=== PATIENT | female | born 1940 | race Caucasian/White ===

== ENCOUNTER → 2017-05-18 09:46 | Outpatient (CLI) | payer MEDICARE, OTHER, SELFPAY ==
[2016-11-25 09:39] VITALS: BMI 35.8
--- NOTE | 2017-05-18 09:55 | CDU_ITS ---
Reason For Study: carotid bruit Rt. Velocities/BP Lt. Velocities/BP Prox CCA 97.3/9.38 cm/sec. Prox CCA 176.0/20.6 cm/sec. Mid CCA 110.0/9.97 cm/sec. Mid CCA 105.0/9.38 cm/sec. Dist CCA 114.0/12.6 cm/sec. Dist CCA 155.0/14.9 cm/sec. Prox ICA 93.8/12.3 cm/sec. Prox ICA 108.0/17.3 cm/sec. Mid ICA 169.0/16.7 cm/sec. Mid ICA 101.0/14.9 cm/sec. Dist ICA 116.0/14.1 cm/sec. Dist ICA 95.9/16.5 cm/sec. Rt. ICA/CCA = 169.0/110.0=1.5. Lt. ICA/CCA = 108/105=1.0. Prox ECA 200.0/0.0 cm/sec. Prox ECA 244.0/11.8 cm/sec. Rt. Vert. 47.5/5.89 cm/sec. Lt. Vert. 75.0/12.3 cm/sec. Right Extracranial There is intimal thickening but no significant atherosclerotic plaque noted in the right common carotid artery. There is heterogeneous, smooth atherosclerotic plaque noted in the right internal carotid artery. There is heterogeneous, smooth atherosclerotic plaque noted in the right external carotid artery. Antegrade flow is noted in the right vertebral artery. Left Extracranial There is homogeneous, smooth atherosclerotic plaque noted in the left common carotid artery. There is no significant atherosclerotic plaque noted in the left internal carotid artery. There is homogeneous, smooth atherosclerotic plaque noted in the left external carotid artery. Antegrade flow is noted in the left vertebral artery. Procedure Carotid Duplex 01995. The exam was diagnostic. Exam performed in department. Interpretation Summary Moderate (50-69%) stenosis right extracranial internal carotid. Mild (<50%) stenosis left extracranial internal carotid. Flow within the vertebral arteries is antegrade bilaterally. Ordering Physician: Jason Begum Referring Physician: Harman Huston Performed By: Rdaha Monterroso, SUNIL, RVT
== END ==
PROVIDERS: Family Provider Family Medicine; PCP Family Medicine; Visit Provider Surgery Vascular Surgery
DX: I70.213 Atherosclerosis of native arteries of extremities with intermittent claudication, bilateral legs (principal); I10 Essential (primary) hypertension; E11.69 Type 2 diabetes mellitus with other specified complication; E78.70 Disorder of bile acid and cholesterol metabolism, unspecified; E07.9 Disorder of thyroid, unspecified; R09.89 Other specified symptoms and signs involving the circulatory and respiratory systems; Z87.19 Personal history of other diseases of the digestive system; Z85.828 Personal history of other malignant neoplasm of skin
CPT/HCPCS: 93880

== ENCOUNTER → 2017-07-07 13:09 | Outpatient (CLI) | payer MEDICARE, OTHER, SELFPAY ==
[2016-11-25 09:39] VITALS: BMI 35.8
--- NOTE | 2017-07-07 14:17 | PFTCOMP ---
COMPLETE PULMONARY FUNCTION TEST INTERPRETATION Brief HPI: Patient is a 76 year old female, currently under the care of myself, who presents to [facility] for complete pulmonary function tests secondary to diagnosis of pulmonary hypertension. Respiratory therapist reports good effort and reproducible results. Interpretation: Forced expiration spirometry shows no large airways obstructive ventilatory defect with an FEV1 of 91% predicted. There is no significant bronchodilator response by ATS criteria. Spirograms are of good quality and plateau slowly, indicating slowly emptying areas of the lungs. The respiratory flow volume loop shows a normal pattern. Lung volumes by body plethysmography show a normal total lung capacity at 5.13 L, 99% predicted. All other lung volumes are within normal limits. Diffusion capacity by carbon monoxide is decreased at 47% predicted. The airway resistance is normal. Compared to previous pulmonary function tests from 06/28/2016, there has been no significant change. Impression: Isolated defect in diffusion capacity consistent with patient's diagnosis of pulmonary hypertension. There is been no significant change compared to previous testing 1 year ago.
--- NOTE | 2017-07-07 14:22 | PFTCOMP_ITS ---
COMPLETE PULMONARY FUNCTION TEST INTERPRETATION Brief HPI: Patient is a 76 year old female, currently under the care of myself, who presents to [facility] for complete pulmonary function tests secondary to diagnosis of pulmonary hypertension. Respiratory therapist reports good effort and reproducible results. Interpretation: Forced expiration spirometry shows no large airways obstructive ventilatory defect with an FEV1 of 91% predicted. There is no significant bronchodilator response by ATS criteria. Spirograms are of good quality and plateau slowly, indicating slowly emptying areas of the lungs. The respiratory flow volume loop shows a normal pattern. Lung volumes by body plethysmography show a normal total lung capacity at 5.13 L , 99% predicted. All other lung volumes are within normal limits. Diffusion capacity by carbon monoxide is decreased at 47% predicted. The airway resistance is normal. Compared to previous pulmonary function tests from 06/28/2016, there has been no significant change. Impression: Isolated defect in diffusion capacity consistent with patient's diagnosis of pulmonary hypertension. There is been no significant change compared to previous testing 1 year ago.
== END ==
PROVIDERS: Family Provider Family Medicine; PCP Family Medicine; Visit Provider Nurse Practitioner Acute Care
DX: J44.9 Chronic obstructive pulmonary disease, unspecified (principal); G47.33 Obstructive sleep apnea (adult) (pediatric); I27.20 Pulmonary hypertension, unspecified
CPT/HCPCS: 94060; 94726; 94729

== ENCOUNTER → 2017-07-26 11:05 | Outpatient (CLI) | payer MEDICARE, OTHER, SELFPAY ==
[2016-11-25 09:39] VITALS: BMI 35.8
[2017-07-26 11:43] VITALS: PULSE 76; PULSE 80; PULSE 84; PULSE 92; PULSE 94; PULSE 95; O2SAT 90; O2SAT 91; O2SAT 92; O2SAT 93; O2SAT 94
--- NOTE | 2017-07-28 08:19 | PCM.PSN.6M ---
PSN 6 Minute Walk Test - 6 Minute Walk Test 6 Minute Walk Test: 6 Minute Walk Test PSN:6-Minute Walk Test Start: 07/26/17 11:43 Freq: Status: Active Protocol: [id number].6MINW Document 07/26/17 11:43 [facility] (Rec: 07/26/17 11:46 [facility] [id number]) 6 Minute Walk Test Date Performed 07/26/17 Time Performed 11:30 Height 5 ft 6 in Weight: 204 lb Weight in Pounds 204.[address]: Jesusita Nino Assistive device used: Walker Pre-test Oxygen Delivery Method Room Air Pulse Ox (%) 93 Pulse Rate (60-100 beats/min) 76 Dyspnea Hermilo Scale (0-10) 0 1st minute Oxygen Delivery Method Room Air Pulse Ox (%) 94 Pulse Rate (60-100 beats/min) 84 Dyspnea Hermilo Scale (0-10) 0 2nd minute Oxygen Delivery Method Room Air Pulse Ox (%) 92 Pulse Rate (60-100 beats/min) 92 Dyspnea Hermilo Scale (0-10) 1 3rd minute Oxygen Delivery Method Room Air Pulse Ox (%) 93 Pulse Rate (60-100 beats/min) 95 Dyspnea Hermilo Scale (0-10) 1 4th minute Oxygen Delivery Method Room Air Pulse Ox (%) 90 Pulse Rate (60-100 beats/min) 94 Dyspnea Hermilo Scale (0-10) 1 5th minute Oxygen Delivery Method Room Air Pulse Ox (%) 91 Pulse Rate (60-100 beats/min) 94 Dyspnea Hermilo Scale (0-10) 1 6th minute Oxygen Delivery Method Room Air Pulse Ox (%) 92 Pulse Rate (60-100 beats/min) 94 Dyspnea Hermilo Scale (0-10) 1 Post-test Oxygen Delivery Method Room Air Pulse Ox (%) 94 Pulse Rate (60-100 beats/min) 80 Dyspnea Hermilo Scale (0-10) 0 Full Laps Walked 12 Partial Lap, Number of Tiles Walked 24 Total Distance Walked (ft) 732 - Interpretation Interpretation: The patient ambulated 732 feet over the course of 6 minutes beginning on room air with use of a walker. Pretesting oxygen saturation on room air was noted to be 93%. With ambulation, the kerry oxygen saturation was 90%. Although there was evidence of impaired walk distance, there was no significant exertional oxygen desaturation. - Recommendations Recommendations: There is no indication for the use of supplemental oxygen at this time.
== END ==
PROVIDERS: Family Provider Family Medicine; PCP Family Medicine; Visit Provider Nurse Practitioner Acute Care
DX: J44.9 Chronic obstructive pulmonary disease, unspecified (principal); G47.33 Obstructive sleep apnea (adult) (pediatric); I27.20 Pulmonary hypertension, unspecified
CPT/HCPCS: 94618

== ENCOUNTER → 2017-08-12 10:57 | Outpatient (CLI) | payer MEDICARE, OTHER, SELFPAY ==
[2016-11-25 09:39] VITALS: BMI 35.8
--- NOTE | 2017-08-12 11:00 | AAVD_ITS ---
Reason For Study: Aortic atherosclerosis Aorta Measurements Aorta Doppler Measurements Proximal aorta measures.9 x 1.0cm. in cross- Peak systolic flow velocities within the proximal sectional axis. aorta measure 147.0 cm/sec. Proximal aorta measures1.1cm. in longitudinal Peak systolic flow velocities within the mid axis. aorta measure 220.0 cm/sec. Mid aorta measures1.4 x 1.3cm. in cross-sectionalPeak systolic flow velocities within the distal axis. aorta measure 114.0 cm/sec. Mid aorta measures1.2cm. in longitudinal axis. Distal aorta measures1.2 x 1.2cm. in cross- sectional axis. Distal aorta measures1.1cm. in longitudinal axis. Left Iliac Artery Left iliac artery measures .71 cm. in the longitudinal axis. Left iliac artery measures .70 x .72 cm. in the cross-sectional axis. Peak systolic velocity in the left iliac artery measures 332.0 cm/sec. Right Iliac Artery Right iliac artery measures .94 cm. in the longitudinal axis. Right iliac artery measures .96 x .88 cm. in the cross-sectional axis. Peak systolic velocity in the right iliac artery measures 241.0 cm/sec. Procedure Aorta IVC Iliac vasculature or bypass grafts 60433. Technically difficult due to body habitus and bowel gas. Exam performed in department. Interpretation Summary 1. No aortoiliac aneurysm 2. over 50 % stenosis bialteral DARREN arteries. Ordering Physician: Jason Begum Referring Physician: Harman Huston Performed By: Paulina Hyatt RVT
--- NOTE | 2017-08-17 11:24 | LEAS ---
Arterial Study - Arterial Study Arterial Study: Date of scan 08/12/[address] Begum History: Patient with unknown claudication Interpretation: Right lower extremity with duplex showing biphasic flow noted at the ankle both vessels with an LING 0.6 through the posterior tibial 0.6 for the dorsalis pedis. Digital brachial index 0.48 Left lower extremity again showing duplex with biphasic flow both vessels at the ankle with an LING 0.69 of both the posterior tibial and dorsalis pedis with the digit brachial index 0.51 Impression: 1. Right lower extremity moderate arterial occlusive disease with an LING 0.64. 2. Left lower extremity with moderate arterial occlusive disease with an LING 0.69. 3. bilateral evidence of mild small vessel disease with the digit brachial index 0.480.51
== END ==
PROVIDERS: Family Provider Family Medicine; PCP Family Medicine; Visit Provider Surgery Vascular Surgery
DX: I70.0 Atherosclerosis of aorta (principal); I77.1 Stricture of artery; I70.213 Atherosclerosis of native arteries of extremities with intermittent claudication, bilateral legs
CPT/HCPCS: 93922; 93978

== ENCOUNTER → 2017-09-08 12:02 | Outpatient (CLI) | payer MEDICARE, OTHER, SELFPAY ==
[2016-11-25 09:39] VITALS: BMI 35.8
[2017-09-08 16:31] LABS: Free T3 3.1 pg/mL (2.18-3.98); Thyroid Stim Hormone (TSH) 0.09 uIU/mL (0.358-3.74)
[2017-09-09 10:02] LABS: T3 Total - Triiodothyronine 1.09 ng/mL (0.6-1.81)
== END ==
PROVIDERS: Family Provider Family Medicine; PCP Family Medicine; Visit Provider Family Medicine
DX: E03.9 Hypothyroidism, unspecified (principal)
CPT/HCPCS: 36415; 84439; 84443; 84480; 84481

== ENCOUNTER → 2017-10-05 17:43 | Outpatient (CLI) | payer MEDICARE, OTHER, SELFPAY ==
[2016-11-25 09:39] VITALS: BMI 35.8
--- NOTE | 2017-10-05 17:48 | MRI_ITS ---
STUDY: MRI BRAIN WITH AND WITHOUT CONTRAST REASON FOR EXAM: Female, 76 years old. Left eye pain, ptosis and diplopia. TECHNIQUE: Standardized multiplanar fat and water weighted pulse sequences were obtained. 10 ml of Gadavist contrast material was administered intravenously for the contrast portion of the examination. COMPARISON: None. FINDINGS: There is mild cerebral atrophy with widening of the extra-axial spaces and ventricular dilatation. There are a limited number of small white matter hyperintensities, distributed throughout the deep white matter tracts of the cerebral hemispheres, consistent with mild chronic white matter ischemic changes. There is no evidence for recent intracranial ischemia or other cause of cytotoxic edema on diffusion weighted imaging (DWI). Normal bilateral basal ganglia. Normal thalami. There is no extra-axial fluid accumulation. Normal flow voids within the major intracranial circulation suggesting patency by spin echo criteria. Normal venous enhancement. There is no enhancing intra-axial or extra-axial abnormality. Normal sella turcica, pituitary gland, infundibular stalk, optic chiasm and hypothalamus. Normal tectal plate and pineal gland. Normal midbrain, humza and medulla. Normal cerebellum. Normal basal cisterns. Normal bilateral temporal bones. Normal bilateral internal auditory canals. No demonstrated orbital abnormality, within the constraints of a routine brain study. Right maxillary sinus mucosal thickening is present. Normal calvarium and skull base. Normal visualized soft tissue structures. Normal visualized upper cervical spine. MRI/Brain W/WO Contrast IMPRESSION: 1. No evidence of acute intracranial bleed, mass or ischemia. 2. No evidence of left intraconal mass or abnormal enhancement. 3. Right maxillary sinus mucosal thickening and mild paranasal sinus disease. Electronically Signed: Lalo Taylor DO at 23:32 EDT , Service support ,
[2017-10-05 18:56] LABS: CREATININE FINGERSTICK 0.8 mg/dL (0.55-1.02); EGFR FINGERSTICK > 60.0000 mL/min (>60)
== END ==
PROVIDERS: Family Provider Family Medicine; PCP Family Medicine; Visit Provider Ophthalmology
DX: H57.12 Ocular pain, left eye (principal); H53.2 Diplopia
CPT/HCPCS: 70553; A9585

== ENCOUNTER → 2017-10-19 08:30 | Day surgery (SDC) | payer MEDICARE, OTHER, SELFPAY ==
[2016-11-25 09:39] VITALS: BMI 35.8
[2017-10-18 09:22] VITALS: BMI 32.9
[2017-10-19 08:57] LABS: Hematocrit 36.1 % (37-47); Hemoglobin 11.8 g/dl (12.0-15.0); Mean Corp Hgb Conc 32.7 g/gl (32-36); Mean Corpuscular Hgb 32.1 pg (27.0-32.0); Mean Corpuscular Volume 98.1 fL (81-99); Mean Platelet Vol. 9.2 fl (6.2-12.0); Platelet Count 278 K/mm3 (150-450); RBC Distribution Width CV 13.9 % (11.6-14.6); RBC Distribution Width SD 49.5 fl (35.1-43.9); Red Blood Count 3.68 M/mm3 (4.2-5.4); White Blood Count 4.7 K/mm3 (4.4-11.0)
[2017-10-19 08:58] LABS: Scan Indicated on CBC? Y/N NO
[2017-10-19 09:06] LABS: Albumin, Serum 3.6 g/dL (3.2-5.0); BUN 30 mg/dL (7-18); Calcium,Total 9.4 mg/dL (8.5-10.1); Chloride 100 mmol/L (98-107); EST Glomerular Filtration Rate 46 mL/min (>60); Est Glom Filt Rate - Afr Amer 56 mL/min (>60); Estimated Creatinine Clearance 36.75 ml/min; Glucose 290 mg/dL (74-106); Phosphorus 3.6 mg/dL (2.5-4.9); Potassium 4.4 mmol/L (3.5-5.1); Sodium Level 135 mmol/L (136-145)
--- NOTE | 2017-10-19 11:59 | OP.PCM_ITS ---
Problem List (1) Peripheral vascular disease Status: Acute Report of Operation Date of Procedure: 10/19/17 Pre-Operative Diagnosis: Peripheral arterial disease peripheral arterial disease Post-Operative Diagnosis: The same Surgery/Procedure Performed:: 1. Ultrasound-guided access retrograde left brachial artery. 2. Aortogram with bilateral iliofemoral angiogram. 3. Balloon angioplasty of the aorta with a 10 mm balloon through the old stent. 4. Balloon angioplasty the right common iliac with a 7 mm drug-coated balloon and an 8 mm balloon. 5. Balloon angioplasty of the left common femoral to the SFA with a 5 mm balloon Type of Anesthesia:: Sedation,Conscious Description of Procedure: Patient brought to the operating room. Underwent the appropriate timeout consent. Underwent sedation. Prepped and draped in a sterile fashion. We did ultrasound-guided access retrograde left brachial artery. I will get a Glidewire down put in a 6 Occitan sheath and gave 5000 units of heparin. We got the Glidewire down to the aorta switched out to a long stiff wire brought in a long 6 Occitan sheath. We did an aortogram with bilateral iliofemoral imaging. Look like may be some mild/moderate stenosis in the mid stent and also moderate severe stenosis right proximal common iliac artery. We then looked further down with the sheath into the left showing moderate severe stenosis at the distal common femoral artery into the SFA. We got the Glidewire through here balloon through the common femoral to the SFA with a 5 x 80 balloon for over 3 minutes. Completion appear to be improved with better flow. We did oblique imaging of the left iliac and it appeared fairly stable with no significant stenosis. We then got the Glidewire down into the right side and balloon in the proximal right common iliac with a 7 mm drug-coated balloon. We then post balloon this with an 8 mm balloon for over 2 minutes. Completion was improved and appear to be better flow through this area. We then image down the right leg showing common femoral profunda widely patent with a large fundal. SFA was patent but appeared distally some disease and slow flow going which may have a distal SFA to popliteal occlusive disease. We did not image through here. We then pulled the sheath back and then ballooned in that aortic stent with a 10 mm balloon index look like it expanded some better and ruptured the balloon so we pulled that out did not reimage again I did not re-balloon it appeared adequate flow. Removed out the sheath put a shorter sheath. We gave 30 of protamine. We then after the appropriate time removed the sheath held pressure with good hemostasis she was brought to recovery stable condition. Sedation: This 77-year-old female underwent conscious sedation given by Dr. Jason Begum. She tolerated this well. She was monitored with EKG pulse ox and blood pressure throughout the case. See the EMR for the more permanent record she was given fentanyl and Versed. She was monitored for the 30 minutes of the case.
== END ==
PROVIDERS: Family Provider Family Medicine; PCP Family Medicine; Visit Provider Surgery Vascular Surgery
DX: I70.213 Atherosclerosis of native arteries of extremities with intermittent claudication, bilateral legs (principal); R09.89 Other specified symptoms and signs involving the circulatory and respiratory systems; E11.59 Type 2 diabetes mellitus with other circulatory complications; E78.70 Disorder of bile acid and cholesterol metabolism, unspecified; I10 Essential (primary) hypertension; K21.9 Gastro-esophageal reflux disease without esophagitis; E07.9 Disorder of thyroid, unspecified; Z85.828 Personal history of other malignant neoplasm of skin; Z79.82 Long term (current) use of aspirin; Z79.4 Long term (current) use of insulin; Z79.84 Long term (current) use of oral hypoglycemic drugs; Z79.899 Other long term (current) drug therapy; Z87.891 Personal history of nicotine dependence
CPT/HCPCS: 36200; 36245; 36246; 36415; 37220; 37224; 37246; 75625; 75716; 76937; 80069; 85027; 99152; 99153; C2623; J7040; Q9967; C1725; C1769; C1894

== ENCOUNTER → 2017-11-25 11:15 | Outpatient (CLI) | payer MEDICARE, OTHER, SELFPAY ==
[2016-11-25 09:39] VITALS: BMI 35.8
[2017-11-25 12:19] LABS: Absolute Lymphocyte Count 2.12 X10^3/ul (0.83-4.51); Absolute Neutrophil Count 3.3 X10^3/uL (2.0-7.7); Basophil# 0.02 X10^3/uL; Basophil% 0.3 % (0-1); Eosinophil# 0.38 X10^3/uL; Eosinophils% 5.9 % (0-5); Hematocrit 33.8 % (37-47); Lymphocyte # 2.12 X10^3/ul (4.0); Lymphocyte % 32.8 % (19-41); Mean Corp Hgb Conc 32.5 g/gl (32-36); Mean Corpuscular Hgb 32.1 pg (27.0-32.0); Mean Corpuscular Volume 98.5 fL (81-99); Mean Platelet Vol. 9.9 fl (6.2-12.0); Monocyte# 0.61 X10^3/uL; Monocyte% 9.4 % (0-10); Neutrophil # 3.32 X10^3/uL (2.7-7.7); Neutrophil % 51.3 % (47-70); POSITIVE COUNT NO; POSITIVE DIFFERENTIAL NO; POSITIVE MORPHOLOGY NO; Platelet Count 301 K/mm3 (150-450); RBC Distribution Width CV 13.4 % (11.6-14.6); Red Blood Count 3.43 M/mm3 (4.2-5.4); White Blood Count 6.5 K/mm3 (4.4-11.0)
[2017-11-25 12:29] LABS: Hemoglobin A1c 10.3 % (4.2-6.3)
[2017-11-25 12:56] LABS: T4 Free Direct 1.27 ng/dL (0.76-1.46); Thyroid Stim Hormone (TSH) 0.83 uIU/mL (0.358-3.74)
== END ==
PROVIDERS: Family Provider Family Medicine; PCP Family Medicine; Visit Provider Family Medicine
DX: E03.9 Hypothyroidism, unspecified (principal); E11.40 Type 2 diabetes mellitus with diabetic neuropathy, unspecified; E11.65 Type 2 diabetes mellitus with hyperglycemia; D63.8 Anemia in other chronic diseases classified elsewhere; E78.5 Hyperlipidemia, unspecified
CPT/HCPCS: 36415; 83036; 84439; 84443; 85025

== ENCOUNTER → 2018-01-19 10:41 | Outpatient (CLI) | payer MEDICARE, OTHER, SELFPAY ==
[2016-11-25 09:39] VITALS: BMI 35.8
--- NOTE | 2018-01-19 10:48 | BD_ITS ---
STUDY: DUAL ENERGY X-RAY ABSORPTIOMETRY / DXA REASON FOR EXAM: Female, 77 years old. The patient is postmenopausal. Loss of height. TECHNIQUE: Bone Mineral Density (BMD) measurements of lumbar spine and bilateral hips were obtained. COMPARISON: None. FINDINGS: Lumbar Spine (L1-L4): g/cm2 (1.103) / T-score (-0.5) / Z-score (1.3) Findings are suggestive of normal bone density with a low fracture risk. Left Femur Total: g/cm2 (1.169) / T-score (1.3) / Z-score (3.1) Left Femoral Neck: g/cm2 (1.115) / T-score (0.6) / Z-score (2.6) Right Femur Total: g/cm2 (1.082) / T-score (0.6) / Z-score (2.4) Right Femoral Neck: g/cm2 (1.043) / T-score (0.0) / Z-score (2.1) BD/Dexa Bone Density Study IMPRESSION: The patient is considered normal as outlined below according to World João Organization (WHO) criteria with a low fracture risk. Reference Information: The T-score is the number of standard deviations above or below the standard which is normal for young adults at their peak bone mineral density. The World Health Organization (WHO) interprets the T-scores as follows: Above -1 Normal bone density Between -1 and -2.5 Osteopenia Equal to / or below -2.5 Osteoporosis As a practical clinical guideline, osteopenia may be graded as follows: Mild -1 through -1.5 Moderate -1.6 through -2.0 Severe -2.1 through -2.4 The Z-score is the number of standard deviations above or below age-matched controls. A Z-score of less than -1.5 would be considered abnormal. References: 1. NIH Osteoporosis and Related Bone Diseases http://www.osteo.org 2. International Society for Clinical Densitometry http://www.iscd.org 3. National Osteoporosis Foundation http://www.nof.org Electronically Signed: Bautista Pratt MD at 15:47 EDT Tel [phone], Service support ,
== END ==
PROVIDERS: Family Provider Family Medicine; PCP Family Medicine; Visit Provider Family Medicine
DX: Z13.820 Encounter for screening for osteoporosis (principal); Z78.0 Asymptomatic menopausal state
CPT/HCPCS: 77080

== ENCOUNTER → 2018-02-21 13:57 | Outpatient (CLI) | payer MEDICARE, OTHER, SELFPAY ==
[2016-11-25 09:39] VITALS: BMI 35.8
[2018-02-08 12:53] VITALS: BMI 34.8
--- NOTE | 2018-02-21 13:58 | ECHOCS_ITS ---
Reason For Study: DYSPNEA Procedure This was a 2D Doppler, Color Flow transthoracic echocardiogram. The study was technically difficult. Contrast injection was performed. Exam performed in department. Left Ventricle Normal LV size. Left ventricular systolic function is normal. The estimated ejection fraction is 65 %. There is evidence of diastolic dysfunction. No regional wall motion abnormalities noted. Right Ventricle Normal RV size. Normal systolic function. Atria The left atrium is mildly enlarged. Normal right atrium. No doppler evidence for ASD. Mitral Valve There is moderate to severe mitral annular calcification. Extension of the mitral annular calcification onto the posterior mitrral valve leaflet. Mild (1+) mitral valve insufficiency. Tricuspid Valve Normal tricuspid valve. Trivial tricuspid valve insufficiency. Right ventricular systolic pressure estimated to be 41 mmHg. Aortic Valve Trisinus/trileaflet aortic valve. Normal aortic valve. Pulmonic Valve The pulmonic valve is not well visualized. Great Vessels Normal sized aortic root. Pericardium/Pleural No pericardial effusion. Medication 22 gauge I.V. with prn adaptor inserted into right arm. Diluted definity 3ml given slow IV push to enhance endocardial definition. MMode/2D Measurements & Calculations LVIDd: 4.8 cm IVSd: 1.3 cm Ao root diam: 3.3 cm LVIDs: 3.0 cm LVPWd: 1.5 cm RVDd: 4.0 cm FS: 37.8 % LAV(MOD-bp): 72.4 ml LVAd ap4: 32.4 cm2 SV(MOD-sp4): 72.7 ml LAV(MOD-bp) Indexed: 36.0 ml/m2 EDV(MOD-sp4): 110.0 ml LAV(MOD-sp2): 74.5 ml EDV(sp4-el): 112.9 ml LAV(MOD-sp4): 62.1 ml LVAs ap4: 16.7 cm2 ESV(MOD-sp4): 37.3 ml ESV(sp4-el): 38.8 ml EF(MOD-sp4): 66.1 % EF(sp4-el): 65.6 % SV(sp4-el): 74.1 ml LA A4 area: 19.4 cm2 LA dimension(2D): 4.8 cm RA A4 area: 13.5 cm2 Time Measurements MV dec time: 0.32 sec Doppler Measurements & Calculations MV E max cali: 134.2 cm/sec Lat Peak E' Cali: 4.7 cm/sec Med Peak E' Cali: 4.3 cm/sec MV A max cali: 144.8 cm/sec E/E' lat: 28.5 E/E' med: 31.0 MV E/A: 0.93 Ao V2 max: 178.9 cm/sec LV V1 max: 116.3 cm/sec PA V2 max: 122.9 cm/sec Ao max P.8 mmHg LV V1 max P.4 mmHg Ao V2 mean: 125.6 cm/sec LV V1 mean P.1 mmHg Ao mean P.9 mmHg LV V1 mean: 84.3 cm/sec Ao V2 VTI: 39.6 cm LV V1 VTI: 27.2 cm TR max cali: 306.6 cm/sec TR max P.7 mmHg Interpretation Summary The study was technically difficult. Contrast injection was performed. Left ventricular systolic function is normal. The estimated ejection fraction is 65 %. The left atrium is mildly enlarged. There is moderate to severe mitral annular calcification. Extension of the mitral annular calcification onto the posterior mitrral valve leaflet. Mild (1+) mitral valve insufficiency. Trivial tricuspid valve insufficiency. Right ventricular systolic pressure estimated to be 41 mmHg. There is evidence of diastolic dysfunction. Ordering Physician: Ivan Dial Referring Physician: SHIV ANTON Performed By: Elvia Olivares, SUNIL, RVT
== END ==
PROVIDERS: Family Provider Family Medicine; PCP Family Medicine; Referring Provider Internal Medicine Critical Care Medicine; Visit Provider Internal Medicine Critical Care Medicine
DX: I35.0 Nonrheumatic aortic (valve) stenosis (principal); I21.4 Non-ST elevation (NSTEMI) myocardial infarction; I51.9 Heart disease, unspecified
CPT/HCPCS: 93306; Q9957; A4216; C8929

== ENCOUNTER → 2018-03-02 14:02 | Outpatient (CLI) | payer MEDICARE, OTHER, SELFPAY ==
[2016-11-25 09:39] VITALS: BMI 35.8
[2018-03-02 12:54] VITALS: BMI 32.8
[2018-03-02 14:44] LABS: Rheumatoid Factor < 10.0 IU/mL (<15)
[2018-03-07 03:25] LABS: Cytoplasmic Ab (C-ANCA) <1:20 titer (Neg:<1:20)
[2018-03-07 10:45] LABS: CCP IgG Antibodies 20 units (0-19); Perinuclear Ab (P-ANCA) <1:20 titer (Neg:<1:20)
[2018-03-07 10:56] LABS: ANTINUCLEAR ANTIBODIES DIRECT Negative (Negative)
--- OUTSIDE RECORDS SUMMARY | 2018-04-18 11:03 | XMS RPT_ITS ---
:1940 Author Organization [place] Support Name Relationship Address Phone CHRISTOPHER GUZMAN Unavailable [address] + [place] [address] R Unavailable Unavailable Unavailable THOMAS, CHRISTOPHER Unavailable [address] + [place] [address] R Unavailable Unavailable Unavailable THOMAS, CHRISTOPHER Unavailable [address] + [place] [address] R Unavailable Unavailable Unavailable THOMAS, CHRISTOPHER Unavailable [address] + [place] [address] R Unavailable Unavailable Unavailable THOMAS, CHRISSIE Unavailable [address] + [place] [address] NOT GIVEN Unavailable Unavailable Unavailable THOMAS, CHRISTOPHER Unavailable [address] + [place] [address] R Unavailable Unavailable Unavailable THOMAS, CHRISTOPHER Unavailable [address] + [place] [address] R Unavailable Unavailable Unavailable THOMAS, CHRISSIE Unavailable [address] + [place] [address] NOT GIVEN Unavailable Unavailable Unavailable THOMAS, CHRISTOPHER Unavailable [address] + [place] [address] R Unavailable Unavailable Unavailable THOMAS, CHRISTOPHER Unavailable [address] + [place] [address] R Unavailable Unavailable Unavailable THOMAS, CHRISTOPHER Unavailable [address] + [place] [address] R Unavailable Unavailable Unavailable THOMAS, CHRISTOPHER Unavailable [address] + [place] [address] R Unavailable Unavailable Unavailable THOMAS, CHRISTOPHER Unavailable [address] + [facility] [place] [address] R Unavailable Unavailable Unavailable THOMAS, CHRISTOPHER Unavailable [address] + [place] [address] R Unavailable Unavailable Unavailable THOMAS, CHRISSIE Unavailable [address] + [place] [address] R Unavailable Unavailable Unavailable THOMAS, CHRISSIE Unavailable [address] + [place] [address] R Unavailable Unavailable Unavailable THOMAS, CHRISSIE Unavailable Unavailable + NOT GIVEN Unavailable Unavailable Unavailable THOMAS, CHRISSIE Unavailable [address] + [place] [address] R Unavailable Unavailable Unavailable THOMAS, CHRISSIE Unavailable [address] + [place] [address] R Unavailable Unavailable Unavailable THOMAS, CHRISSIE Unavailable Unavailable + NOT GIVEN Unavailable Unavailable Unavailable THOMAS, CHRISSIE Unavailable [address] + [place] [address] R Unavailable Unavailable Unavailable THOMAS, CHRISSIE Unavailable [address] + [place] [address] R Unavailable Unavailable Unavailable THOMAS, CHRISSIE Unavailable Unavailable + NOT GIVEN Unavailable Unavailable Unavailable THOMAS, CHRISSIE Unavailable [address] + [place] [address] R Unavailable Unavailable Unavailable THOMAS, CHRISSIE Unavailable [address] + [place] [address] R Unavailable Unavailable Unavailable THOMAS, CHRISSIE Unavailable [address] + [place] [address] R Unavailable Unavailable Unavailable THOMAS, CHRISSIE Unavailable [address] + [place] [address] R Unavailable Unavailable Unavailable THOMAS, CHRISSIE Unavailable [address] + [place] [address] R Unavailable Unavailable Unavailable THOMAS, CHRISSIE Unavailable [address] + [place] [address] R Unavailable Unavailable Unavailable THOMAS, CHRISSIE Unavailable [address] + [place] [address] R Unavailable Unavailable Unavailable THOMAS, CHRISSIE Unavailable [address] + [place] [address] R Unavailable Unavailable Unavailable THOMAS, CHRISSIE Unavailable [address] + [place] [address] R Unavailable Unavailable Unavailable THOMAS, CHRISSIE Unavailable [address] + [place] [address] R Unavailable Unavailable Unavailable THOMAS, CHRISSIE Unavailable [address] + [place] [address] R Unavailable Unavailable Unavailable THOMAS, CHRISSIE Unavailable Unavailable + NOT GIVEN Unavailable Unavailable Unavailable THOMAS, CHRISSIE Unavailable [address] + [place] [address] R Unavailable Unavailable Unavailable THOMAS, CHRISSIE Unavailable [address] + [place] [address] R Unavailable Unavailable Unavailable THOMAS, CHRISSIE Unavailable [address] + [place] [address] R Unavailable Unavailable Unavailable Care Team Providers Name Role Phone Jesusita Nino Attending Unavailable Sloane, Shiv Referring Unavailable Jesusita Nino Attending Unavailable Jesusita Nino Referring Unavailable Sloane, Shiv Primary Care Unavailable Jason Begum Attending Unavailable Jason Begum Referring Unavailable Sloane, Shiv Primary Care Unavailable Yogi Vasquez Attending Unavailable Cora Caban Referring Unavailable Tammy Campbell Attending Unavailable Cruz Mead NP-C Attending Unavailable Sloane, Shiv Referring Unavailable BegumJason Attending Unavailable Sloane, Shiv Primary Care Unavailable Jesusita Nino Attending Unavailable Jesusita Nino Referring Unavailable Sloane, Shiv Primary Care Unavailable Jesusita Nino Attending Unavailable Jesusita Nino Referring Unavailable Sloane, Shiv Primary Care Unavailable Cruz Mead LITIGATION ATTORNEY-C Attending Unavailable Sloane, Shiv Referring Unavailable Marylu Gomez Attending Unavailable Brenda Griffin Attending Unavailable Cora Caban Attending Unavailable Sloane, Shiv Referring Unavailable Ivan Dial Attending Unavailable Roof, Bernardino H Attending Unavailable Sloane, Shiv Referring Unavailable Roof, Bernardino H Attending Unavailable Roof, Bernardino H Referring Unavailable Sloane, Shiv Primary Care Unavailable Sloane, Shiv Primary Care Unavailable Sementi, Berkley Admitting Unavailable Kittoe, Roman Attending Unavailable Sementi, Berkley Admitting Unavailable Sementi, Berkley Attending Unavailable Sloane, Shiv Primary Care Unavailable Sementi, Berkley Consulting Unavailable Sementi, Berkley Admitting Unavailable Kittoe, Roman Attending Unavailable Sloane, Shiv Primary Care Unavailable Kittoe, Roman Consulting Unavailable Sementi, Berkley Admitting Unavailable Kittoe, Roman Attending Unavailable Sloane, Shiv Primary Care Unavailable Kittoe, Roman Consulting Unavailable Agapito Magaña D.O. Attending Unavailable Jesusita Nino Referring Unavailable Trung, Jesusita Attending Unavailable Sloane, Shiv Referring Unavailable Jason Begum Attending Unavailable Jason Begum Referring Unavailable Sloane, Shiv Primary Care Unavailable Cruz Mead LITIGATION ATTORNEY-C Attending Unavailable SloaneShiv Referring Unavailable SloaneShiv Attending Unavailable Sloane, Shiv Primary Care Unavailable Hema Antunez Attending Unavailable Cherelle Antunezon Referring Unavailable Sloane, Shiv Primary Care Unavailable Jason Begum Attending Unavailable Jason Begum Referring Unavailable Sloane, Shiv Primary Care Unavailable SloaneShiv Attending Unavailable Sloane, Shiv Primary Care Unavailable SloaneShiv Attending Unavailable Sloane, Shiv Primary Care Unavailable Ivan Dial Attending Unavailable Shiv Anton Referring Unavailable JayroIvan ruiz Attending Unavailable Ivan Dial Referring Unavailable Sloane, Shiv Primary Care Unavailable Manuel Ferraro Attending Unavailable JayroIvan ruiz Referring Unavailable Sloane, Shiv Primary Care Unavailable Ivan Dial Consulting Unavailable CHHAYA ACOSTA Referring Unavailable BUCJOSR RUIZ E (MILITARY PERSONNEL SPECIALIST) Referring Unavailable MANFREDCHHAYA Admitting Unavailable MANFREDCHHAYA Attending Unavailable MANFRED, CHHAYA Referring Unavailable SLOANE, SHIV A Referring Unavailable SLOANE, SHIV A Admitting Unavailable SLOANESHIV YU A Attending Unavailable SHIV ANTON A Primary Care Unavailable SHIV ANTON Consulting Unavailable CRUZ MEAD Referring Unavailable PROVIDER, UNKNOWN Consulting Unavailable CRUZ MEAD Admitting Unavailable CRUZ MEAD Attending Unavailable CRUZ MEAD Primary Care Unavailable SLOANE, SHIV A Consulting Unavailable PROVIDER, UNKNOWN Consulting Unavailable KONG, JENNIFER PAC Admitting Unavailable KONG, JENNIFER PAC Attending Unavailable KONG, JENNIFER PAC Primary Care Unavailable SLOANE, SHIV A Consulting Unavailable PROVIDER, UNKNOWN Consulting Unavailable HORN, CHEYENNE DPM Admitting Unavailable HORN, CHEYENNE DPM Attending Unavailable HORN, CHEYENNE DPM Primary Care Unavailable SLOANE, SHIV A Consulting Unavailable PROVIDER, UNKNOWN Consulting Unavailable CHULA MOORE Admitting Unavailable OSCAR, CHULA Attending Unavailable OSCAR, CHULA Primary Care Unavailable SLOANE, SHIV A Consulting Unavailable PROVIDER, UNKNOWN Consulting Unavailable SLOANE, SHIV A Admitting Unavailable SLOANE, SHIV A Attending Unavailable SLOANE, SHIV A Primary Care Unavailable SLOANE, SHIV A Consulting Unavailable PROVIDER, UNKNOWN Consulting Unavailable MANFRED, CHHAYA Admitting Unavailable MANFRED, CHHAYA Attending Unavailable MANFRED, CHHAYA Referring Unavailable IMCA Primary Care Unavailable MANFRED, CHHAYA Attending Unavailable IMCA Referring Unavailable MANFRED, CHHAYA Attending Unavailable IMCA Referring Unavailable MANFRED, CHHAYA Referring Unavailable IMCA Primary Care Unavailable DARCIE PATEL Referring Unavailable IMCA Primary Care Unavailable PROBLEMS PROBLEMS DATE TYPE CONDITION / CODE ATTENDING STATUS SOURCE 04/04/2018 Unknown R06.09 - Other forms Bernardino Perez Active [facility] of dyspnea / Community R06.09(ICD-10) Hospital Repository 04/04/2018 Unknown I25.10 - ChrisBernardino Active [facility] Atherosclerotic Community heart disease of [facility] [place] coronary Repository artery without angina pectoris / I25.10(ICD-10) 04/04/2018 Unknown Z95.5 - Presence of ChrisBernardino Active [facility] coronary angioplasty Community implant and graft / Hospital Z95.5(ICD-10) Repository 04/04/2018 Unknown I10 - Essential Bernardino Perez Active [facility] (primary) Community hypertension / Hospital I10(ICD-10) Repository 03/08/2018 Unknown R06.00 - Dyspnea, Nino, Active [facility] unspecified / Jesus[facility] Community R06.00(ICD-10) Hospital Repository 02/21/2018 Unknown I21.4 - Non-ST [place], Active [facility] elevation (NSTEMI) [facility] infarction / Repository I21.4(ICD-10) 02/21/2018 Unknown I35.0 - Nonrheumatic [place], Active [facility] aortic (valve) [facility] stenosis / Hospital I35.0(ICD-10) Repository 02/21/2018 Unknown I51.9 - Heart [place], Active [facility] disease, unspecified [facility] / I51.9(ICD-10) Hospital Repository 01/19/2018 Unknown Z12.31 - Encounter Shiv Anton Active [facility] for screening [facility] mammogram for Hospital malignant neoplasm Repository of breast / Z12.31(ICD-10) 08/12/2017 Unknown I70.0 - Jason Begum Active [facility] Atherosclerosis of A [facility] aorta / Hospital I70.0(ICD-10) Repository 08/12/2017 Unknown I77.1 - Stricture of Jason Begum Active [facility] artery / A [facility] I77.1(ICD-10) Hospital Repository 08/12/2017 Unknown I70.213 - Jason Begum Active [facility] Atherosclerosis of A [facility] [place] arteries of Hospital extremities with Repository intermittent claudication, bilateral legs / I70.213(ICD-10) 08/08/2017 Unknown G47.33 - Obstructive Agapito Magaña Active [facility] sleep apnea (adult) D.O. Community (pediatric) / Hospital G47.33(ICD-10) Repository 08/08/2017 Unknown J44.9 - Chronic Agapito Magaña, Active [facility] obstructive D.O. Community pulmonary disease, Hospital unspecified / Repository J44.9(ICD-10) 08/08/2017 Unknown I27.20 - Pulmonary Agapito Magaña, Active [facility] hypertension, D.O. Community unspecified / Hospital I27.20(ICD-10) Repository 05/18/2017 Unknown R09.89 - Other Shy Jason Active [facility] specified symptoms A Community and signs involving Hospital the circulatory and Repository respiratory systems / R09.89(ICD-10) 03/24/2017 Active Peripheral vascular CHHAYA ACOSTA Active [facility] disease, unspecified Clinic Other / I73.9(ICD-10) [place] Repository 03/24/2017 Admitting Unknown / CHHAYA ACOSTA Active [facility] UNK(Unknown) [facility] Repository 04/21/2017 Active Encounter for other NA Active [facility] preprocedural Clinic Other examination / [place] Z01.818(ICD-10) Repository 04/21/2017 Active Unknown / NA Active [place] UNK(Unknown) Clinic Other [place] Repository PROCEDURES PROCEDURES No Procedure Records FoundRESULTS RESULTS MICROALBUMIN RANDOM Collected: 06/07/2018 Status: F Source: [facility] URINE W/CREATININE 4:00 PM [facility] REPOSITORY TYPE CODE TESTS RESULT OUT OF REFERENCE UNITS RANGE LAB MICROALBUMIN 0.1 - 11.6 mg/dL UR(LOINC) MICROALBUMIN UR 6.1 LAB CREATININE mg/dl UR(LOINC) CREATININE UR 101.1 Result Comment: Microalbumin/Creat Ratio LAB UACR(LOINC) mg/g UACR >50 Performed By: #### [id number] #### [facility],[address] [place] [address] 12 LEAD ELECTROCARDIOGRAM Observed: 04/10/2018 Status: F Source: [place] 9:[address] [facility] REPOSITORY [facility] Cardiovascular Services [address] [place] [address] 12 Lead EKG 04/05/18 1711 MR#: [id number] Acct: [id number] Name: CRISTAL GUZMAN Rep #: [id number] : 1940 77 From: Eugene Barajas MD Attending Dr: Roman Jerry MD Status: DIS IN Ordering Dr: Hamlet Blood MD Date: 04/05/18 Location[place] [facility] [place] Sex: F C Admitted: 04/05/18 Test Reason : SOB Blood Pressure : / mmHG Vent. Rate : 079 BPM Atrial Rate : 079 BPM P-R Int : 196 ms QRS Dur : 088 ms QT Int : 394 ms P-R-T Axes : 064 -07 091 degrees QTc Int : 451 ms Normal sinus rhythm Abnormal ECG Confirmed by EUGENE BARAJAS MD ([id number]), editor dictionary DAMARIS MOELLER ([id number]) on 04/10/2018 9:09:49 AM Referred By: Bernardino Perez Confirmed By:EUGENE BARAJAS MD 04/10/18 0909 Date Eugene Barajas MD CC: HAMLET BLOOD MD; Roman Jerry MD; Shiv Anton DO Signed DISCHARGE SUMMARY Observed: 04/07/2018 Status: F Source: [place] 9:[address] [facility] REPOSITORY [facility] Medical Records Department [address] [place] [address] Discharge Summary 04/07/18920 MR#: [id number] Acct: [id number] Name: CRISTAL GUZMAN Rep #: [id number] : 1940 77 From: Roman Jerry MD PCP: Shiv Anton DO Status: ADM IN Y Location: MI3 [id number] Discharge Date and Diagnosis - Problem List Patient Problems: Active and Suspected Problems (Last Reviewed 04/05/18 @ 20:59 by Wilder Deluca DO) Dyspnea on exertion (Acute) Symptomatic anemia (Acute) Date of Admission: 04/05/18 Date of Discharge: 04/07/18 - Primary Discharge Diagnosis Active and Suspected Problems (Last Reviewed 04/05/18 @ 20:59 by Wilder Deluca DO) Dyspnea on exertion (Acute) Symptomatic anemia (Acute) - Secondary Discharge Diagnosis Chronic Problems (Last Reviewed 04/05/18 @ 20:59 by Wilder Deluca DO) Morbid obesity (Chronic) Osteoarthritis (Chronic) History of PTCA 2 (Chronic) 2 stents Bilateral carotid artery stenosis (Chronic) Bilateral carotid bruits (Chronic) Diastolic dysfunction (Chronic) Chronic renal failure, stage 3 (moderate) (Chronic) Pulmonary hypertension (Chronic) RVSP 41 mmHg HTN (hypertension) (Chronic) Hypothyroidism (Chronic) GERD (gastroesophageal reflux disease) (Chronic) Spinal stenosis of lumbar region (Chronic) Insomnia (Chronic) Anemia (Chronic) Degeneration of lumbar intervertebral disc (Chronic) CVA (cerebral vascular accident) (Chronic) Depression (Chronic) Chronic pain syndrome (Chronic) Peripheral vascular disease (Chronic) Diabetic peripheral neuropathy (Chronic) OMID (obstructive sleep apnea) (Chronic) COPD (chronic obstructive pulmonary disease) (Chronic) Diabetes type 2, uncontrolled (Chronic) Dx : 1990 Last exacerbation : DKA : never Hypoglycemic episode : never ER visit : never Glaucoma (Chronic) Abnormal echocardiogram (Chronic) Encounter for long-term current use of high risk medication (Chronic) Palpitations (Chronic) Obstructive sleep apnea (Chronic) CPAP 15 cm of water Hyperlipidemia (Chronic) Hypothyroidism (Chronic) CAD (coronary artery disease) (Chronic) HTN (hypertension) (Chronic) NSTEMI (non-ST elevated myocardial infarction) (Chronic) Hospital Course and Treatment Summary of Care Provided: Patient is a 77-year-old lady with multiple comorbidities including CAD status post FRIDA x2 who was sent to the ED by the PCP on account of progressive shortness of breath. Patient was found to be anemic with hemoglobin of 7.1 on admission. Patient did receive 2 unit PRBC 1. Microcytic anemia: With patient being symptomatic patient was admitted to regular nursing floor did receive 2 unit PRBC transfusion on 04/05/2017. Did discuss with patient to undergo subsequent evaluation including possible EGD and colonoscopy as outpatient when discharge. As part of evaluation ordered B12 levels patient's B12 levels came back within normal limits. Patient has an appointment with Dr. Hewitt on 04/13/2017 to be evaluated for colonoscopy as outpatient 2. Shortness of breath possibly from above x-ray ordered did not show any acute pathology 3. CAD with previous PTCA/FRIDA x2 4. Chronic diastolic congestive heart failure with an ejection fraction of 65% based on echo obtained in February 2018 5. Diabetes mellitus type 2 uncontrolled with hyperglycemia did continue patient home regimen with adjustment of her insulin dose, Accu-Cheks before meals and at bedtime with sliding scale coverage, and 1800 ADA diet 6. Hypertension-blood pressure controlled, home medications continued with dose adjustment as needed 7. Bilateral carotid artery disease 8. Hypothyroidism-patient is on levothyroxine home dose continued 9. Dyslipidemia-patient is on statin therapy, continued at home dose 10. Pulmonary hypertension 11. Morbid obesity with BMI of 36.7 12. Obstructive sleep apnea 13. Diabetic polyneuropathy 14. Peripheral vascular disease 15. Allergic rhinitis 16. Lumbar canal spinal stenosis 17. History of CVA with no residual effect 18. Chronic pain syndrome 19. Depression with anxiety 20. History of squamous cell carcinoma involving the skin currently in remission 21. DVT prophylaxis with patient significant anemia patient was not started on systemic anticoagulation instead instituted SCDs Patient Problems: Active and Suspected Problems (Last Reviewed 04/05/18 @ 20:59 by Wilder Deluca DO) Dyspnea on exertion (Acute) Symptomatic anemia (Acute) Objective: GENERAL: cooperative HEENT: Atraumatic; moist oral mucosa EYES; Anicteric, Normal Conjunctiva NECK; supple, normal thyroid, no distended JVD. RESPIRATORY: Diminished to auscultation bilaterally, CARDIOVASCULAR: Regular S1 S2, no audible murmurs GI: soft, non-tender, normoactive bowel sounds, : No Renal angle tenderness; EXTREMITIES: No edema, no clubbing, no cyanosis. MUSCULOSKELETAL: No Joint Tenderness; no muscle waisting NEURO: Awake; no lateralizing signs. SKIN: No Rash PSYCH; Normal affect - Physical Exam Vital Signs Temp Pulse Resp BP Pulse Ox 98.1 F 71 18 131/50 H 93 04/07/18 09:07 04/07/18 09:07 04/07/18 09:07 04/07/18 09:07 04/07/18 09:07 Oxygen Flow Rate (L/min) 2 Oxygen Delivery Method Room Air Weight: 100 kg Body Mass Index (BMI) 36.6 Finger Stick Blood Glucose 261 Intake and Output for Last 24 Hours Intake Total 400 / 400 4418 / 4418 550 / 550 Output Total 2500 / 2500 1000 / 1000 Balance 400 / 400 1918 / 1918 -450 / -450 Microbiology Past 72 Hours 04/06/18 11:45 Stool Occult Blood (LYLA) - Final Stool Occult Blood Positive Laboratory Tests Past 24 Hrs WBC 5.0 RBC 2.77 L Hgb 8.7 L Hct 28.1 L MCV 101.4 H MCH 31.4 MCHC 31.0 L WBC RBC Hgb Hct POC Glucose POC Glucose 105 146 H 300 H Discharge Activity: Return to Normal Activity, May not drive while taking narcotic pain medications. Home Medications: Medications to take at Discharge Oxycodone HCl/Acetaminophen [Oxycodone-Acetaminophen 10-325] 1 ea PO BID PRN 01/26/16 Latanoprost 0.005% [Xalatan Opthalmic] 1 drp EACH EYE BID 08/09/16 Timolol 0.5% [Timoptic] 1 drp EACH EYE BID 08/09/16 albuterol sulfate HFA 90 mcg/actuation aerosol inhaler 2 puff INHALATION Q4H PRN #18 g 06/20/17 fluticasone 50 mcg/actuation nasal spray,suspension 2 spray INTRANASAL QDAY 06/28/17 sitagliptin 50 mg-metformin 500 mg tablet 1 tab PO BID 06/28/17 aspirin 81 mg tablet,delayed release 81 mg PO DAILY 07/13/17 nitroglycerin 0.4 mg sublingual tablet 0.4 mg SUBLINGUAL Q5M PRN 07/13/17 furosemide 40 mg tablet 40 - 80 mg PO DAILY tab 04/04/18 isosorbide mononitrate ER 30 mg tablet,extended release 24 hr 30 mg PO BID tab 04/04/18 Amlodipine Besylate/Benazepril [Amlodipine-Benazepril 5-40 mg] 1 tab PO DAILY 04/05/18 Clopidogrel Bisulfate [Clopidogrel] 75 mg PO DAILY 04/05/18 Esomeprazole Mag Trihydrate [Nexium] 40 mg PO DAILY 04/05/18 Insulin Glargine [Lantus SoloStar Pen] 80 units SQ QHS 04/05/18 Levothyroxine Sodium [Synthroid] 200 mcg PO DAILY 04/05/18 Senna [Senokot] 1 tablet PO DAILY 04/05/18 Simvastatin 20 mg PO DAILY 04/05/18 Iron Poly/Vit C [Niferex-150] 150 mg PO DAILYCM #60 capsule 04/07/18 Following Prescrptions Were Given to Patient: Iron Poly/Vit C [Niferex-150] 150 mg PO DAILYCM #60 capsule Primary Care Physician: Shiv Anton DO [Primary Care Provider] - Please follow up with your Primary Care Physician in: in 5- 7 days Please Follow Up With: Kirit Hewitt MD Disposition: Home Minutes spent on discharge:: 40 Patient Condition:: Stable Medical Necessity - Tobacco Use Smoking Status: Former smoker Tobacco Use: Non-smoker Meaningful Use Info Meaningful Use Diagnoses (Choose all that apply): None applicable Code Visit Inpatient E AND M: 79609 Disch Hosp 04/07/18 0923 <Electronically signed by Roman Jerry MD> Date Roman Jerry MD Cosigner Signature (if applicable): Date CC: Roman Jerry MD; Shiv Anton DO Signed DISCHARGE INSTRUCTION Observed: 04/07/2018 Status: F Source: [place] 9:[address] [facility] REPOSITORY [facility] Medical Records Department [address] [place] [address] Instructions for Home/Discharge Instructions 04/07/18918 MR#: [id number] Acct: [id number] Name: CRISTAL GUZMAN Rep #: [id number] : 1940 77 From: Roman Jerry MD PCP: Shiv Anton DO Status: ADM IN - Discharge Diagnoses Current Active Problems: Current Active and Chronic Problems (Last Reviewed 04/05/18 @ 20:59 by Wilder Deluca DO) Dyspnea on exertion (Acute) Symptomatic anemia (Acute) Morbid obesity (Chronic) Osteoarthritis (Chronic) History of PTCA 2 (Chronic) 2 stents Bilateral carotid artery stenosis (Chronic) Bilateral carotid bruits (Chronic) Diastolic dysfunction (Chronic) Chronic renal failure, stage 3 (moderate) (Chronic) Anemia (Chronic) You will use the following diet at home:: Calorie/Carbohydrate Controlled (specify 1200, 1400, etc) - 1800 Your food should be the consistency of: Regular Discharge Activity: Return to Normal Activity, May not drive while taking narcotic pain medications. Allergies/Adverse Reactions: Allergies latex Allergy (Severe, Verified 04/04/18 16:14) Rash metoprolol Allergy (Severe, Verified 04/04/18 16:14) Unknown bee pollen [Bee Pollen] Allergy (Verified 04/04/18 16:14) Anaphylaxis Medications to take at Discharge Oxycodone HCl/Acetaminophen [Oxycodone-Acetaminophen 10-325] 1 ea PO BID PRN 01/26/16 Latanoprost 0.005% [Xalatan Opthalmic] 1 drp EACH EYE BID 08/09/16 Timolol 0.5% [Timoptic] 1 drp EACH EYE BID 08/09/16 albuterol sulfate HFA 90 mcg/actuation aerosol inhaler 2 puff INHALATION Q4H PRN #18 g 06/20/17 fluticasone 50 mcg/actuation nasal spray,suspension 2 spray INTRANASAL QDAY 06/28/17 sitagliptin 50 mg-metformin 500 mg tablet 1 tab PO BID 06/28/17 aspirin 81 mg tablet,delayed release 81 mg PO DAILY 07/13/17 nitroglycerin 0.4 mg sublingual tablet 0.4 mg SUBLINGUAL Q5M PRN 07/13/17 furosemide 40 mg tablet 40 - 80 mg PO DAILY tab 04/04/18 isosorbide mononitrate ER 30 mg tablet,extended release 24 hr 30 mg PO BID tab 04/04/18 Amlodipine Besylate/Benazepril [Amlodipine-Benazepril 5-40 mg] 1 tab PO DAILY 04/05/18 Clopidogrel Bisulfate [Clopidogrel] 75 mg PO DAILY 04/05/18 Esomeprazole Mag Trihydrate [Nexium] 40 mg PO DAILY 04/05/18 Insulin Glargine [Lantus SoloStar Pen] 80 units SQ QHS 04/05/18 Levothyroxine Sodium [Synthroid] 200 mcg PO DAILY 04/05/18 Senna [Senokot] 1 tablet PO DAILY 04/05/18 Simvastatin 20 mg PO DAILY 04/05/18 Iron Poly/Vit C [Niferex-150] 150 mg PO DAILYCM #60 capsule 04/07/18 The following prescriptions were given: Iron Poly/Vit C [Niferex-150] 150 mg PO DAILYCM #60 capsule Primary Care Physician: Shiv Anton DO [Primary Care Provider] - Please follow up with your Primary Care Physician in: in 5- 7 days Test Results: Test results from this visit will be discussed in further detail at your follow-up appointment, if applicable. Please Follow Up With: Kirit Hewitt MD Proposed Discharge Date: 04/07/18 04/07/18919 <Electronically signed by Roman Jerry MD> Date Roman Jerry MD CC: Shiv Anton DO Signed BEDSIDE GLUCOSE Collected: 04/07/2018 Status: F Source: CODY 9:[address] [facility] REPOSITORY TYPE CODE TESTS RESULT OUT OF REFERENCE UNITS RANGE LAB L501.080 70-110 mg/dL High BEDSIDE GLU 171 Result Comment: MANAGEMENT OF PATIENT CARE PER NURSING PROTOCOL Performed By: #### L501.080 #### [facility] Point of Care [facility] [place], [place] [id number] BASIC METABOLIC Collected: 04/07/2018 Status: F Source: CODY PROFILE (BMP) 5:[address] [facility] REPOSITORY TYPE CODE TESTS RESULT OUT OF RANGE REFERENCE UNITS LAB L501.0100 74-106 mg/dL High GLU 157 Result Comment: Fasting Glucose result greater than or equal to 126 mg/dL suggests DIABETES MELLITUS per A.D.A. criteria. Please note revised GLUCOSE reference range effective 2017. LAB L501.1000 7-18 mg/dL High BUN 26 LAB L501.1100 0.55-1.02 mg/dL High CREAT,SERUM 1.21 Result Comment: The validity of the calculated GFR AND GFRAA in patients over 70 years has not been determined. Clinical correlation is essential. LAB L501.1110 >60 mL/min Low EST GFR 46 Result Comment: Non- GFR Calc LAB L501.1115 >60 mL/min Low EST GFR - AA 55 Result Comment: GFR Calc LAB L501.1255 ml/min Normal Estimated CRCL 35.04 LAB L501.1300 10-20 RATIO High BUN/CRE 21.5 LAB L501.2200 8.5-10 mg/dL Normal .1 CA 8.7 LAB L501.5300 136-14 mmol/L Normal 5 NA 140 LAB L501.5600 3.5-5. mmol/L Normal 1 K 4.0 LAB L501.5900 98-107 mmol/L Normal CL 105 LAB L501.6100 21.0-3 mmol/L Normal 2.0 CO2 26.0 LAB L501.6200 5-15 Normal GAP 9 Performed By: #### L500.2500, L501.5200 #### [facility] [address] [place], [place], [address] MAGNESIUM Collected: 04/07/2018 Status: F Source: CODY 5:[address] [facility] REPOSITORY TYPE CODE TESTS RESULT OUT OF RANGE REFERENCE UNITS LAB L501.5200 1.6-2.6 mg/dL Normal MG 2.1 Performed By: #### L500.2500, L501.5200 #### [facility] [address] [place], [place], [address] CBC-COMPLETE BLOOD CNT Collected: 04/07/2018 Status: F Source: C[place] NO DIFF 5:[address] [facility] REPOSITORY TYPE CODE TESTS RESULT OUT OF RANGE REFERENCE UNITS LAB L100.1000 4.4-11.0 K/mm3 Normal WBC 5.0 LAB L100.1200 4.2-5.4 M/mm3 Low RBC 2.77 LAB L100.1300 12.0-15.0 g/dl Low HGB 8.7 LAB L100.1400 37-47 % Low HCT 28.1 LAB L100.1500 81-99 fL High MCV 101.4 LAB L100.1600 27.0-32.0 pg Normal MCH 31.4 LAB L100.1700 32-36 g/gl Low MCHC 31.0 LAB L100.1810 11.6-14.6 % High RDW CV 15.5 LAB L100.1820 35.1-43.9 fl High RDW SD 54.2 LAB L100.1900 150-450 K/mm3 Normal PLT 286 LAB L100.2000 6.2-12.0 fl Normal MPV 9.4 Performed By: #### L100.0500 #### [facility] [address] [place], [place], [id number] BEDSIDE GLUCOSE Collected: 04/06/2018 Status: F Source: CODY 9:[address] [facility] REPOSITORY TYPE CODE TESTS RESULT OUT OF RANGE REFERENCE UNITS LAB L501.080 70-110 mg/dL Normal BEDSIDE GLU 105 Result Comment: MANAGEMENT OF PATIENT CARE PER NURSING PROTOCOL Performed By: #### L501.080 #### [facility] Point of Care [address] [place] [address] BEDSIDE GLUCOSE Collected: 04/06/2018 Status: F Source: CODY 4:[address] [facility] REPOSITORY TYPE CODE TESTS RESULT OUT OF REFERENCE UNITS RANGE LAB L501.080 70-110 mg/dL High BEDSIDE GLU 146 Result Comment: MANAGEMENT OF PATIENT CARE PER NURSING PROTOCOL Performed By: #### L501.080 #### [facility] Point of Care [address] [place] [address] CHEST 1 VIEW Observed: 04/06/2018 Status: F Source: [facility] (PORTABLE) [facility] Imaging Services [address] [place] [address] Chest 1 View (Portable) MR#: [id number] Acct: [id number] Name: CRISTAL GUZMAN Rep #: [id number] : 1940 F 77 From: Hiro Gutierrez MD PCP: Shiv Anton DO Status: ADM IN Study: Chest 1 View (Portable) Date of Exam: 04/06/18 Exam# [id number] Ordering Dr: Roman Jerry MD STUDY: X-RAY CHEST REASON FOR EXAM: Female, 77 years old. Cough and chest pain TECHNIQUE: Single AP portable view of the chest. COMPARISON: 04/04/2018. FINDINGS: The lungs are hyperexpanded. There are coarsened interstitial markings suggestive of mild chronic fibrosis. No gross focal infiltrates. No gross effusions. Normal size heart. Normal mediastinum and polo. Normal visualized pulmonary arteries. Normal visualized aortic arch and descending thoracic aorta. Normal visualized thoracic spine. Normal visualized ribs, clavicles, and shoulders. There is no demonstrated abnormality of the visualized soft tissue structures of the upper abdomen. RAD/Chest 1 View (Portable) IMPRESSION: No change. No definite acute chest disease. Electronically Signed: Hiro Gutierrez MD at 17:06 EST , Service support , CC: Roman Jerry MD; Shiv Anton DO Reporting Analyst: Signed BEDSIDE GLUCOSE Collected: 04/06/2018 Status: F Source: [place] 11:[address] [facility] REPOSITORY TYPE CODE TESTS RESULT OUT OF REFERENCE UNITS RANGE LAB L501.080 70-110 mg/dL High BEDSIDE GLU 300 Result Comment: MANAGEMENT OF PATIENT CARE PER NURSING PROTOCOL Performed By: #### L501.080 #### [facility] Point of Care [address] [place], [place] [address] Observed: 04/06/2018 Status: F Source: CODY STOOL OCCULT BLOOD 11:[address] [facility] IFOB REPOSITORY STOB iFOB Occult Blood Positive ORGANISM 1: OCCULT BLOOD POSITIVE Performed By: #### M100.7900 #### [facility] [address] [place], [address] BEDSIDE GLUCOSE Collected: 04/06/2018 Status: F Source: [place]ODY 6:[address] [facility] REPOSITORY TYPE CODE TESTS RESULT OUT OF REFERENCE UNITS RANGE LAB L501.080 70-110 mg/dL High BEDSIDE GLU 168 Result Comment: MANAGEMENT OF PATIENT CARE PER NURSING PROTOCOL Performed By: #### L501.080 #### [facility] Point of Care [address] [place], [place] [address] CBC-COMPLETE BLOOD CNT Collected: 04/06/2018 Status: F Source: CODY NO DIFF 4:[address] [facility] REPOSITORY TYPE CODE TESTS RESULT OUT OF RANGE REFERENCE UNITS LAB L100.1000 4.4-11.0 K/mm3 Normal WBC 5.6 LAB L100.1200 4.2-5.4 M/mm3 Low RBC 2.72 LAB L100.1300 12.0-15.0 g/dl Low HGB 8.6 LAB L100.1400 37-47 % Low HCT 27.5 LAB L100.1500 81-99 fL High MCV 101.1 LAB L100.1600 27.0-32.0 pg Normal MCH 31.6 LAB L100.1700 32-36 g/gl Low MCHC 31.3 LAB L100.1810 11.6-14.6 % High RDW CV 15.5 LAB L100.1820 35.1-43.9 fl High RDW SD 54.0 LAB L100.1900 150-450 K/mm3 Normal PLT 303 LAB L100.2000 6.2-12.0 fl Normal MPV 9.2 Performed By: #### L100.0500 #### [facility] [address] [place], [place], [address] COMPREHENSIVE METABOLIC Collected: 04/06/2018 Status: F Source: [place] 4:[address] [facility] REPOSITORY Order Comment: 'TROP' Serial specimen #1, #2 or #3: 3 'TROP' Serial specimen #1, #2, #3, or #4: 3 TYPE CODE TESTS RESULT OUT OF RANGE REFERENCE UNITS LAB L501.0100 74-106 mg/dL High GLU 178 Result Comment: Fasting Glucose result greater than or equal to 126 mg/dL suggests DIABETES MELLITUS per A.D.A. criteria. Please note revised GLUCOSE reference range effective 2017. LAB L501.1000 7-18 mg/dL High BUN 26 LAB L501.1100 0.55-1.02 mg/dL High CREAT,SERUM 1.20 Result Comment: The validity of the calculated GFR AND GFRAA in patients over 70 years has not been determined. Clinical correlation is essential. LAB L501.1110 >60 mL/min Low EST GFR 46 Result Comment: Non- GFR Calc LAB L501.1115 >60 mL/min Low EST GFR - AA 56 Result Comment: GFR Calc LAB L501.1255 ml/min Normal Estimated CRCL 35.33 LAB L501.1300 10-20 RATIO High BUN/CRE 21.7 LAB L501.1500 6.4-8. g/dL Normal 2 T PROT 6.6 LAB L501.1800 3.2-5. g/dL Normal 0 ALB 3.2 LAB L501.1950 2.2-4. g/dL Normal 2 GLOB 3.4 LAB L501.2000 0.9-2. RATIO Normal 4 A/G 0.9 LAB L501.2200 8.5-10 mg/dL Normal .1 CA 8.5 LAB L501.4100 15-37 U/L Normal AST 18 LAB L501.4305 45-117 U/L Normal ALK P 73 LAB L501.4405 13-56 U/L Normal ALT 22 LAB L501.4600 0.20-1 mg/dL Normal .00 T BILI 0.20 LAB L501.5300 136-14 mmol/L Normal 5 NA 141 LAB L501.5600 3.5-5. mmol/L Normal 1 K 4.0 LAB L501.5900 98-107 mmol/L High CL 108 LAB L501.6100 21.0-3 mmol/L Normal 2.0 CO2 23.0 LAB L501.6200 5-15 Normal GAP 10 Performed By: #### L500.4050, L500.4100, L501.2300, L501.4010, L501.5200 #### [facility] [address] [place], [place], [id number] LIPID PROFILE Collected: 04/06/2018 Status: F Source: [place] 4:[address] [facility] REPOSITORY Order Comment: 'TROP' Serial specimen #1, #2 or #3: 3 'TROP' Serial specimen #1, #2, #3, or #4: 3 TYPE CODE TESTS RESULT OUT OF RANGE REFERENCE UNITS LAB L501.4900 200 mg/dL Normal CHOL 135 Result Comment: <200 mg/dL Desirable 200-240 mg/dL Borderline >240 mg/dL High Risk LAB L501.5000 mg/dL Normal TRIG 179 Result Comment: The drugs N-Acetylcysteine and Metamizole may falsely depress this assay. Serum Triglycerides Reference Interval Normal <150 mg/dL Borderline high 150 - 199 mg/dL High 200 - 499 mg/dL Very High > or = 500 mg/dL LAB L501.6400 mg/dL Low HDL 39 Result Comment: The drugs N-Acetylcysteine and Metamizole may falsely depress this assay. Reference Range HDL <40 mg/dL Low HDL Cholesterol HDL >or= 60 mg/dL High HDL Cholesterol LAB L501.6500 0-130 mg/dL Normal LDL 60 LAB L501.6600 5-40 mg/dL Normal VLDL 36 Performed By: #### L500.4050, L500.4100, L501.2300, L501.4010, L501.5200 #### [facility] [address] [place], [place], [id number] PHOSPHORUS Collected: 04/06/2018 Status: F Source: [place] 4:[address] [facility] REPOSITORY Order Comment: 'TROP' Serial specimen #1, #2 or #3: 3 'TROP' Serial specimen #1, #2, #3, or #4: 3 TYPE CODE TESTS RESULT OUT OF RANGE REFERENCE UNITS LAB L501.2300 2.5-4.9 mg/dL Normal PHOS 3.5 Performed By: #### L500.4050, L500.4100, L501.2300, L501.4010, L501.5200 #### [facility] [address] [place], [address] TROPONIN-I Collected: 04/06/2018 Status: F Source: [place] 4:[address] [facility] REPOSITORY Order Comment: 'TROP' Serial specimen #1, #2 or #3: 3 'TROP' Serial specimen #1, #2, #3, or #4: 3 TYPE CODE TESTS RESULT OUT OF RANGE REFERENCE UNITS LAB L501.4010 <0.045 ng/mL Normal < 0.015 TROPONIN-I Result Comment: TROPONIN-I EXPECTED VALUES <0.045 Negative 0.045 - 0.590 Consistent with Cardiac Damage > OR = 0.600 Critical Value Not every elevated troponin is indicative of HI. These values should be used with clinical judgement in examining the patient's clinical picture for diagnosis. To establish a diagnosis of HI versus myocardial injury, there must be a demonstrated rise and/or fall in the troponin values, in addition to ischemic symptoms, EKG changes, new regional wall motion abnormality, and/or angiographical evidence. PLEASE NOTE: REFERENCE RANGES EDITED 17 Performed By: #### L500.4050, L500.4100, L501.2300, L501.4010, L501.5200 #### [facility] [address] [place], [address] MAGNESIUM Collected: 04/06/2018 Status: F Source: [place] 4:[address] [facility] REPOSITORY Order Comment: 'TROP' Serial specimen #1, #2 or #3: 3 'TROP' Serial specimen #1, #2, #3, or #4: 3 TYPE CODE TESTS RESULT OUT OF RANGE REFERENCE UNITS LAB L501.5200 1.6-2.6 mg/dL Normal MG 2.0 Performed By: #### L500.4050, L500.4100, L501.2300, L501.4010, L501.5200 #### [facility] [address] [place], [address] BNP,B-TYPE NATRIURETIC Collected: 04/06/2018 Status: F Source: [place] 4:[address] [facility] REPOSITORY TYPE CODE TESTS RESULT OUT OF RANGE REFERENCE UNITS LAB L503.6620 0-100 pg/mL High B-TYPE 160.5 IVONNE PEP Performed By: #### L503.6620 #### [facility] [address] [place], [address] TROPONIN-I Collected: 04/06/2018 Status: F Source: [place] 1:[address] [facility] REPOSITORY Order Comment: 'TROP' Serial specimen #1, #2 or #3: 2 TYPE CODE TESTS RESULT OUT OF RANGE REFERENCE UNITS LAB L501.4010 <0.045 ng/mL Normal < 0.015 TROPONIN-I Result Comment: TROPONIN-I EXPECTED VALUES <0.045 Negative 0.045 - 0.590 Consistent with Cardiac Damage > OR = 0.600 Critical Value Not every elevated troponin is indicative of HI. These values should be used with clinical judgement in examining the patient's clinical picture for diagnosis. To establish a diagnosis of HI versus myocardial injury, there must be a demonstrated rise and/or fall in the troponin values, in addition to ischemic symptoms, EKG changes, new regional wall motion abnormality, and/or angiographical evidence. PLEASE NOTE: REFERENCE RANGES EDITED 17 Performed By: #### L501.4010 #### [facility] [address] [place], [address] TROPONIN-I Collected: 04/05/2018 Status: F Source: [place] 11:[address] [facility] REPOSITORY Order Comment: 'TROP' Serial specimen #1, #2 or #3: 1 TYPE CODE TESTS RESULT OUT OF RANGE REFERENCE UNITS LAB L501.4010 <0.045 ng/mL Normal 0.022 TROPONIN-I Result Comment: TROPONIN-I EXPECTED VALUES <0.045 Negative 0.045 - 0.590 Consistent with Cardiac Damage > OR = 0.600 Critical Value Not every elevated troponin is indicative of HI. These values should be used with clinical judgement in examining the patient's clinical picture for diagnosis. To establish a diagnosis of HI versus myocardial injury, there must be a demonstrated rise and/or fall in the troponin values, in addition to ischemic symptoms, EKG changes, new regional wall motion abnormality, and/or angiographical evidence. PLEASE NOTE: REFERENCE RANGES EDITED 17 Performed By: #### L501.4010 #### [facility] [address] [place], [address] HISTORY AND PHYSICAL Observed: 04/05/2018 Status: F Source: [place] EXAM 9:[address] [facility] REPOSITORY [facility] Medical Records Department [address] [place] [address] History and Physical 04/05/182001 MR#: [id number] Acct: [id number] Name: CRISTAL GUZMAN Rep #: [id number] : 1940 77 From: Wilder Deluca DO PCP: Shiv Anton DO Status: ADM IN Y Location[place] [facility] [place] [id number] Problem List (1) Dyspnea on exertion Status: Acute (2) Symptomatic anemia Status: Acute (3) Pulmonary hypertension Status: Chronic Comment: RVSP 41 mmHg (4) HTN (hypertension) Status: Chronic (5) Hypothyroidism Status: Chronic (6) GERD (gastroesophageal reflux disease) Status: Chronic (7) NSTEMI (non-ST elevated myocardial infarction) Status: Inactive (8) Spinal stenosis of lumbar region Status: Chronic (9) Insomnia Status: Chronic (10) Anemia Status: Chronic Qualifiers: Anemia type: iron deficiency (11) Degeneration of lumbar intervertebral disc Status: Chronic (12) CVA (cerebral vascular accident) Status: Chronic (13) Depression Status: Chronic (14) Chronic pain syndrome Status: Chronic (15) Peripheral vascular disease Status: Chronic (16) Diabetic peripheral neuropathy Status: Chronic (17) Allergic rhinitis Status: Acute (18) OMID (obstructive sleep apnea) Status: Chronic (19) COPD (chronic obstructive pulmonary disease) Status: Chronic (20) Diabetes type 2, uncontrolled Status: Chronic Comment: Dx : 1990 Last exacerbation : DKA : never Hypoglycemic episode : never ER visit : never (21) Glaucoma Status: Chronic (22) Skin cancer Status: Inactive Comment: Squamous cell (23) Abnormal echocardiogram Status: Chronic (24) Aortic stenosis Status: Ruled-out Comment: Echocardiogram in February 2018 shows no evidence of aortic stenosis and the aortic valve appears normal (25) Encounter for long-term current use of high risk medication Status: Chronic (26) COPD exacerbation Status: Resolved (27) Palpitations Status: Chronic (28) Obstructive sleep apnea Status: Chronic Comment: CPAP 15 cm of water (29) H/O right coronary artery stent placement Status: Resolved Comment: PCI-CX AND PCI-LAD 02/05/16 @ [facility]; [facility] w/PCI-FRIDA-OM1 (instent restenosis) 08/10/16; (30) Status post ORIF of fracture of ankle Status: Resolved (31) S/P rotator cuff repair Status: Resolved (32) History of partial knee replacement Status: Resolved (33) H/O left knee surgery Status: Resolved (34) Cataracts, bilateral Status: Resolved (35) Carpal tunnel syndrome Status: Resolved (36) Hyperlipidemia Status: Chronic Qualifiers: Hyperlipidemia type: unspecified Qualified Code(s): E78.5 - Hyperlipidemia, unspecified (37) Hypothyroidism Status: Chronic (38) CAD (coronary artery disease) Status: Chronic Qualifiers: Coronary Disease-Associated Artery/Lesion type: [place] artery [place] vs. transplanted heart: [place] heart Associated angina: without angina Qualified Code(s): I25.10 - Atherosclerotic heart disease of [place] coronary artery without angina pectoris (39) HTN (hypertension) Status: Chronic Qualifiers: Hypertension type: essential hypertension Qualified Code(s): I10 - Essential (primary) hypertension (40) NSTEMI (non-ST elevated myocardial infarction) Status: Chronic (41) Morbid obesity Status: Chronic (42) Osteoarthritis Status: Chronic (43) History of PTCA 2 Status: Chronic Comment: 2 stents (44) Bilateral carotid artery stenosis Status: Chronic (45) Bilateral carotid bruits Status: Chronic (46) Diastolic dysfunction Status: Chronic (47) Chronic renal failure, stage 3 (moderate) Status: Chronic History of Present Illness Date of Admission: 04/05/18 Chief Complaint: FLOYD, pain in the lungs when breathing The patient is a 77 year old F with a past medical history of hypertension, diabetes mellitus type 2, GERD, coronary artery disease, PTCA/FRIDA x2, diastolic dysfunction,BL carotid artery disease with BL bruits, obstructive sleep apnea, pulmonary hypertension, morbid obesity, hypothyroidism, lumbar canal stenosis, chronic insomnia, chronic anemia secondary to iron deficiency, history of CVA, depression, chronic pain syndrome, diabetic peripheral polyneuropathy, peripheral vascular disease, allergic rhinitis, COPD, glaucoma, history of squamous cell skin cancer and hyperlipidemia who presented to the emergency department at [facility] on 04/05/2018 complaining of dyspnea on exertion. She also complains of pain in her lungs when she is walking and breathes hard. She additionally complains of a cough which she states is productive however she does not look at her sputum and she denies having a fever or shaking chills. She does states she sometimes feels hot. She has a sore throat mostly at night and she tells me that she has trouble with food getting stuck in her throat and has been seeing Dr. Moore and recently had either an upper GI with barium esophagram or a modified barium swallow in [place]. Vital signs in the emergency department are temperature 98.1, pulse rate 84, blood pressure 136/50, respiratory rate 16 and she was 94-97% saturated on room air. Significant lab included a hemoglobin of 7.1 with an MCV of 102.7. The RDW is increased at 15.7 and white count and platelets are within normal limits. BMP is remarkable for an elevated BUN at 29 with a creatinine of 1.56 which is up from 1.2 in October 2017. Iron studies in the emergency department revealed a serum iron of 269, TIBC of 379 and a ferritin of 13. Troponin was normal at 0.017. She denies SOB at rest and has no lung pain at rest. She is on ASA, Plavix and Meloxicam as an OP. She has never had a colonoscopy. Denies any recent unexplained weight loss. She was having constipation but, this resolved with Senna prescribed by her PCP. She denies hematochezia, vaginal bleeding, hematuria. Past Medical History Past Medical History (Chronic Problems): Chronic Problems (Last Reviewed 03/03/18 @ 10:43 by Jesusita Nino NP-Lizette) Morbid obesity (Chronic) Osteoarthritis (Chronic) History of PTCA 2 (Chronic) 2 stents Bilateral carotid artery stenosis (Chronic) Bilateral carotid bruits (Chronic) Diastolic dysfunction (Chronic) Chronic renal failure, stage 3 (moderate) (Chronic) Pulmonary hypertension (Chronic) RVSP 41 mmHg HTN (hypertension) (Chronic) Hypothyroidism (Chronic) GERD (gastroesophageal reflux disease) (Chronic) Spinal stenosis of lumbar region (Chronic) Insomnia (Chronic) Anemia (Chronic) Degeneration of lumbar intervertebral disc (Chronic) CVA (cerebral vascular accident) (Chronic) Depression (Chronic) Chronic pain syndrome (Chronic) Peripheral vascular disease (Chronic) Diabetic peripheral neuropathy (Chronic) OMID (obstructive sleep apnea) (Chronic) COPD (chronic obstructive pulmonary disease) (Chronic) Diabetes type 2, uncontrolled (Chronic) Dx : 1990 Last exacerbation : DKA : never Hypoglycemic episode : never ER visit : never Glaucoma (Chronic) Abnormal echocardiogram (Chronic) Encounter for long-term current use of high risk medication (Chronic) Palpitations (Chronic) Obstructive sleep apnea (Chronic) CPAP 15 cm of water Hyperlipidemia (Chronic) Hypothyroidism (Chronic) CAD (coronary artery disease) (Chronic) HTN (hypertension) (Chronic) NSTEMI (non-ST elevated myocardial infarction) (Chronic) Medical History: Medical History (Last Reviewed 04/05/18 @ 20:59 by Wilder Deluca DO) HTN (hypertension) (Chronic) I10 Hypothyroidism (Chronic) E03.9 GERD (gastroesophageal reflux disease) (Chronic) K21.9 Spinal stenosis of lumbar region (Chronic) M48.061 Insomnia (Chronic) G47.00 Anemia (Chronic) D64.9 Degeneration of lumbar intervertebral disc (Chronic) M51.36 CVA (cerebral vascular accident) (Chronic) I63.9 Depression (Chronic) F32.9 Chronic pain syndrome (Chronic) G89.4 Peripheral vascular disease (Chronic) I73.9 Diabetic peripheral neuropathy (Chronic) E11.42 Allergic rhinitis (Acute) J30.9 OMID (obstructive sleep apnea) (Chronic) G47.33 COPD (chronic obstructive pulmonary disease) (Chronic) J44.9 Diabetes type 2, uncontrolled (Chronic) E11.65 Dx : 1990 Last exacerbation : DKA : never Hypoglycemic episode : never ER visit : never Glaucoma (Chronic) H40.9 Abnormal echocardiogram (Chronic) R93.1 Encounter for long-term current use of high risk medication (Chronic) Z79.899 Palpitations (Chronic) R00.2 Obstructive sleep apnea (Chronic) G47.33 CPAP 15 cm of water Cataracts, bilateral (Resolved) H26.9 Carpal tunnel syndrome (Resolved) G56.00 Hyperlipidemia (Chronic) E78.5 Hypothyroidism (Chronic) E03.9 CAD (coronary artery disease) (Chronic) I25.10 HTN (hypertension) (Chronic) I10 NSTEMI (non-ST elevated myocardial infarction) (Chronic) I21.4 COPD exacerbation (Resolved) J44.1 Aortic stenosis (Ruled-out) I35.0 Echocardiogram in February 2018 shows no evidence of aortic stenosis and the aortic valve appears normal NSTEMI (non-ST elevated myocardial infarction) (Inactive) I21.4 Skin cancer (Inactive) C44.90 Squamous cell Allergies latex Allergy (Severe, Verified 04/04/18 16:14) Rash metoprolol Allergy (Severe, Verified 04/04/18 16:14) Unknown bee pollen [Bee Pollen] Allergy (Verified 04/04/18 16:14) Anaphylaxis Home Medications: Ambulatory Orders Medication Instructions Recorded Oxycodone HCl/Acetaminophen 1 ea PO BID PRN 01/26/16 Surgical History: Surgical History (Last Reviewed 04/05/18 @ 20:59 by Wilder Deluca DO) H/O right coronary artery stent placement (Resolved) Z95.5 PCI-CX AND PCI-LAD 02/05/16 @ [facility]; [facility] w/PCI-FRIDA-OM1 (instent restenosis) 08/10/16; Status post ORIF of fracture of ankle (Resolved) Z96.7, Z87.81 S/P rotator cuff repair (Resolved) Z98.890 History of partial knee replacement (Resolved) Z96.659 H/O left knee surgery (Resolved) Z98.890 Surgical History: hysterectomy - for DUB, - - Multilple orthopedic surgeries. Psychiatric History: Depression [employer] History: dysfunctional uterine bld Lives: Alone Smoking Status: Former smoker Tobacco Use: Non-smoker Alcohol: Rare Drugs: None - *Family History Maternal Family History: Family History (Last Reviewed 04/05/18 @ 21:00 by Wilder Deluca DO) Daughter Alcohol abuse Anemia Anxiety Asthma Mother Diabetes Heart disease Hypertension Father Heart disease Hypertension History Items: Diabetes, Heart Disease, Stroke Paternal Family History: Family History (Last Reviewed 04/05/18 @ 21:00 by Wilder Deluca DO) Daughter Alcohol abuse Anemia Anxiety Asthma Mother Diabetes Heart disease Hypertension Father Heart disease Hypertension History Items: Heart Disease Review of Systems Constitutional: Reports: - - complains of feeling alternately hot and then cold. Has not taken her temperature.. Denies: Chills, Fever, Weight Change HEENT: Reports: Difficulty Swallowing, Sore Throat. Denies: Head Aches, Sinus Congestion, Sinus Drainage Cardiovascular: Denies: Chest Pain, Heaviness, Light Headedness, Orthopnea, Palpitations, Syncope Respiratory: Reports: Cough, Shortness of breath upon exertion, Sputum production. Denies: Shortness of breath at rest Gastrointestinal: Reports: Constipation. Denies: Abdominal Pain, Diarrhea, Dyspepsia, Hematemesis, Hematochezia, Nausea, Melena, Vomiting Genitourinary: Denies: Dysuria Gynecological: Denies: Vaginal bleeding, Vaginal discharge Musculoskeletal: Reports: Joint Tenderness. Denies: Joint Pain Skin: Denies: Jaundice, Rash, Wounds Neurological: Reports: Difficulty swallowing, - - she has pain and numbness in a stocking distribution of both feet. Denies: Focal weakness, Numbness, Tingling, Seizures Psychiatric: Reports: Depression. Denies: Anxiety, Homicidal Ideations, Suicidal Ideations Endocrine: Denies: Change in Body Habitus Hematologic/ Lymphatic: Denies: Easy Bruising, Easy Bleeding, Hx of blood clot VTE Information - Inpt Only VTE Present on Admission: No VTE Mechan Device Prophylaxis: SCD's, Knee High KAYKAY Hose VTE Pharm Prophylaxis ordered?: No Reason prophylaxis not ordered:: Medical Contraindication - severe anemia with possible GI bleeding Patient Problems: Active and Suspected Problems (Last Reviewed 03/03/18 @ 10:43 by Jesusita Nino NP-C) Dyspnea on exertion (Acute) Symptomatic anemia (Acute) - Physical Exam General: Alert, Oriented x3, Cooperative, No apparent distress, Well developed, Well nourished, - - pale HEENT: Atraumatic, PERRLA, EOMI, Normocephalic, - - Palpebral conjunctiva is very pale Oral: No Gingival or Mucosal Lesions/ Ulcerations, Dry Mucosa Neck: Supple, No JVD, Carotid Bruits, Bilateral Lungs: Clear to auscultation, No wheeze, No rales, Diminished Cardiovascular: Regular rate, Regular Rhythm, No murmurs, No rub noted, No Gallop Abdomen: Bowel Sounds Present - BS's are not hyperactive, Soft, Non Tender, Distended - in the upper abdomen and tympanic. Extremities: No clubbing, No cyanosis, Capillary Refill Less than 3 Seconds, Diminished Peripheral Pulses, Edema - of the ankles BL Skin: No rashes, No breakdown Musculoskeletal: No Muscle Wasting Neurological: Cranial nerves II-XII grossly intact, Neuro grossly intact Psych/Mental Status: Normal Affect, Appropriate Vital Signs Temp Pulse Resp BP Pulse Ox 98.5 F 83 24 H 122/49 H 93 04/05/18 19:35 04/05/18 18:59 04/05/18 18:59 04/05/18 18:59 04/05/18 18:59 Oxygen Delivery Method Room Air Weight: 203 lb Body Mass Index (BMI) 33.7 Finger Stick Blood Glucose 261 Intake and Output for Last 24 Hours Intake Total 0 / 0 Balance 0 / 0 Laboratory Tests Past 24 Hrs WBC 5.8 RBC 2.26 L Hgb 7.1 L Assessment/Plan All Active Problems (Last Reviewed 03/03/18 @ 10:43 by Jesusita Nino, DARCIE-C) Dyspnea on exertion (Acute) Symptomatic anemia (Acute) Allergic rhinitis (Acute) H/O right coronary artery stent placement (Resolved) Status post ORIF of fracture of ankle (Resolved) S/P rotator cuff repair (Resolved) History of partial knee replacement (Resolved) H/O left knee surgery (Resolved) Cataracts, bilateral (Resolved) Carpal tunnel syndrome (Resolved) COPD exacerbation (Resolved) Aortic stenosis (Ruled-out) Impressions 1. Acute severe symptomatic anemia with a history of chronic iron deficiency in the past. Patient is on aspirin, Plavix and meloxicam and I suspect has chronic GI blood loss. Has never had an EGD or colonoscopy per 2. Chronic history of iron deficiency anemia 3. Diabetes mellitus type 2 4. Hypertension 5. Coronary artery disease with history of PTCA/FRIDA x2 6. GERD 7. Obstructive sleep apnea-states compliant with CPAP 8. Pulmonary hypertension-mild 9. Carotid artery stenosis with bilateral carotid bruits 10. History of lumbar canal stenosis 11. Glaucoma 12. Diabetic peripheral polyneuropathy with numbness and pain 13. Chronic pain syndrome 14. Chronic renal failure stage III 15. History of squamous cell carcinoma of the skin 16. Hypertension 17. Hypothyroidism 18. History of CVA 19. Diastolic dysfunction 20. COPD 21. Former smoker 22. Hyperlipidemia Transfusion was begun in the ED and she will receive 2 units of PRBC's She is chronically on Nexium and is likely not absorbing the oral iron......will give iron sucrose in the Am She needs to have upper and lower endoscopy at some point......can probably be done as an OP Serial CE's for lung Pain with exertion and a hx of CAD with 2 stents in the past. SCD's and KAYKAY hose for DVT prophylaxis and encouraged ambulation- no pharmacologic anticoagulation due to suspected GI blood loss continue home medications Hemoccult stool She will wear her own CPAP May be able to be discharged in the next 24-48 hours if the CE's are negative and the HGB is stable and finish W/U as an OP Code Visit Inpatient E AND M: 05261 Init Hosp L3 04/05/182115 <Electronically signed by Wilder Deluca DO> Date Wilder Deluca DO Cosigner Signature: Date (if applicable) CC: Berkley Deluca; Shiv Anton DO Signed BEDSIDE GLUCOSE Collected: 04/05/2018 Status: F Source: [place] 9:[address] [facility] REPOSITORY TYPE CODE TESTS RESULT OUT OF REFERENCE UNITS RANGE LAB L501.080 70-110 mg/dL High BEDSIDE GLU 256 Result Comment: MANAGEMENT OF PATIENT CARE PER NURSING PROTOCOL Performed By: #### L501.080 #### [facility] Point of Care [address] [place] [address] EMERGENCY DEPARTMENT Observed: 04/05/2018 Status: F Source: [place] SUMMARY 7:[address] [facility] REPOSITORY [facility] Medical Records Department [address] [place] [address] Emergency Department Summary 04/05/18 1706 MR#: [id number] Acct: [id number] Name: LISA GUZMAN Kraig Rep #: [id number] : 1940 77 From: Hamlet Blood MD PCP: Shiv Anton DO Status: REG ER History of Present Illness Chief Complaint: Abn Labs Detail of Chief Complaint: weak, dyspnea on exertion Informant: Patient, PCP Onset: Weeks - 2 Timing: Continuous Quality: weak Location: all over Current Severity: Severe Maximum Severity: Severe Worsened by: exertion Relieved by: rest Associated Symptoms: bilat chest pain w/ exertion. nausea w/ eating often. Narrative: Patient had outpatient workup with blood drawn yesterday that showed a hemoglobin of 7.7, she is on iron for iron deficiency anemia and has been having black solid stools without melena or bright red blood per rectum or bleeding from elsewhere that she knows of. She often is constipated due to the iron that she takes. She was sent in for transfusion and admission, which the patient echoes. - Past Medical History (1) Anemia Status: Chronic (2) Arthritis Status: Chronic (3) COPD (chronic obstructive pulmonary disease) Status: Chronic (4) CVA (cerebral vascular accident) Status: Chronic (5) Depression Status: Chronic (6) Diabetic peripheral neuropathy Status: Chronic (7) GERD (gastroesophageal reflux disease) Status: Chronic (8) Glaucoma Status: Chronic (9) Hypothyroidism Status: Chronic (10) OMID (obstructive sleep apnea) Status: Chronic (11) Peripheral vascular disease Status: Chronic (12) Pulmonary hypertension Status: Chronic Comment: RVSP 41 mmHg (13) Spinal stenosis of lumbar region Status: Chronic (14) Aortic stenosis Status: Chronic (15) CAD (coronary artery disease) Status: Chronic (16) Diabetes type 2, uncontrolled Status: Chronic Comment: Dx : 1990 Last exacerbation : DKA : never Hypoglycemic episode : never ER visit : never (17) HTN (hypertension) Status: Chronic (18) Hyperlipidemia Status: Chronic Past Medical History - Allergies and Home Meds Allergies/Adverse Reactions: Allergies latex Allergy (Severe, Verified 04/04/18 16:14) Rash metoprolol Allergy (Severe, Verified 04/04/18 16:14) Unknown bee pollen [Bee Pollen] Allergy (Verified 04/04/18 16:14) Anaphylaxis Primary Care Physician: Shiv Anton DO [Primary Care Provider] - Surgical History: hysterectomy, - - Multilple orthopedic surgeries. Smoking Status: Former smoker Drugs: None - Family History Maternal Family History: Family History (Last Reviewed 04/04/18 @ 16:23 by Nisreen Briggs) Daughter Alcohol abuse Anemia Anxiety Asthma Mother Diabetes Heart disease Hypertension Father Heart disease Hypertension Family History: Reports: Diabetes, Heart Disease, Stroke Paternal Family History: Family History (Last Reviewed 04/04/18 @ 16:23 by Nisreen Nolt) Daughter Alcohol abuse Anemia Anxiety Asthma Mother Diabetes Heart disease Hypertension Father Heart disease Hypertension Family History: Reports: Heart Disease Review of Systems General: Reports: Malaise. Denies: Chills, Fever, Sweats Eyes: Denies: Visual changes - bilaterally, Diplopia ENT: Denies: Rhinorrhea, Sore throat Cardiovascular: Reports: Chest pain. Denies: Palpitations Respiratory: Reports: Cough - chronic, no worse, Dyspnea on exertion. Denies: Sputum Gastrointestinal: Reports: Nausea, Vomiting - twice last week, no blood or coffee ground emesis, Constipation. Denies: Abdominal pain, Diarrhea, Melena, Hematochezia Genitourinary: Denies: Dysuria, Hematuria, Frequency Musculoskeletal: Reports: Arthralgias - chronic. Denies: Neck pain, Swelling, Extremity Pain Skin: Denies: Rash, Wounds Neurological: Reports: Parasthesia - Bilat feet. Denies: Headache, Weakness Physical Exam Vital Signs/Narrative: Vital Signs 04/05/18 16:38 98.1 F 84 16 136/50 H 97 Inital Vital Signs reviewed: Yes General: Well nourished, Well developed, Obese, - - nad Head: Normocephalic, Atraumatic Eyes: Perrl, EOMI, Pale conjunctiva ENT: Moist mucous membranes, No rhinorrhea Neck: Supple, Nontender, No JVD Cardiovascular: Regular rate, Regular rhythm, Murmur - SAMARA Respiratory: No distress, CTA bilaterally, Chest nontender Abdomen: Soft, Nondistended, Normal bowel sounds, Tender - mild epigastrium only. Negative for: Guarding, Rebound tenderness Back: Nontender, Normal Inspection. Negative for: CVA tenderness Extremities: Nontender, No edema Skin: Normal color, No rash Neurological: Alert, Oriented x3, Cranial nerves II-XII grossly intact, Normal Strength, Normal Sensation Psychological: Normal affect Diagnostic/Tx/Re-eval - Rhythm Strip Rhythm Strip: Sinus Rhythm Rate: 80 Ectopy: None - EKG Initial EKG Interpretation: Sinus Rhythm, No Acute Injury Pattern - Medical Decision Making Hemoglobin today is 7.1. Patient was amenable to blood transfusion which was begun. No sign of active bleeding, will await patient to have a stool in order to obtain Hemoccult. Will admit for transfusion. Iron studies sent. No sign of an HI or active coronary ischemia, patient clinically and hemodynamically stable. ED Disposition - Plan for ED Patient: Disposition: Acute Care Hospital [facility] Chief Complaint: Abn Labs Diagnosis: Dyspnea on exertion, Symptomatic anemia Referrals: Shiv Anton, [Primary Care Provider] - What to do if you have Problems For any increased pain, shortness of breath, bleeding, nausea or vomiting, chest pain, or any unexpected problems, contact your Primary Care Provider. Call [facility] ([phone]) or report to the closest Emergency Room. Call 911 if necessary. 04/05/18 1930 <Electronically signed by Hamlet Blood MD> Date Hamlet Blood MD Cosigner Signature (If Indicated): Date CC: Shiv Anton DO BASIC METABOLIC Collected: 04/05/2018 Status: F Source: [place] PROFILE (BMP) 4:[address] [facility] REPOSITORY Order Comment: 'TROP' Serial specimen #1, #2, #3, or #4: 1 TYPE CODE TESTS RESULT OUT OF RANGE REFERENCE UNITS LAB L501.0100 74-106 mg/dL High GLU 375 Result Comment: Glucose result greater than or equal to 200 mg/dL suggests DIABETES MELLITUS per A.D.A. criteria. Please note revised GLUCOSE reference range effective 2017. LAB L501.1000 7-18 mg/dL High BUN 29 LAB L501.1100 0.55-1.02 mg/dL High CREAT,SERUM 1.56 Result Comment: The validity of the calculated GFR AND GFRAA in patients over 70 years has not been determined. Clinical correlation is essential. LAB L501.1110 >60 mL/min Low EST GFR 34 Result Comment: Non- GFR Calc LAB L501.1115 >60 mL/min Low EST GFR - AA 41 Result Comment: GFR Calc LAB L501.1255 ml/min Normal Estimated CRCL 27.18 LAB L501.1300 10-20 RATIO Normal BUN/CRE 18.6 LAB L501.2200 8.5-10 mg/dL Low .1 CA 8.0 LAB L501.5300 136-14 mmol/L Normal 5 NA 139 LAB L501.5600 3.5-5. mmol/L Normal 1 K 4.5 LAB L501.5900 98-107 mmol/L Normal CL 106 LAB L501.6100 21.0-3 mmol/L Normal 2.0 CO2 24.0 LAB L501.6200 5-15 Normal GAP 9 Performed By: #### L500.2500, L501.4010, L503.6075, L503.6150, L503.6550 #### [facility] [address] [place], [place], [id number] TROPONIN-I Collected: 04/05/2018 Status: F Source: [place] 4:[address] [facility] REPOSITORY Order Comment: 'TROP' Serial specimen #1, #2, #3, or #4: 1 TYPE CODE TESTS RESULT OUT OF RANGE REFERENCE UNITS LAB L501.4010 <0.045 ng/mL Normal 0.017 TROPONIN-I Result Comment: TROPONIN-I EXPECTED VALUES <0.045 Negative 0.045 - 0.590 Consistent with Cardiac Damage > OR = 0.600 Critical Value Not every elevated troponin is indicative of HI. These values should be used with clinical judgement in examining the patient's clinical picture for diagnosis. To establish a diagnosis of HI versus myocardial injury, there must be a demonstrated rise and/or fall in the troponin values, in addition to ischemic symptoms, EKG changes, new regional wall motion abnormality, and/or angiographical evidence. PLEASE NOTE: REFERENCE RANGES EDITED 17 Performed By: #### L500.2500, L501.4010, L503.6075, L503.6150, L503.6550 #### [facility] [address] [place], [place], [address] IRON BINDING Collected: 04/05/2018 Status: F Source: [place] CAPAC[place],TOTAL 4:[address] [facility] REPOSITORY Order Comment: 'TROP' Serial specimen #1, #2, #3, or #4: 1 TYPE CODE TESTS RESULT OUT OF RANGE REFERENCE UNITS LAB L503.6075 250-450 ug/dL Normal TIBC 379 Performed By: #### L500.2500, L501.4010, L503.6075, L503.6150, L503.6550 #### [facility] [address] [place], [place], [address] IRON Collected: 04/05/2018 Status: F Source: [place] 4:[address] [facility] REPOSITORY Order Comment: 'TROP' Serial specimen #1, #2, #3, or #4: 1 TYPE CODE TESTS RESULT OUT OF RANGE REFERENCE UNITS LAB L503.6150 50-170 ug/dL High IRON 269 Performed By: #### L500.2500, L501.4010, L503.6075, L503.6150, L503.6550 #### [facility] [address] [place], [place], [id number] (686) FERRITIN Collected: 04/05/2018 Status: F Source: [place] 4:[address] [facility] REPOSITORY Order Comment: 'TROP' Serial specimen #1, #2, #3, or #4: 1 TYPE CODE TESTS RESULT OUT OF RANGE REFERENCE UNITS LAB L503.6550 8-252 ng/mL Normal FERRITIN 13 Performed By: #### L500.2500, L501.4010, L503.6075, L503.6150, L503.6550 #### [facility] [address] [place], [place], [id number] CBC-COMPLETE BLOOD CNT Collected: 04/05/2018 Status: F Source: [place] NO DIFF 4:[address] [facility] REPOSITORY TYPE CODE TESTS RESULT OUT OF RANGE REFERENCE UNITS LAB L100.1000 4.4-11.0 K/mm3 Normal WBC 5.8 LAB L100.1200 4.2-5.4 M/mm3 Low RBC 2.26 LAB L100.1300 12.0-15.0 g/dl Low HGB 7.1 LAB L100.1400 37-47 % Low HCT 23.2 LAB L100.1500 81-99 fL High MCV 102.7 LAB L100.1600 27.0-32.0 pg Normal MCH 31.4 LAB L100.1700 32-36 g/gl Low MCHC 30.6 LAB L100.1810 11.6-14.6 % High RDW CV 15.7 LAB L100.1820 35.1-43.9 fl High RDW SD 57.6 LAB L100.1900 150-450 K/mm3 Normal PLT 319 LAB L100.2000 6.2-12.0 fl Normal MPV 9.1 Performed By: #### L100.0500 #### [facility] [address] [place], [place], [address] TYPE AND SCREEN Collected: 04/05/2018 Status: F Source: [place] 4:[address] [facility] REPOSITORY Order Comment: CMV NEG? N Number of units to transfuse: 1 Is the EBL >/= 1000ml in adults or >/= 12ml/kg in children? Y Reason for Ordering Blood: Acute Are the blood/blood products to be transfused? Y Is the patient having/had surgery? N CMV NEG?* N Give When? When Ready Irradiated? N Leukodepleted? Y Reason for Type AND Screen/Red Cells: ANEMIA TYPE CODE TESTS RESULT OUT OF RANGE REFERENCE UNITS LAB B10.0800 O Normal BLOOD TYPE GEL POSITIVE LAB B100.4000 Normal Antibody NEGATIVE Screen Performed By: #### B101.7450 #### [facility] [facility] [place], [place], [id number] RC Collected: 04/05/2018 Status: F Source: [place] 4:[address] [facility] REPOSITORY TYPE CODE TESTS RESULT OUT OF REFERENCE UNITS RANGE LAB U100.0000 [id number] TRANSFUSED PRODUCT: T AND S with Crossmatch, Red Cells COUNT: 1 Performed By: #### U100.0000 #### Non-[facility] - refer to report for specific site RC Collected: 04/05/2018 Status: F Source: [place] 4:[address] [facility] REPOSITORY TYPE CODE TESTS RESULT OUT OF REFERENCE UNITS RANGE LAB U100.0000 [id number] TRANSFUSED PRODUCT: T AND S with Crossmatch, Red Cells COUNT: 1 Performed By: #### U100.0000 #### [facility] - refer to report for specific site VITAMIN B12 Collected: 04/05/2018 Status: F Source: [place] 4:[address] [facility] REPOSITORY TYPE CODE TESTS RESULT OUT OF RANGE REFERENCE UNITS LAB L503.0105 211-911 pg/mL Normal Vitamin B12 466 Performed By: #### L503.0105 #### [facility] [address] [place], [address] CT LUMBAR W/O Observed: 04/05/2018 Status: F Source: [place] CONTRAST 11:24 AM [place] [id number] [place] [address] Patient: LISA GUZMAN Phone#: : [phone] Age: 77 Gender: F Pt. Type: Out Account: [id number] Location: [facility] Ordering: SHIV ANTON Exam Date: 04/05/2018/11:11 Family Phys: Charge Code: [id number] Physician: Mower Order #: [id number] DLP Dose#: PROCEDURE: CT LUMBAR SPINE WITHOUT CONTRAST COMPARISON: None. INDICATIONS: M48.06 TECHNIQUE: After obtaining the patient's consent, multi-planar CT images were created without intravenous contrast material. All CT scans at this facility use dose modulation, iterative reconstruction, and/or weight based dosing when appropriate to reduce radiation dose to as low as reasonably achievable. IV CONTRAST: No IV contrast used,ml TOTAL DOSE: 54.4 CTDIvol(mGy) FINDINGS: PARASPINAL AREA: There is heavy atherosclerotic calcification of the aorta resulting in luminal irregularity and multifocal narrowing, series 2 image 8 and 38. The stenosis seen on image 38 is within a segment of aortic stent. ` Right nephrolithiasis measures 0.3 cm. There may be a second right nephrolithiasis versus vascular calcification. Low-attenuation lesion in the left kidney, partially imaged and incompletely evaluated on this exam. BONES: The vertebral bodies are maintained in height. There is minimal retrolisthesis of L2 on L3. There is endplate sclerosis at L2-3 due to severe disc height loss. Facet arthropathy is seen in the lower lumbar spine. DISC: There is severe disc height loss at L2-3. There is disc height loss with vacuum disc phenomenon at L3- 4 and L5-S1. LUMBAR DISC LEVELS: L1-L2: No significant disc/facet abnormality, spinal stenosis, or foraminal stenosis. Continued Report - Page 2 of 2 Patient: LISA GUZMAN Phone#: : [phone] Age: 77 Gender: F Pt. Type: Out Account: [id number] Location: [facility] Ordering: SHIV ANTON Exam Date: 04/05/2018/11:11 Family Phys: Charge Code: [id number] Physician: Mower Order #: [id number] DLP Dose#: [id number]: Severe disc height loss, posterior disc bulge, facet arthropathy contributes to moderate to severe right and mild left neural foraminal narrowing. There is at least moderate spinal canal narrowing. L3-L4: Disc height loss, facet arthropathy and probable posterior disc bulge contributes to moderate bilateral neural foraminal narrowing and at least moderate spinal canal narrowing. L4-L5: Facet arthropathy contributes to mild bilateral neural foraminal narrowing. L5-S1: Disc height loss contributes to mild bilateral neural foraminal narrowing. CONCLUSION: 1. Multilevel degenerative changes resulting in varying recent spinal canal and neural foraminal narrowing. Changes most significant at L2-3 and L3-4. 2. Multifocal aortic luminal narrowing secondary to atherosclerotic disease. 3. Right nephrolithiasis. Dictated by: Abril Ventura MD on 04/05/2018 at 12:18 Approved by: Abril Ventura MD on 04/05/2018 at 12:18 CBC W/DIFF, AUTOMATED Collected: 04/04/2018 Status: F Source: [place] 5:[address] [facility] REPOSITORY TYPE CODE TESTS RESULT OUT OF RANGE REFERENCE UNITS LAB L100.1000 4.4-11.0 K/mm3 Normal WBC 8.0 LAB L100.1200 4.2-5.4 M/mm3 Low RBC 2.47 LAB L100.1300 12.0-15.0 g/dl Low HGB 7.7 LAB L100.1400 37-47 % Low HCT 25.4 LAB L100.1500 81-99 fL High MCV 102.8 LAB L100.1600 27.0-32.0 pg Normal MCH 31.2 LAB L100.1700 32-36 g/gl Low MCHC 30.3 LAB L100.1810 11.6-14.6 % High RDW CV 15.5 LAB L100.1820 35.1-43.9 fl High RDW SD 58.4 LAB L100.1900 150-450 K/mm3 Normal PLT 313 LAB L100.2000 6.2-12.0 fl Normal MPV 8.2 LAB L100.2100 47-70 % Normal NEUT% 52.8 LAB L100.2200 19-41 % Normal LY% 33.8 LAB L100.2300 0-10 % Normal MONO% 8.5 LAB L100.2400 0-5 % Normal EO% 4.5 LAB L100.2500 0-1 % Normal BASO% 0.1 LAB L100.2550 0.0-0.9 % Normal IM GRAN % 0.300 Result Comment: IG% - Immature Granulocytes (promyelocytes, myelocytes and metamyelocytes) > 1% indicates that a LEFT SHIFT is Present. LAB L100.2620 2.0-7.7 X10 3/uL Normal Absolute Neut 4.2 LAB L100.2720 0.83-4.51 X10 3/ul Normal Absolute Lymph 2.70 Performed By: #### L100.0100 #### [facility] [address] [place], [place], [id number] BASIC METABOLIC Collected: 04/04/2018 Status: F Source: [place] PROFILE (BMP) 5:[address] [facility] REPOSITORY TYPE CODE TESTS RESULT OUT OF RANGE REFERENCE UNITS LAB L501.0100 74-106 mg/dL Normal GLU 85 Result Comment: Please note revised GLUCOSE reference range effective 2017. LAB L501.1000 7-18 mg/dL High BUN 31 LAB L501.1100 0.55-1.02 mg/dL High CREAT,SERUM 1.35 Result Comment: The validity of the calculated GFR AND GFRAA in patients over 70 years has not been determined. Clinical correlation is essential. LAB L501.1110 >60 mL/min Low EST GFR 40 Result Comment: Non- GFR Calc LAB L501.1115 >60 mL/min Low EST GFR - AA 49 Result Comment: GFR Calc LAB L501.1300 10-20 RATIO High BUN/CRE 23.0 LAB L501.2200 8.5-10.1 mg/dL CA Normal 8.5 LAB L501.5300 136-145 mmol/L NA Normal 140 LAB L501.5600 3.5-5.1 mmol/L K Normal 3.7 LAB L501.5900 98-107 mmol/L CL Normal 106 LAB L501.6100 21.0-32.0 mmol/L Normal CO2 24.0 LAB L501.6200 5-15 Normal GAP 10 Performed By: #### L500.2500 #### [facility] [address] [place], [address] BNP,B-TYPE NATRIURETIC Collected: 04/04/2018 Status: F Source: [place] [facility] [facility] [facility] REPOS[facility] TYPE CODE TESTS RESULT OUT OF RANGE REFERENCE UNITS LAB L503.6620 0-100 pg/mL Normal B-TYPE 90.9 IVONNE PEP Performed By: #### L503.6620 #### [facility] [address] [place], [address] CHEST PA AND LATERAL Observed: 04/04/2018 Status: F Source: [place] 5:[address] [facility] REPOSITORY [facility] Imaging Services [address] [place] [address] Chest PA and Lateral MR#: [id number] Acct: [id number] Name: LISA GUZMAN Rep #: [id number] : 1940 F 77 From: Hiro Gutierrez MD PCP: Shiv Anton DO Status: REG CLI Study: Chest PA and Lateral Date of Exam: 04/04/18 Exam# [id number] Ordering Dr: Bernardino Perez LITIGATION ATTORNEY-C STUDY: X-RAY CHEST REASON FOR EXAM: Female, 77 years old. Short of breath and cough TECHNIQUE: Frontal and lateral views of the chest. COMPARISON: 08/09/2016. FINDINGS: The lungs are hyperexpanded. There are coarsened interstitial markings suggestive of mild chronic fibrosis. Stable scarring in the lung bases. No gross focal infiltrates. No gross effusions. Normal size heart. Normal mediastinum and polo. Normal visualized pulmonary arteries. Normal visualized aortic arch and descending thoracic aorta. There are diffuse degenerative changes of the visualized thoracic spine. Normal visualized ribs, clavicles, and shoulders. There is no demonstrated abnormality of the visualized soft tissue structures of the upper abdomen. RAD/Chest PA and Lateral IMPRESSION: No change. No acute chest disease. 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 Electronically Signed: Hiro Gutierrez MD at 16:33 EST , Service support , CC: DARCIE Perez; Shiv Anton DO Reporting Analyst: Signed ESOPHAGRAM Observed: 03/30/2018 Status: F Source: [facility] 10:53 AM [place] [address] Patient: LISA GUZMAN Phone#: : [phone] Age: 77 Gender: F Pt. Type: Out Account: [id number] Location: 052 Ordering: CHULA MOORE Exam Date: 03/30/2018/10:02 Family Phys: SHIV ANTON Charge Code: [id number] Physician: Mower Order #: [id number] DLP Dose#: PROCEDURE: X-RAY ESOPHAGRAM COMPARISON: None. INDICATIONS: Dysphagia TECHNIQUE: An esophagram was performed with fluoroscopy in the usual manner. TOTAL DOSE: 91.55 mGy FINDINGS: STRUCTURE: No visible obstruction, stricture, or dilatation. The mild degenerative changes present at the cervical level. There is mild impression on the dorsal aspect of the barium column at the C5-6 level. MOTILITY: Normal. Normal motility with no reflux. REFLUX: None visible. OTHER: Calcification of aortic arch is present. CONCLUSION: 1. Mild impression on the dorsal column of the cervical portion of the esophagus at C5-6 by vertebral body osteophyte. No other focal abnormalities identified. Dictated by: Darcie Doran MD on 03/30/2018 at 11:01 Approved by: Darcie Doran MD on 03/30/2018 at 11:01 ARTERIAL Observed: 03/22/2018 Status: F Source: [place] 7:[address] [facility] REPOSITORY [facility] [place] [address] Ankle Brachial Index 03/09/18 0906 MR#: [id number] Acct: [id number] Name: LISA GUZMAN Rep #: [id number] : 1940 77 From: Jason Begum MD Attending Dr: Jason Begum MD Status: REG CLI Ordering Dr: Jason Begum MD Date: 03/09/18 Location: [facility] Sex: F C Admitted: Reason For Study: Atherosclerosis Left Segmental Pressures Left brachial= 124mmHg. Left posterior tibial artery = 72mmHg. Left dorsalis pedis artery = 80mmHg. Left digit = 52 mmHg. The left dorsalis pedis waveforms are monophasic. The left posterior tibial artery waveforms are monophasic. Right Segmental Pressures Right brachial= 120mmHg. Right posterior tibial artery = 53mmHg. Right dorsalis pedis artery = 71mmHg. Right digit = 42 mmHg. The right dorsalis pedis waveforms are monophasic. The right posterior tibial artery waveforms are monophasic. Indices The right ankle brachial index by the dorsalis pedis is .57. The right ankle brachial index by the posterior tibial artery is .43. The right digital-brachial index is .34. The left ankle brachial index by the dorsalis pedis is .65. The left ankle brachial index by the posterior tibial artery is .58. The left digital-brachial index is .42. Interpretation Summary 1. Bilateral moderate occlussive disease with an LING 0.57/0.65 2. Bilateral small vessel disease with DBI 0.34/0.42. Ordering Physician: Jason Begum Referring Physician: Jason Begum Performed By: Paulina Hyatt RVT 03/22/1831 Date Jason Begum MD CC: Jason Begum MD; Shiv Sloane DO Date Dictated: 03/09/18 0906 Date Transcribed: 03/22/18730 Reporting Analyst: Signed ARTERIAL DUPLEX US Observed: 03/22/2018 Status: F Source: [facility] 7:[address] [facility] REPOSITORY [facility] Cardiovascular Services [address] [place], [place] [address] [address] Art Duplex US Bilat Lower Ext 03/09/18 0910 MR#: [id number] Acct: [id number] Name: LISA GUZMAN Rep #: [id number] : 1940 77 From: Jason Begum MD Attending Dr: Jason Begum MD Status: REG CLI Ordering Dr: Jason Begum MD Date: 03/09/18 Location: [facility] Sex: F C Admitted: Reason For Study: Atherosclerosis Right Velocities Left Velocities Ext. Iliac Artery, dist = 128.0 cm./sec. Ext Iliac Artery, dist = 370.0 cm./sec. Common Femoral Artery, prox = 202.0 cm./sec. Common Femoral Artery, prox = 163.0 cm./sec. Supf Femoral Artery, prox = 108.0 cm./sec. Supf. Femoral Artery, prox = 261.0 cm./sec. Supf femoral artery - mid/dist - 162.0 cm/s. Supf. Femoral Artery, mid = 119.0 cm./sec. Supf Femoral Artery, dist. = 58.6 cm./sec. Supf. Femoral Artery, dist = 69.1 cm./sec. Profunda Femoral Artery = 222.0 cm./sec. Profunda Femoral Artery = 195.0 cm./sec. Popliteal Artery, prox. = 80.3 cm./sec. Popliteal Artery, proximal, = 57.4 cm./sec. Popliteal Artery, mid = 53.4 cm./sec. Popliteal Artery, mid = 51.1 cm./sec. Popliteal Artery, dist = 61.6 cm./sec. Popliteal Artery, distal = 48.1 cm./sec. Post. Tibial Artery, prox = 15.5 cm./sec. Post. Tibial Artery, prox = 36.4 cm./sec. Post. Tibial Artery, mid = 10.0 cm./sec. Post Tibial Artery, mid = 27.6 cm./sec. Post. Tibial Artery, dist = 19.9 cm./sec. Post Tibial Artery, dist. = 21.2 cm./sec. Peroneal Artery, prox = 22.2 cm./sec. Peroneal Artery, prox = 31.0 cm./sec. Peroneal Artery, mid = 24.2 cm./sec. Peroneal Artery, mid = 38.9 cm./sec. Peroneal Artery,dist = 24.7 cm./sec. Peroneal Artery,dist. = 33.8 cm./sec. Ant. Tibial Artery, prox = 47.9 cm./sec. Ant.Tibial Artery, prox = 30.2 cm./sec. Ant. Tibial Artery, mid = 49.5 cm./sec. Ant Tibial Artery, mid = 47.5 cm./sec. Ant. Tibial Artery, dist = 60.9 cm./sec. Ant. Tibial Artery, distal = 31.0 cm./sec. Procedure Exam performed in department. Interpretation Summary 1. right profunda stenosis. 2. Right EIA, SFA and profunda stenosis. 3. Appears bilateral proximal biphasic flow and distal monophasic in distal tibials. Ordering Physician: Jason Begum Referring Physician: Jason Begum Performed By: Paulina Hyatt RVT 03/22/1828 Date Jason Begum MD CC: Jason Begum MD; Shiv Anton DO Date Dictated: 03/09/18909 Date Transcribed: 03/22/18727 Reporting Analyst: Signed PULMONARY VISIT REPORT Observed: 03/03/2018 Status: F Source: [place] 1:[address] [facility] REPOSITORY [facility] [place] [address] [address] [place] [address] OFFICE VISIT Date of Service: 03/02/18 MR#: [id number] Acct: [id number] Name: LISA GUZMAN Rep #: [id number] : 1940 Provider: Jesusita Nino Age/Sex: 77/F Location: [facility] Status: Signed Assessment AND Plan 1. Pulmonary hypertension I27.20 Plan New. Not likely related to suboptimal treatment of obstructive sleep apnea given good compliance and management of symptoms. Will try to look for additional causes such as autoimmune disease. Blood work being obtained today and will be reviewed at his 6-week follow-up. Education provided to the patient regarding a pulmonary hypertension diet. Pulmonary stress test completed in the office today and ruled out the need for supplemental oxygen with ambulation at this time. 2. PND (post-nasal drip) R09.82 Plan New. Treating with Flonase. Follow-up in 6 weeks. 3. Obstructive sleep apnea G47.33 Plan Patient is using and benefiting from Pap therapy. No indication for titration study at this time. Continue to encourage weight loss. Contact the office for any new or worsening symptoms in the meantime. Follow-up in 6 weeks. 4. BMI 32.0-32.9,adult Z68.32 Plan Encourage weight loss. Plan Detail Other Orders Orders: Other Medications New: Follow Up 6 Weeks ([facility]) HPI Echo results: Chief Complaint: Shortness of breath on exertion HPI Comments Details: This patient presents the office today to follow-up on her shortness of breath. She is ambulatory and currently on room air. She continues to experience shortness of breath on exertion, and believes that it has slightly worsened since her last office visit. She states that occasionally she has accompanying epigastric burning associated with the shortness of breath. She also admits to hiatal hernia. She is compliant with treatment for her reflux. Her shortness of breath is typically with exertion. She denies any shortness of breath with conversation. She denies any cough, sputum production or hemoptysis. She denies any wheezing, chest tightness, chest pain or palpitations. She does report lower extremity edema. She denies any fever, chills or body aches. She has not used any [id number] medications for her symptoms. She does have a Ventolin rescue inhaler but states that it is not helpful in relieving her shortness of breath. She reports that the cookies with her Pap. She does feel rested upon arising in the morning. She denies any difficulties with mask leaks. She is not having episodes of nocturia. She is not falling asleep while watching TV and denies any napping at this time. Echocardiogram completed on February 21, 2018 shows an estimated EF of 65%, documented evidence of diastolic dysfunction and estimated RVSP to be 41 mmHg. Compliance report for the past 30 days shows 100% compliance. Average use is 10 hours. Current setting is 15 cm of water. AHI is controlled at an average of 0.6 events per hour. It appears as though the problem. Intake Vital Signs03/02/18 Pulse Ox 96 03/02/18 Oxygen Delivery Method room air 03/02/18 Comment 6 min, ambulation 03/02/18 Pulse Ox 96 03/02/18 Oxygen Delivery Method room air Intake Visit Reasons: Echo results Accompanied by: Self Allergies latex Allergy (Severe, Verified 03/02/18 12:57) Rash metoprolol Allergy (Severe, Verified 03/02/18 12:57) Unknown bee pollen [Bee Pollen] Allergy (Verified 03/02/18 12:57) Anaphylaxis Medications Cholecalciferol (VIT D3) [Vitamin D3] 1,000 unit PO DAILY 01/26/16 [History Confirmed 03/02/18] Oxycodone HCl/Acetaminophen [Oxycodone-Acetaminophen 10-325] 1 ea PO BID PRN 01/26/16 [History Confirmed 03/02/18] Esomeprazole Magnesium [Nexium] 40 mg PO QODAY 08/09/16 [History Confirmed 03/02/18] Latanoprost 0.005% [Xalatan Opthalmic] 1 drp EACH EYE BID 08/09/16 [History Confirmed 03/02/18] Levothyroxine [Synthroid] 200 mcg PO DAILY 08/09/16 [History Confirmed 03/02/18] Timolol 0.5% [Timoptic] 1 drp EACH EYE BID 08/09/16 [History Confirmed 03/02/18] blood sugar diagnostic strips See Dose Instructions .ROUTE .MEDSUPPLY #20 ea 05/04/17 [History Confirmed 03/02/18] insulin aspart U- 100 100 unit/mL subcutaneous pen 40 unit SC TID ml 05/04/17 [History Confirmed 03/02/18] pen needle, diabetic 31 gauge x 5/16 See Dose Instructions .ROUTE .MEDSUPPLY #30 ea 05/04/17 [History Confirmed 03/02/18] albuterol sulfate HFA 90 mcg/actuation aerosol inhaler 2 puff INHALATION Q4H PRN #18 g 06/20/17 [Rx Confirmed 03/02/18] fluticasone 50 mcg/actuation nasal spray,suspension 2 spray INTRANASAL QDAY 06/28/17 [History Confirmed 03/02/18] lactobacillus combination no.4 3 billion cell capsule 3,000 mmu cells PO QDAY 06/28/17 [History Confirmed 03/02/18] sitagliptin 50 mg-metformin 500 mg tablet 1 tab PO BID 06/28/17 [History Confirmed 03/02/18] aspirin 81 mg tablet,delayed release 81 mg PO QDAY 07/13/17 [History Confirmed 03/02/18] clopidogrel 75 mg tablet 75 mg PO QDAY 07/13/17 [History Confirmed 03/02/18] furosemide 40 mg tablet 40 mg PO QDAY 07/13/17 [History Confirmed 03/02/18] isosorbide mononitrate ER 30 mg tablet,extended release 24 hr 30 mg PO BID tab 07/13/17 [History Confirmed 03/02/18] nitroglycerin 0.4 mg sublingual tablet 0.4 mg SUBLINGUAL Q5M PRN 07/13/17 [History Confirmed 03/02/18] simvastatin 20 mg tablet 20 mg PO QPM 07/13/17 [History Confirmed 03/02/18] valsartan 320 mg tablet 320 mg PO QDAY 07/13/17 [History Confirmed 03/02/18] insulin glargine (U-100) 100 unit/mL (3 mL) subcutaneous pen 50 unit SC BID #90 ml 07/28/17 [Rx Confirmed 03/02/18] ranolazine ER 500 mg tablet,extended release,12 hr 500 mg PO BID #60 tab 10/12/17 [Rx Confirmed 03/02/18] fluticasone 50 mcg/actuation nasal spray,suspension 2 spray INTRANASAL DAILY #16 g 03/02/18 [Rx Confirmed 03/02/18] polyethylene glycol 3350 17 gram/dose oral powder PO g 03/02/18 [History Confirmed 03/02/18] [facility] Medical History Arthritis (Acute) Heart disease (Acute) High cholesterol (Acute) HTN (hypertension) (Chronic) Hypothyroidism (Acute) GERD (gastroesophageal reflux disease) (Acute) NSTEMI (non-ST elevated myocardial infarction) (Acute) Spinal stenosis of lumbar region (Acute) Insomnia (Acute) Anemia (Acute) Degeneration of lumbar intervertebral disc (Acute) CVA (cerebral vascular accident) (Acute) Depression (Acute) Chronic pain syndrome (Acute) Peripheral vascular disease (Acute) Diabetic peripheral neuropathy (Acute) Allergic rhinitis (Acute) OMID (obstructive sleep apnea) (Acute) COPD (chronic obstructive pulmonary disease) (Acute) Diabetes type 2, uncontrolled (Chronic) Glaucoma (Acute) Skin cancer (Acute) Thyroid disease (Acute) Dyspnea (Chronic) Abnormal echocardiogram (Chronic) Aortic stenosis (Chronic) Right carotid bruit (Chronic) Encounter for long-term current use of high risk medication (Chronic) COPD exacerbation (Chronic) Palpitations (Chronic) Obstructive sleep apnea (Chronic) Cataracts, bilateral (Resolved) Carpal tunnel syndrome (Resolved) Hyperlipidemia (Chronic) Hypothyroidism (Chronic) CAD (coronary artery disease) (Chronic) HTN (hypertension) (Chronic) NSTEMI (non-ST elevated myocardial infarction) (Acute) Diabetes (Chronic) Surgical History H/O right coronary artery stent placement (Resolved) Status post ORIF of fracture of ankle (Resolved) S/P rotator cuff repair (Resolved) History of partial knee replacement (Resolved) H/O left knee surgery (Resolved) H/O angioplasty (Resolved) Family History Daughter Alcohol abuse Anemia Anxiety Asthma Mother Diabetes Heart disease Hypertension Father Heart disease Hypertension Social History Smoking Status: Former smoker how long ago did patient quit smokin second hand exposure: Yes alcohol intake: never substance use type: does not use caffeine: Yes what type of physical activity do you participate in: none Review of Systems Const CONSTITUTIONAL: Positive fatigue; negative anorexia, body ache, chills, daytime sleepiness, fever(s), night sweats, oral thrush, stops breathing during sleep, weight loss, sleeping in chair, weight loss, weight gain, frequent colds, seasonal allergies, other, headache(s) or orthopnea EETM Ear Nose Throat Mouth: Positive post nasal drip; negative hard of hearing, hearing normal, hoarseness, dry mouth in morning, change in vision, itchy eyes, eye pain, swallowing Difficulty, ear pain, nose bleed, headache(s), mouth pain, nasal congestion, nasal discharge, sinus pain, sinus pressure, sore throat or other Cardio Cardiovascular: Positive murmur; negative chest pain, chest pain at rest, chest pain with activity, irregular heart rhythm, edema, shortness of breath when lying down, palpitations or other Resp Respiratory: Positive as per HPI and shortness of breath shortness of breath: Positive with activity; negative pain with cough, wheezing, chest congestion, cough, chest tightness, pain on inspiration, inhalers, increase use of rescue inhalers, snoring, apnea or other Gastro Gastrointestional: Positive constipation and other (always feels hungry); negative bloody stools, change in appetite, difficulty swallowing, reflux, hematemesis, melena stool or loose stool Genitourinary: Negative blood in urine, nocturia, pain with urination or other Musc Musculoskeletal: Negative body pain, back pain, neck pain or other Skin/Breast Skin/Breast: Negative dry skin, itching, rash, unusual bruising, breast lump or other Neuro Neurological: Negative restless legs, confusion, weakness or other Psych Psychocological: Negative abnormal sleep pattern, anxiety, thoughts of hurting self/others, hopelessness or other Lymph Lymphatic: Negative easy bleeding, easy bruising, swollen lymph nodes or other Exam Const Constitutional: Positive conversant, cooperative, in no acute respiratory distress, healthy appearing, well developed, well nourished, good hygiene and obese Head Head: Positive normocephalic and atraumatic; negative cyanosis of lips/distal nose Eyes Eye: Positive clear conjunctiva; negative nystagmus or scleral abnormality Ears Ear: Positive external ears normal; negative hard of hearing or hearing normal Nose Nose: Positive external nose normal and no nasal discharge; negative epistaxis Mouth Mouth: Positive post nasal drip, oral mucosae normal, no lesions and crowded posterior oropharynx; negative malodorous breath or oral thrush present Mallampati Score: III: Mallampati Score Neck Neck: Positive normal visual inspection, full ROM, trachea midline, thick neck and female neck greater than 37 cm (15 in); negative lymphadenopathy, JVD or tender Chest Wall Chest: Positive normal inspection of the chest and symmetric chest movement; negative increased A/P diameter Resp lung sounds: Positive clear to auscultation, good air exchange, normal expiratory time and normal respiratory effort; negative diminished, wheezes, rhonchi, rales, dullness to percussion or wheeze present on forced exhalation Cardio Cardiac: Positive murmur murmur: Positive systolic, LUSB and RUSB, regular rate, regular rhythm, S1 normal and S2 normal GI GI: Positive normal to inspection and obese; negative distended Genitourinary: Positive deferred Musc Musculoskeletal: Positive steady gait, ROM normal and using an assistive device for ambulation; negative kyphosis or scoliosis Skin Pulmonary Skin Exam: Positive intact; negative rash or dermal atrophy Pulses Pulse: Yes pulses normal x4 extremities Extremities Extremities: Yes capillary refill normal, No clubbing, No cyanosis, Yes edema Location: lower extremity location: Bilateral pitting trace Neuro Neurologic: Yes conversant, Yes no focal neuro deficits, Yes normal concentration, Yes understands questions, Yes cooperative, Yes normal cognition, Yes normal coordination, No tremor Lymph Lymphatic: No lymphadenopathy, No tenderness, No cervical adenopathy Psych Appearance: Positive grossly normal, eye contact and well kempt Mental Status: Positive mental status grossly normal Mood: Positive congruent mood Affect: Positive normal affect Office Procedures Walking Oximetry Walking Oximetry Procedure performed by: Ivory Johnson Walking Oximetry: Yes walking oximetry preformed, desaturation below 89% did not occur, no signs of distress prior to departing office and no indication for supplemental oxygen at this time Coding Level of Care Code Off vis,est,level 4 Diagnoses Pulmonary hypertension I27.20 PND (post-nasal drip) R09.82 Obstructive sleep apnea G47.33 BMI 32.0-32.9,adult Z68.32 03/03/18 1359 <Electronically signed by Jesusita MCINTYRE> Date Jesusita ALEJANDREC Cosigner Signature: Date (if applicable) CC: Shiv Anton DO RHEUMATOID FACTOR Collected: 03/02/2018 Status: F Source: [place] 2:[address] [facility] REPOSITORY TYPE CODE TESTS RESULT OUT OF RANGE REFERENCE UNITS LAB L505.7010 <15 IU/mL Normal RHEUMATOID FAC < 10.0 Performed By: #### L505.7010 #### [facility] [address] [place], [address] ANCA Collected: 03/02/2018 Status: F Source: [place] 2:[address] [facility] REPOSITORY TYPE CODE TESTS RESULT OUT OF RANGE REFERENCE UNITS LAB L3300.1225 Neg:<1:20 titer CYTOPLASMIC Normal Ab <1:20 LAB L3300.1250 Neg:<1:20 titer PERINUCLEAR Normal Ab <1:20 Result Comment: The presence of positive fluorescence exhibiting P-ANCA or C-ANCA patterns alone is not specific for the diagnosis of Eloise's Granulomatosis (WG) or microscopic polyangiitis. Decisions about treatment should not be based solely on ANCA IFA results. The [employer] ANCA [employer] Consensus recommends follow up testing of positive sera with both PA- 3 and MPO-ANCA enzyme immunoassays. As many as 5% serum samples are positive only by EIA. Ref. AM J Clin Pathol 1999;111:507-513. LAB L3300.1285 Neg:<1:20 titer Normal Atypical pANCA <1:20 Result Comment: The atypical pANCA pattern has been observed in a significant percentage of patients with ulcerative colitis, primary sclerosing cholangitis and autoimmune hepatitis. Performed By: #### L3300.1200, L4600.0100 #### [facility] (refer to report for specific site) refer to report for address and phone number CCP IGG ANTIBODIES Collected: 03/02/2018 Status: F Source: [place] 2:[address] [facility] REPOSITORY TYPE CODE TESTS RESULT OUT OF REFERENCE UNITS RANGE LAB L4600.0100 0-19 units High ANTI-CCP 20 [id number] Result Comment: Negative <20 Weak positive 20 - 39 Moderate positive 40 - 59 Strong positive >59 Performed at: [address] [id number] Sales Marketing Manager: Zane Chan PhD, Phone: [phone] Performed at: [address] [id number] Sales Marketing Manager: Dorinda Braga MD, Phone: [phone] Performed By: #### L3300.1200, L4600.0100 #### [facility] (refer to report for specific site) refer to report for address and phone number ALEX W/ REFLEX MULT Collected: 03/02/2018 Status: F Source: [place] 2:[address] [facility] REPOSITORY TYPE CODE TESTS RESULT OUT OF RANGE REFERENCE UNITS LAB L3100.5475 Negative Normal Negative ALEX-DIRECT Result Comment: Performed at: [address] [id number] Sales Marketing Manager: Zane Chan PhD, Phone: [phone] Performed By: #### L3100.5450 #### [facility] (refer to report for specific site) refer to report for address and phone number ECHO, COMPLETE W/ Observed: 02/21/2018 Status: F Source: [place] CONTR[place] 8:[address] [facility] REPOSITORY [facility] Cardiovascular Services [address] [place] [address] Echo Complete W/ Contrast 02/21/18 1357 MR#: [id number] Acct: [id number] Name: LISA GUZMAN Rep #: [id number] : 1940 77 From: Manuel Ferraro MD Attending Dr: Ivan Dial MD Status: REG CLI Ordering Dr: Ivan Dial MD Date: 02/21/18 Location: [facility] Sex: F C Admitted: Reason For Study: DYSPNEA Procedure This was a 2D Doppler, Color Flow transthoracic echocardiogram. The study was technically difficult. Contrast injection was performed. Exam performed in department. Left Ventricle Normal LV size. Left ventricular systolic function is normal. The estimated ejection fraction is 65 %. There is evidence of diastolic dysfunction. No regional wall motion abnormalities noted. Right Ventricle Normal RV size. Normal systolic function. Atria The left atrium is mildly enlarged. Normal right atrium. No doppler evidence for ASD. Mitral Valve There is moderate to severe mitral annular calcification. Extension of the mitral annular calcification onto the posterior mitrral valve leaflet. Mild (1+) mitral valve insufficiency. Tricuspid Valve Normal tricuspid valve. Trivial tricuspid valve insufficiency. Right ventricular systolic pressure estimated to be 41 mmHg. Aortic Valve Trisinus/trileaflet aortic valve. Normal aortic valve. Pulmonic Valve The pulmonic valve is not well visualized. Great Vessels Normal sized aortic root. Pericardium/Pleural No pericardial effusion. Medication 22 gauge I.V. with prn adaptor inserted into right arm. Diluted definity 3ml given slow IV push to enhance endocardial definition. MMode/2D Measurements AND Calculations LVIDd: 4.8 cm IVSd: 1.3 cm Ao root diam: 3.3 cm LVIDs: 3.0 cm LVPWd: 1.5 cm RVDd: 4.0 cm FS: 37.8 % LAV(MOD-bp): 72.4 ml LVAd ap4: 32.4 cm2 SV(MOD-sp4): 72.7 ml LAV(MOD-bp) Indexed: 36.0 ml/m2 EDV(MOD-sp4): 110.0 ml LAV(MOD-sp2): 74.5 ml EDV(sp4-el): 112.9 ml LAV(MOD-sp4): 62.1 ml LVAs ap4: 16.7 cm2 ESV(MOD-sp4): 37.3 ml ESV(sp4-el): 38.8 ml EF(MOD-sp4): 66.1 % EF(sp4-el): 65.6 % SV(sp4-el): 74.1 ml LA A4 area: 19.4 cm2 LA dimension(2D): 4.8 cm RA A4 area: 13.5 cm2 Time Measurements MV dec time: 0.32 sec Doppler Measurements AND Calculations MV E max mario: 134.2 cm/sec Lat Peak E' Mario: 4.7 cm/sec Med Peak E' Mario: 4.3 cm/sec MV A max mario: 144.8 cm/sec E/E' lat: 28.5 E/E' med: 31.0 MV E/A: 0.93 Ao V2 max: 178.9 cm/sec LV V1 max: 116.3 cm/sec PA V2 max: 122.9 cm/sec Ao max P.8 mmHg LV V1 max P.4 mmHg Ao V2 mean: 125.6 cm/sec LV V1 mean P.1 mmHg Ao mean P.9 mmHg LV V1 mean: 84.3 cm/sec Ao V2 VTI: 39.6 cm LV V1 VTI: 27.2 cm TR max mario: 306.6 cm/sec TR max P.7 mmHg Interpretation Summary The study was technically difficult. Contrast injection was performed. Left ventricular systolic function is normal. The estimated ejection fraction is 65 %. The left atrium is mildly enlarged. There is moderate to severe mitral annular calcification. Extension of the mitral annular calcification onto the posterior mitrral valve leaflet. Mild (1+) mitral valve insufficiency. Trivial tricuspid valve insufficiency. Right ventricular systolic pressure estimated to be 41 mmHg. There is evidence of diastolic dysfunction. Ordering Physician: Ivan Dial Referring Physician: SHIV ANTON Performed By: Elvia Olivares, RDCS, RVT 02/21/182012 Date Manuel Ferraro MD CC: Ivan Dial MD; Shiv Anton DO Date Dictated: 02/21/18 1357 Date Transcribed: 02/21/182012 Reporting Analyst: Signed PULMONARY VISIT REPORT Observed: 02/08/2018 Status: F Source: [place] 2:[address] [facility] REPOSITORY [facility] [address] [place] [address] OFFICE VISIT Date of Service: 02/08/18 MR#: [id number] Acct: [id number] Name: LISA GUZMAN Rep #: [id number] : 1940 Provider: Ivan Dial MD Age/Sex: 77/F Location: [facility] Status: Signed Assessment AND Plan Problems 1. OMID (obstructive sleep apnea) G47.33 2. NSTEMI (non-ST elevated myocardial infarction) I21.4 3. Aortic stenosis I35.0 Plan Patient appears to be well controlled from an OMID standpoint on CPAP 15 cm of water. Patient is reporting dyspnea on exertion, but previous pulmonary function test showed normal function. Patient has had a walking oximetry in the past showing dropping of saturations with ambulation. Will obtain an echocardiogram for evaluation of right-sided heart pressures and patient's history of aortic stenosis to see if this is a possible etiology. Obtain echocardiogram. Continue CPAP therapy. Orders Orders: Plan Detail Follow Up 6 Months (CSM) HPI 6 M FU: Chief Complaint: Shortness of breath on exertion. Details: Patient is a 77-year old female, currently under the care of Dr. Anton, who presents for evaluation secondary to shortness of breath on exertion. Since last visit, patient denies any ER visits, hospitalizations or prednisone burst. Patient subjectively feels she is slightly worse compared to previous. Patient reports she has been compliant with her CPAP therapy. Patient states she uses a nasal pillow mask has been tolerating this well. Patient has noted some clear nasal secretions with an associated cough, typically worse in the morning. Patient wakes rested and denies the need for a nap during the day. Patient is not having any epistaxis, dry mouth or hoarseness. Patient does have 1-2 episodes of nocturia. Patient has been reporting some dyspnea on exertion. Patient states that she uses her rescue inhaler occasionally, but does not think this makes any significant change. Patient knows she has heart problems, but does not watch her weight normally. Patient does have a 14 pound weight gain since October her records, but patient is unclear on the etiology. Patient does not believe that she is changed her diet in any way. Documentation personally reviewed with the patient Compliance report (December 2017): Compliant 100% of the time for approximately 10 hours per night on CPAP 15 cm of water with residual AHI of 0.8 and fairly controlled leak HPI Comments Details: Intake Vital Signs02/08/18 Height 5 ft 6 in 02/08/18 Weight: 97.976 kg Intake Visit Reasons: 6 M FU [facility] Vendor: [employer] Accompanied by: Self Allergies latex Allergy (Severe, Verified 02/08/18 12:54) Rash metoprolol Allergy (Severe, Verified 02/08/18 12:54) Unknown bee pollen [Bee Pollen] Allergy (Verified 02/08/18 12:54) Anaphylaxis Medications Cholecalciferol (VIT D3) [Vitamin D3] 1,000 unit PO DAILY 01/26/16 [History Confirmed 02/08/18] Oxycodone HCl/Acetaminophen [Oxycodone-Acetaminophen 10-325] 1 ea PO BID PRN 01/26/16 [History Confirmed 02/08/18] Esomeprazole Magnesium [Nexium] 40 mg PO QODAY 08/09/16 [History Confirmed 02/08/18] Latanoprost 0.005% [Xalatan Opthalmic] 1 drp EACH EYE BID 08/09/16 [History Confirmed 02/08/18] Levothyroxine [Synthroid] 200 mcg PO DAILY 08/09/16 [History Confirmed 02/08/18] Timolol 0.5% [Timoptic] 1 drp EACH EYE BID 08/09/16 [History Confirmed 02/08/18] blood sugar diagnostic strips See Dose Instructions .ROUTE .MEDSUPPLY #20 ea 05/04/17 [History Confirmed 02/08/18] insulin aspart U- 100 100 unit/mL subcutaneous pen 40 unit SC TID ml 05/04/17 [History Confirmed 02/08/18] pen needle, diabetic 31 gauge x 08/03 See Dose Instructions .ROUTE .MEDSUPPLY #30 ea 05/04/17 [History Confirmed 02/08/18] albuterol sulfate HFA 90 mcg/actuation aerosol inhaler 2 puff INHALATION Q4H PRN #18 g 06/20/17 [Rx Confirmed 02/08/18] fluticasone 50 mcg/actuation nasal spray,suspension 2 spray INTRANASAL QDAY 06/28/17 [History Confirmed 02/08/18] lactobacillus combination no.4 3 billion cell capsule 3,000 mmu cells PO QDAY 06/28/17 [History Confirmed 02/08/18] sitagliptin 50 mg-metformin 500 mg tablet 1 tab PO BID 06/28/17 [History Confirmed 02/08/18] aspirin 81 mg tablet,delayed release 81 mg PO QDAY 07/13/17 [History Confirmed 02/08/18] clopidogrel 75 mg tablet 75 mg PO QDAY 07/13/17 [History Confirmed 02/08/18] furosemide 40 mg tablet 40 mg PO QDAY 07/13/17 [History Confirmed 02/08/18] isosorbide mononitrate ER 30 mg tablet,extended release 24 hr 30 mg PO BID tab 07/13/17 [History Confirmed 02/08/18] nitroglycerin 0.4 mg sublingual tablet 0.4 mg SUBLINGUAL Q5M PRN 07/13/17 [History Confirmed 02/08/18] simvastatin 20 mg tablet 20 mg PO QPM 07/13/17 [History Confirmed 02/08/18] valsartan 320 mg tablet 320 mg PO QDAY 07/13/17 [History Confirmed 02/08/18] insulin glargine (U-100) 100 unit/mL (3 mL) subcutaneous pen 50 unit SC BID #90 ml 07/28/17 [Rx Confirmed 02/08/18] ranolazine ER 500 mg tablet,extended release,12 hr 500 mg PO BID #60 tab 10/12/17 [Rx Confirmed 02/08/18] [facility] Medical History Arthritis (Acute) Heart disease (Acute) High cholesterol (Acute) HTN (hypertension) (Chronic) Hypothyroidism (Acute) GERD (gastroesophageal reflux disease) (Acute) NSTEMI (non-ST elevated myocardial infarction) (Acute) Spinal stenosis of lumbar region (Acute) Insomnia (Acute) Anemia (Acute) Degeneration of lumbar intervertebral disc (Acute) CVA (cerebral vascular accident) (Acute) Depression (Acute) Chronic pain syndrome (Acute) Peripheral vascular disease (Acute) Diabetic peripheral neuropathy (Acute) Allergic rhinitis (Acute) OMDI (obstructive sleep apnea) (Acute) COPD (chronic obstructive pulmonary disease) (Acute) Diabetes type 2, uncontrolled (Chronic) Glaucoma (Acute) Skin cancer (Acute) Thyroid disease (Acute) Dyspnea (Chronic) Abnormal echocardiogram (Chronic) Aortic stenosis (Chronic) Right carotid bruit (Chronic) Encounter for long-term current use of high risk medication (Chronic) COPD exacerbation (Chronic) Palpitations (Chronic) Obstructive sleep apnea (Chronic) Cataracts, bilateral (Resolved) Carpal tunnel syndrome (Resolved) Hyperlipidemia (Chronic) Hypothyroidism (Chronic) CAD (coronary artery disease) (Chronic) HTN (hypertension) (Chronic) NSTEMI (non-ST elevated myocardial infarction) (Acute) Diabetes (Chronic) Surgical History H/O right coronary artery stent placement (Resolved) Status post ORIF of fracture of ankle (Resolved) S/P rotator cuff repair (Resolved) History of partial knee replacement (Resolved) H/O left knee surgery (Resolved) H/O angioplasty (Resolved) Family History Daughter Alcohol abuse Anemia Anxiety Asthma Mother Diabetes Heart disease Hypertension Father Heart disease Hypertension Social History Smoking Status: Former smoker how long ago did patient quit smokin second hand exposure: Yes alcohol intake: never substance use type: does not use caffeine: Yes what type of physical activity do you participate in: none Review of Systems Const CONSTITUTIONAL: Negative anorexia, body ache, chills, daytime sleepiness, fever(s), night sweats, oral thrush, stops breathing during sleep, weight loss, sleeping in chair, fatigue, weight loss, weight gain, frequent colds, seasonal allergies, other, headache(s) or orthopnea EETM Ear Nose Throat Mouth: Positive hearing normal; negative hard of hearing, hoarseness, dry mouth in morning, change in vision, itchy eyes, eye pain, swallowing Difficulty, ear pain, nose bleed, headache(s), mouth pain, nasal congestion, nasal discharge, post nasal drip, sinus pain, sinus pressure, sore throat or other Cardio Cardiovascular: Positive murmur; negative chest pain, chest pain at rest, chest pain with activity, irregular heart rhythm, edema, shortness of breath when lying down, palpitations or other Resp Respiratory: Positive as per HPI and shortness of breath shortness of breath: Positive with activity; negative pain with cough, wheezing, chest congestion, cough, chest tightness, pain on inspiration, inhalers, increase use of rescue inhalers, snoring, apnea or other Gastro Gastrointestional: Negative bloody stools, change in appetite, difficulty swallowing, reflux, hematemesis, melena stool, loose stool, constipation or other Genitourinary: Negative blood in urine, nocturia, pain with urination or other Musc Musculoskeletal: Negative body pain, back pain, neck pain or other Skin/Breast Skin/Breast: Negative dry skin, itching, rash, unusual bruising, breast lump or other Neuro Neurological: Negative restless legs, confusion, weakness or other Psych Psychocological: Negative abnormal sleep pattern, anxiety, thoughts of hurting self/others, hopelessness or other Lymph Lymphatic: Negative easy bleeding, easy bruising, swollen lymph nodes or other Exam Const Constitutional: Positive conversant, cooperative, in no acute respiratory distress, healthy appearing, well developed, well nourished, good hygiene and obese; negative smells of smoke or wearing supplemental oxygen Head Head: Positive normocephalic and atraumatic; negative cyanosis of lips/distal nose, frontal sinus tenderness or maxillary sinus tenderness Eyes Eye: Positive clear conjunctiva; negative nystagmus, scleral abnormality or cataract present Ears Ear: Positive hearing normal and external ears normal; negative hard of hearing Nose Nose: Positive external nose normal, septum normal and no nasal discharge; negative epistaxis or nasal polyp Mouth Mouth: Positive oral mucosae normal, no lesions and crowded posterior oropharynx; negative post nasal drip, malodorous breath or oral thrush present Mallampati Score: III: Mallampati Score Neck Neck: Positive normal visual inspection, full ROM and trachea midline; negative lymphadenopathy or JVD Chest Wall Chest: Positive normal inspection of the chest and symmetric chest movement; negative crepitus or tenderness Resp lung sounds: Positive clear to auscultation, good air exchange, normal expiratory time and normal respiratory effort; negative wheezes, rhonchi, rales, use of accessory muscles, wheeze present on forced exhalation or dullness to percussion Cardio Cardiac: Positive murmur, regular rate, regular rhythm, S1 normal and S2 normal; negative rub or gallop GI GI: Positive normal to inspection, normal bowel sounds and obese; negative distended, ascites or epigastric tenderness Genitourinary: Positive deferred Musc Musculoskeletal: Positive using an assistive device for ambulation; negative kyphosis or scoliosis Skin Pulmonary Skin Exam: Positive intact; negative rash, lesion, ulcers, erythema or dermal atrophy Pulses Pulse: Yes radial pulses present Extremities Extremities: Yes capillary refill normal, No clubbing, No cyanosis, Yes edema (2+) Location: lower extremity Neuro Neurologic: Yes conversant, Yes no focal neuro deficits, Yes normal concentration, Yes understands questions, Yes cooperative, Yes normal cognition, Yes normal coordination Lymph Lymphatic: No lymphadenopathy Psych Appearance: Positive grossly normal Mental Status: Positive mental status grossly normal Mood: Positive congruent mood Affect: Positive normal affect Coding Level of Care Code Off vis,est,level 3 Diagnoses OMID (obstructive sleep apnea) G47.33 NSTEMI (non-ST elevated myocardial infarction) I21.4 Aortic stenosis I35.0 02/08/18 1403 <Electronically signed by Ivan Dial MD> Date Ivan Dial MD Cosigner Signature: Date (if applicable) CC: Shiv Anton DO DEXA BONE DENSITY Observed: 01/19/2018 Status: F Source: [place] STUDY 10:[address] [facility] REPOSITORY [facility] Imaging Services [address] [place] [id number] Dexa Bone Density Study MR#: [id number] Acct: [id number] Name: LISA GUZMAN Rep #: [id number] : 1940 F 77 From: Bautista Pratt MD PCP: Shiv Anton DO Status: REG CLI Study: Dexa Bone Density Study Date of Exam: 01/19/18 Exam# [id number] Ordering Dr: Shiv Anton DO STUDY: DUAL ENERGY X-RAY ABSORPTIOMETRY / DXA REASON FOR EXAM: Female, 77 years old. The patient is postmenopausal. Loss of height. TECHNIQUE: Bone Mineral Density (BMD) measurements of lumbar spine and bilateral hips were obtained. COMPARISON: None. FINDINGS: Lumbar Spine (L1-L4): g/cm2 (1.103) / T-score (-0.5) / Z-score (1.3) Findings are suggestive of normal bone density with a low fracture risk. Left Femur Total: g/cm2 (1.169) / T-score (1.3) / Z-score (3.1) Left Femoral Neck: g/cm2 (1.115) / T-score (0.6) / Z- score (2.6) Right Femur Total: g/cm2 (1.082) / T-score (0.6) / Z- score (2.4) Right Femoral Neck: g/cm2 (1.043) / T-score (0.0) / Z- score (2.1) BD/Dexa Bone Density Study IMPRESSION: The patient is considered normal as outlined below according to World Jo[place] Organization (WHO) criteria with a low fracture risk. Reference Information: The T-score is the number of standard deviations above or below the standard which is normal for young adults at their peak bone mineral density. The World Health Organization (WHO) interprets the T-scores as follows: Above -1 Normal bone density Between -1 and -2.5 Osteopenia Equal to / or below -2.5 Osteoporosis As a practical clinical guideline, osteopenia may be graded as follows: Mild -1 through -1.5 Moderate -1.6 through -2.0 Severe -2.1 through -2.4 The Z-score is the number of standard deviations above or below age-matched controls. A Z-score of less than -1.5 would be considered abnormal. References: 1. NIH Osteoporosis and Related Bone Diseases http://www.osteo.org 2. International Society for Clinical Densitometry http://www.iscd.org 3. National Osteoporosis Foundation http://www.nof.org Electronically Signed: Batuista Pratt MD at 15:47 EDT Tel [phone], Service support , CC: Shiv Anton DO Reporting Analyst: Signed Observed: 01/05/2018 Status: F Source: [place] CULTURE WOUND 4:14 PM [facility] REPOSITORY CULTURE WOUND _WOUND CULTURE_ M I C R O B I O L O G Y R E P O R T FINAL Antimicrobial Susceptibility and Organism Identification Report Specimen Number : [id number] Requested : 01/05/18 Specimen Source : WOUND Collected : 01/05/18 16:14 Durán of Isolation : OUTPATIENT Received : 01/05/18 16:14 Requesting Physician : EDWARD Patient/Specimen Tests and Comments Specimen Comments FINAL REPORT: MODERATE GROWTH GRAM NEGATIVE RODS RIGHT FOOT Organisms Identified -------- * 01 Proteus mirabilis 01/08/18 Comments MODERATE GROWTH Tech : Source : WOUND ID # : [id number] FINAL Report Date : / / : Collected : 01/05/18 16:14 Continued on Next Page M I C R O B I O L O G Y R E P O R T FINAL Antimicrobial Susceptibility and Organism Identification Report Isolate 01 Proteus mirabilis Proteus mirabilis DRUG LYLA Sys. Urine UNITS --- ----- ----- Ampicillin <=8 S Ceftriaxone <=8 S Cephalothin <=8 Ciprofloxacin <=1 S Cefuroxime <=4 S Ertapenem <=1 S Nitrofurantoin >64 Levofloxacin <=2 S Meropenem <=1 S Pip/Tazo <=16 S Trimeth/Sulfa <=2/38 S Tetracycline >8 R Tobramycin <=4 S +, ++, +++, or S = Susceptible N/R = Not Reported Chris = Beta Lactamase Positive I = Intermediate CC = Cost Code TFG = Thymidine-dependent Strain R = Resistant LYLA = mcg/ml (mg/L) Blank = Data not available, or drug not advisable or tested For Blood and CSF Isolates, a Beta-Lactamase test is recommended for Enterococus species. IB appears in place of S, I (S), +, ++, or +++ with species known to possess inducible B-lactamases; potentially they may become resistant to all B-lactam drugs. Monitoring of patients during/after therapy is recommended. Avoid other/combined B-lactam drugs. (a) Use maximum doses of drug with an aminoglycoside for P. aeruginosa in patients with granulocytopenia or serious infections. (b) Breakpoints based on parenteral dose. For cefuroxime Axetil (PO) use <8=S, 8-16=I, >16=R. (c) For non-enterococcal streptococci, Micrococcus species, and Listeria species, refer to the Ampicillin interpretation. * Interpretations based on approx. adult attainable systemic/urine levels, except drugs with <3 dilutions, which print NCCLS. Doses are guidelines; consider weight and renal/hepatic function. Urine interpretation for lower UTI only. Interpretations based on NCCLS M7-A2. Ticar/K Clav'ate for gram positives based on merchandiser retail representative's breakpoints. Tech : Source : WOUND ID # : [id number] FINAL Report Date : / / : Collected : 01/05/18 16:14 01/08/18.1430.KLS. 01/07/18.1409.KLS. 01/08/18.143.KLS.COMPLETE Performed By: #### [id number] #### [facility],[address] [place] [address] CBC W/DIFF, AUTOMATED Collected: 11/25/2017 Status: F Source: [place] 11:[address] [facility] REPOSITORY TYPE CODE TESTS RESULT OUT OF RANGE REFERENCE UNITS LAB L100.1000 4.4-11.0 K/mm3 Normal WBC 6.5 LAB L100.1200 4.2-5.4 M/mm3 Low RBC 3.43 LAB L100.1300 12.0-15.0 g/dl Low HGB 11.0 LAB L100.1400 37-47 % Low HCT 33.8 LAB L100.1500 81-99 fL Normal MCV 98.5 LAB L100.1600 27.0-32.0 pg High MCH 32.1 LAB L100.1700 32-36 g/gl Normal MCHC 32.5 LAB L100.1810 11.6-14.6 % Normal RDW CV 13.4 LAB L100.1820 35.1-43.9 fl High RDW SD 46.0 LAB L100.1900 150-450 K/mm3 Normal PLT 301 LAB L100.2000 6.2-12.0 fl Normal MPV 9.9 LAB L100.2100 47-70 % Normal NEUT% 51.3 LAB L100.2200 19-41 % Normal LY% 32.8 LAB L100.2300 0-10 % Normal MONO% 9.4 LAB L100.2400 0-5 % High EO% 5.9 LAB L100.2500 0-1 % Normal BASO% 0.3 LAB L100.2550 0.0-0.9 % Normal IM GRAN % 0.300 Result Comment: IG% - Immature Granulocytes (promyelocytes, myelocytes and metamyelocytes) > 1% indicates that a LEFT SHIFT is Present. LAB L100.2620 2.0-7.7 X10 3/uL Normal Absolute Neut 3.3 LAB L100.2720 0.83-4.51 X10 3/ul Normal Absolute Lymph 2.12 Performed By: #### L100.0100 #### [facility] [address] [place], [address] HEMOGLOBIN A1C Collected: 11/25/2017 Status: F Source: [place] 11:[address] [facility] REPOSITORY TYPE CODE TESTS RESULT OUT OF RANGE REFERENCE UNITS LAB L501.9985 4.2-6.3 % High HGB A1C 10.3 Performed By: #### L501.9985 #### [facility] [address] [place], [address] THYROID STIM HORMONE Collected: 11/25/2017 Status: F Source: [place] ([facility]) 11:[address] [facility] REPOSITORY TYPE CODE TESTS RESULT OUT OF RANGE REFERENCE UNITS LAB L501.9520 0.358-3.74 uIU/mL Normal TSH 0.83 Performed By: #### L501.9520, L506.0400 #### [facility] [address] [place], [address] T4 FREE DIRECT Collected: 11/25/2017 Status: F Source: [place] 11:[address] [facility] REPOSITORY TYPE CODE TESTS RESULT OUT OF RANGE REFERENCE UNITS LAB L506.0400 0.76-1.46 ng/dL Normal T4 FREE 1.27 DIRECT Performed By: #### L501.9520, L506.0400 #### [facility] [address] [place], [address] OPERATIVE REPORT Observed: 10/19/2017 Status: F Source: [place] 11:[address] [facility] REPOSITORY [facility] Medical Records Department [address] [place] [address] [place] [address] Operative Report 10/19/17 1154 MR#: [id number] Acct: [id number] Name: THOMASLISA Rep #: [id number] : 1940 77 From: Jason Begum MD PCP: Shiv Anton DO Status: REG SDC Y Location: [facility] Problem List (1) Peripheral vascular disease Status: Acute Report of Operation Date of Procedure: 10/19/17 Pre-Operative Diagnosis: Peripheral arterial disease peripheral arterial disease Post-Operative Diagnosis: The same Surgery/Procedure Performed:: 1. Ultrasound-guided access retrograde left brachial artery. 2. Aortogram with bilateral iliofemoral angiogram. 3. Balloon angioplasty of the aorta with a 10 mm balloon through the old stent. 4. Balloon angioplasty the right common iliac with a 7 mm drug-coated balloon and an 8 mm balloon. 5. Balloon angioplasty of the left common femoral to the SFA with a 5 mm balloon Type of Anesthesia:: Sedation,Conscious Description of Procedure: Patient brought to the operating room. Underwent the appropriate timeout consent. Underwent sedation. Prepped and draped in a sterile fashion. We did ultrasound-guided access retrograde left brachial artery. I will get a Glidewire down put in a 6 Green[place]ic sheath and gave 5000 units of heparin. We got the Glidewire down to the aorta switched out to a long stiff wire brought in a long 6 [place]ic sheath. We did an aortogram with bilateral iliofemoral imaging. Look like may be some mild/moderate stenosis in the mid stent and also moderate severe stenosis right proximal common iliac artery. We then looked further down with the sheath into the left showing moderate severe stenosis at the distal common femoral artery into the SFA. We got the Glidewire through here balloon through the common femoral to the SFA with a 5 x 80 balloon for over 3 minutes. Completion appear to be improved with better flow. We did oblique imaging of the left iliac and it appeared fairly stable with no significant stenosis. We then got the Glidewire down into the right side and balloon in the proximal right common iliac with a 7 mm drug-coated balloon. We then post balloon this with an 8 mm balloon for over 2 minutes. Completion was improved and appear to be better flow through this area. We then image down the right leg showing common femoral profunda widely patent with a large fundal. SFA was patent but appeared distally some disease and slow flow going which may have a distal SFA to popliteal occlusive disease. We did not image through here. We then pulled the sheath back and then ballooned in that aortic stent with a 10 mm balloon index look like it expanded some better and ruptured the balloon so we pulled that out did not reimage again I did not re-balloon it appeared adequate flow. Removed out the sheath put a shorter sheath. We gave 30 of protamine. We then after the appropriate time removed the sheath held pressure with good hemostasis she was brought to recovery stable condition. Sedation: This 77-year-old female underwent conscious sedation given by Dr. Jason Begum. She tolerated this well. She was monitored with EKG pulse ox and blood pressure throughout the case. See the EMR for the more permanent record she was given fentanyl and Versed. She was monitored for the 30 minutes of the case. 10/19/17 1159 <Electronically signed by Jason Begum MD> Date Jason Begum MD CC: Jason Begum MD; Shiv Anton DO Signed CBC-COMPLETE BLOOD CNT Collected: 10/19/2017 Status: F Source: [place] NO DIFF 8:[address] [facility] REPOSITORY TYPE CODE TESTS RESULT OUT OF RANGE REFERENCE UNITS LAB L100.1000 4.4-11.0 K/mm3 Normal WBC 4.7 LAB L100.1200 4.2-5.4 M/mm3 Low RBC 3.68 LAB L100.1300 12.0-15.0 g/dl Low HGB 11.8 LAB L100.1400 37-47 % Low HCT 36.1 LAB L100.1500 81-99 fL Normal MCV 98.1 LAB L100.1600 27.0-32.0 pg High MCH 32.1 LAB L100.1700 32-36 g/gl Normal MCHC 32.7 LAB L100.1810 11.6-14.6 % Normal RDW CV 13.9 LAB L100.1820 35.1-43.9 fl High RDW SD 49.5 LAB L100.1900 150-450 K/mm3 Normal PLT 278 LAB L100.2000 6.2-12.0 fl Normal MPV 9.2 Performed By: #### L100.0500 #### [facility] [address] [place], [address] RENAL PROFILE Collected: 10/19/2017 Status: F Source: [place] 8:[address] [facility] REPOSITORY TYPE CODE TESTS RESULT OUT OF RANGE REFERENCE UNITS LAB L501.0100 74-106 mg/dL High GLU 290 Result Comment: Glucose result greater than or equal to 200 mg/dL suggests DIABETES MELLITUS per A.D.A. criteria. Please note revised GLUCOSE reference range effective 2017. LAB L501.1000 7-18 mg/dL High BUN 30 LAB L501.1100 0.55-1.02 mg/dL High CREAT,SERUM 1.20 Result Comment: The validity of the calculated GFR AND GFRAA in patients over 70 years has not been determined. Clinical correlation is essential. LAB L501.1110 >60 mL/min Low EST GFR 46 Result Comment: Non- GFR Calc LAB L501.1115 >60 mL/min Low EST GFR - AA 56 Result Comment: GFR Calc LAB L501.1255 ml/min Normal Estimated CRCL 36.75 LAB L501.1300 10-20 RATIO High BUN/CRE 25.0 LAB L501.1800 3.2-5. g/dL Normal 0 ALB 3.6 LAB L501.2200 8.5-10 mg/dL Normal .1 CA 9.4 LAB L501.2300 2.5-4. mg/dL Normal 9 PHOS 3.6 LAB L501.5300 136-14 mmol/L Low 5 NA 135 LAB L501.5600 3.5-5. mmol/L Normal 1 K 4.4 LAB L501.5900 98-107 mmol/L Normal CL 100 LAB L501.6100 21.0-3 mmol/L Normal 2.0 CO2 28.0 Performed By: #### L500.3600 #### [facility] [address] [place], [place], [address] CREATININE FINGERSTICK Collected: 10/05/2017 Status: F Source: [place] 6:[address] [facility] REPOSITORY TYPE CODE TESTS RESULT OUT OF RANGE REFERENCE UNITS LAB L9100.0210 0.55-1.02 mg/dL Normal CREATININE WB 0.8 LAB L9100.0220 >60 mL/min EGFR WB Normal > 60.0000 Performed By: #### L9100.0200 #### [facility] Point of Care [address] [place] [address] BRAIN W/WO CONTRAST Observed: 10/05/2017 Status: F Source: [place] 5:[address] [facility] REPOSITORY [facility] Imaging Services [address] [place] [address] Brain W/WO Contrast MR#: [id number] Acct: [id number] Name: LISA GUZMAN Rep #: [id number] : 1940 F 76 From: Lalo Taylor DO PCP: Shiv Anton DO Status: REG CLI Study: Brain W/WO Contrast Date of Exam: 10/05/17 Exam# [id number] Ordering Dr: Hema Antunez MD STUDY: MRI BRAIN WITH AND WITHOUT CONTRAST REASON FOR EXAM: Female, 76 years old. Left eye pain, ptosis and diplopia. TECHNIQUE: Standardized multiplanar fat and water weighted pulse sequences were obtained. 10 ml of Gadavist contrast material was administered intravenously for the contrast portion of the examination. COMPARISON: None. FINDINGS: There is mild cerebral atrophy with widening of the extra- axial spaces and ventricular dilatation. There are a limited number of small white matter hyperintensities, distributed throughout the deep white matter tracts of the cerebral hemispheres, consistent with mild chronic white matter ischemic changes. There is no evidence for recent intracranial ischemia or other cause of cytotoxic edema on diffusion weighted imaging (DWI). Normal bilateral basal ganglia. Normal thalami. There is no extra-axial fluid accumulation. Normal flow voids within the major intracranial circulation suggesting patency by spin echo criteria. Normal venous enhancement. There is no enhancing intra-axial or extra-axial abnormality. Normal sella turcica, pituitary gland, infundibular stalk, optic chiasm and hypothalamus. Normal tectal plate and pineal gland. Normal midbrain, humza and medulla. Normal cerebellum. Normal basal cisterns. Normal bilateral temporal bones. Normal bilateral internal auditory canals. No demonstrated orbital abnormality, within the constraints of a routine brain study. Right maxillary sinus mucosal thickening is present. Normal calvarium and skull base. Normal visualized soft tissue structures. Normal visualized upper cervical spine. MRI/Brain W/WO Contrast IMPRESSION: 1. No evidence of acute intracranial bleed, mass or ischemia. 2. No evidence of left intraconal mass or abnormal enhancement. 3. Right maxillary sinus mucosal thickening and mild paranasal sinus disease. Electronically Signed: Lalo Taylor DO at 23:32 EDT , Service support , CC: Hema Antunez MD; Shiv Anton DO Reporting Analyst: Signed FREE T3 Collected: 09/08/2017 Status: F Source: [place] 12:[address] [facility] REPOSITORY Order Comment: DR ANTON ORDERED: TSH, T4F, T3 CRUZ SHOOK ORDERED: TSH, T4F, T3F TYPE CODE TESTS RESULT OUT OF RANGE REFERENCE UNITS LAB L501.78814 2.18-3.98 pg/mL Normal FREE T3 3.1 Performed By: #### L501.37587, L501.9520, L506.0400 #### [facility] [address] [place], [place], [address] THYROID STIM HORMONE Collected: 09/08/2017 Status: F Source: [place] (TSH) 12:[address] [facility] REPOSITORY Order Comment: DR ANTON ORDERED: TSH, T4F, T3 CRUZ SHOOK ORDERED: TSH, T4F, T3F TYPE CODE TESTS RESULT OUT OF RANGE REFERENCE UNITS LAB L501.9520 0.358-3.74 uIU/mL Low TSH 0.09 Performed By: #### L501.16432, L501.9520, L506.0400 #### [facility] [address] [place], [address] T4 FREE DIRECT Collected: 09/08/2017 Status: F Source: [place] 12:[address] [facility] REPOSITORY Order Comment: DR ANTON ORDERED: TSH, T4F, T3 CRUZ SHOOK ORDERED: TSH, T4F, T3F TYPE CODE TESTS RESULT OUT OF REFERENCE UNITS RANGE LAB L506.0400 0.76-1.46 ng/dL High T4 FREE 1.70 DIRECT Performed By: #### L501.91152, L501.9520, L506.0400 #### [facility] [address] [place], [address] T3 TOTAL - TRIIODOTHYRONINE Collected: 09/08/2017 Status: F Source: [place] 12:[address] [facility] REPOSITORY Order Comment: DR NATON ORDERED: TSH, T4F, T3 CRUZ MEAD ORDERED: TSH, T4F, T3F TYPE CODE TESTS RESULT OUT OF RANGE REFERENCE UNITS LAB L501.9186 0.6-1.81 ng/mL Normal T3 Total 1.09 Performed By: #### L501.9186 #### [facility] [address] [place] [address], [id number] TSH Collected: 08/29/2017 Status: F Source: [facility] 10:28 AM [facility] REPOSITORY TYPE CODE TESTS RESULT OUT OF RANGE REFERENCE UNITS LAB TSH(LOINC) 0.34 - 5.60 uIU/ml TSH 0.43 Performed By: #### [id number] #### [facility],[address] [place] [address] T4-FREE (FREE Collected: 08/29/2017 Status: F Source: [facility] THYROXINE) 10:28 AM [facility] REPOSITORY TYPE CODE TESTS RESULT OUT OF RANGE REFERENCE UNITS LAB T4 0.61 - 1.12 ng/dl FREE(LOINC) High T4 FREE 1.37 Result Comment: *SPECIMENS FROM PATIENTS WHO ARE UNDERGOING BIOTIN THERAPY AND/OR INGESTING BIOTIN SUPPLEMENTS MAY HAVE FALSE HIGH RESULTS. Performed By: #### [id number] #### [address] [address] T3, FREE Collected: 08/29/2017 Status: F [facility] REPOSITORY TYPE CODE TESTS RESULT OUT OF RANGE REFERENCE UNITS LAB T3, FREE(LOINC) T3, FREE Result Comment: _T3, FREE_ T3, FREE Reported: 08/31/2017 16:35 Status=F TEST RESULT FLAG RANGE UNITS T3, FREE 2.9 2.3-4.2 pg/mL 08/31/17.1647.Jaylyn.AMRR .3051-0 Test Performed by [facility], [facility], [address] [place] [address] Elie Mak M.D., Ph.D., Director of Laboratories , [place] [id number] Performed By: #### [id number] #### [facility],[address] [place] [address] LOWER EXT ARTERIAL Observed: 08/17/2017 Status: F Source: [facility] 11:[address] [facility] REPOSITORY [facility] Cardiovascular Services [address] [place] [address] 08/17/17 1124 MR#: [id number] Acct: [id number] Name: LISA GUZMAN Rep #: [id number] : 1940 76 From: Jason Begum MD Attending Dr: Jason Begum MD Status: REG CLI Ordering Dr: Date: 08/17/17 Location: [facility] Sex: F C Admitted: Arterial Study - Arterial Study Arterial Study: Date of scan 08/12/[address] Begum History: Patient with unknown claudication Interpretation: Right lower extremity with duplex showing biphasic flow noted at the ankle both vessels with an LING 0.6 through the posterior tibial 0.6 for the dorsalis pedis. Digital brachial index 0.48 Left lower extremity again showing duplex with biphasic flow both vessels at the ankle with an LING 0.69 of both the posterior tibial and dorsalis pedis with the digit brachial index 0.51 Impression: 1. Right lower extremity moderate arterial occlusive disease with an LING 0.64. 2. Left lower extremity with moderate arterial occlusive disease with an LING 0.69. 3. bilateral evidence of mild small vessel disease with the digit brachial index 0.480.51 08/17/17 1125 <Electronically signed by Jason Begum MD> Date Jason Begum MD CC: Jason Begum MD; Shiv Anton DO Date Dictated: 08/17/171123 Date Transcribed: 08/17/171123 Reporting Analyst: BAB Signed ABD AORTIC/IVC DUPLEX Observed: 08/16/2017 Status: F Source: [place] SCAN 9:[address] [facility] REPOSITORY [facility] Cardiovascular Services [address] [place] [address] Abd Aortic/IVC Duplex scan 08/12/17 1104 MR#: [id number] Acct: [id number] Name: LISA GUZMAN Rep #: [id number] : 1940 76 From: Jason Begum MD Attending Dr: Jason Begum MD Status: REG CLI Ordering Dr: Jason Begum MD Date: 08/12/17 Location: [facility] Sex: F C Admitted: Reason For Study: Aortic atherosclerosis Aorta Measurements Aorta Doppler Measurements Proximal aorta measures.9 x 1.0cm. in cross- Peak systolic flow velocities within the proximal sectional axis. aorta measure 147.0 cm/sec. Proximal aorta measures1.1cm. in longitudinal Peak systolic flow velocities within the mid axis. aorta measure 220.0 cm/sec. Mid aorta measures1.4 x 1.3cm. in cross-sectionalPeak systolic flow velocities within the distal axis. aorta measure 114.0 cm/sec. Mid aorta measures1.2cm. in longitudinal axis. Distal aorta measures1.2 x 1.2cm. in cross- sectional axis. Distal aorta measures1.1cm. in longitudinal axis. Left Iliac Artery Left iliac artery measures .71 cm. in the longitudinal axis. Left iliac artery measures .70 x .72 cm. in the cross-sectional axis. Peak systolic velocity in the left iliac artery measures 332.0 cm/sec. Right Iliac Artery Right iliac artery measures .94 cm. in the longitudinal axis. Right iliac artery measures .96 x .88 cm. in the cross-sectional axis. Peak systolic velocity in the right iliac artery measures 241.0 cm/sec. Procedure Aorta IVC Iliac vasculature or bypass grafts 632[address]. Technically difficult due to body habitus and bowel gas. Exam performed in department. Interpretation Summary 1. No aortoiliac aneurysm 2. over 50 % stenosis bialteral DARREN arteries. Ordering Physician: Jason Begum Referring Physician: Shiv Anton Performed By: Paulina Hyatt RVT 08/16/172156 Date Jason Begum MD CC: Jason Begum MD; Shiv Anton DO Date Dictated: 08/12/17 1104 Date Transcribed: 08/16/172156 Reporting Analyst: Signed PULMONARY VISIT REPORT Observed: 08/09/2017 Status: F Source: [place] 1:[address] [facility] REPOSITORY [facility] [address] [place] [address] OFFICE VISIT Date of Service: 08/08/17 MR#: [id number] Acct: [id number] Name: LISA GUZMANN Rep #: [id number] : 1940 Provider: Jesusita Nino Age/Sex: 76/F Location: [facility] Status: Signed Assessment AND Plan 1. OMID (obstructive sleep apnea) G47.33 Status Chronic CPAP 15 cm of water Plan Stable. She is using and benefiting from CPAP therapy. No indication for titration study at this time. Follow-up with Dr. Dial in 6 months. 2. Shortness of breath R06.02; R06.00; R06.01 Status Chronic Plan Improved. No indication for any further testing at this time. Follow-up with Dr. Dial in 6 months. She has been encouraged to contact the office if the symptoms return in the meantime. She conveys understanding. Plan Detail Follow Up 6 Months ([facility]) HPI 6 M FU: Chief Complaint: Here for test review HPI Comments Details: This patient presents to the office today for routine follow-up on her obstructive sleep apnea and shortness of breath. She is ambulatory, with the use of a wheeled walker and she is currently on room air. She has not been seen in the ED or urgent care for any respiratory illnesses since her last office visit. She has not required prescription antibiotics or prednisone or any breathing problems. Today, she denies any shortness of breath during conversation, at rest or even on exertion. Overall she states that she feels good. She does report some slight fatigue/weakness. She denies any cough, sputum production or hemoptysis. She denies any wheezing, chest tightness, chest pain or palpitations. She has not experienced any fever, chills or body aches. She is not currently on any maintenance inhalers. She does have a rescue inhaler which she has not needed to use. See complete review of systems. Compliance report for the past 30 days shows 97% compliance, with an average use of 9 hours and 17 minutes. Current setting is 15 cm of water. Current AHI is controlled at 0.9 events per hour do appear to be an issue. Pulmonary function test completed on July 07, 2017 was interpreted as showing isolated defect in diffusing capacity consistent with the patient's diagnosis of pulmonary hypertension, there have been no significant change since testing 1 year ago. FVC 93% of predicted, FEV1 91% of predicted, FEV1/FVC 73% of predicted, TLC 99% of predicted, RV 102% of predicted and DLCO 47% predicted. Walking oximetry was completed on July 26, 2017 and shows the patient was able to ambulate 732 feet over the course of 6 minutes, she did not desaturate below 89% and therefore did not require supplemental oxygen. Please note that she did desaturate to 90% and close monitoring would be advised. Intake Vital Signs08/08/17 Height 5 ft 6 in 08/08/17 Weight: 204 lb Intake Visit Reasons: 6 M FU DME Vendor: [employer] Accompanied by: Self Allergies latex Allergy (Severe, Verified 08/08/17 14:37) Rash metoprolol Allergy (Severe, Verified 08/08/17 14:37) Unknown bee pollen [Bee Pollen] Allergy (Verified 08/08/17 14:37) Anaphylaxis Medications Cholecalciferol (VIT D3) [Vitamin D3] 1,000 unit PO DAILY 01/26/16 [History Confirmed 08/08/17] Oxycodone HCl/Acetaminophen [Oxycodone-Acetaminophen 10-325] 1 ea PO BID PRN 01/26/16 [History Confirmed 08/08/17] Esomeprazole Magnesium [Nexium] 40 mg PO QODAY 08/09/16 [History Confirmed 08/08/17] Latanoprost 0.005% [Xalatan Opthalmic] 1 drp EACH EYE BID 08/09/16 [History Confirmed 08/08/17] Levothyroxine [Synthroid] 200 mcg PO DAILY 08/09/16 [History Confirmed 08/08/17] Timolol 0.5% [Timoptic] 1 drp EACH EYE BID 08/09/16 [History Confirmed 08/08/17] blood sugar diagnostic strips See Dose Instructions .ROUTE .MEDSUPPLY #20 ea 05/04/17 [History Confirmed 08/08/17] insulin aspart U-100 100 unit/mL subcutaneous pen 40 unit SC TID ml 05/04/17 [History Confirmed 08/08/17] pen needle, diabetic 31 gauge x 08/03 See Dose Instructions .ROUTE .MEDSUPPLY #30 ea 05/04/17 [History Confirmed 08/08/17] albuterol sulfate HFA 90 mcg/actuation aerosol inhaler 2 puff INHALATION Q4H PRN #18 g 06/20/17 [Rx Confirmed 08/08/17] fluticasone 50 mcg/actuation nasal spray,suspension 2 spray INTRANASAL QDAY 06/28/17 [History Confirmed 08/08/17] lactobacillus combination no.4 3 billion cell capsule 3,000 mmu cells PO QDAY 06/28/17 [History Confirmed 08/08/17] sitagliptin 50 mg-metformin 500 mg tablet 1 tab PO BID 06/28/17 [History Confirmed 08/08/17] aspirin 81 mg tablet,delayed release 81 mg PO QDAY 07/13/17 [History Confirmed 08/08/17] clopidogrel 75 mg tablet 75 mg PO QDAY 07/13/17 [History Confirmed 08/08/17] furosemide 40 mg tablet 40 mg PO QDAY 07/13/17 [History Confirmed 08/08/17] isosorbide mononitrate ER 30 mg tablet,extended release 24 hr 30 mg PO BID tab 07/13/17 [History Confirmed 08/08/17] nitroglycerin 0.4 mg sublingual tablet 0.4 mg SUBLINGUAL Q5M PRN 07/13/17 [History Confirmed 08/08/17] ranolazine ER 500 mg tablet,extended release,12 hr 500 mg PO BID tab 07/13/17 [History Confirmed 08/08/17] simvastatin 20 mg tablet 20 mg PO QPM 07/13/17 [History Confirmed 08/08/17] valsartan 320 mg tablet 320 mg PO QDAY 07/13/17 [History Confirmed 08/08/17] insulin glargine (U-100) 100 unit/mL (3 mL) subcutaneous pen 50 unit SC BID #90 ml 07/28/17 [Rx Confirmed 08/08/17] [facility] Medical History Arthritis (Acute) Heart disease (Acute) High cholesterol (Acute) HTN (hypertension) (Chronic) Hypothyroidism (Acute) GERD (gastroesophageal reflux disease) (Acute) NSTEMI (non-ST elevated myocardial infarction) (Acute) Spinal stenosis of lumbar region (Acute) Insomnia (Acute) Anemia (Acute) Degeneration of lumbar intervertebral disc (Acute) CVA (cerebral vascular accident) (Acute) Depression (Acute) Chronic pain syndrome (Acute) Peripheral vascular disease (Acute) Diabetic peripheral neuropathy (Acute) Allergic rhinitis (Acute) OMID (obstructive sleep apnea) (Acute) COPD (chronic obstructive pulmonary disease) (Acute) Diabetes type 2, uncontrolled (Chronic) Glaucoma (Acute) Skin cancer (Acute) Thyroid disease (Acute) Dyspnea (Acute) Abnormal echocardiogram (Chronic) Aortic stenosis (Chronic) Right carotid bruit (Chronic) Encounter for long-term current use of high risk medication (Chronic) COPD exacerbation (Chronic) Palpitations (Chronic) Obstructive sleep apnea (Chronic) Cataracts, bilateral (Resolved) Carpal tunnel syndrome (Resolved) Hyperlipidemia (Chronic) Hypothyroidism (Chronic) CAD (coronary artery disease) (Chronic) HTN (hypertension) (Chronic) NSTEMI (non-ST elevated myocardial infarction) (Acute) Diabetes (Chronic) Surgical History H/O right coronary artery stent placement (Resolved) Status post ORIF of fracture of ankle (Resolved) S/P rotator cuff repair (Resolved) History of partial knee replacement (Resolved) H/O left knee surgery (Resolved) H/O angioplasty (Resolved) Family History Daughter Alcohol abuse Anemia Anxiety Asthma Mother Diabetes Heart disease Hypertension Father Heart disease Hypertension Social History Smoking Status: Former smoker how long ago did patient quit smokin second hand exposure: Yes alcohol intake: never substance use type: does not use caffeine: Yes what type of physical activity do you participate in: none Review of Systems Const CONSTITUTIONAL: Negative anorexia, body ache, chills, daytime sleepiness, fever(s), night sweats, oral thrush, stops breathing during sleep, weight loss, sleeping in chair, fatigue, weight loss, weight gain, frequent colds, seasonal allergies, other, headache(s) or orthopnea EETM Ear Nose Throat Mouth: Positive hearing normal; negative hard of hearing, hoarseness, dry mouth in morning, change in vision, itchy eyes, eye pain, swallowing Difficulty, ear pain, nose bleed, headache(s), mouth pain, nasal congestion, nasal discharge, post nasal drip, sinus pain, sinus pressure, sore throat or other Cardio Cardiovascular: Positive murmur; negative chest pain, chest pain at rest, chest pain with activity, irregular heart rhythm, edema, shortness of breath when lying down, palpitations or other Resp Respiratory: Positive as per HPI; negative shortness of breath, pain with cough, wheezing, chest congestion, cough, chest tightness, pain on inspiration, inhalers, increase use of rescue inhalers, snoring, apnea or other Gastro Gastrointestional: Negative bloody stools, change in appetite, difficulty swallowing, reflux, hematemesis, melena stool, loose stool, constipation or other Genitourinary: Negative blood in urine, nocturia, pain with urination or other Musc Musculoskeletal: Negative body pain, back pain, neck pain or other Skin/Breast Skin/Breast: Negative dry skin, itching, rash, unusual bruising, breast lump or other Neuro Neurological: Positive weakness; negative restless legs, confusion or other Psych Psychocological: Negative abnormal sleep pattern, anxiety, thoughts of hurting self/others, hopelessness or other Lymph Lymphatic: Negative easy bleeding, easy bruising, swollen lymph nodes or other Exam Const Constitutional: Positive conversant, cooperative, in no acute respiratory distress, healthy appearing, well developed, well nourished and good hygiene Head Head: Positive normocephalic and atraumatic; negative cyanosis of lips/distal nose Eyes Eye: Positive clear conjunctiva and nystagmus; negative scleral abnormality Ears Ear: Positive hearing normal and external ears normal; negative hard of hearing Nose Nose: Positive external nose normal and no nasal discharge; negative epistaxis Mouth Mouth: Positive oral mucosae normal, no lesions, dentures and posterior oropharynx is adequate; negative post nasal drip, malodorous breath or oral thrush present Mallampati Score: II: Mallampati Score Neck Neck: Positive normal visual inspection, full ROM, trachea midline and thick neck; negative lymphadenopathy, JVD or tender Chest Wall Chest: Positive normal inspection of the chest and symmetric chest movement; negative increased A/P diameter Resp lung sounds: Positive clear to auscultation, good air exchange, normal expiratory time and normal respiratory effort; negative diminished, wheezes, rhonchi, rales, dullness to percussion or wheeze present on forced exhalation Cardio Cardiac: Positive murmur murmur: Positive RUSB, LUSB and systolic, regular rate, regular rhythm, S1 normal and S2 normal GI GI: Positive normal to inspection and normal bowel sounds; negative distended Genitourinary: Positive deferred Musc Musculoskeletal: Positive steady gait, ROM normal and using an assistive device for ambulation; negative kyphosis or scoliosis Skin Pulmonary Skin Exam: Positive intact; negative rash, lesion, ulcers, erythema, scaly or dermal atrophy Pulses Pulse: Yes pulses normal x4 extremities Extremities Extremities: Yes capillary refill normal, No clubbing, No cyanosis, No edema, No stasis dermatitis Neuro Neurologic: Yes conversant, Yes no focal neuro deficits, Yes understands questions, No tremor, Yes cooperative, Yes normal cognition, Yes normal coordination, Yes normal concentration Lymph Lymphatic: No lymphadenopathy, No tenderness, No cervical adenopathy, No axillary adenopathy Psych Appearance: Positive grossly normal, eye contact and well kempt Mental Status: Positive mental status grossly normal Affect: Positive normal affect Coding Level of Care Code Off vis,est,level 3 Diagnoses OMID (obstructive sleep apnea) G47.33 Shortness of breath R06.02; R06.00; R06.01 Dyspnea type: shortness of breath 08/09/17 1316 <Electronically signed by Jesusita ALEJANDREC> Date Jesusita ALEJANDREC Cosigner Signature: Date (if applicable) CC: Shiv Anton DO 6 MINUTE WALK TEST Observed: 07/28/2017 Status: F Source: [place] 8:[address] [facility] REPOSITORY [facility] Pulmonary Services/Neurology [address] [place] [id number] MR#: [id number] Acct: [id number] Name: LISA GUZMAN Rep #: [id number] : 1940 76 From: Agapito Magaña DO Referring Dr: Jesusita Nino NP Date: Ordering Dr: Sex: F C Location: PSN PSN 6 Minute Walk Test - 6 Minute Walk Test 6 Minute Walk Test: 6 Minute Walk Test PSN:6-Minute Walk Test Start: 07/26/17 11:43 Freq: Status: Active Protocol: [id number] Document 07/26/17 11:43 AMH (Rec: 07/26/17 11:46 AMH [id number]) 6 Minute Walk Test Date Performed 07/26/17 Time Performed 11:30 Height 5 ft 6 in Weight: 204 lb Weight in Pounds 204.[address]: Jesusita Nino Assistive device used: Walker Pre-test Oxygen Delivery Method Room Air Pulse Ox (%) 93 Pulse Rate (60-100 beats/min) 76 Dyspnea Hermilo Scale (0-10) 0 1st minute Oxygen Delivery Method Room Air Pulse Ox (%) 94 Pulse Rate (60-100 beats/min) 84 Dyspnea Hermilo Scale (0-10) 0 2nd minute Oxygen Delivery Method Room Air Pulse Ox (%) 92 Pulse Rate (60-100 beats/min) 92 Dyspnea Hermilo Scale (0-10) 1 3rd minute Oxygen Delivery Method Room Air Pulse Ox (%) 93 Pulse Rate (60-100 beats/min) 95 Dyspnea Hermilo Scale (0-10) 1 4th minute Oxygen Delivery Method Room Air Pulse Ox (%) 90 Pulse Rate (60-100 beats/min) 94 Dyspnea Hermilo Scale (0-10) 1 5th minute Oxygen Delivery Method Room Air Pulse Ox (%) 91 Pulse Rate (60-100 beats/min) 94 Dyspnea Hermilo Scale (0-10) 1 6th minute Oxygen Delivery Method Room Air Pulse Ox (%) 92 Pulse Rate (60-100 beats/min) 94 Dyspnea Hermilo Scale (0-10) 1 Post-test Oxygen Delivery Method Room Air Pulse Ox (%) 94 Pulse Rate (60-100 beats/min) 80 Dyspnea Hermilo Scale (0-10) 0 Full Laps Walked 12 Partial Lap, Number of Tiles Walked 24 Total Distance Walked (ft) 732 - Interpretation Interpretation: The patient ambulated 732 feet over the course of 6 minutes beginning on room air with use of a walker. Pretesting oxygen saturation on room air was noted to be 93%. With ambulation, the kerry oxygen saturation was 90%. Although there was evidence of impaired walk distance, there was no significant exertional oxygen desaturation. - Recommendations Recommendations: There is no indication for the use of supplemental oxygen at this time. 07/28/17 0820 <Electronically signed by Agapito Magaña DO> Date Agapito Magaña DO CC: Date Dictated: 07/28/17818 Date Transcribed: 07/28/17818 Reporting Analyst: Agapito Magaña DO Signed PULMONARY FUNCTION Observed: 07/07/2017 Status: F Source: [place] REPORT COMP 2:[address] [facility] REPOSITORY [facility] Pulmonary Services/Neurology [address] [place] [address] MR#: [id number] Acct: [id number] Name: LISA GUZMAN Rep #: [id number] : 1940 76 From: Ivan Dial MD Referring Dr: Jesusita Nino NP Status: REG CLI Ordering Dr: Date: Location: N Sex: F C COMPLETE PULMONARY FUNCTION TEST INTERPRETATION Brief HPI: Patient is a 76 year old female, currently under the care of myself, who presents to [facility] for complete pulmonary function tests secondary to diagnosis of pulmonary hypertension. Respiratory therapist reports good effort and reproducible results. Interpretation: Forced expiration spirometry shows no large airways obstructive ventilatory defect with an FEV1 of 91% predicted. There is no significant bronchodilator response by ATS criteria. Spirograms are of good quality and plateau slowly, indicating slowly emptying areas of the lungs. The respiratory flow volume loop shows a normal pattern. Lung volumes by body plethysmography show a normal total lung capacity at 5.13 L, 99% predicted. All other lung volumes are within normal limits. Diffusion capacity by carbon monoxide is decreased at 47% predicted. The airway resistance is normal. Compared to previous pulmonary function tests from 06/28/2016, there has been no significant change. Impression: Isolated defect in diffusion capacity consistent with patient's diagnosis of pulmonary hypertension. There is been no significant change compared to previous testing 1 year ago. 07/07/17 1422 <Electronically signed by Ivan Dial MD> Date Ivan Dial MD CC: Ivan Dial MD; Jesusita Anton DO Date Dictated: 07/07/171416 Date Transcribed: 07/07/171416 Reporting Analyst: THOM Signed ENDOCRINOLOGY VISIT Observed: 06/30/2017 Status: F Source: [place] REPORT 8:[address] [facility] REPOSITORY [facility] [address] [place] [address] OFFICE VISIT Date of Service: 06/28/17 MR#: [id number] Acct: [id number] Name: LISA GUZMAN Rep #: [id number] : 1940 Provider: Cruz Mead NP Age/Sex: 76/F Location[place] [facility] [place] Status: Signed HPI History of present illness Lisa Guzman is a 76 year old female who presents for consult of diabetes type 2. Diagnosed in 1990. States she has been on insulin for several years but has not had good control. Currently she takes lantus 60 units twice daily and meal insulin 40 units at each meal. She admits she does not check her BG readings with any frequency. Pt denies difficulty with injections or self monitoring of BG. Denies any signs of infection or irritation at site of injections. Reports taking insulin as directed At time of visit: -Pt denies symptoms of hypertensive emergency (CP,SOB,JEFFREY, or blurred vision) and hypotension(dizziness or lightheadedness) -Pt denies symptoms of hypoglycemia ( sweaty, confusion, anxiety, tremor, hunger, palpitations) and hyperglycemia ( polydipsia, polyuria) -Pt denies potential medication adverse effect. Hypoglycemia Aware of hypoglycemia: When awake Able to self treat low BG: Yes Frequent low Blood sugar: No Has supply of glucagon: Yes Diet 3 meals daily Snacks Exercise Not active Has balance issues Walks with cane Type: type 2, insulin-requiring Glucose control symptoms: Reports high fasting glucose and high post-meal glucose Weight and fatigue symptoms: Denies snoring Cardiopulmonary symptoms: Denies chest pain at rest, dyspnea on exertion or myalgias GI symptoms: Denies constipation, diarrhea, nausea/dyspepsia or vomiting Skin and extremity symptoms: Reports tingling/numbness/burning Other symptoms: Denies blurry vision or change in vision Self monitoring: No Dietary compliance: Diabetes: poor Diabetes education in past year: Yes Glucose testing: demonstrates correct use of meter, understands testing schedule Physical activity: sedentary lifestyle Exam Const General: comfortable Nutritional Appearance: overweight Orientation: oriented x3 HENMT Head: normal to inspection, normocephalic Ears: hearing grossly normal bilaterally Mouth: oral mucosae normal, moist mucous membranes Teeth and gingiva: dentition normal Eyes General: appearance normal, both eyes and all related structures Eyelids: eyelids normal Conjunctivae: conjunctivae normal Sclera: sclerae normal Pupils: PERRL Resp Effort AND Inspection: normal respiratory effort, able to speak in complete sentences, symmetric chest movement Auscultation: Bilateral: Clear to Auscultation Cardio Rate: regular rate Rhythm: regular rhythm Heart Sounds: S1 normal, S2 normal GI Inspection: normal to inspection Auscultation: normal bowel sounds Palpation: soft Skin General: no rashes or lesions noted Wounds: no wounds Diabetic Foot Monofilament test: Left foot: abnormal, Right foot: abnormal Neuro General: oriented x3, moves all extremities Extrem General: limp Psych Appearance: well kempt Mental Status: mental status grossly normal Mood: congruent mood Affect: normal affect Speech and Movement: speech and movement normal Attitude: cooperative Thought Process: normal Thought Content: normal Judgment: judgment good Intake Vital Signs06/28/17 Height 5 ft 6 in 06/28/17 Weight: 213 lb 6 oz 06/28/17 Body Mass Index (BMI) 34.4 06/28/17 Blood Pressure 132/66 06/28/17 Blood Pressure Location Lt popliteal 06/28/17 Blood Pressure Position Sitting Intake Visit 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: 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 Accompanied by: Self Is patient in pain?: No Allergies latex Allergy (Severe, Verified 06/28/17 15:07) Rash metoprolol Allergy (Severe, Verified 06/28/17 15:07) Unknown bee pollen [Bee Pollen] Allergy (Verified 06/28/17 15:07) Anaphylaxis Medications Cholecalciferol (VIT D3) [Vitamin D3] 1,000 unit PO DAILY 01/26/16 [History Confirmed 06/28/17] Oxycodone HCl/Acetaminophen [Oxycodone-Acetaminophen 10-325] 1 ea PO BID PRN 01/26/16 [History Confirmed 06/28/17] Esomeprazole Magnesium [Nexium] 40 mg PO QODAY 08/09/16 [History Confirmed 06/28/17] Latanoprost 0.005% [Xalatan Opthalmic] 1 drp EACH EYE BID 08/09/16 [History Confirmed 06/28/17] Levothyroxine [Synthroid] 200 mcg PO DAILY 08/09/16 [History Confirmed 06/28/17] Timolol 0.5% [Timoptic] 1 drp EACH EYE BID 08/09/16 [History Confirmed 06/28/17] blood sugar diagnostic strips See Dose Instructions .ROUTE .MEDSUPPLY #20 ea 05/04/17 [History Confirmed 06/28/17] insulin aspart U-100 100 unit/mL subcutaneous pen 40 unit SC TID ml 05/04/17 [History Confirmed 06/28/17] pen needle, diabetic 31 gauge x 5/16 See Dose Instructions .ROUTE .MEDSUPPLY #30 ea 05/04/17 [History Confirmed 06/28/17] albuterol sulfate HFA 90 mcg/actuation aerosol inhaler 2 puff INHALATION Q4H PRN #18 g 06/20/17 [Rx Confirmed 06/28/17] fluticasone 50 mcg/actuation nasal spray,suspension 2 spray INTRANASAL QDAY 06/28/17 [History Confirmed 06/28/17] lactobacillus combination no.4 3 billion cell capsule 3,000 mmu cells PO QDAY 06/28/17 [History Confirmed 06/28/17] meloxicam 7.5 mg tablet 7.5 mg PO BID tab 06/28/17 [History Confirmed 06/28/17] sitagliptin 50 mg-metformin 500 mg tablet 1 tab PO BID 06/28/17 [History Confirmed 06/28/17] Is last menstrual period known: No Post menopausal: Yes Patient : No Nurse's Note: blood sugars : low : 168 high : 410 PFSH Medical History Allergic rhinitis (Acute) Anemia (Acute) Arthritis (Acute) COPD (chronic obstructive pulmonary disease) (Acute) CVA (cerebral vascular accident) (Acute) Carpal tunnel syndrome (Acute) Cataracts, bilateral (Acute) Chronic pain syndrome (Acute) Degeneration of lumbar intervertebral disc (Acute) Depression (Acute) Diabetes type 2, uncontrolled (Acute) Diabetic peripheral neuropathy (Acute) GERD (gastroesophageal reflux disease) (Acute) Glaucoma (Acute) Heart disease (Acute) High cholesterol (Acute) Hypothyroidism (Acute) Insomnia (Acute) NSTEMI (non-ST elevated myocardial infarction) (Acute) OMID (obstructive sleep apnea) (Acute) Peripheral vascular disease (Acute) Skin cancer (Acute) Spinal stenosis of lumbar region (Acute) Thyroid disease (Acute) HTN (hypertension) (Chronic) Surgical History H/O angioplasty (Acute) H/O left knee surgery (Acute) History of partial knee replacement (Acute) S/P rotator cuff repair (Acute) Status post ORIF of fracture of ankle (Acute) Family History Daughter Alcohol abuse Anemia Anxiety Asthma Mother Diabetes Heart disease Hypertension Father Heart disease Hypertension Social History Smoking Status: Former smoker second hand exposure: Yes alcohol intake: never substance use type: does not use ROS Const Constitutional: No anorexia, body ache, chills, fatigue, fever(s), frequent falls, decreased energy, malaise, night sweats, weakness, weight change, sleep problems, abnormal sleep pattern, change in appetite, other, headache(s), snoring or excessive sweating Eyes Eyes: No blurry vision, change in vision, double vision, discharge, dry eyes, bulging eyes, floaters, visual disturbances, eye pain, light sensitivity, spots in vision, tunnel vision or other ENT ENT: Positive for nasal discharge, post nasal drip, other (sneezing, watery eyes) and neck pain; no abnormal hearing, ear pain, ear discharge, ear pressure, hearing loss, tinnitus, dizziness/vertigo, balance problems, nosebleed/epistaxis, nasal congestion, nasal obstruction, nose pain, sinus pressure, sinus pain, headache(s), facial pain, dental pain, dry mouth, bad breath, hoarseness, lip swelling, mouth lesions, mouth pain, sore throat, tongue swelling, throat swelling or difficulty swallowing Resp Respiratory: Positive for cough; no change in phlegm color, chest congestion, excessive phlegm production, hemoptysis, pain on inspiration, shortness of breath, pain with cough, snoring, stridor, wheezing or other Cardio Cardiology: Positive for generalized swelling; no chest pain at rest, chest pain with exertion, leg pain with exertion, excessive sweating, shortness of breath, dyspnea on exertion, irregular heart rhythm, orthopnea, radiating jaw, neck or arm pain, fast heart rate, slow heart rate, palpitations or other Gastro GI: No abdominal pain, belching, bloating, change in bowel habits, change in stool character, coffee ground emesis, constipation, cramping, diarrhea, heartburn, difficulty swallowing, feeling full early, excessive flatus, incontinent of stools, Vomiting blood/hematemesis, blood in stool, loose stools, Black,tarry stools, nausea/dyspepsia, pain with swallowing, vomiting or other Genitourinary-Female: No difficulty urinating, burning urination, painful urination, urinary incontinence, urinary frequency, urinary urgency, urinary hesitancy, urinary retention, blood in urine, Frequent nighttime urination/ nocturia, post void dribbling, suprapubic fullness, side pain, sexual problems, genital lesions, genital itching, hot flashes, abnormal periods, abnormal vaginal bleeding, absent period, painful periods, light periods, heavy periods, difficulty getting , painful intercourse, pelvic pain, vaginal dryness, vaginal odor, Vaginal Itching or other Musc Musculoskeletal: Positive for joint pain, back pain, neck pain and radiating pain into limb; no abnormal walking, deformity, joint swelling, limited range of motion, loss of height, muscle cramps, muscle weakness, decreased muscle mass, body aches, numbness, stiffness, tingling or other Skin Skin: Positive for change in hair and dry skin; no acne, hair loss, nail changes, boil, change in skin color, redness, excessive hair growth, yellowing of the skin, lesions, itching, rash, skin pain, skin ulcer, sores, skin swelling, wounds or other Breast Breast: No other Neuro Neurology: No frequent falls, weakness, visual disturbances, abnormal hearing, headache(s), abnormal walking, numbness or tingling Psych Psychiatric: No abnormal sleep pattern, No change in appetite Endo Endocrine: Positive for other (sneezing, watery eyes); no fatigue or excessive sweating Aller/Imm Allergy/Immunologic: No lip swelling, tongue swelling, throat swelling, wheezing or itchy eyes Assessment AND Plan 1. Type 2 diabetes mellitus with complication, with long-term current use of insulin E11.8; Z79.4 Patient Instructions Monitor BG before each meal and bedtime Consistency in diet RTC 2 weeks Plan Detail Other Medications Discontinued: furosemide Discontinued Reason: Pt no lon40 mg PO once daily, may take 1 extra if gain nacho taking s more than 2 lbs in 2-3 days Additional Comments 1. Please schedule follow up 2. Lab work one week before appointment. 3. Discussed importance of regular exercise and recommend starting or continuing a regular exercise program for good health. 4. The patient was encouraged to lose weight for good health 5. The importance of monitoring blood sugar regularly was reviewed. 6. The importance of monitoring the HBA1c level regularly was reviewed. 7. The importance of prper foot care and regularly checking feet to prevent sores and loss of limbs was reviewed. 8. The importance of keeping BP at or below 130/80 to prevent stroke, heart attacks, kidney failure, blindness was reviewed. Spent approximately 60 minutes with patient with over 50% of time spent in discussion and counseling regarding medication adjustment, symptoms and treatment of hypoglycemia, diet adherence, and checking BG before driving. Coding Level of Care Code Off vis,new,level 4 Diagnoses Type 2 diabetes mellitus with complication, with long-term current use of insulin E11.8; Z79.4 Diabetes mellitus type: type 2 Diabetes mellitus complication status: with unspecified complications Diabetes mellitus retirement insulin use: with retirement use Time Spent (min) 60 06/30/17 0832 <Electronically signed by Cruz MCINTYRE> Date Cruz MCINTYRE Cosigner Signature: Date (if applicable) CC: CBC Collected: 06/06/2017 Status: F Source: [facility] 9:30 AM [facility] REPOSITORY TYPE CODE TESTS RESULT OUT OF RANGE REFERENCE UNITS LAB CBC(LOINC) CBC Result Comment: CBC-COMPLETE BLOOD COUNT LAB WBC(LOINC) 4.5 - 10.8 x 10EE3/UL WBC 5.8 LAB RBC(LOINC) 4.10 - x 10EE6/UL 5.30 RBC Low 3.86 LAB HEMOGLOBIN(LOINC) 12.0 - g/dl 16.0 HEMOGLOBIN 12.6 LAB HEMATOCRIT(LOINC) 34.0 - % 46.0 HEMATOCRIT 37.1 LAB MCV(LOINC) 80 - 99 fl MCV 96 LAB MCH(LOINC) 27 - 33 pg MCH 33 LAB MCHC(LOINC) 32 - 36 X10 3 MCHC 34 LAB RDW/CV(LOINC) 12.0 - % 15.6 RDW/CV 14.7 LAB PLATELET(LOINC) 150 - 450 x10EE3/UL PLATELET 268 LAB MPV(LOINC) 6.6 - 10.5 fl MPV 8.4 Result Comment: AUTOMATED DIFFERENTIAL LAB NEUT %(LOINC) 46.0 - 76.0 % NEUT % 50.1 LAB LYMPH %(LOINC) 20.0 - 45.0 % LYMPH % 32.9 LAB MONOS %(LOINC) 0.0 - 10.0 % MONOS % 9.2 LAB EO %(LOINC) 0.0 - 7.0 % EO % 6.5 LAB BASO %(LOINC) 0.0 - 2.0 % BASO % 1.3 LAB Lymph #(LOINC) 0.80 - 2.80 x10EE3/U L Lymph # 1.90 LAB Neut #(LOINC) 1.50 - 7.10 x10EE3/U L Neut # 2.90 LAB [place] #(LOINC) 0.20 - 1.00 x10EE3/U L [place] # 0.50 LAB EO #(LOINC) 0.00 - 0.50 x10EE3/U L EO # 0.40 LAB Baso #(LOINC) 0.00 - 0.10 x10EE3/U L Baso # 0.10 LAB MANUAL DIFF(LOINC) MANUAL DIFF N/A LAB MORPHOLOGY(LOINC ) MORPHOLOGY N/A Result Comment: {CD] Performed By: #### [id number] #### [place] [id number] LIPID PROFILE Collected: 06/06/2017 Status: F Source: [facility] 9:30 AM [facility] REPOSITORY TYPE CODE TESTS RESULT OUT OF REFERENCE UNITS RANGE LAB LIPID PROFILE(LOIN C) LIPID PROFILE Result Comment: LIPID PROFILE LAB TRIGLYCERIDE(LOINC) 0 - 150 mg/dl High TRIGLYCERIDE 181 LAB CHOLESTEROL(LOINC) 0 - 200 mg/dl CHOLESTEROL 158 LAB HDL(LOINC) 40 - 60 mg/dl HDL Low 34 LAB CHOL/HDL(LOINC) 0.0 - 5.0 CHOL/HDL 4.6 LAB LDL(LOINC) 0 - 129 mg/dl LDL 88 Performed By: #### [id number] #### [place] [id number] TSH Collected: 06/06/2017 Status: F Source: [facility] 9:30 AM [facility] REPOSITORY TYPE CODE TESTS RESULT OUT OF RANGE REFERENCE UNITS LAB TSH(INC) 0.34 - 5.60 uIU/ml High TSH 11.33 Performed By: #### [id number] #### [facility],[address] [place] [address] CMP WITH EGFR Collected: 06/06/2017 Status: F Source: [facility] 9:30 AM [facility] REPOSITORY TYPE CODE TESTS RESULT OUT OF RANGE REFERENCE UNITS LAB CMP with eGFR(LOINC) CMP with eGFR Result Comment: COMPREHENSIVE METABOLIC PANEL LAB SODIUM(LOINC) 136 - 145 mmol/l SODIUM 137 LAB POTASSIUM(LOINC) 3.5 - 5.1 mmol/L POTASSIUM 4.4 LAB CHLORIDE(LOINC) 98 - 107 mmol/L CHLORIDE 99 LAB CO2(LOINC) 21.0 - mmol/L 31.0 CO2 29.2 LAB GLUCOSE(LOINC) 74 - 106 mg/dl GLUCOSE High 178 LAB BUN(LOINC) 6 - 20 mg/dl BUN High 24 LAB CREATININE(LOINC) 0.6 - 1.2 mg/dl CREATININE 1.1 LAB AST/SGOT(LOINC) 13 - 39 U/L AST/SGOT 29 LAB ALK PHOS(LOINC) 38 - 126 U/L ALK PHOS 52 LAB CALCIUM(LOINC) 8.6 - mg/dl 10.2 CALCIUM 9.6 LAB TOTAL 6.4 - 8.3 g/dl PROTEIN(LOINC) TOTAL PROTEIN 7.3 LAB ALBUMIN(LOINC) 3.4 - 4.8 g/dL ALBUMIN 4.3 LAB GLOBULIN(LOINC) 1.5 - 3.8 G/DL GLOBULIN 3.0 LAB A/G RATIO(LOINC) 0.9 - 1.6 A/G RATIO 1.4 LAB TOTAL BILI(LOINC) 0.0 - 1.5 mg/dl TOTAL BILI 0.4 LAB B/C RATIO(LOINC) 0 - 30 ratio B/C RATIO 22 LAB ALT/SGPT(LOINC) 8 - 35 U/L ALT/SGPT 25 LAB ANION GAP(LOINC) 10 - 20 mmol/L ANION GAP 13 LAB AGE(LOINC) years AGE 76 LAB eGFR(LOINC) 60 - 999 ML/MINUTE eGFR Low 48 LAB eGFR(AA)(LOINC) 60 - 999 ML/MINUTE eGFR(AA) Low 59 Result Comment: ACCORDING TO THE NATIONAL KIDNEY DISEASE EDUCATION PROGRAM(NKDE), A NORMAL eGFR IS A VALUE GREATER THAN OR EQUAL TO 60 ML/MIN/1.73 SQ METERS. CHRONIC KIDNEY DISEASE: <60mL/MIN/1.73 SQ METERS KIDNEY FAILURE: <15mL/MIN/1.73 SQ METERS THIS TEST SHOULD ONLY BE USED FOR PATIENTS 18 YEARS OF AGE AND OLDER. Performed By: #### [id number] #### [place] [id number] FERRITIN Collected: 06/06/2017 Status: F Source: [facility] 9:30 AM [facility] REPOSITORY TYPE CODE TESTS RESULT OUT OF REFERENCE UNITS RANGE LAB FERRITIN(LO 10 - 291 ng/mL INC) FERRITIN 49 Performed By: #### [id number] #### [place] [id number] IRON Collected: 06/06/2017 Status: F Source: [facility] 9:30 AM [facility] REPOSITORY TYPE CODE TESTS RESULT OUT OF RANGE REFERENCE UNITS LAB IRON(LOINC) 50 - 170 ug/dl IRON 109 Performed By: #### [id number] #### [place] [id number] HGB A1C Collected: 06/06/2017 Status: F Source: [facility] 9:30 [facility] REPOSITORY TYPE CODE TESTS RESULT OUT OF RANGE REFERENCE UNITS LAB HGB 4.4 - 6.4 % A1C(LOINC) High HGB A1C 10.2 Result Comment: {HB] {A1] Performed By: #### [id number] #### [place] [id number] CNCO Observed: 05/23/2017 Status: COMPLETED Source: [place] 5:00 PM [facility] [place] REPOSITORY HNO ID: [id number] Author: Mammography Coordinator Service: (none) Author Type: Physician Type: Letter Filed: 05/24/2017 11:33 PM Note Text: May 23, 2017 PID: [id number] Lisa Guzman [id number] [place] [id number] Dear Ms. Thomas, We are pleased to inform you that the results of your recent breast imaging exam on 05/23/2017 are normal. Your mammogram demonstrates that you have dense breast tissue, which could hide abnormalities. Dense breast tissue, in and of itself, is a relatively common condition. Therefore, this information is not provided to cause undue concern; rather, it is to raise your awareness and promote discussion with your health care provider regarding the presence of dense breast tissue in addition to other risk factors. Early detection of cancer is very important. We also understand recommendations regarding breast cancer screening are controversial. Please discuss with your primary care provider which strategy is best for you and whether a mammogram is right for you. Your imaging studies and report will be kept on file at [facility] as part of your permanent medical record and are available for your continuing care. Thank you for allowing us to help in meeting your health care needs. Sincerely, Dr. Witt Interpreting Radiologist [facility] (Normal over 40) PROGRESS Observed: 05/23/2017 Status: COMPLETED Source: [place] 3:04 PM [facility] REPOSITORY HNO ID: [id number] Author: Lauren Parker Service: (none) Author Type: (none) Type: Progress Notes Filed: 05/23/2017 3:04 PM Note Text: Radiology Service Progress Note PATIENT NAME: Lisa Guzman DATE OF SERVICE: May 23, 2017 TIME: 3:04 PM PATIENT IDENTITY VERIFICATION COMPLETED USING TWO (2) METHODS: Patient confirmed name verbally and Date of . PATIENT GENDER DATA: Female. status: : No status: NO. PATIENT RELEVANT IMPLANT DATA REVIEWED: Not Applicable RADIOLOGY DEPARTMENT: [facility] DATA: Not applicable SIGNED BY: Lauren Parker May 23, 2017 3:04 PM [facility] SCREENING Observed: 05/23/2017 Status: F Source: [place] 1:40 PM [facility] [place] REPOSITORY * * *Final Report* * * DATE OF EXAM: May 23 2017 1:40PM [facility] [id number] - [facility] SCREENING / PROCEDURE REASON: screening * * * * Physician Interpretation * * * * RESULT: #[id number] - [facility] ENRIQUE SCREENING BILATERAL DIGITAL SCREENING MAMMOGRAM WITH CAD: 05/23/2017 HISTORY: Screening Mammogram - patient reports NO breast symptoms /priors available for comparison. RESULT: TECHNIQUE: The study was acquired using full field digital technology and interpreted from soft copy. Current study was also evaluated with a Computer Aided Detection (CAD). Comparison is made to exams dated: 05/17/2016 mammogram, 05/12/2015 mammogram, 05/10/2014 mammogram, 04/08/2011 mammogram - [facility], 04/10/2012 mammogram - [facility], and 04/27/2013 mammogram - [facility]. The 2009 prior mammogram was also reviewed for comparison. The tissue of both breasts is heterogeneously dense. This may lower the sensitivity of mammography. The parenchymal pattern and appearance of the breasts is unchanged from the prior exams given differences in positioning and technique. No significant masses, calcifications, or other findings are seen in either breast. There has been no significant interval change. IMPRESSION: NEGATIVE There is no mammographic evidence of malignancy. A 1 year screening mammogram is recommended. Jacek morgan/stefano:05/23/2017 17:00:23 Cargo Worker: Dinora Gamboa RT(R)([place]), [facility] letter sent: Normal over 40 Mammogram BI-RADS: 1 Negative Reporting Analyst: Stefano Transcribe Date/Time: May 23 2017 1:09P Dictated by: JACEK WITT MD This examination was interpreted and the report reviewed and electronically signed by: JACEK WITT MD on May 23 2017 5:00PM EST [id number] CAROTID DUPLEX Observed: 05/21/2017 Status: F Source: [place] [facility]TRASOUND 5:[address] [facility] REPOSITORY [facility] Cardiovascular Services [address] [place] [id number] Carotid Duplex Ultrasound 05/18/17 0957 MR#: [id number] Acct: [id number] Name: LISA GUZMAN Rep #: [id number] : 1940 76 From: Jason Begum MD Attending Dr: Jason Begum MD Status: REG CLI Ordering Dr: Jason Begum MD Date: 05/18/17 Location: [facility] Sex: F C Admitted: Reason For Study: carotid bruit Rt. Velocities/BP Lt. Velocities/BP Prox CCA 97.3/9.38 cm/sec. Prox CCA 176.0/20.6 cm/sec. Mid CCA 110.0/9.97 cm/sec. Mid CCA 105.0/9.38 cm/sec. Dist CCA 114.0/12.6 cm/sec. Dist CCA 155.0/14.9 cm/sec. Prox ICA 93.8/12.3 cm/sec. Prox ICA 108.0/17.3 cm/sec. Mid ICA 169.0/16.7 cm/sec. Mid ICA 101.0/14.9 cm/sec. Dist ICA 116.0/14.1 cm/sec. Dist ICA 95.9/16.5 cm/sec. Rt. ICA/CCA = 169.0/110.0=1.5. Lt. ICA/CCA = 108/105=1.0. Prox ECA 200.0/0.0 cm/sec. Prox ECA 244.0/11.8 cm/sec. Rt. Vert. 47.5/5.89 cm/sec. Lt. Vert. 75.0/12.3 cm/sec. Right Extracranial There is intimal thickening but no significant atherosclerotic plaque noted in the right common carotid artery. There is heterogeneous, smooth atherosclerotic plaque noted in the right internal carotid artery. There is heterogeneous, smooth atherosclerotic plaque noted in the right external carotid artery. Antegrade flow is noted in the right vertebral artery. Left Extracranial There is homogeneous, smooth atherosclerotic plaque noted in the left common carotid artery. There is no significant atherosclerotic plaque noted in the left internal carotid artery. There is homogeneous, smooth atherosclerotic plaque noted in the left external carotid artery. Antegrade flow is noted in the left vertebral artery. Procedure Carotid Duplex [id number]. The exam was diagnostic. Exam performed in department. Interpretation Summary Moderate (50-69%) stenosis right extracranial internal carotid. Mild (<50%) stenosis left extracranial internal carotid. Flow within the vertebral arteries is antegrade bilaterally. Ordering Physician: aJson Begum Referring Physician: Shiv Anotn Performed By: Radha Monterroso RDCS, RVT 05/21/17 1703 Date Jason Begum MD CC: Jason Begum MD; Shiv Anton DO Date Dictated: 05/18/17 0957 Date Transcribed: 05/21/171702 Reporting Analyst: Signed NURSING PROG Observed: 04/28/2017 Status: COMPLETED Source: [place] 9:22 AM [facility] REPOSITORY HNO ID: [id number] Author: Radha (Rn) FADIA Bazan Service: (none) Author Type: Registered Nurse Type: Nursing Progress Note Filed: 04/28/2017 9:23 AM Note Text: Pt given d/c instructions AND conveyed understanding. PROGRESS Observed: 04/28/2017 Status: COMPLETED Source: [place] 9:21 AM [facility] REPOSITORY HNO ID: [id number] Author: Chhaya Acosta Service: Vascular Surgery Author Type: Physician Type: Progress Notes Filed: 04/28/2017 10:48 AM Note Text: Had a discussion with patient in pre-surgery today about her current symptoms. The patients surgery had been previously pushed back due to her illness as well as hospital volume. At our previous office visit she had stated that she had no quality of life secondary to how severe her claudication was and that she could not do anything she enjoyed. As I talked to her today she no longer felt as if her claudication was limiting her lifestyle. She denied non healing wounds and stated that a wound on her left foot had actually healed well recently without issue. She denied rest pain. She has neuropathy in her foot, which we discussed would not be improved with surgery, nor would any back pain. We had an extensive discussion about the risks of surgery and the benefits, as well as the chances, which are very small at this point, of her progressing to limb loss. She would like to hold off on surgery at this point which is a very reasonable decision in my opinion. She knows to look for non or slowly healing wounds and to practice good foot care and remain on her medications. She understands that rest pain or a non healing wound would put her foot at risk and that she should call or follow up fina if this happens. I will continue to see her in the office as an outpatient for her PVD at regular intervals. Chhaya Acosta MD NURSING PROG Observed: 04/28/2017 Status: COMPLETED Source: [place] 9:05 AM CLIN[facility] OTHER CAMPUS REPOSITORY HNO ID: [id number] Author: Radha (Rn) FADIA Bazan Service: (none) Author Type: Registered Nurse Type: Nursing Progress Note Filed: 04/28/2017 9:07 AM Note Text: Pt AND daughter had extensive talk w/ Dr. Acosta;Surgery has been cancelled GLUCOSE METER Collected: 04/28/2017 Status: F Source: [facility] 8:41 AM HEALTH SYSTEM REPOSITORY TYPE CODE TESTS RESULT OUT OF REFERENCE UNITS RANGE LAB GLUBL(LOINC 70-99 mg/dL ) High Glucose Meter 350 Result Comment: RN NOTIFIED Performed By: #### GLMET #### [place] [address] HEMOGRAM Collected: 04/21/2017 Status: F Source: [facility] 11:45 AM HEALTH SYSTEM REPOSITORY TYPE CODE TESTS RESULT OUT OF REFERENCE UNITS RANGE LAB WBC(LOINC) 3.98-10.04 thou/cmm WBC 6.00 LAB RBC(LOINC) 3.93-5.22 mil/cmm Low RBC 3.62 LAB HGB(LOINC) 11.2-15.7 g/dL Hgb 11.6 LAB HCT(LOINC) 34.1-44.9 % Hct 35.7 LAB MCV(LOINC) 79.4-94.8 fl High MCV 98.6 LAB MCH(LOINC) 25.6-32.2 pg MCH 32.0 LAB MCHC(LOINC) 31.6-34.8 % MCHC 32.5 LAB RDW(LOINC) 11.7-14.4 % RDW 13.9 LAB RDWSD(LOINC 36.4-46.3 fl ) High RDW SD 50.4 LAB PLT(LOINC) 182-369 thou/cmm Platelet 265 LAB MPV(LOINC) 9.4-12.3 fl MPV 9.4 Performed By: #### CBC1 #### [place] [address] BASIC PANEL Collected: 04/21/2017 Status: F Source: [facility] 11:45 AM HEALTH SYSTEM REPOSITORY TYPE CODE TESTS RESULT OUT OF REFERENCE UNITS RANGE LAB NA(LOINC) 136-145 mEq/L Sodium Blood 136 LAB K(LOINC) 3.5-5.1 mEq/L Potassium Blood 4.0 LAB CL(LOINC) 98-107 mEq/L Chloride Blood 103 LAB CO2(LOINC) 21-32 mEq/L CO2 Blood 26 LAB GLU(LOINC) 70-99 mg/dL Glucose High Blood 139 LAB BUN(LOINC) 7-18 mg/dL BUN Blood 17 LAB CREA(LOINC 0.51-0.95 mg/dL ) Creatinine Blood 0.83 LAB CA(LOINC) 8.5-10.1 mg/dL Calcium Blood 9.3 LAB ANGAP(LOIN 8-16 C) Anion Gap 11 Performed By: #### P8 #### [place] [address] MDRD GFR Collected: 04/21/2017 Status: F Source: [facility] 11:45 AM HEALTH SYSTEM REPOSITORY TYPE CODE TESTS RESULT OUT OF RANGE REFERENCE UNITS LAB GFRFN(LOINC >60mL/min/1.73m ) 2 eGFR >60 Result Comment: If the patient is , multiply the result by 1.210. Performed By: #### GFR #### [place] [address] TYPE AND SCREEN Collected: 04/21/2017 Status: F Source: [facility] 11:45 AM HEALTH SYSTEM REPOSITORY TYPE CODE TESTS RESULT OUT OF REFERENCE UNITS RANGE LAB ABO(LOINC) O ABO Group LAB RIFFLER TENDER(LOINC ) RH Type Positive LAB ABSCR(LOIN C) Antibody NEGATIVE Screen LAB BBCMT(LOIN C) Comment PAT specimen Performed By: #### T&S #### [place] [address] HISTORY PHYSICAL Observed: 04/21/2017 Status: COMPLETED Source: [place] 7:58 AM CLINIC OTHER CAMPUS REPOSITORY HNO ID: [id number] Author: oJsr WildHighway Maintainerlaw Patel Service: (none) Author Type: Nurse Practitioner Type: HANDP Filed: 04/22/2017 10:12 AM Note Text: HISTORY AND PHYSICAL EXAMINATION SERVICE DATE: 04/21/2017 SERVICE TIME: 1040 PRIMARY CARE PHYSICIAN: Shiv Anton DO REASON FOR VISIT: Lisa Guzman is a 76 year old female who is scheduled for surgery with Dr. Acosta. Here for pre op HANDP. The patient has the following: ACTIVE PROBLEM LIST Unspecified Essential Hypertension Other and Unspecified Hyperlipidemia Unspecified Hereditary and Idiopathic Peripheral Neuropathy Enthesopathy of Ankle and Tarsus, Unspecified Residual Foreign Body in Soft Tissue Other Acquired Deformity of Ankle and Foot(736.79) Djd (Degenerative Joint Disease) of Thoracic Spine Lumbar Facet Arthropathy (Hcc) Other Acquired Deformity of Toe Encounter for Long-Term (Current) Use of Medications Calcaneal Spur Actinic Keratoses (Premalignant AK's) Irritated//Inflamed Seborrheic Keratosis Actinic Skin Damage Other Seborrheic Keratosis Solar Lentigines Walsh Angioma Spinal Stenosis, Lumbar Gait Instability Scar Condition and Fibrosis of Skin Personal History of Other Malignant Neoplasm of Skin Sebopsoriasis Stucco Keratosis 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 Claudication symptoms for over 5 years. Pain with ambulation to bilateral lower extremities. Pain relieved with about 3 minutes of rest. Per patient pain feels like I am getting hit in the leg with a ball bat. At this time rates bilateral lower extrem pain 2/10. Patient also had neuropathy to lower extremities. +Swelling to lower extremities. 12/2014 stent to aorta 07/2015 LING at the ankle showed R LING 0.5 and L L[address] 0.68 CT scan 09/[address] Begum. Scanned report from Dr. Begum in [facility]. ? 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, chest and under right breast ([facility]) - HYPERLIPIDEMIA NEC/NOS 01/14/2006 - HYPERTENSION NOS 01/14/2006 - HYPOTHYROIDISM NOS 01/14/2006 - IDIO PERIPH NEURPTHY NOS 01/31/2006 - HI (myocardial infarction) 07/2016 stent placement- patient denies HI - Pulmonary hypertension - PVD (peripheral vascular disease) (HCC) - Tobacco use disorder 12/22/2009 PAST SURGICAL HISTORY Procedure Laterality Date - PAST SURGICAL HISTORY OF 2005 Ankle Surgery From Fracture right - PAST SURGICAL HISTORY OF 2001 Repair Rotator Cuff Right- - PAST SURGICAL HISTORY OF 2001 Right Elbow Surgery - - PAST SURGICAL HISTORY OF 01/11/12 Laser surgery gums, Dr. 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 Yes TURMERIC, BULK, MISC Turmeric curcumin 500 mg daily po Yes ferrous sulfate (IRON, FERROUS SULFATE,) 325 mg (65 mg iron) tablet Take 325 mg by mouth daily with breakfast. Yes hydroCHLOROthiazide (HYDRODIURIL, ESIDRIX) 25 mg tablet Take 25 mg by mouth once daily. Yes metFORMIN (GLUCOPHAGE) 500 mg tablet Take 500 mg by mouth twice daily with meals. Yes clopidogrel (PLAVIX) 75 mg tablet Take 75 mg by mouth once daily. Yes isosorbide mononitrate ER (IMDUR) 30 mg 24 hr tablet Take 30 mg by mouth every 12 hours. Yes simvastatin (ZOCOR) 20 mg tablet Take 20 mg by mouth daily at bedtime. Yes timolol hemihydrate (BETIMOL) 0.25 % ophthalmic solution twice daily. Yes cholecalciferol (VITAMIN D-3) 2,000 unit tablet Take 1,000 Units by mouth once daily. Yes furosemide (LASIX) 40 mg tablet Take 40 mg by mouth once daily. Yes NITROSTAT 0.4 mg SL tablet Yes latanoprost (XALATAN) 0.005 % ophthalmic solution Yes esomeprazole (NEXIUM) 40 mg capsule Take 1 capsule by mouth once daily. ON EMPTY STOMACH Yes MULTIVITAMIN ORAL Take by mouth once daily. Taking multiple supplements daily Yes blood sugar diagnostic (FREESTYLE LITE STRIPS) test strip Test blood sugar(s) 4x daily. Dx: 250.62. Insulin: Yes Yes blood sugar diagnostic (CONTOUR TEST STRIPS) test strip Use as instructedTest blood sugar three to four times a day Insulin Dependent 250.62 Yes insulin glargine (LANTUS SOLOSTAR) 100 unit/mL (3 mL) inpn Inject 50 Units subcutaneously twice daily. Patient taking differently: Inject 60 Units subcutaneously twice daily. Yes insulin aspart (NOVOLOG FLEXPEN) 100 unit/mL inpn Inject insulin three times daily at first bite of food. Take 30 w/breakfast, 30 w/lunch, 30 w/supper. Patient taking differently: 40 Units. Inject insulin three times daily at first bite of food. Yes levothyroxine (SYNTHROID) 200 mcg tablet Take 1 tablet by mouth once daily. Take on empty stomach. For Thyroid. Yes amLODIPine-Valsartan (EXFORGE) 10-320 mg per tablet Take 1 tablet by mouth once daily. Patient taking differently: Take 1 tablet by mouth once daily. Not taking Yes insulin needles, DISPOSABLE, (BD INSULIN PEN NEEDLE UF) 31 X 5/16 ndle Use to inject insulin once daily as instructed 250.02 Insulin Dependent Yes fluticasone (FLONASE) 50 mcg/actuation nasal spray Use 2 Sprays in each nostril once daily. Yes oxyCODONE-acetaminophen (PERCOCET) 5-325 mg tablet Take 1 tablet by mouth every 4 hours as needed for Pain. Yes ASPIRIN 81 MG TAB Take one (1) tablet daily . Yes amoxicillin-clavulanic acid (AUGMENTIN) 875-125 mg per tablet Take 1 tablet by mouth twice daily. meloxicam (MOBIC) 7.5 mg tablet TOPROL XL 25 mg 24 hr tablet Take 25 mg by mouth once daily. predniSONE (DELTASONE) 10 mg tablet RANEXA 500 mg 12 hr tablet STIOLTO RESPIMAT 2.5-2.5 mcg/actuation mist as needed. valsartan (DIOVAN) 320 mg tablet busPIRone (BUSPAR) 10 mg tablet Take 0.5-1 tablets by mouth twice daily. Patient taking differently: Take 5-10 mg by mouth twice daily. Not taking rx escitalopram oxalate (LEXAPRO) 10 mg tablet Take 1 tablet by mouth once daily. Patient taking differently: Take 10 mg by mouth once daily. Not taking JANUMET 50-500 mg per tablet TAKE 1 TABLET TWICE A DAY COMPOUNDED PRESCRIPTION IFOBT fecal screening. Dx: Colon Cancer Screening. Fax results to [phone] metoprolol succinate XL, long acting, (TOPROL XL) 100 mg Tb24 Take 1 tablet by mouth once daily. Patient not taking: Reported on 02/24/2017 Medication Comments documented by Estela (Fadia) FADIA Buenrostro on 02/02/2017 at 5511. PATIENT WANTS TO BRING LIST OF MEDICATIONS DAY OF PRE TESTING FOR UPDATE. ALLERGIES Allergen Reactions - Bees [Other] Swelling Large local reaction. REVIEW OF SYSTEMS: PAIN ASSESSMENT: General: Denies fever, chills, and unexpected weight change. Neuro: Denies dizziness and headaches. Respiratory: Denies SOB at rest. +SOB with steps Cardiovascular: Denies CP and palpitations. GI: Denies abd pain and N/V/C. : Denies dysuria. Endocrine: positive diabetes. Hematology: On Plavix- cardiac stent 2016 Psych: Denies anxiety/depression. Musculoskeletal: bilateral knee pain Skin: Denies open sores and rashes. Objective PHYSICAL EXAM: VITALS: BP 146/53 Pulse 76 Temp 97.2 Resp 18 Ht 5' 6 (1.68m) Wt 216 lb (98.0kg) SpO2 98% BMI 34.88 kg/(m2). General: NAD. Cooperative. Skin: Skin is warm, no rashes, and no open sores. HEENT: Normocephalic. Cardiovascular: Normal S1 AND S2. RRR Lungs: CTA. No respiratory distress. Abdomen: Soft. +BS Extremities: bilateral lower extrem swelling, +1 Neurological: Alert and oriented to person, place, and time. Neuropathy to lower extremities. Pulses: radial pulses +2 Diagnostic tests reviewed for today's visit: Lab Value Units Date High Low HB 10.9 g/dL 02/23/2017 15.7 11.2 HCT 34.3 % 02/23/2017 44.9 34.1 WBC 5.54 thou/c* 02/23/2017 10.04 3.98 PLT 241 thou/c* 02/23/2017 369 182 NA 138 mEq/L 02/23/2017 145 136 K 4.3 mEq/L 02/23/2017 5.1 3.5 GLUC 175 mg/dL 02/23/2017 99 70 BUN 14 mg/dL 02/23/2017 18 7 CREAT 0.76 mg/dL 02/23/2017 0.95 0.51 ALT 48 U/L 11/01/2016 78 12 AST 31 U/L 11/01/2016 37 15 TBILI 0.2 mg/dL 11/01/2016 1.0 0.2 ABSCREEN NEGATI* no uni* 02/23/2017 Hemoglobin A1C (%) Date Value 12/02/2014 9.1 09/12/2014 9.1 05/06/2014 8.3 HBA1C, [place] (%) Date Value 07/08/2010 8.4 01/20/2010 9.7 03/16/2006 9.4 Assessment/Plan METS: Take care of self; that is eating, dressing, bathing, using the toilet (2.75 METs) ANESTHESIA FINDINGS: Intubation History: No history of difficult intubation Significant Anesthesia Considerations: Postop nausea/vomiting Sleep Apnea PLAN Diagnosis: Peripheral vascular disease, unspecified (HCC) [I73.9] Planned Procedure: AORTOGRAM ABDOMINAL WITH RUN-OFFS, RAD SUPV, ENDARTERECTOMY FEMORAL CONSULTS: Cardiac clearance in chart from Dr. Barajas 01/25/2017. Patient already stopped Plavix. Instructed patient to call Dr. Barajas to find out when Plavix should be stopped. Find out if ASA should be continued. Patient verbally agreed. Instructed patient to call PCP to find out how much insulin to take the night before and morning of surgery. The Following Tests/Procedures Have Been Initiated: Paper orders from surgeon entered into EPIC: BMP, CBC, and TANDS Planned Anesthetic: General Instructions Given to Patient: Patient given verbal and written preop instructions and voices comprehension and compliance. SIGNATURE: Josr Patel CNP PATIENT NAME: Lisa Guzman DATE: April 21, 2017 TIME: 7:58 AM PAGER/CONTACT #: ALLERGIES ALLERGIES DATE TYPE / CODE NAME / CODE REACTION SEVERITY SOURCE 04/04/2018 Drug metoprolol/F Unknown [place] Allergy/756750214(S [id number](RX [facility] NOMED ME) NORM) Hospital Repository 04/04/2018 Drug bee Anaphylaxis Unknown [place] Allergy/974918209(S pollen/F0060 [facility] [place] [place] [address] Repository 04/04/2018 Drug latex/Y79830 Rash [place] Allergy/155074249(S 8921(RXNORM) [facility]) Hospital Repository 04/28/2017 DRUG IODINE OTHER: SEE C [facility] INGREDI/087029093(S [facility] Other NOMED CT) [place] Repository 10/04/2007 Miscellaneous OTHER SWELLING High [place] Allergy/088121807([facility] [place] Rep[facility] Drug SULFA Moderate [place] Allergy/211015428(S (sulfonamide ([facility] NOMED CT) )/14416372(R Modifier) Hospital XNORM) (Qualifier Repository Value) Environmental LATEX Moderate [place] Allergy/832369800(S ([facility]) Modifier) [facility] (Qualifier Repository Value) NG/363424021(SNOMED OTHER [facility]) Health System Repository NG/686538876(SNOMED IODINE [facility]) Health System Repository ENCOUNTERS ENCOUNTERS ADMIT/DISCHARGE ACCOUNT NUMBER ADMITTING ENCOUNTER LOCATION SOURCE CLASS 04/05/2018/04/07/19 [id number] [place], Inpatient [place] Encounter [facility] ding:[id number] Repository : SP116Lpq: 1 04/05/2018 [id number] [place], Ambulatory BMSBuilding: [place] BMS.[facility] Repository 04/05/2018 [id number] [place], Ambulatory BMSBuilding: [place] BMS.[facility] Repository 04/05/2018 [id number] [place], Ambulatory BMSBuilding: [place] BMS.[facility] Repository 04/05/2018/04/05/19 [id number] SLOANE, Ambulatory [facility] Repository 04/04/2018 [id number] Ambulatory [facility] ding:RAD Repository 04/04/2018/04/04/19 [id number] Ambulatory BMSBuilding: [place] 19 BMS.[facility] Repository 03/30/2018/03/30/19 [id number] OSCAR, Ambulatory [address] Repository 03/09/2018 [id number] Ambulatory [facility] ding:CVS Repository 03/02/2018 [id number] Ambulatory [facility] ding:PAVLAB Repository 03/02/2018/03/02/20 [id number] Ambulatory BMSBuilding: [place] 18 BMS.[facility] Repository 02/21/2018 [id number] Ambulatory BMSBuilding: [place] [facility] Repository 02/21/2018 [id number] Ambulatory BMSBuilding: [place] BMS.CF.[facility] Repository 02/21/2018 [id number] Ambulatory [facility] ding:CVS Repository 02/08/2018/02/09/20 [id number] Ambulatory BMSBuilding: [place] 18 BMS.[facility] Repository 01/19/2018 [id number] Ambulatory [facility] ding:OPBD Repository 01/05/2018/01/06/20 [id number] [place] LEON Ambulatory [facility] Repository 11/25/2017 [id number] Ambulatory [facility] ding:BFHLAB Repository 10/19/2017 [id number] Ambulatory [facility] ding:CLSP Repository 10/12/2017/10/13/19 [id number] KONG, Ambulatory [address] Repository 10/05/2017 [id number] Ambulatory [facility] ding:MRI Repository 09/08/2017 [id number] Ambulatory [facility] ding:BFHLAB Repository 08/29/2017/08/30/19 [id number] COLLINBIBICRUZ Ambulatory [address] Repository 08/17/2017 [id number] Ambulatory BMSBuilding: [place] BMS.[facility] Repository 08/12/2017 [id number] Ambulatory [facility] ding:CVS Repository 08/08/2017/08/09/19 [id number] Ambulatory BMSBuilding: [place] 18 BMS.[facility] Repository 07/28/2017 [id number] Ambulatory BMSBuilding: [place] [facility] Repository 07/26/2017 [id number] Ambulatory [facility] ding:PSN Repository 07/19/2017 [id number] Ambulatory BMSBuilding: [place] BMS.[facility] Repository 07/13/2017 [id number] Ambulatory [facility] Repository 07/08/2017 [id number] Ambulatory BMSBuilding: [place] BMS.[facility] Repository 07/07/2017 [id number] Ambulatory [facility] ding:PSN Repository 07/07/2017 [id number] Ambulatory BMSBuilding: [place] [facility] Repository 06/28/2017/06/29/19 [id number] Ambulatory BMSBuilding: [place] 18 BMS.[facility] Repository 06/06/2017/06/07/19 [id number] SLOANE, Ambulatory [address] Repository 05/23/2017/05/24/19 [id number] Ambulatory [address] Repository 05/23/2017 [id number] Ambulatory [facility] MEDICAL Repository CENTERBuildi ng:AGVASACC 05/18/2017 [id number] Ambulatory [place] [facility] ding:CVS Repository 05/09/2017 [id number] Ambulatory BMSBuilding: [place] BMS.[facility] Repository 05/05/2017 [id number] Ambulatory [facility] MEDICAL Repository CENTERBuildi ng:AGVASACC 05/04/2017 [id number] Ambulatory BMSBuilding: [place] BMS.[facility] Repository 04/28/2017/04/28/19 [id number] CHHAYA ACOSTA Inpatient [address] Repository 04/28/2017/04/28/19 [id number] CHHAYA ACOSTA Ambulatory [address] MEDICAL Repository CENTRAL FALLSBuild ng:AKORRoom: POOLBed: 19 04/21/2017 [id number] Ambulatory [facility] Repository 04/21/2017/04/21/19 [id number] Ambulatory [address] [facility] 04/21/2017 [id number] Ambulatory [facility] Repository 04/21/2017 [id number] Ambulatory [facility]SHANIKA PAYERS PAYERS ENCOUNTER GUARANTOR PAYER SUBSCRIBER SOURCE 04/05/2018 CRISTAL Primary CRISTAL Ross [id number] Insurance:[facility]ICARE [facility] SR PART A BPolicy Number: [id number] Repository [place] [address]Jjd: Date:2018-04-05 () 04/05/2018 Secondary CRISTAL [place] Insurance:S MACAULAYDOB: [facility] FOR LIFEPolicy Number: [id number] Hospital [id number] Repository Date:4881-01-99XB [place] [address] [address]YO: 04/05/2018 Tertiary NOT GIVENUNK [place] Insurance:SELF PAY [facility] Hospital Number: Effective Repository Date:2018-04-05 04/05/2018 CRISTAL Primary CRISTAL [place] [id number] Insurance:MEDICARE MACAULAYDOB: Community SR PART A BPolicy Number: [id number], [id number] [place]ository [place] [address]Amu: Date:2018-04-05 () 04/05/2018 Secondary CRISTAL [place] [facility] FOR LIFEPolicy Number: [id number] Hospital [id number] Repository Date:6753-20-30GA [address] [address]MQ: 04/05/2018 Tertiary NOT GIVENUNK [place] Insurance:SELF PAY [facility] Number: Effective Repository Date:2018-04-05 04/05/2018 CRISTAL Primary CRISTAL [place] [id number] Insurance:MEDICARE MACAULAYDOB: Community SR PART A BPolicy Number: [id number], [id number] [place]ository [place] [address]Rgn: Date:2018-04-05 () 04/05/2018 Secondary CRISTAL [place] Insurance:[facility]: [facility] Hospitaly Number: [id number] Hospital [id number] Repository Date:2609-03-10CX [address], [place] [address]VI: 04/05/2018 Tertiary NOT GIVENUNK [place] Insurance:SELF PAY [facility] Number: Effective Repository Date:2018-04-05 04/05/2018 CRISTAL Primary CRISTAL [place] [id number] Insurance:MEDICARE MACAULAYDOB: Community SR PART A BPolicy Number: [id number], [id number] [place]ository [place] [address]Ywb: Date:2018-04-05 () 04/05/2018 Secondary CRISTAL [place] [facility] Number: [id number] Hospital [id number] Repository Date:0051-10-55HX [address] [address]OS: 04/05/2018 Tertiary NOT GIVENUNK [place] Insurance:SELF PAY [facility] Number: Effective Repository Date:2018-04-05 04/05/2018 LISA CRISTAL Primary LISA CRISTAL Praful Stuartne MACAULAYDOB: Insurance:MEDICARE MACAULAYDOB: [facility] [id number] [facility] [id number] Hospital SR Number: [address] Repository [address] [place] [address], [id number] [address] [place] [address] Date:Plan Name:[facility] [id number]: () 04/05/2018 Secondary SANTOS Nelson Insurance: FOR MACAULAYDOB: [facility] [id number] Hospital Number: 33 [facility] Repository [id number] [address] [place] [address], Date:Plan Name:[facility] [id number] 04/04/2018 LISA E Primary LISA E [place] [id number] Insurance:MEDICARE MACAULAYDOB: Community SR PART A BPolicy Number: [id number], [id number] [place]ository [place] [address]Nny: Date:2018-04-04 () 04/04/2018 Secondary LISA E [place] Insurance:[facility] MACAULAYDOB: [facility] Number: [id number] Hospital [id number] Repository Date:0549-69-07SQ [address], [place] [address]NY: 04/04/2018 Tertiary NOT GIVENUNK [place] Insurance:SELF PAY [facility] Hospital Number: Effective Repository Date:2018-04-04 04/04/2018 LISA E Primary LISA E [place] [id number] Insurance:MEDICARE MACAULAYDOB: Community SR PART A BPolicy Number: [id number], [id number] Repository [place] [address]Zxd: Date:2018-04-03 () 04/04/2018 Secondary LISA E [place] Insurance:S MACAULAYDOB: [facility] LIFEWell[facility] Rehabilitation Hospitaly Number: [id number] Hospital [id number] Repository Date:0394-67-83TO [address], [place] [address]RL: 04/04/2018 Tertiary NOT GIVENUNK [place] Insurance:SELF PAY [facility] Hospital Number: Effective Repository Date:2018-04-04 03/30/2018 LISA CRISTAL Primary LISA CRISTAL Praful Beanerene MACAULAYDOB: Insurance:MEDICARE [facility]: [facility] [id number] [facility] [id number] Hospital SR Number: [address] Repository [address] [place] [address], [id number] [address] [place] [address] Date:Plan Name:[facility] [id number]: () 03/30/2018 Secondary SANTOS Nelson Insurance:[facility] FOR MACAULAYDOB: [facility] [id number] Hospital Number: 33 [address] Repository [id number] [address] [place] [address], Date: De [id number] 03/09/2018 LISA E Primary LISA E [place] [id number] Insurance:[facility]ARE [facility]: [facility] PART A BPolicy Number: [id number], [id number] Repository [place] [address]Nmo: Date:2018-03-02 () 03/09/2018 Secondary LISA E [place] Insurance:[facility]AYD[facility]: [facility] Number: [id number] Hospital [id number] Repository Date:0910-53-10TQ [address], [place] [address]SW: 03/09/2018 Tertiary NOT GIVENUNK [place] Insurance:SELF PAY [facility] Hospital Number: Effective Repository Date:2018-03-02 03/02/2018 LISA E Primary LISA E [place] [id number] Insurance:MEDICARE MACAULAYDOB: Community SR PART A BPolicy Number: [id number], [id number] [place]ository [place] [address]Gpx: Date:2018-03-02 () 03/02/2018 Secondary LISA E [place] Insurance:S MACAULAYDOB: [facility] Number: [id number] Hospital [id number] Repository Date:9156-71-23TN [address], [place] [address]HB: 03/02/2018 Tertiary NOT GIVENUNK [place] Insurance:SELF PAY [facility] Number: Effective Repository Date:2018-03-02 03/02/2018 LISA E Primary LISA E [place] [id number] Insurance:MEDICARE MACAULAYDOB: Community SR PART A BPolicy Number: [id number], [id number] [place]ository [place] [address]Pew: Date:2018-02-22 () 03/02/2018 Secondary LISA E [place] Insurance:S MACAVALENTINEYDOB: [facility] Number: [id number] Hospital [id number] Repository Date:3352-50-68GX [address], [place] [address]ME: 03/02/2018 Tertiary NOT GIVENUNK [place] Insurance:SELF PAY [facility] Number: Effective Repository Date:2018-02-22 02/21/2018 MARCELLE E [id number] Primary MARCELLE E MEASEDOB: [place] [address] Insurance:MEDICAL [id number] [address]Qxy: (330) Number: Repository [phone] () [id number] Date:5311-83-03RT [address], [place] [address]LM: 02/21/2018 Secondary NOT GIVENUNK [place] Insurance:SELF PAY [facility] Number: Effective Repository Date:2018-02-21 02/21/2018 LISA E Primary LISA E [place] [id number] Insurance:MEDICARE MACAULAYDOB: Community SR PART A BPolicy Number: [id number], [id number] [place]ository [place] [address]Xyw: Date:2018-02-08 () 02/21/2018 Secondary LISA E [place] Insurance:WPS MACAULAYDOB: Community [facility] Number: [id number] Hospital [id number] Repository Date:8032-49-87DQ [address], [place] [address]SX: 02/21/2018 Tertiary NOT GIVENUNK [place] Insurance:SELF PAY [facility] Hospital Number: Effective Repository Date:2018-02-21 02/21/2018 LISA E Primary LISA E [place] [id number] Insurance:MEDICARE MACAULAYDOB: Community SR PART A BPolicy Number: [id number], [id number] [place]ository [place] [address]Avd: Date:2018-02-08 () 02/21/2018 Secondary LISA E [place] Insurance:WPS MACAULAYDOB: [facility]icy Number: [id number] Hospital [id number] Repository Date:9796-45-56OZ [address], [place] [address]CY: 02/21/2018 Tertiary NOT GIVENUNK [place] Insurance:SELF PAY [facility] Hospital Number: Effective Repository Date:2018-02-08 02/08/2018 LISA E Primary LISA E [place] [id number] Insurance:MEDICARE MACAULAYDOB: Community SR PART A BPolicy Number: [id number], [id number] [place]ository [place] [address]Lga: Date:2017-08-08 () 02/08/2018 Secondary LISA E [place] Insurance:WPS MACAULAYDOB: Community FOR LIFEPolicy Number: [id number] Hospital [id number] Repository Date:8814-29-45JK [address], [place] [address]MK: 02/08/2018 Tertiary NOT GIVENUNK [place] Insurance:SELF PAY [facility] Number: Effective Repository Date:2018-02-02 01/19/2018 LISA E Primary LISA E [place] [id number] Insurance:MEDICARE MACAULAYDOB: Community SR PART A BPolicy Number: [id number] [id number] Repository [place] [address]Qtn: Date:2018-01-11 () 01/19/2018 Secondary LISA E [place] Insurance:WPS MACAULAYDOB: [facility] Hospitalicy Number: [id number] Hospital [id number] Repository Date:0225-73-27AH [address], [place] [address]EE: 01/19/2018 Tertiary NOT GIVENUNK [place] Insurance:SELF PAY [facility] Number: Effective Repository Date:2018-01-11 01/05/2018 LISA CRISTAL Primary Insurance:500 LISA CRISTAL Praful Stuarttodd MACAULAYDOB: MEDICARE MACAULAYDOB: [facility] [id number] [facility] [id number] Hospital SR Number: [address] Repository [address] [place] [id number] Date:Plan Name:[facility] [id number]: () 01/05/2018 Secondary SANTOS Nelson Insurance: FOR MACAULAYDOB: [facility] [id number] Hospital Number: [address] Repository [id number] [address] [place] [address], Date:Plan Name:[facility] [id number] 11/25/2017 LISA E Primary LISA E [place] [id number] Insurance:MEDICARE MACAULAYDOB: Community SR PART A BPolicy Number: [id number], [id number] [place]ository [place] [address]Fya: Date:2017-11-25 () 11/25/2017 Secondary LISA E [place] Insurance:WPS MACAULAYDOB: Community FOR LIFEPolicy Number: [id number] Hospital [id number] Repository Date:0475-49-54RB [address], [place] [address]KU: 11/25/2017 Tertiary NOT GIVENUNK [place] Insurance:SELF PAY [facility] Hospital Number: Effective Repository Date:2017-11-25 10/19/2017 LISA E Primary LISA E [place] [id number] Insurance:MEDICARE MACAULAYDOB: Community SR PART A BPolicy Number: [id number], [id number] Repository [place] [address]Pel: Date:2017-09-15 () 10/19/2017 Secondary LISA E [place] Insurance:WPS MACAULAYDOB: [facility] FOR LIFEPolicy Number: [id number] Hospital [id number] Repository Date:0107-61-61CG [address], [place] [address]NN: 10/19/2017 Tertiary NOT GIVENUNK [place] Insurance:SELF PAY [facility] Hospital Number: Effective Repository Date:2017-09-15 2017 LISA CRISTAL Primary LISA CRSITAL Praful Stuartne MACAULAYDOB: Insurance:MEDICARE MACAULAYDOB: [facility] [id number] [facility] [id number] Hospital SR Number: [address] [id number] [address] [place] [address] Date:Plan Name:[facility] [id number]: () 2017 Secondary SANTOS Prafulmikala Stuarttodd Insurance: FOR MACAULAYDOB: [facility] RECURRINGPolicy [id number] Hospital Number: [address] Repository [id number] [address] [place] [address], Date: [place] [id number] 10/05/2017 LISA CRISTAL Primary LISA CRISTAL [place] [id number] Insurance:MEDICARE MACAULAYDOB: Community SR PART A BPolicy Number: [id number], [id number] Repository [place] [address]Scx: Date:2017-09-30 () 10/05/2017 Secondary LISA CRISTAL [place] Insurance:WPS MACAULAYDOB: Community FOR LIFEPolicy Number: [id number] Hospital [id number] Repository Date:2714-74-96RO [address], [place] [address]HU: 10/05/2017 Tertiary NOT GIVENUNK [place] Insurance:SELF PAY Community [facility] Number: Effective Repository Date:2017-09-30 09/08/2017 LISA CRISTAL Primary LISA CRISTAL [place] [id number] Insurance:MEDICARE MACAULAYDOB: Community SR PART A BPolicy Number: [id number], [id number] Repository [place] [address]Bsq: Date:2017-09-08 () 09/08/2017 Secondary LISA CRISTAL [place] Insurance:WPS MACAULAYDOB: [facility] FOR LIFEPolicy Number: [id number] Hospital [id number] Repository Date:6400-19-62NE [address], [place] [address]HW: 09/08/2017 Tertiary NOT GIVENUNK [place] Insurance:SELF PAY Community [facility] Hospital Number: Effective Repository Date:2017-09-08 08/29/2017 LISA CRISTAL Primary Insurance:500 LISA CRISTAL Praful Stuarttodd MACAULAYDOB: MEDICARE MACAULAYDOB: [facility] [id number] OUTPATIENTPolicy [id number] Hospital SR Number: [address] Repository [address] [place] [id number] Date:Plan Name:[facility] [id number]: () 08/29/2017 Secondary SANTOS Nelson Insurance: FOR MACAULAYDOB: [facility] [id number] Hospital Number: [address] Repository [id number] [address] [place] [address], Date: De [id number] 08/17/2017 LISA CRISTAL Primary LISA CRISTAL [place] [id number] Insurance:MEDICARE MACAULAYDOB: Community SR PART A BPolicy Number: [id number], [id number] Repository [place] [address]Rvu: Date:2017-07-27 () 08/17/2017 Secondary LISA CRISTAL [place] Insurance:WPS [facility] Number: [id number] Hospital [id number] Repository Date:6806-47-65BK [address] [place] [address]DQ: 08/17/2017 Tertiary NOT GIVENUNK [place] Insurance:SELF PAY [facility] Hospital Number: Effective Repository Date:2017-07-27 08/12/2017 LISA CRISTAL Primary LISA CRISTAL [place] [id number] Insurance:MEDICARE MACAULAYDOB: Community SR PART A BPolicy Number: [id number], [id number] Repository [place] [address]Uct: Date:2017-07-26 () 08/12/2017 Secondary LISA CRISTAL [place] Insurance:WPS [facility] Number: [id number] Hospital [id number] Repository Date:2193-78-91HN [address] [place] [address]GB: 08/12/2017 Tertiary NOT GIVENUNK [place] Insurance:SELF PAY [facility] Hospital Number: Effective Repository Date:2017-07-26 08/08/2017 LISA CRISTAL Primary LISA CRISTAL [place] [id number] Insurance:MEDICARE MACAULAYDOB: Community SR PART A BPolicy Number: [id number] [id number] [place]ository [place] [address]Gam: Date:2017-08-02 () 08/08/2017 Secondary LISA CRISTAL [place] Insurance:WPS MACAULAYDOB: [facility] FOR LIFEPolicy Number: [id number] Hospital [id number] Repository Date:0917-90-94TB [address] [place] [address]FQ: 08/08/2017 Tertiary NOT GIVENUNK [place] Insurance:SELF PAY [facility] Hospital Number: Effective Repository Date:2017-08-02 07/28/2017 LISA CRISTAL Primary LISA CRISTAL [place] [id number] Insurance:MEDICARE MACAULAYDOB: Community SR PART A BPolicy Number: [id number] [id number] Repository [place] [address]Nhh: Date:2005-09-18 () 07/28/2017 Secondary LISA CRISTAL [place] Insurance:[facility] MACAULAYDOB: [facility] FOR LIFEPolicy Number: [id number] Hospital [id number] Repository Date:1399-33-92WE [address], [place] [address]VT: 07/28/2017 Tertiary NOT GIVENUNK [place] Insurance:SELF PAY [facility] Hospital Number: Effective Repository Date:2017-07-28 07/26/2017 Lisa Cristal Primary Lisa Cristal [place] [id number] Insurance:MEDICARE MacaulayDOB: Community SR PART A BPolicy Number: [id number] [id number] Repository [place] [address]Rsb: Date:2005-09-18 () 07/26/2017 Secondary Lisa Cristal [place] Insurance:S MacaulayDOB: [facility] FOR LIFEPolicy Number: [id number] Hospital [id number] Repository Date:0649-94-67JW [address], [place] [address]ZA: 07/26/2017 Tertiary NOT GIVENUNK [place] Insurance:SELF PAY Community [facility] Number: Effective Repository Date:2017-02-02 07/19/2017 Lisa Cristal Primary Lisa Cristal [place] [id number] Insurance:MEDICARE MacaulayDOB: Community SR PART A BPolicy Number: [id number] [id number] [place]ository [place] [address]Pji: Date:2017-02-28 () 07/19/2017 Secondary Lisa Cristal [place] Insurance:WPS MacaulayDOB: Community [facility] Hospital[facility] Number: [id number] Hospital [id number] Repository Date:8416-13-60CD [address], [place] [address]NJ: 07/19/2017 Tertiary NOT GIVENUNK [place] Insurance:SELF PAY [facility] Number: Effective Repository Date:2017-02-28 07/13/2017 Lisa Cristal Primary Lisa Cristal [place] [id number] Insurance:MEDICARE MacaulayDOB: Community SR PART A BPolicy Number: [id number] [id number] Repository [place] [address]Aqg: Date:2017-07-13 () 07/13/2017 Secondary Lisa Cristal [place] Insurance:WPS MacaulayDOB: Community [facility] Number: [id number] Hospital [id number] Repository Date:0656-20-62BZ [address], [place] [address]YB: 07/13/2017 Tertiary NOT GIVENUNK [place] Insurance:SELF PAY [facility] Hospital Number: Effective Repository Date:2017-07-13 07/08/2017 Lisa Cristal Primary Lisa Cristal [place] [id number] Insurance:MEDICARE MacaulayDOB: Community SR PART A BPolicy Number: [id number], [id number] [place]ository [place] [address]Zsx: Date:2017-07-08 () 07/08/2017 Secondary Lisa Cristal [place] Insurance:WPS MacaulayDOB: Community FOR LIFEPolicy Number: [id number] Hospital [id number] Repository Date:8896-45-17CK [address], [place] [address]WQ: 07/08/2017 Tertiary NOT GIVENUNK [place] Insurance:SELF PAY Community [facility] Hospital Number: Effective Repository Date:2017-07-08 07/07/2017 Lisa Cristal Primary Lisa Cristal [place] [id number] Insurance:MEDICARE MacaulayDOB: Community SR PART A BPolicy Number: [id number] [id number] [place]ository [place] [address]Xem: Date:2005-09-18 () 07/07/2017 Secondary Lisa Cristal [place] Insurance:S MacaulayDOB: Community FOR LIFEPolicy Number: [id number] Hospital [id number] Repository Date:6817-25-47IK [address], [place] [address]NZ: 07/07/2017 Tertiary NOT GIVENUNK [place] Insurance:SELF PAY Community [facility] Hospital Number: Effective Repository Date:2017-02-02 07/07/2017 Lisa Cristal Primary Lisa Cristal [place] [id number] Insurance:MEDICARE MacaulayDOB: Community SR PART A BPolicy Number: [id number], [id number] [place]ository [place] [address]Luh: Date:2005-09-18 () 07/07/2017 Secondary Lisa Cristal [place] Insurance:WPS MacaulayDOB: Community FOR LIFEPolicy Number: [id number] Hospital [id number] Repository Date:9088-76-17HP [address], [place] [address]VJ: 07/07/2017 Tertiary NOT GIVENUNK [place] Insurance:SELF PAY Community [facility] Hospital Number: Effective Repository Date:2017-07-07 06/28/2017 Lisa Cristal Primary Lisa Cristal [place] [id number] Insurance:MEDICARE MacaulayDOB: [facility] SR PART A BPolicy Number: [id number], [id number] Repository [place] [address]Jmg: Date:2017-06-08 () 06/28/2017 Secondary Lisa Cristal [place] Insurance:S MacaulayDOB: [facility] Number: [id number] Hospital [id number] Repository Date:6101-27-18QJ [address], [place] [address]EH: 06/28/2017 Tertiary NOT GIVENUNK [place] Insurance:SELF PAY [facility] Hospital Number: Effective Repository Date:2017-06-28 06/06/2017 LISA CRISTAL Primary Insurance:500 LISA CRISTAL Praful Pomerene MACAULAYDOB: MEDICARE MACAULAYDOB: [facility] [id number] Hospital SR Number: [address] Repository [address] [place] [address], [id number] [address] [place] [address], De Date:Plan Name:[facility] [id number]: () 06/06/2017 Secondary SANTOS Nelson Insurance: FOR MACAULAYDOB: [facility] [id number] Hospital Number: [address] Repository [id number] [address] [place] [address], Date:Plan Name:[facility] [id number] 05/23/2017 LISA E Primary LISA E [facility] MACAULAYDOB: Insurance:MEDICARE A MACAULAYDOB: Health System AND BPolicy Number: [id number] Repository SR [id number] [address] [place] [address], Date: [place] [address]Skt: () 05/23/2017 Secondary LISA E [facility] Insurance: FOR MACAULAYDOB: Health System LIFEPolicy Number: [id number] Repository [id number] Date: 05/18/2017 Lisa Cristal Primary Lisa Cristal [place] [id number] Insurance:MEDICARE MacaulayDOB: Community SR PART A BPolicy Number: [id number] [id number] Repository [place] [address]Chy: Date:2017-05-10 () 05/18/2017 Secondary Lisa Cristal [place] Insurance:WPS MacaulayDOB: [facility] Number: [id number] Hospital [id number] Repository Date:8752-61-80WO [address], [place] [address]VQ: 05/18/2017 Tertiary NOT GIVENUNK [place] Insurance:SELF PAY [facility] Hospital Number: Effective Repository Date:2017-05-10 05/09/2017 Lisa Cristal Primary Lsia Cristal [place] [id number] Insurance:MEDICARE MacaulayDOB: Community SR PART A BPolicy Number: [id number] [id number] Repository [place] [address]Vry: Date:2017-03-28 () 05/09/2017 Secondary Lisa Cristal [place] Insurance:WPS MacaulayDOB: [facility] Number: [id number] Hospital [id number] Repository Date:8948-91-64NW [address], [place] [address]YR: 05/09/2017 Tertiary NOT GIVENUNK [place] Insurance:SELF PAY [facility] Hospital Number: Effective Repository Date:2017-03-28 05/05/2017 LISA E Primary LISA E [facility] MACAULAYDOB: Insurance:MEDICARE A MACAULAYDOB: Health System [id number] AND BPolicy Number: [id number] Repository [place] [id number] [address] [place] [address], Date: [place] [address]Pug: (HP) 05/05/2017 Secondary LISA E [facility] Insurance: FOR MACAULAYDOB: Health System LIFEPolicy Number: [id number] Repository [id number] Date: 05/04/2017 Lisa Cristal Primary Lisa Cristal Ross [id number] Insurance:MEDICARE MacaulayDOB: Community SR PART A BPolicy Number: [id number] [address], [id number] [address]Dlc: Date:2017-05-04 (HP) 05/04/2017 Secondary Lisa Cristal Ross Insurance:S MacaulayDOB: [facility] LIFEPolicy Number: [id number] [facility] [id number] Repository Date:[id number] [id number]: 05/04/2017 Tertiary NOT GIVENUNK [place] Insurance:SELF PAY [facility] Number: Effective Repository Date:2017-05-04 04/28/2017 LISA E Primary LISA E [facility] MACAULAYDOB: Insurance:MEDICARE A MACAULAYDOB: [facility] AND BPolicy Number: [id number] Repository SR [id number] [address] [place] [address], Date: [place] [address]Gdn: (HP) 04/28/2017 Secondary LISA E [facility] Insurance: FOR MACAULAYDOB: [facility] LIFEPolicy Number: [id number] Repository [id number] Date: 04/21/2017 LISA E Primary LISA E [facility] MACAULAYDOB: Insurance:MEDICARE A MACAULAYDOB: [facility] AND BPolicy Number: [id number] Repository SR [id number] [address] [place] [address], Date: [place] [address]Rji: (HP) 04/21/2017 Secondary LISA E [facility] Insurance: FOR MACAULAYDOB: Health [facility] LIFEPolicy Number: [id number] Repository [id number] Date: 04/21/2017 LISA E Primary LISA E [facility] MACAULAYDOB: Insurance:MEDICARE A MACAULAYDOB: [facility] [id number] AND BPolicy Number: [id number] Repository SR [id number] [address] [place] [address], Date: [place] [address]Qyf: () 04/21/2017 Secondary LISA E [facility] Insurance: FOR MACAULAYDOB: [facility] LIFEPolicy Number: [id number] Repository [id number] Date:
== END ==
PROVIDERS: Family Provider Family Medicine; PCP Family Medicine; Referring Provider Nurse Practitioner Acute Care; Visit Provider Nurse Practitioner Acute Care
DX: R06.00 Dyspnea, unspecified (principal)
CPT/HCPCS: 36415; 86038; 86200; 86225; 86235; 86256; 86431

== ENCOUNTER → 2018-03-09 08:59 | Outpatient (CLI) | payer MEDICARE, OTHER, SELFPAY ==
[2016-11-25 09:39] VITALS: BMI 35.8
[2018-02-08 12:53] VITALS: BMI 34.8
[2018-03-02 12:54] VITALS: BMI 32.8
--- NOTE | 2018-03-09 09:02 | ADU_ITS ---
Reason For Study: Atherosclerosis Right Velocities Left Velocities Ext. Iliac Artery, dist = 128.0 cm./sec. Ext Iliac Artery, dist = 370.0 cm./sec. Common Femoral Artery, prox = 202.0 cm./sec. Common Femoral Artery, prox = 163.0 cm./sec. Supf Femoral Artery, prox = 108.0 cm./sec. Supf. Femoral Artery, prox = 261.0 cm./sec. Supf femoral artery - mid/dist - 162.0 cm/s. Supf. Femoral Artery, mid = 119.0 cm./sec. Supf Femoral Artery, dist. = 58.6 cm./sec. Supf. Femoral Artery, dist = 69.1 cm./sec. Profunda Femoral Artery = 222.0 cm./sec. Profunda Femoral Artery = 195.0 cm./sec. Popliteal Artery, prox. = 80.3 cm./sec. Popliteal Artery, proximal, = 57.4 cm./sec. Popliteal Artery, mid = 53.4 cm./sec. Popliteal Artery, mid = 51.1 cm./sec. Popliteal Artery, dist = 61.6 cm./sec. Popliteal Artery, distal = 48.1 cm./sec. Post. Tibial Artery, prox = 15.5 cm./sec. Post. Tibial Artery, prox = 36.4 cm./sec. Post. Tibial Artery, mid = 10.0 cm./sec. Post Tibial Artery, mid = 27.6 cm./sec. Post. Tibial Artery, dist = 19.9 cm./sec. Post Tibial Artery, dist. = 21.2 cm./sec. Peroneal Artery, prox = 22.2 cm./sec. Peroneal Artery, prox = 31.0 cm./sec. Peroneal Artery, mid = 24.2 cm./sec. Peroneal Artery, mid = 38.9 cm./sec. Peroneal Artery,dist = 24.7 cm./sec. Peroneal Artery,dist. = 33.8 cm./sec. Ant. Tibial Artery, prox = 47.9 cm./sec. Ant.Tibial Artery, prox = 30.2 cm./sec. Ant. Tibial Artery, mid = 49.5 cm./sec. Ant Tibial Artery, mid = 47.5 cm./sec. Ant. Tibial Artery, dist = 60.9 cm./sec. Ant. Tibial Artery, distal = 31.0 cm./sec. Procedure Exam performed in department. Interpretation Summary 1. right profunda stenosis. 2. Right EIA, SFA and profunda stenosis. 3. Appears bilateral proximal biphasic flow and distal monophasic in distal tibials. Ordering Physician: Jason Begum Referring Physician: Jason Begum Performed By: Paulina Hyatt RVT
--- NOTE | 2018-03-09 09:02 | ART_ITS ---
Reason For Study: Atherosclerosis Left Segmental Pressures Left brachial= 124mmHg. Left posterior tibial artery = 72mmHg. Left dorsalis pedis artery = 80mmHg. Left digit = 52 mmHg. The left dorsalis pedis waveforms are monophasic. The left posterior tibial artery waveforms are monophasic. Right Segmental Pressures Right brachial= 120mmHg. Right posterior tibial artery = 53mmHg. Right dorsalis pedis artery = 71mmHg. Right digit = 42 mmHg. The right dorsalis pedis waveforms are monophasic. The right posterior tibial artery waveforms are monophasic. Indices The right ankle brachial index by the dorsalis pedis is .57. The right ankle brachial index by the posterior tibial artery is .43. The right digital-brachial index is .34. The left ankle brachial index by the dorsalis pedis is .65. The left ankle brachial index by the posterior tibial artery is .58. The left digital-brachial index is .42. Interpretation Summary 1. Bilateral moderate occlussive disease with an LING 0.57/0.65 2. Bilateral small vessel disease with DBI 0.34/0.42. Ordering Physician: Jason Begum Referring Physician: Jason Begum Performed By: Paulina Hyatt [facility]
== END ==
PROVIDERS: Family Provider Family Medicine; PCP Family Medicine; Referring Provider Surgery Vascular Surgery; Visit Provider Surgery Vascular Surgery
DX: I70.0 Atherosclerosis of aorta (principal); I77.1 Stricture of artery; I70.213 Atherosclerosis of native arteries of extremities with intermittent claudication, bilateral legs
CPT/HCPCS: 93922; 93925

== ENCOUNTER → 2018-04-04 17:05 | Outpatient (CLI) | payer MEDICARE, OTHER, SELFPAY ==
[2016-11-25 09:39] VITALS: BMI 35.8
[2018-04-04 16:14] VITALS: BMI 32.8
--- NOTE | 2018-04-04 17:10 | RAD_ITS ---
STUDY: X-RAY CHEST REASON FOR EXAM: Female, 77 years old. Short of breath and cough TECHNIQUE: Frontal and lateral views of the chest. COMPARISON: 08/09/2016. FINDINGS: The lungs are hyperexpanded. There are coarsened interstitial markings suggestive of mild chronic fibrosis. Stable scarring in the lung bases. No gross focal infiltrates. No gross effusions. Normal size heart. Normal mediastinum and polo. Normal visualized pulmonary arteries. Normal visualized aortic arch and descending thoracic aorta. There are diffuse degenerative changes of the visualized thoracic spine. Normal visualized ribs, clavicles, and shoulders. There is no demonstrated abnormality of the visualized soft tissue structures of the upper abdomen. RAD/Chest PA and Lateral IMPRESSION: No change. No acute chest disease. 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 Electronically Signed: Hiro Gutierrez MD at 16:33 EST , Service support ,
[2018-04-04 17:38] LABS: Absolute Neutrophil Count 4.2 X10^3/uL (2.0-7.7); Basophil# 0.01 X10^3/uL; Basophil% 0.1 % (0-1); Eosinophil# 0.36 X10^3/uL; Eosinophils% 4.5 % (0-5); Hematocrit 25.4 % (37-47); Hemoglobin 7.7 g/dl (12.0-15.0); Lymphocyte % 33.8 % (19-41); Mean Corp Hgb Conc 30.3 g/gl (32-36); Mean Corpuscular Hgb 31.2 pg (27.0-32.0); Mean Corpuscular Volume 102.8 fL (81-99); Mean Platelet Vol. 8.2 fl (6.2-12.0); Monocyte# 0.68 X10^3/uL; Monocyte% 8.5 % (0-10); Neutrophil # 4.21 X10^3/uL (2.7-7.7); Neutrophil % 52.8 % (47-70); POSITIVE COUNT NO; POSITIVE DIFFERENTIAL NO; POSITIVE MORPHOLOGY NO; Platelet Count 313 K/mm3 (150-450); RBC Distribution Width CV 15.5 % (11.6-14.6); RBC Distribution Width SD 58.4 fl (35.1-43.9); Red Blood Count 2.47 M/mm3 (4.2-5.4)
[2018-04-04 18:16] LABS: Anion Gap 10 (5-15); BUN 31 mg/dL (7-18); Calcium,Total 8.5 mg/dL (8.5-10.1); Chloride 106 mmol/L (98-107); Creatinine, Serum 1.35 mg/dL (0.55-1.02); EST Glomerular Filtration Rate 40 mL/min (>60); Est Glom Filt Rate - Afr Amer 49 mL/min (>60); Glucose 85 mg/dL (74-106); Potassium 3.7 mmol/L (3.5-5.1); Sodium Level 140 mmol/L (136-145)
[2018-04-04 18:25] LABS: BNP,B-Type NATRIURETIC PEPTIDE 90.9 pg/mL (0-100)
== END ==
PROVIDERS: Family Provider Family Medicine; PCP Family Medicine; Referring Provider Nurse Practitioner Family; Visit Provider Nurse Practitioner Family
DX: R06.09 Other forms of dyspnea (principal); I25.10 Atherosclerotic heart disease of native coronary artery without angina pectoris; I10 Essential (primary) hypertension; Z95.5 Presence of coronary angioplasty implant and graft
CPT/HCPCS: 36415; 71046; 80048; 83880; 85025

== ENCOUNTER 2018-04-05 16:37 | Inpatient (IN) | payer MEDICARE, OTHER, SELFPAY ==
[2016-11-25 09:39] VITALS: BMI 35.8
[2018-04-04 16:14] VITALS: BMI 32.8
[2018-04-05] VITALS (10 sets, daily range): BP systolic 121–143; BP diastolic 41–62; PULSE 73–84; RESP 15–24; TEMP 36.7–37.1; O2SAT 92–97; BMI 33.7; BMI 33.8; BMI 36.6
--- NOTE | 2018-04-05 17:05 | EKG12_ITS ---
Test Reason : SOB Blood Pressure : / mmHG Vent. Rate : 079 BPM Atrial Rate : 079 BPM P-R Int : 196 ms QRS Dur : 088 ms QT Int : 394 ms P-R-T Axes : 064 -07 091 degrees QTc Int : 451 ms Normal sinus rhythm Abnormal ECG Confirmed by HUDSON LOMELI, ANNAMARIA ([id number]), book editor DAMARIS MOELLER ([id number]) on 04/10/2018 9:09:49 AM Referred By: Bernardino Perez Confirmed By:ANNAMARIA TREVIÑO MD
--- NOTE | 2018-04-05 17:06 | ED.VIS.GEN ---
History of Present Illness Chief Complaint: Abn Labs Detail of Chief Complaint: weak, dyspnea on exertion Informant: Patient, PCP Onset: Weeks - 2 Timing: Continuous Quality: weak Location: all over Current Severity: Severe Maximum Severity: Severe Worsened by: exertion Relieved by: rest Associated Symptoms: bilat chest pain w/ exertion. nausea w/ eating often. Narrative: Patient had outpatient workup with blood drawn yesterday that showed a hemoglobin of 7.7, she is on iron for iron deficiency anemia and has been having black solid stools without melena or bright red blood per rectum or bleeding from elsewhere that she knows of. She often is constipated due to the iron that she takes. She was sent in for transfusion and admission, which the patient echoes. - Past Medical History (1) Anemia Status: Chronic (2) Arthritis Status: Chronic (3) COPD (chronic obstructive pulmonary disease) Status: Chronic (4) CVA (cerebral vascular accident) Status: Chronic (5) Depression Status: Chronic (6) Diabetic peripheral neuropathy Status: Chronic (7) GERD (gastroesophageal reflux disease) Status: Chronic (8) Glaucoma Status: Chronic (9) Hypothyroidism Status: Chronic (10) OMID (obstructive sleep apnea) Status: Chronic (11) Peripheral vascular disease Status: Chronic (12) Pulmonary hypertension Status: Chronic Comment: RVSP 41 mmHg (13) Spinal stenosis of lumbar region Status: Chronic (14) Aortic stenosis Status: Chronic (15) CAD (coronary artery disease) Status: Chronic (16) Diabetes type 2, uncontrolled Status: Chronic Comment: Dx : 1990 Last exacerbation : DKA : never Hypoglycemic episode : never ER visit : never (17) HTN (hypertension) Status: Chronic (18) Hyperlipidemia Status: Chronic Past Medical History - Allergies and Home Meds Allergies/Adverse Reactions: Allergies latex Allergy (Severe, Verified 04/04/18 16:14) Rash metoprolol Allergy (Severe, Verified 04/04/18 16:14) Unknown bee pollen [Bee Pollen] Allergy (Verified 04/04/18 16:14) Anaphylaxis Primary Care Physician: Harman Huston DO [Primary Care Provider] - Surgical History: hysterectomy, - - Multilple orthopedic surgeries. Smoking Status: Former smoker Drugs: None - Family History Maternal Family History: Family History (Last Reviewed 04/04/18 @ 16:23 by Nisreen Briggs) Daughter Alcohol abuse Anemia Anxiety Asthma Mother Diabetes Heart disease Hypertension Father Heart disease Hypertension Family History: Reports: Diabetes, Heart Disease, Stroke Paternal Family History: Family History (Last Reviewed 04/04/18 @ 16:23 by Nisreen Briggs) Daughter Alcohol abuse Anemia Anxiety Asthma Mother Diabetes Heart disease Hypertension Father Heart disease Hypertension Family History: Reports: Heart Disease Review of Systems General: Reports: Malaise. Denies: Chills, Fever, Sweats Eyes: Denies: Visual changes - bilaterally, Diplopia ENT: Denies: Rhinorrhea, Sore throat Cardiovascular: Reports: Chest pain. Denies: Palpitations Respiratory: Reports: Cough - chronic, no worse, Dyspnea on exertion. Denies: Sputum Gastrointestinal: Reports: Nausea, Vomiting - twice last week, no blood or coffee ground emesis, Constipation. Denies: Abdominal pain, Diarrhea, Melena, Hematochezia Genitourinary: Denies: Dysuria, Hematuria, Frequency Musculoskeletal: Reports: Arthralgias - chronic. Denies: Neck pain, Swelling, Extremity Pain Skin: Denies: Rash, Wounds Neurological: Reports: Parasthesia - Bilat feet. Denies: Headache, Weakness Physical Exam Vital Signs/Narrative: Vital Signs Temp Pulse Resp BP Pulse Ox 04/05/18 16:38 98.1 F 84 16 136/50 H 97 Inital Vital Signs reviewed: Yes General: Well nourished, Well developed, Obese, - - nad Head: Normocephalic, Atraumatic Eyes: Perrl, EOMI, Pale conjunctiva ENT: Moist mucous membranes, No rhinorrhea Neck: Supple, Nontender, No JVD Cardiovascular: Regular rate, Regular rhythm, Murmur - SAMARA Respiratory: No distress, CTA bilaterally, Chest nontender Abdomen: Soft, Nondistended, Normal bowel sounds, Tender - mild epigastrium only. Negative for: Guarding, Rebound tenderness Back: Nontender, Normal Inspection. Negative for: CVA tenderness Extremities: Nontender, No edema Skin: Normal color, No rash Neurological: Alert, Oriented x3, Cranial nerves II-XII grossly intact, Normal Strength, Normal Sensation Psychological: Normal affect Diagnostic/Tx/Re-eval - Rhythm Strip Rhythm Strip: Sinus Rhythm Rate: 80 Ectopy: None - EKG Initial EKG Interpretation: Sinus Rhythm, No Acute Injury Pattern - Medical Decision Making Hemoglobin today is 7.1. Patient was amenable to blood transfusion which was begun. No sign of active bleeding, will await patient to have a stool in order to obtain Hemoccult. Will admit for transfusion. Iron studies sent. No sign of an DE or active coronary ischemia, patient clinically and hemodynamically stable. ED Disposition - Plan for ED Patient: Disposition: Acute Care Hospital [facility] Chief Complaint: Abn Labs Diagnosis: Dyspnea on exertion, Symptomatic anemia Referrals: Harman Huston DO [Primary Care Provider] -
[2018-04-05 17:26] LABS: Hematocrit 23.2 % (37-47); Hemoglobin 7.1 g/dl (12.0-15.0); Mean Corp Hgb Conc 30.6 g/gl (32-36); Mean Corpuscular Hgb 31.4 pg (27.0-32.0); Mean Corpuscular Volume 102.7 fL (81-99); Mean Platelet Vol. 9.1 fl (6.2-12.0); Platelet Count 319 K/mm3 (150-450); RBC Distribution Width CV 15.7 % (11.6-14.6); RBC Distribution Width SD 57.6 fl (35.1-43.9); Red Blood Count 2.26 M/mm3 (4.2-5.4); White Blood Count 5.8 K/mm3 (4.4-11.0)
--- NOTE | 2018-04-05 17:36 | ED.RN ---
MARCIE COW TESTER INFORMED OF PT ADMISSION AND NEED FOR MEDICATION LIST.
[2018-04-05 17:44] LABS: Anion Gap 9 (5-15); BUN 29 mg/dL (7-18); BUN/Creat Ratio 18.6 RATIO (10-20); Chloride 106 mmol/L (98-107); Creatinine, Serum 1.56 mg/dL (0.55-1.02); EST Glomerular Filtration Rate 34 mL/min (>60); Est Glom Filt Rate - Afr Amer 41 mL/min (>60); Estimated Creatinine Clearance 27.18 ml/min; Ferritin 13 ng/mL (8-252); Glucose 375 mg/dL (74-106); Iron 269 ug/dL (50-170); Iron Binding Capacity,Total 379 ug/dL (250-450); Potassium 4.5 mmol/L (3.5-5.1); Sodium Level 139 mmol/L (136-145)
[2018-04-05 17:45] LABS: Scan Indicated on CBC? Y/N NO
--- NOTE | 2018-04-05 19:28 | ED.RN ---
PT COMPLAINS OF FEELING COLD, TEMP 98.5, WARM BLANKET GIVEN, DENIES ALL OTHER SYMPTOMS.
--- NOTE | 2018-04-05 20:02 | HP.PCM_ITS ---
Problem List (1) Dyspnea on exertion Status: Acute (2) Symptomatic anemia Status: Acute (3) Pulmonary hypertension Status: Chronic Comment: RVSP 41 mmHg (4) HTN (hypertension) Status: Chronic (5) Hypothyroidism Status: Chronic (6) GERD (gastroesophageal reflux disease) Status: Chronic (7) NSTEMI (non-ST elevated myocardial infarction) Status: Inactive (8) Spinal stenosis of lumbar region Status: Chronic (9) Insomnia Status: Chronic (10) Anemia Status: Chronic Qualifiers: Anemia type: iron deficiency (11) Degeneration of lumbar intervertebral disc Status: Chronic (12) CVA (cerebral vascular accident) Status: Chronic (13) Depression Status: Chronic (14) Chronic pain syndrome Status: Chronic (15) Peripheral vascular disease Status: Chronic (16) Diabetic peripheral neuropathy Status: Chronic (17) Allergic rhinitis Status: Acute (18) OMID (obstructive sleep apnea) Status: Chronic (19) COPD (chronic obstructive pulmonary disease) Status: Chronic (20) Diabetes type 2, uncontrolled Status: Chronic Comment: Dx : 1990 Last exacerbation : DKA : never Hypoglycemic episode : never ER visit : never (21) Glaucoma Status: Chronic (22) Skin cancer Status: Inactive Comment: Squamous cell (23) Abnormal echocardiogram Status: Chronic (24) Aortic stenosis Status: Ruled-out Comment: Echocardiogram in February 2018 shows no evidence of aortic stenosis and the aortic valve appears normal (25) Encounter for long-term current use of high risk medication Status: Chronic (26) COPD exacerbation Status: Resolved (27) Palpitations Status: Chronic (28) Obstructive sleep apnea Status: Chronic Comment: CPAP 15 cm of water (29) H/O right coronary artery stent placement Status: Resolved Comment: PCI-CX & PCI-LAD 02/05/16 @ [facility]; [facility] w/PCI-FRIDA-OM1 (instent restenosis) 08/10/16; (30) Status post ORIF of fracture of ankle Status: Resolved (31) S/P rotator cuff repair Status: Resolved (32) History of partial knee replacement Status: Resolved (33) H/O left knee surgery Status: Resolved (34) Cataracts, bilateral Status: Resolved (35) Carpal tunnel syndrome Status: Resolved (36) Hyperlipidemia Status: Chronic Qualifiers: Hyperlipidemia type: unspecified Qualified Code(s): E78.5 - Hyperlipidemia, unspecified (37) Hypothyroidism Status: Chronic (38) CAD (coronary artery disease) Status: Chronic Qualifiers: Coronary Disease-Associated Artery/Lesion type: [place] artery [place] vs. transplanted heart: [place] heart Associated angina: without angina Qualified Code(s): I25.10 - Atherosclerotic heart disease of [place] coronary artery without angina pectoris (39) HTN (hypertension) Status: Chronic Qualifiers: Hypertension type: essential hypertension Qualified Code(s): I10 - Essential (primary) hypertension (40) NSTEMI (non-ST elevated myocardial infarction) Status: Chronic (41) Morbid obesity Status: Chronic (42) Osteoarthritis Status: Chronic (43) History of PTCA 2 Status: Chronic Comment: 2 stents (44) Bilateral carotid artery stenosis Status: Chronic (45) Bilateral carotid bruits Status: Chronic (46) Diastolic dysfunction Status: Chronic (47) Chronic renal failure, stage 3 (moderate) Status: Chronic History of Present Illness Date of Admission: 04/05/18 Chief Complaint: FLOYD, pain in the lungs when breathing The patient is a 77 year old F with a past medical history of hypertension, diabetes mellitus type 2, GERD, coronary artery disease, PTCA/FRIDA x2, diastolic dysfunction,BL carotid artery disease with BL bruits, obstructive sleep apnea, pulmonary hypertension, morbid obesity, hypothyroidism, lumbar canal stenosis, chronic insomnia, chronic anemia secondary to iron deficiency, history of CVA, depression, chronic pain syndrome, diabetic peripheral polyneuropathy, peripheral vascular disease, allergic rhinitis, COPD, glaucoma, history of squamous cell skin cancer and hyperlipidemia who presented to the emergency department at [facility] on 04/05/2018 complaining of dyspnea on exertion. She also complains of pain in her lungs when she is walking and breathes hard. She additionally complains of a cough which she states is prod uctive however she does not look at her sputum and she denies having a fever or shaking chills. She does states she sometimes feels hot. She has a sore throat mostly at night and she tells me that she has trouble with food getting stuck in her throat and has been seeing Dr. Tong and recently had either an upper GI with barium esophagram or a modified barium swallow in [place]. Vital signs in the emergency department are temperature 98.1, pulse rate 84, blood pressure 136/50, respiratory rate 16 and she was 94-97% saturated on room air. Significant lab included a hemoglobin of 7.1 with an MCV of 102.7. The RDW is increased at 15.7 and white count and platelets are within normal limits. BMP is remarkable for an elevated BUN at 29 with a creatinine of 1.56 which is up from 1.2 in October 2017. Iron studies in the emergency department revealed a serum iron of 269, TIBC of 379 and a ferritin of 13. Troponin was normal at 0.017. She denies SOB at rest and has no lung pain at rest. She is on ASA, Plavix and Meloxicam as an OP. She has never had a colonoscopy. Denies any recent unexplained weight loss. She was having constipation but, this resolved with Senna prescribed by her PCP. She denies hematochezia, vaginal bleeding, hematuria. Past Medical History Past Medical History (Chronic Problems): Chronic Problems (Last Reviewed 03/03/18 @ 10:43 by Jesusita iNno NP-C) Morbid obesity (Chronic) Osteoarthritis (Chronic) History of PTCA 2 (Chronic) 2 stents Bilateral carotid artery stenosis (Chronic) Bilateral carotid bruits (Chronic) Diastolic dysfunction (Chronic) Chronic renal failure, stage 3 (moderate) (Chronic) Pulmonary hypertension (Chronic) RVSP 41 mmHg HTN (hypertension) (Chronic) Hypothyroidism (Chronic) GERD (gastroesophageal reflux disease) (Chronic) Spinal stenosis of lumbar region (Chronic) Insomnia (Chronic) Anemia (Chronic) Degeneration of lumbar intervertebral disc (Chronic) CVA (cerebral vascular accident) (Chronic) Depression (Chronic) Chronic pain syndrome (Chronic) Peripheral vascular disease (Chronic) Diabetic peripheral neuropathy (Chronic) OMID (obstructive sleep apnea) (Chronic) COPD (chronic obstructive pulmonary disease) (Chronic) Diabetes type 2, uncontrolled (Chronic) Dx : 1990 Last exacerbation : DKA : never Hypoglycemic episode : never ER visit : never Glaucoma (Chronic) Abnormal echocardiogram (Chronic) Encounter for long-term current use of high risk medication (Chronic) Palpitations (Chronic) Obstructive sleep apnea (Chronic) CPAP 15 cm of water Hyperlipidemia (Chronic) Hypothyroidism (Chronic) CAD (coronary artery disease) (Chronic) HTN (hypertension) (Chronic) NSTEMI (non-ST elevated myocardial infarction) (Chronic) Medical History: Medical History (Last Reviewed 04/05/18 @ 20:59 by Wilder Deluca DO) HTN (hypertension) (Chronic) I10 Hypothyroidism (Chronic) E03.9 GERD (gastroesophageal reflux disease) (Chronic) K21.9 Spinal stenosis of lumbar region (Chronic) M48.061 Insomnia (Chronic) G47.00 Anemia (Chronic) D64.9 Degeneration of lumbar intervertebral disc (Chronic) M51.36 CVA (cerebral vascular accident) (Chronic) I63.9 Depression (Chronic) F32.9 Chronic pain syndrome (Chronic) G89.4 Peripheral vascular disease (Chronic) I73.9 Diabetic peripheral neuropathy (Chronic) E11.42 Allergic rhinitis (Acute) J30.9 OMID (obstructive sleep apnea) (Chronic) G47.33 COPD (chronic obstructive pulmonary disease) (Chronic) J44.9 Diabetes type 2, uncontrolled (Chronic) E11.65 Dx : 1990 Last exacerbation : DKA : never Hypoglycemic episode : never ER visit : never Glaucoma (Chronic) H40.9 Abnormal echocardiogram (Chronic) R93.1 Encounter for long-term current use of high risk medication (Chronic) Z79.899 Palpitations (Chronic) R00.2 Obstructive sleep apnea (Chronic) G47.33 CPAP 15 cm of water Cataracts, bilateral (Resolved) H26.9 Carpal tunnel syndrome (Resolved) G56.00 Hyperlipidemia (Chronic) E78.5 Hypothyroidism (Chronic) E03.9 CAD (coronary artery disease) (Chronic) I25.10 HTN (hypertension) (Chronic) I10 NSTEMI (non-ST elevated myocardial infarction) (Chronic) I21.4 COPD exacerbation (Resolved) J44.1 Aortic stenosis (Ruled-out) I35.0 Echocardiogram in February 2018 shows no evidence of aortic stenosis and the aortic valve appears normal NSTEMI (non-ST elevated myocardial infarction) (Inactive) I21.4 Skin cancer (Inactive) C44.90 Squamous cell Allergies latex Allergy (Severe, Verified 04/04/18 16:14) Rash metoprolol Allergy (Severe, Verified 04/04/18 16:14) Unknown bee pollen [Bee Pollen] Allergy (Verified 04/04/18 16:14) Anaphylaxis Home Medications: Ambulatory Orders Medication Instructions Recorded Oxycodone HCl/Acetaminophen 1 ea PO BID PRN 01/26/16 [Oxycodone-Acetaminophen 10-325] Latanoprost 0.005% [Xalatan 1 drp EACH EYE BID 08/09/16 Opthalmic] Timolol 0.5% [Timoptic] 1 drp EACH EYE BID 08/09/16 albuterol sulfate HFA 90 2 puff INHALATION Q4H PRN #18 g 06/20/17 mcg/actuation aerosol inhaler fluticasone 50 mcg/actuation nasal 2 spray INTRANASAL QDAY 06/28/17 spray,suspension sitagliptin 50 mg-metformin 500 mg 1 tab PO BID 06/28/17 tablet aspirin 81 mg tablet,delayed 81 mg PO DAILY 07/13/17 release nitroglycerin 0.4 mg sublingual 0.4 mg SUBLINGUAL Q5M PRN 07/13/17 tablet furosemide 40 mg tablet 40 - 80 mg PO DAILY tab 04/04/18 isosorbide mononitrate ER 30 mg 30 mg PO BID tab 04/04/18 tablet,extended release 24 hr Amlodipine Besylate/Benazepril 1 tab PO DAILY 04/05/18 [Amlodipine-Benazepril 5-40 mg] Clopidogrel Bisulfate [Clopidogrel] 75 mg PO DAILY 04/05/18 Esomeprazole Mag Trihydrate 40 mg PO DAILY 04/05/18 [Nexium] Insulin Glargine [Lantus SoloStar 80 units SQ QHS 04/05/18 Pen] Levothyroxine Sodium [Synthroid] 200 mcg PO DAILY 04/05/18 Senna [Senokot] 1 tablet PO DAILY 04/05/18 Simvastatin 20 mg PO DAILY 04/05/18 Surgical History: Surgical History (Last Reviewed 04/05/18 @ 20:59 by Wilder Deluca DO) H/O right coronary artery stent placement (Resolved) Z95.5 PCI-CX & PCI-LAD 02/05/16 @ [facility]; [facility] w/PCI-FRIDA-OM1 (instent restenosis) 08/10/16; Status post ORIF of fracture of ankle (Resolved) Z96.7, Z87.81 S/P rotator cuff repair (Resolved) Z98.890 History of partial knee replacement (Resolved) Z96.659 H/O left knee surgery (Resolved) Z98.890 Surgical History: hysterectomy - for DUB, - - Multilple orthopedic surgeries. 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 Lives: Alone Smoking Status: Former smoker Tobacco Use: Non-smoker Alcohol: Rare Drugs: None - *Family History Maternal Family History: Family History (Last Reviewed 04/05/18 @ 21:00 by Wilder Deluca DO) Daughter Alcohol abuse Anemia Anxiety Asthma Mother Diabetes Heart disease Hypertension Father Heart disease Hypertension History Items: Diabetes, Heart Disease, Stroke Paternal Family History: Family History (Last Reviewed 04/05/18 @ 21:00 by Wilder Deluca DO) Daughter Alcohol abuse Anemia Anxiety Asthma Mother Diabetes Heart disease Hypertension Father Heart disease Hypertension History Items: Heart Disease Review of Systems Constitutional: Reports: - - complains of feeling alternately hot and then cold. Has not taken her temperature.. Denies: Chills, Fever, Weight Change HEENT: Reports: Difficulty Swallowing, Sore Throat. Denies: Head Aches, Sinus Congestion, Sinus Drainage Cardiovascular: Denies: Chest Pain, Heaviness, Light Headedness, Orthopnea, Palpitations, Syncope Respiratory: Reports: Cough, Shortness of breath upon exertion, Sputum production. Denies: Shortness of breath at rest Gastrointestinal: Reports: Constipation. Denies: Abdominal Pain, Diarrhea, Dyspepsia, Hematemesis, Hematochezia, Nausea, Melena, Vomiting Genitourinary: Denies: Dysuria Gynecological: Denies: Vaginal bleeding, Vaginal discharge Musculoskeletal: Reports: Joint Tenderness. Denies: Joint Pain Skin: Denies: Jaundice, Rash, Wounds Neurological: Reports: Difficulty swallowing, - - she has pain and numbness in a stocking distribution of both feet. Denies: Focal weakness, Numbness, Tingling, Seizures Psychiatric: Reports: Depression. Denies: Anxiety, Homicidal Ideations, Suicidal Ideations Endocrine: Denies: Change in Body Habitus Hematologic/ Lymphatic: Denies: Easy Bruising, Easy Bleeding, Hx of blood clot VTE Information - Inpt Only VTE Present on Admission: No VTE Mechan Device Prophylaxis: SCD's, Knee High KAYKAY Hose VTE Pharm Prophylaxis ordered?: No Reason prophylaxis not ordered:: Medical Contraindication - severe anemia with possible GI bleeding Patient Problems: Active and Suspected Problems (Last Reviewed 03/03/18 @ 10:43 by Jesusita Nino NP-C) Dyspnea on exertion (Acute) Symptomatic anemia (Acute) - Physical Exam General: Alert, Oriented x3, Cooperative, No apparent distress, Well developed, Well nourished, - - pale HEENT: Atraumatic, PERRLA, EOMI, Normocephalic, - - Palpebral conjunctiva is very pale Oral: No Gingival or Mucosal Lesions/ Ulcerations, Dry Mucosa Neck: Supple, No JVD, Carotid Bruits, Bilateral Lungs: Clear to auscultation, No wheeze, No rales, Diminished Cardiovascular: Regular rate, Regular Rhythm, No murmurs, No rub noted, No Gallop Abdomen: Bowel Sounds Present - BS's are not hyperactive, Soft, Non Tender, Distended - in the upper abdomen and tympanic. Extremities: No clubbing, No cyanosis, Capillary Refill Less than 3 Seconds, Diminished Peripheral Pulses, Edema - of the ankles BL Skin: No rashes, No breakdown Musculoskeletal: No Muscle Wasting Neurological: Cranial nerves II-XII grossly intact, Neuro grossly intact Psych/Mental Status: Normal Affect, Appropriate Vital Signs Temp Pulse Resp BP Pulse Ox 98.5 F 83 24 H 122/49 H 93 04/05/18 19:35 04/05/18 18:59 04/05/18 18:59 04/05/18 18:59 04/05/18 18:59 Oxygen Delivery Method Room Air Weight: 203 lb Body Mass Index (BMI) 33.7 Finger Stick Blood Glucose 261 Intake and Output for Last 24 Hours 04/03/18 04/04/18 04/05/18 23:59 23:59 23:59 Intake Total 0 / 0 Balance 0 / 0 Laboratory Tests Past 24 Hrs 04/05/18 04/05/18 04/05/18 16:59 16:59 16:59 WBC 5.8 RBC 2.26 L Hgb 7.1 L Hct 23.2 L MCV 102.7 H MCH 31.4 MCHC 30.6 L RDW 15.7 H RDW Differential 57.6 H Plt Count 319 MPV 9.1 Sodium 139 Potassium 4.5 Chloride 106 Carbon Dioxide 24.0 Anion Gap 9 BUN 29 H Creatinine 1.56 H Estim Creat Clear Calc 27.18 Est GFR (MDRD) Af Amer 41 L Est GFR (MDRD) Non-Af 34 L BUN/Creatinine Ratio 18.6 Glucose 375 H Calcium 8.0 L Iron 269 H TIBC 379 Ferritin 13 Troponin I 0.017 Blood Type O POSITIVE Antibody Screen NEGATIVE Crossmatch See Detail Assessment/Plan All Active Problems (Last Reviewed 03/03/18 @ 10:43 by Jesusita Nino NP-C) Dyspnea on exertion (Acute) Symptomatic anemia (Acute) Allergic rhinitis (Acute) H/O right coronary artery stent placement (Resolved) Status post ORIF of fracture of ankle (Resolved) S/P rotator cuff repair (Resolved) History of partial knee replacement (Resolved) H/O left knee surgery (Resolved) Cataracts, bilateral (Resolved) Carpal tunnel syndrome (Resolved) COPD exacerbation (Resolved) Aortic stenosis (Ruled-out) Impressions 1. Acute severe symptomatic anemia with a history of chronic iron deficiency in the past. Patient is on aspirin, Plavix and meloxicam and I suspect has chronic GI blood loss. Has never had an EGD or colonoscopy per 2. Chronic history of iron deficiency anemia 3. Diabetes mellitus type 2 4. Hypertension 5. Coronary artery disease with history of PTCA/FRIDA x2 6. GERD 7. Obstructive sleep apnea-states compliant with CPAP 8. Pulmonary hypertension-mild 9. Carotid artery stenosis with bilateral carotid bruits 10. History of lumbar canal stenosis 11. Glaucoma 12. Diabetic peripheral polyneuropathy with numbness and pain 13. Chronic pain syndrome 14. Chronic renal failure stage III 15. History of squamous cell carcinoma of the skin 16. Hypertension 17. Hypothyroidism 18. History of CVA 19. Diastolic dysfunction 20. COPD 21. Former smoker 22. Hyperlipidemia Transfusion was begun in the ED and she will receive 2 units of PRBC's She is chronically on Nexium and is likely not absorbing the oral iron......will give iron sucrose in the Am She needs to have upper and lower endoscopy at some point......can probably be done as an OP Serial CE's for lung Pain with exertion and a hx of CAD with 2 stents in the past. SCD's and KAYKAY shay for DVT prophylaxis and encouraged ambulation- no pharmacologic anticoagulation due to suspected GI blood loss continue home medications Hemoccult stool She will wear her own CPAP May be able to be discharged in the next 24-48 hours if the CE's are negative and the HGB is stable and finish W/U as an OP Code Visit Inpatient E&M: 28194 Init Hosp L3
[2018-04-05 21:45] LABS: Bedside Glucose 256 mg/dL (70-110)
--- NOTE | 2018-04-05 23:00 | CPS ---
Pt. wears CPAP device at home. Refused usage of hospital CPAP device. Placed on 2L NC for the night because of this reason. RN aware.
[2018-04-05] MEDS: Timolol 0.5% 5ML OPTH.BTL 1 DRP EACH EYE (23:08)
[2018-04-05] MEDS: Latanoprost 0.005% 1 Bottle 1 DRP EACH EYE (23:09)
[2018-04-05] MEDS: Senna Tablet 1 TABLET PO (23:11)
[2018-04-05] MEDS: Atorvastatin Calcium 10 MG Tablet PO (23:13)
[2018-04-05] MEDS: Isosorbide Mononitrate 30 MG Tablet PO (23:13)
[2018-04-05] MEDS: Pantoprazole Sodium 40 MG Tablet PO (23:13)
[2018-04-05] MEDS: 0.9% NaCl Peripheral Flush Adult/Peds IV (23:19)
[2018-04-06] VITALS (10 sets, daily range): BP systolic 114–160; BP diastolic 43–70; PULSE 70–78; RESP 16–18; TEMP 36.7–37.2; O2SAT 92–96
--- NOTE | 2018-04-06 00:40 | NURSING ---
Pt is to get another unit of blood and lab called and questioned the pt's name is davina Jones in the computer. Pt came to the Floor as Lisa Pisano. I checked with the pt and her Name is Lisa Pisano all her records say Lisa. 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 Explained to the pt since I gave her a new ID arm band( when she renews her license make sure to put Lisa as her first name so it matches her Social Security card.
[2018-04-06] MEDS: Furosemide 20 MG/2 ML VIAL IV (00:56)
[2018-04-06] MEDS: 0.9% NaCl Peripheral Flush Adult/Peds IV ×3 (00:59→12:05)
[2018-04-06 05:15] LABS: Hematocrit 27.5 % (37-47); Hemoglobin 8.6 g/dl (12.0-15.0); Mean Corp Hgb Conc 31.3 g/gl (32-36); Mean Corpuscular Hgb 31.6 pg (27.0-32.0); Mean Corpuscular Volume 101.1 fL (81-99); Mean Platelet Vol. 9.2 fl (6.2-12.0); Platelet Count 303 K/mm3 (150-450); RBC Distribution Width CV 15.5 % (11.6-14.6); Red Blood Count 2.72 M/mm3 (4.2-5.4); White Blood Count 5.6 K/mm3 (4.4-11.0)
[2018-04-06 05:22] LABS: Scan Indicated on CBC? Y/N NO
[2018-04-06 05:30] LABS: ALB/GLOB Ratio 0.9 RATIO (0.9-2.4); AST(SGOT) 18 U/L (15-37); Alanine Aminotransfer ALT/SGPT 22 U/L (13-56); Albumin, Serum 3.2 g/dL (3.2-5.0); Alkaline Phosphatase 73 U/L (45-117); Anion Gap 10 (5-15); BUN 26 mg/dL (7-18); BUN/Creat Ratio 21.7 RATIO (10-20); Calcium,Total 8.5 mg/dL (8.5-10.1); Chloride 108 mmol/L (98-107); Cholesterol 135 mg/dL (200); EST Glomerular Filtration Rate 46 mL/min (>60); Est Glom Filt Rate - Afr Amer 56 mL/min (>60); Estimated Creatinine Clearance 35.33 ml/min; Globulin 3.4 g/dL (2.2-4.2); Glucose 178 mg/dL (74-106); High Density Lipoprotein 39 mg/dL; Phosphorus 3.5 mg/dL (2.5-4.9); Protein, Total 6.6 g/dL (6.4-8.2); Sodium Level 141 mmol/L (136-145); Triglycerides 179 mg/dL; Very Low Density Lipoprotein 36 mg/dL (5-40)
[2018-04-06] MEDS: Levothyroxine 100 MCG Tablet 200 MCG PO (05:36)
[2018-04-06 06:41] LABS: Bedside Glucose 168 mg/dL (70-110)
[2018-04-06] MEDS: Magnesium Hydroxide 30 ML UDC PO (09:56)
[2018-04-06] MEDS: Bisacodyl 5 MG Tablet PO (09:56)
[2018-04-06] MEDS: Senna Tablet 1 TABLET PO ×3 (09:57→21:56)
[2018-04-06] MEDS: Isosorbide Mononitrate 30 MG Tablet PO ×2 (09:58→21:56)
[2018-04-06] MEDS: Aspirin E.C. 81 MG Tablet PO (09:58)
[2018-04-06] MEDS: LINAGLIPTIN 5 MG TABLET PO (09:58)
[2018-04-06] MEDS: Clopidogrel Bisulfate 75 MG Tablet PO (09:59)
[2018-04-06] MEDS: Pantoprazole Sodium 40 MG Tablet PO ×2 (09:59→21:56)
[2018-04-06] MEDS: Fluticasone 0.05% 1 SPRAY NASAL.SRY 2 SPRAY NASAL (10:00)
[2018-04-06] MEDS: Latanoprost 0.005% 1 Bottle 1 DRP EACH EYE ×2 (10:01→22:01)
[2018-04-06] MEDS: Timolol 0.5% 5ML OPTH.BTL 1 DRP EACH EYE ×2 (10:01→22:01)
[2018-04-06] MEDS: Lisinopril 40 MG Tablet PO ×2 (10:05)
[2018-04-06] MEDS: amLODIPine 5 MG Tablet PO (10:06)
--- NOTE | 2018-04-06 10:36 | PCM.PN.HOSP ---
Patient Problems: Active and Suspected Problems (Last Reviewed 04/05/18 @ 20:59 by Wilder Deluca DO) Dyspnea on exertion (Acute) Symptomatic anemia (Acute) Subjective: Patient is a 77-year-old lady with multiple comorbidities including CAD status post FRIDA x2 who was sent to the ED by the PCP on account of progressive shortness of breath. Patient was found to be anemic with hemoglobin of 7.1 on admission. Patient did receive 2 unit PRBC Patient seen still complains of breath and feeling tired. Objective: GENERAL: cooperative HEENT: Atraumatic; moist oral mucosa EYES; Anicteric, Normal Conjunctiva NECK; supple, normal thyroid, no distended JVD. RESPIRATORY: Diminished to auscultation bilaterally, CARDIOVASCULAR: Regular S1 S2, no audible murmurs GI: soft, non-tender, normoactive bowel sounds, : No Renal angle tenderness; EXTREMITIES: No edema, no clubbing, no cyanosis. MUSCULOSKELETAL: No Joint Tenderness; no muscle waisting NEURO: Awake; no lateralizing signs. SKIN: No Rash PSYCH; Normal affect Vitals/I&O's: Vital Signs Temp Pulse Resp BP Pulse Ox 98.2 F 77 16 160/70 H 94 04/06/18 09:52 04/06/18 09:52 04/06/18 09:52 04/06/18 09:52 04/06/18 09:52 Oxygen Flow Rate (L/min) 2 Oxygen Delivery Method Room Air Weight: 100 kg Body Mass Index (BMI) 36.6 Finger Stick Blood Glucose 261 Intake and Output for Last 24 Hours 04/04/18 04/05/18 04/06/18 23:59 23:59 23:59 Intake Total 400 / 400 2800 / 2800 Output Total 1000 / 1000 Balance 400 / 400 1800 / 1800 Laboratory Results 04/05/18 16:59: WBC 5.8, RBC 2.26 L, Hgb 7.1 L, Hct 23.2 L, MCV 102.7 H, MCH 31.4, MCHC 30.6 L, RDW 15.7 H, RDW Differential 57.6 H, Plt Count 319, MPV 9.1 04/05/18 16:59: Sodium 139, Potassium 4.5, Chloride 106, Carbon Dioxide 24.0, Anion Gap 9, BUN 29 H, Creatinine 1.56 H, Estim Creat Clear Calc 27.18, Est GFR (MDRD) Af Amer 41 L, Est GFR (MDRD) Non-Af 34 L, BUN/Creatinine Ratio 18.6, Glucose 375 H, Calcium 8.0 L, Iron 269 H, TIBC 379, Ferritin 13, Troponin I 0.017 04/05/18 16:59: Blood Type O POSITIVE, Antibody Screen NEGATIVE, Crossmatch See Detail 04/05/18 16:59: Crossmatch See Detail 04/05/18 21:11: POC Glucose 256 H 04/05/18 23:02: Troponin I 0.022 04/06/18 01:55: Troponin I < 0.015 04/06/18 04:56: WBC 5.6, RBC 2.72 L, Hgb 8.6 L, Hct 27.5 L, MCV 101.1 H, MCH 31.6, MCHC 31.3 L, RDW 15.5 H, RDW Differential 54.0 H, Plt Count 303, MPV 9.2 04/06/18 04:56: Sodium 141, Potassium 4.0, Chloride 108 H, Carbon Dioxide 23.0, Anion Gap 10, BUN 26 H, Creatinine 1.20 H, Estim Creat Clear Calc 35.33, Est GFR (MDRD) Af Amer 56 L, Est GFR (MDRD) Non-Af 46 L, BUN/Creatinine Ratio 21.7 H, Glucose 178 H, Calcium 8.5, Phosphorus 3.5, Magnesium 2.0, Total Bilirubin 0.20, AST 18, ALT 22, Alkaline Phosphatase 73, Troponin I < 0.015, Total Protein 6.6, Albumin 3.2, Globulin 3.4, Albumin/Globulin Ratio 0.9, Triglycerides 179, Cholesterol 135, LDL Cholesterol 60, VLDL Cholesterol 36, HDL Cholesterol 39 L 04/06/18 06:27: POC Glucose 168 H Current Medications Albuterol Sulfate (Ventolin Aerosols) 2.5 mg INHALATION Q4H PRN PRN Amlodipine Besylate (Norvasc) 5 mg PO DAILY [facility] Last Admin: 04/06/18 10:06 Dose: 5 mg Aspirin (Ecotrin) 81 mg PO DAILY [facility] Last Admin: 04/06/18 09:58 Dose: 81 mg Atorvastatin Calcium (Lipitor) 10 mg PO QHS [facility] Last Admin: 04/05/18 23:13 Dose: 10 mg Bisacodyl (Dulcolax) 5 mg PO DAILY PRN PRN PRN Reason: Constipation Last Admin: 04/06/18 09:56 Dose: 5 mg Clopidogrel Bisulfate (Plavix) 75 mg PO DAILY [facility] Last Admin: 04/06/18 09:59 Dose: 75 mg Fluticasone Propionate (Flonase Nasal [place]) 2 spray NASAL DAILY [facility] Last Admin: 04/06/18 10:00 Dose: 2 spray Insulin Glargine (Lantus (Bkc)) 40 units SC QHS [facility] Last Admin: 04/05/18 23:13 Dose: 40 u Isosorbide Mononitrate (Imdur) 30 mg PO BID [facility] Last Admin: 04/06/18 09:58 Dose: 30 mg Latanoprost (Xalatan Opthalmic) 1 drop EACH EYE BID [facility] Last Admin: 04/06/18 10:01 Dose: 1 drop Levothyroxine Sodium (Synthroid) 200 mcg PO DAILY@0600 [facility] Last Admin: 04/06/18 05:36 Dose: 200 mcg Linagliptin (Tradjenta) 5 mg PO DAILY [facility] Last Admin: 04/06/18 09:58 Dose: 5 mg Lisinopril (Zestril) 40 mg PO DAILY [facility] Last Admin: 04/06/18 10:05 Dose: 40 mg Magnesium Hydroxide (Milk Of Magnesia) 30 ml PO DAILY PRN PRN PRN Reason: Constipation Last Admin: 04/06/18 09:56 Dose: 30 ml [facility] Last Admin: 04/06/18 09:57 Dose: 500 mg Nitroglycerin (Nitrostat) 0.4 mg SUBLINGUAL Q5M PRN PRN Reason: CARDIAC/CHEST PAIN Oxycodone HCl (Oxyir) 5 mg PO Q4H PRN PRN PRN Reason: SEVERE PAIN (6-10/10) Pantoprazole Sodium (Protonix) 40 mg PO BID [facility] Last Admin: 04/06/18 09:59 Dose: 40 mg Senna (Senokot) 1 tablet PO BID [facility] Last Admin: 04/06/18 09:57 Dose: 1 tablet Senna (Senokot) 1 tablet PO DAILY [facility] Last Admin: 04/06/18 09:59 Dose: 1 tablet Sodium Chloride () 5 - 15 ml IV UD PRN PRN Reason: SALINE FLUSH Last Admin: 04/06/18 10:10 Dose: 10 ml Timolol Maleate (Timoptic) 1 drop EACH EYE BID [facility] Last Admin: 04/06/18 10:01 Dose: 1 drop Medical Necessity - Tobacco Use Smoking Status: Former smoker Tobacco Use: Non-smoker Assessment/Plan All Active Problems (Last Reviewed 04/05/18 @ 20:59 by Wilder Deluca DO) Dyspnea on exertion (Acute) Symptomatic anemia (Acute) Allergic rhinitis (Acute) H/O right coronary artery stent placement (Resolved) Status post ORIF of fracture of ankle (Resolved) S/P rotator cuff repair (Resolved) History of partial knee replacement (Resolved) H/O left knee surgery (Resolved) Cataracts, bilateral (Resolved) Carpal tunnel syndrome (Resolved) COPD exacerbation (Resolved) Aortic stenosis (Ruled-out) Patient is a 77-year-old lady with multiple comorbidities including CAD status post FRIDA x2 who was sent to the ED by the PCP on account of progressive shortness of breath. Patient was found to be anemic with hemoglobin of 7.1 on admission. Patient did receive 2 unit PRBC 1. Microcytic anemia: With patient being symptomatic patient was admitted to regular nursing floor did receive 2 unit PRBC transfusion on 04/05/2017. Did discuss with patient to undergo subsequent evaluation including possible EGD and colonoscopy as outpatient when discharge. As part of evaluation ordered B12 levels 2. Shortness of breath possibly from above other checks x-ray 3. CAD with previous PTCA/FRIDA x2 4. Chronic diastolic congestive heart failure with an ejection fraction of 65% based on echo obtained in February 2018 5. Diabetes mellitus type 2 uncontrolled with hyperglycemia did continue patient home regimen with adjustment of her insulin dose, Accu-Cheks before meals and at bedtime with sliding scale coverage, and 1800 ADA diet 6. Hypertension-blood pressure controlled, home medications continued with dose adjustment as needed 7. Bilateral carotid artery disease 8. Hypothyroidism-patient is on levothyroxine home dose continued 9. Dyslipidemia-patient is on statin therapy, continued at home dose 10. Pulmonary hypertension 11. Morbid obesity with BMI of 36.7 12. Obstructive sleep apnea 13. Diabetic polyneuropathy 14. Peripheral vascular disease 15. Allergic rhinitis 16. Lumbar canal spinal stenosis 17. History of CVA with no residual effect 18. Chronic pain syndrome 19. Depression with anxiety 20. History of squamous cell carcinoma involving the skin currently in remission 21. DVT prophylaxis with patient significant anemia patient was not started on systemic anticoagulation instead instituted SCDs Active Medications Albuterol Sulfate (Ventolin Aerosols) 2.5 mg INHALATION Q4H PRN PRN Amlodipine Besylate (Norvasc) 5 mg PO DAILY [facility] Last Admin: 04/06/18 10:06 Dose: 5 mg Aspirin (Ecotrin) 81 mg PO DAILY [facility] Last Admin: 04/06/18 09:58 Dose: 81 mg Atorvastatin Calcium (Lipitor) 10 mg PO QHS [facility] Last Admin: 04/05/18 23:13 Dose: 10 mg Bisacodyl (Dulcolax) 5 mg PO DAILY PRN PRN PRN Reason: Constipation Last Admin: 04/06/18 09:56 Dose: 5 mg Clopidogrel Bisulfate (Plavix) 75 mg PO DAILY [facility] Last Admin: 04/06/18 09:59 Dose: 75 mg Dextrose (D50w Syringe) 0 gm IV X1 PRN; Protocol PRN Reason: Hypoglycemia Fluticasone Propionate (Flonase Nasal [place]) 2 spray NASAL DAILY [facility] Last Admin: 04/06/18 10:00 Dose: 2 spray Furosemide (Lasix) 40 mg PO BID@1000,1800 [facility] Glucagon () 1 mg IM .X1 PRN PRN Reason: Hypoglycemia Insulin Glargine (Lantus (Bkc)) 40 units SC QHS [facility] Last Admin: 04/05/18 23:13 Dose: 40 u Insulin Human Lispro (Humalog Kwikpen (Bkc)) 5 unit SQ BREAKFAST [facility] Insulin Human Lispro (Humalog Kwikpen (Bkc)) 5 unit SQ DINNER [facility] Insulin Human Lispro (Humalog Kwikpen (Bkc)) 5 unit SQ LUNCH [facility] Last Admin: 04/06/18 12:49 Dose: 5 units Insulin Human Lispro (Humalog Kwikpen (Bkc)) 0 unit SQ ACHS [facility]; Protocol Last Admin: 04/06/18 12:48 Dose: 9 units Isosorbide Mononitrate (Imdur) 30 mg PO BID [facility] Last Admin: 04/06/18 09:58 Dose: 30 mg Latanoprost (Xalatan Opthalmic) 1 drop EACH EYE BID [facility] Last Admin: 04/06/18 10:01 Dose: 1 drop Levothyroxine Sodium (Synthroid) 200 mcg PO DAILY@0600 [facility] Last Admin: 04/06/18 05:36 Dose: 200 mcg Linagliptin (Tradjenta) 5 mg PO DAILY [facility] Last Admin: 04/06/18 09:58 Dose: 5 mg Lisinopril (Zestril) 40 mg PO DAILY [facility] Last Admin: 04/06/18 10:05 Dose: 40 mg Magnesium Hydroxide (Milk Of Magnesia) 30 ml PO DAILY PRN PRN PRN Reason: Constipation Last Admin: 04/06/18 09:56 Dose: 30 ml Met[facility]) [facility] Last Admin: 04/06/18 09:57 Dose: 500 mg Nitroglycerin (Nitrostat) 0.4 mg SUBLINGUAL Q5M PRN PRN Reason: CARDIAC/CHEST PAIN Oxycodone HCl (Oxyir) 5 mg PO Q4H PRN PRN PRN Reason: SEVERE PAIN (6-10/10) Pantoprazole Sodium (Protonix) 40 mg PO BID [facility] Last Admin: 04/06/18 09:59 Dose: 40 mg Senna (Senokot) 1 tablet PO BID [facility] Last Admin: 04/06/18 09:57 Dose: 1 tablet Sodium Chloride () 5 - 15 ml IV UD PRN PRN Reason: SALINE FLUSH Last Admin: 04/06/18 12:05 Dose: 10 ml Timolol Maleate (Timoptic) 1 drop EACH EYE BID [facility] Last Admin: 04/06/18 10:01 Dose: 1 drop Code Visit Inpatient E&M: 98707 [facility]
[2018-04-06 11:51] LABS: Bedside Glucose 300 mg/dL (70-110)
--- NOTE | 2018-04-06 11:55 | CASEMGMT ---
RN CM Face to Face with patient for initial transition planning/care coordination assessment. RN CM introduced self and role at [facility]. Patient sitting in chair, alert and oriented, daughter at bedside. Patient willing to participate in assessment and is able to answer all questions appropriately. Care providers, pharmacy, and demographics verified. Patient wishes to discharge home, denies need for home health at this time. Patient states she has no further needs or concerns at this time. CM to follow for discharge planning needs that may arise. PCP: Robel Specialists: Jasmine Dial Butler Preferred Pharmacy: [facility] Insurance: [facility] Prescription Benefit: Yes Living Will/HPOA: Yes son Óscar Pisano LNOK: son and daughter Living Arrangements: Patient lives alone in 1 story home with 3 steps to enter the home. Transportation: Self/Daughter DME/HHC: Patient has shower chair, raised toilet, cane, walker, wheelchair, oxygen at night, cpap, and nebulizer. Decline further needs Disposition Plan: Patient to discharge home with family support and follow-up plans in place. Cari ARELLANO, RN, CM
--- NOTE | 2018-04-06 12:03 | NURSING ---
wound photo: right plantar foot
[2018-04-06] MEDS: Insulin Lispro 100 UNIT/ML INSULN.PEN SQ ×3 (12:48→16:43)
--- NOTE | 2018-04-06 15:31 | NURSING ---
This rn was present during Student nurse assessment of this patient. Completed charting side by side with this student and agree with all assessment items charted on this patient.
--- NOTE | 2018-04-06 16:17 | RAD_ITS ---
STUDY: X-RAY CHEST REASON FOR EXAM: Female, 77 years old. Cough and chest pain TECHNIQUE: Single AP portable view of the chest. COMPARISON: 04/04/2018. FINDINGS: The lungs are hyperexpanded. There are coarsened interstitial markings suggestive of mild chronic fibrosis. No gross focal infiltrates. No gross effusions. Normal size heart. Normal mediastinum and polo. Normal visualized pulmonary arteries. Normal visualized aortic arch and descending thoracic aorta. Normal visualized thoracic spine. Normal visualized ribs, clavicles, and shoulders. There is no demonstrated abnormality of the visualized soft tissue structures of the upper abdomen. RAD/Chest 1 View (Portable) IMPRESSION: No change. No definite acute chest disease. Electronically Signed: Hiro Gutierrez MD at 17:06 EST , Service support ,
[2018-04-06 16:35] LABS: Bedside Glucose 146 mg/dL (70-110)
[2018-04-06] MEDS: Furosemide 40 MG Tablet PO (17:07)
[2018-04-06 17:18] LABS: Vitamin B12 466 pg/mL (211-911)
[2018-04-06 17:21] LABS: BNP,B-Type NATRIURETIC PEPTIDE 160.5 pg/mL (0-100)
[2018-04-06] MEDS: Atorvastatin Calcium 10 MG Tablet PO (21:56)
[2018-04-06 22:10] LABS: Bedside Glucose 105 mg/dL (70-110)
[2018-04-07 02:30] VITALS: BP 139/43; PULSE 69; RESP 16; TEMP 36.8; O2SAT 96
[2018-04-07 05:49] LABS: Hematocrit 28.1 % (37-47); Hemoglobin 8.7 g/dl (12.0-15.0); Mean Corpuscular Hgb 31.4 pg (27.0-32.0); Mean Corpuscular Volume 101.4 fL (81-99); Mean Platelet Vol. 9.4 fl (6.2-12.0); Platelet Count 286 K/mm3 (150-450); RBC Distribution Width CV 15.5 % (11.6-14.6); RBC Distribution Width SD 54.2 fl (35.1-43.9); Red Blood Count 2.77 M/mm3 (4.2-5.4)
[2018-04-07 06:08] LABS: Anion Gap 9 (5-15); BUN 26 mg/dL (7-18); BUN/Creat Ratio 21.5 RATIO (10-20); Calcium,Total 8.7 mg/dL (8.5-10.1); Chloride 105 mmol/L (98-107); Creatinine, Serum 1.21 mg/dL (0.55-1.02); EST Glomerular Filtration Rate 46 mL/min (>60); Est Glom Filt Rate - Afr Amer 55 mL/min (>60); Estimated Creatinine Clearance 35.04 ml/min; Glucose 157 mg/dL (74-106); Magnesium 2.1 mg/dL (1.6-2.6); Sodium Level 140 mmol/L (136-145)
[2018-04-07 06:10] LABS: Scan Indicated on CBC? Y/N NO
[2018-04-07] MEDS: Levothyroxine 100 MCG Tablet 200 MCG PO (06:15)
[2018-04-07 09:07] VITALS: BP 131/50; PULSE 71; RESP 18; TEMP 36.7; O2SAT 93
[2018-04-07] MEDS: Senna Tablet 1 TABLET PO (09:10)
[2018-04-07] MEDS: Aspirin E.C. 81 MG Tablet PO (09:10)
[2018-04-07] MEDS: Pantoprazole Sodium 40 MG Tablet PO (09:10)
[2018-04-07] MEDS: Latanoprost 0.005% 1 Bottle 1 DRP EACH EYE (09:10)
[2018-04-07] MEDS: Isosorbide Mononitrate 30 MG Tablet PO (09:10)
[2018-04-07] MEDS: LINAGLIPTIN 5 MG TABLET PO (09:10)
[2018-04-07] MEDS: Timolol 0.5% 5ML OPTH.BTL 1 DRP EACH EYE (09:10)
[2018-04-07] MEDS: amLODIPine 5 MG Tablet PO (09:12)
[2018-04-07] MEDS: Insulin Lispro 100 UNIT/ML INSULN.PEN SQ ×2 (09:13)
[2018-04-07] MEDS: Clopidogrel Bisulfate 75 MG Tablet PO (09:15)
[2018-04-07] MEDS: Furosemide 40 MG Tablet PO (09:15)
--- NOTE | 2018-04-07 09:20 | DCINST_ITS ---
- Discharge Diagnoses Current Active Problems: Current Active and Chronic Problems (Last Reviewed 04/05/18 @ 20:59 by Wilder Deluca DO) Dyspnea on exertion (Acute) Symptomatic anemia (Acute) Morbid obesity (Chronic) Osteoarthritis (Chronic) History of PTCA 2 (Chronic) 2 stents Bilateral carotid artery stenosis (Chronic) Bilateral carotid bruits (Chronic) Diastolic dysfunction (Chronic) Chronic renal failure, stage 3 (moderate) (Chronic) Anemia (Chronic) You will use the following diet at home:: Calorie/Carbohydrate Controlled (specify 1200, 1400, etc) - 1800 Your food should be the consistency of: Regular Discharge Activity: Return to Normal Activity, May not drive while taking narcotic pain medications. Allergies/Adverse Reactions: Allergies latex Allergy (Severe, Verified 04/04/18 16:14) Rash metoprolol Allergy (Severe, Verified 04/04/18 16:14) Unknown bee pollen [Bee Pollen] Allergy (Verified 04/04/18 16:14) Anaphylaxis Medications to take at Discharge Oxycodone HCl/Acetaminophen [Oxycodone-Acetaminophen 10-325] 1 ea PO BID PRN 01/26/16 Latanoprost 0.005% [Xalatan Opthalmic] 1 drp EACH EYE BID 08/09/16 Timolol 0.5% [Timoptic] 1 drp EACH EYE BID 08/09/16 albuterol sulfate HFA 90 mcg/actuation aerosol inhaler 2 puff INHALATION Q4H PRN #18 g 06/20/17 fluticasone 50 mcg/actuation nasal spray,suspension 2 spray INTRANASAL QDAY 06/28/17 sitagliptin 50 mg-metformin 500 mg tablet 1 tab PO BID 06/28/17 aspirin 81 mg tablet,delayed release 81 mg PO DAILY 07/13/17 nitroglycerin 0.4 mg sublingual tablet 0.4 mg SUBLINGUAL Q5M PRN 07/13/17 furosemide 40 mg tablet 40 - 80 mg PO DAILY tab 04/04/18 isosorbide mononitrate ER 30 mg tablet,extended release 24 hr 30 mg PO BID tab 04/04/18 Amlodipine Besylate/Benazepril [Amlodipine-Benazepril 5-40 mg] 1 tab PO DAILY 04/05/18 Clopidogrel Bisulfate [Clopidogrel] 75 mg PO DAILY 04/05/18 Esomeprazole Mag Trihydrate [Nexium] 40 mg PO DAILY 04/05/18 Insulin Glargine [Lantus SoloStar Pen] 80 units SQ QHS 04/05/18 Levothyroxine Sodium [Synthroid] 200 mcg PO DAILY 04/05/18 Senna [Senokot] 1 tablet PO DAILY 04/05/18 Simvastatin 20 mg PO DAILY 04/05/18 Iron Poly/Vit C [Niferex-150] 150 mg PO DAILYCM #60 capsule 04/07/18 The following prescriptions were given: Iron Poly/Vit C [Niferex-150] 150 mg PO DAILYCM #60 capsule Primary Care Physician: Harman Huston DO [Primary Care Provider] - Please follow up with your Primary Care Physician in: in 5-7 days Test Results: Test results from this visit will be discussed in further detail at your follow- up appointment, if applicable. Please Follow Up With: Kirit Hewitt MD Proposed Discharge Date: 04/07/18
--- NOTE | 2018-04-07 09:21 | PCM.DC.SUM ---
Discharge Date and Diagnosis - Problem List Patient Problems: Active and Suspected Problems (Last Reviewed 04/05/18 @ 20:59 by Wilder Deluca DO) Dyspnea on exertion (Acute) Symptomatic anemia (Acute) Date of Admission: 04/05/18 Date of Discharge: 04/07/18 - Primary Discharge Diagnosis Active and Suspected Problems (Last Reviewed 04/05/18 @ 20:59 by Wilder Deluca DO) Dyspnea on exertion (Acute) Symptomatic anemia (Acute) - Secondary Discharge Diagnosis Chronic Problems (Last Reviewed 04/05/18 @ 20:59 by Wilder Deluca DO) Morbid obesity (Chronic) Osteoarthritis (Chronic) History of PTCA 2 (Chronic) 2 stents Bilateral carotid artery stenosis (Chronic) Bilateral carotid bruits (Chronic) Diastolic dysfunction (Chronic) Chronic renal failure, stage 3 (moderate) (Chronic) Pulmonary hypertension (Chronic) RVSP 41 mmHg HTN (hypertension) (Chronic) Hypothyroidism (Chronic) GERD (gastroesophageal reflux disease) (Chronic) Spinal stenosis of lumbar region (Chronic) Insomnia (Chronic) Anemia (Chronic) Degeneration of lumbar intervertebral disc (Chronic) CVA (cerebral vascular accident) (Chronic) Depression (Chronic) Chronic pain syndrome (Chronic) Peripheral vascular disease (Chronic) Diabetic peripheral neuropathy (Chronic) OMID (obstructive sleep apnea) (Chronic) COPD (chronic obstructive pulmonary disease) (Chronic) Diabetes type 2, uncontrolled (Chronic) Dx : 1990 Last exacerbation : DKA : never Hypoglycemic episode : never ER visit : never Glaucoma (Chronic) Abnormal echocardiogram (Chronic) Encounter for long-term current use of high risk medication (Chronic) Palpitations (Chronic) Obstructive sleep apnea (Chronic) CPAP 15 cm of water Hyperlipidemia (Chronic) Hypothyroidism (Chronic) CAD (coronary artery disease) (Chronic) HTN (hypertension) (Chronic) NSTEMI (non-ST elevated myocardial infarction) (Chronic) Hospital Course and Treatment Summary of Care Provided: Patient is a 77-year-old lady with multiple comorbidities including CAD status post FRIDA x2 who was sent to the ED by the PCP on account of progressive shortness of breath. Patient was found to be anemic with hemoglobin of 7.1 on admission. Patient did receive 2 unit PRBC 1. Microcytic anemia: With patient being symptomatic patient was admitted to regular nursing floor did receive 2 unit PRBC transfusion on 04/05/2017. Did discuss with patient to undergo subsequent evaluation including possible EGD and colonoscopy as outpatient when discharge. As part of evaluation ordered B12 levels patient's B12 levels came back within normal limits. Patient has an appointment with Dr. Hewitt on 04/13/2017 to be evaluated for colonoscopy as outpatient 2. Shortness of breath possibly from above x-ray ordered did not show any acute pathology 3. CAD with previous PTCA/FRIDA x2 4. Chronic diastolic congestive heart failure with an ejection fraction of 65% based on echo obtained in February 2018 5. Diabetes mellitus type 2 uncontrolled with hyperglycemia did continue patient home regimen with adjustment of her insulin dose, Accu-Cheks before meals and at bedtime with sliding scale coverage, and 1800 ADA diet 6. Hypertension-blood pressure controlled, home medications continued with dose adjustment as needed 7. Bilateral carotid artery disease 8. Hypothyroidism-patient is on levothyroxine home dose continued 9. Dyslipidemia-patient is on statin therapy, continued at home dose 10. Pulmonary hypertension 11. Morbid obesity with BMI of 36.7 12. Obstructive sleep apnea 13. Diabetic polyneuropathy 14. Peripheral vascular disease 15. Allergic rhinitis 16. Lumbar canal spinal stenosis 17. History of CVA with no residual effect 18. Chronic pain syndrome 19. Depression with anxiety 20. History of squamous cell carcinoma involving the skin currently in remission 21. DVT prophylaxis with patient significant anemia patient was not started on systemic anticoagulation instead instituted SCDs Patient Problems: Active and Suspected Problems (Last Reviewed 04/05/18 @ 20:59 by Wilder Deluca DO) Dyspnea on exertion (Acute) Symptomatic anemia (Acute) Objective: GENERAL: cooperative HEENT: Atraumatic; moist oral mucosa EYES; Anicteric, Normal Conjunctiva NECK; supple, normal thyroid, no distended JVD. RESPIRATORY: Diminished to auscultation bilaterally, CARDIOVASCULAR: Regular S1 S2, no audible murmurs GI: soft, non-tender, normoactive bowel sounds, : No Renal angle tenderness; EXTREMITIES: No edema, no clubbing, no cyanosis. MUSCULOSKELETAL: No Joint Tenderness; no muscle waisting NEURO: Awake; no lateralizing signs. SKIN: No Rash PSYCH; Normal affect - Physical Exam Vital Signs Temp Pulse Resp BP Pulse Ox 98.1 F 71 18 131/50 H 93 04/07/18 09:07 04/07/18 09:07 04/07/18 09:07 04/07/18 09:07 04/07/18 09:07 Oxygen Flow Rate (L/min) 2 Oxygen Delivery Method Room Air Weight: 100 kg Body Mass Index (BMI) 36.6 Finger Stick Blood Glucose 261 Intake and Output for Last 24 Hours 04/05/18 04/06/18 04/07/18 23:59 23:59 23:59 Intake Total 400 / 400 4418 / 4418 550 / 550 Output Total 2500 / 2500 1000 / 1000 Balance 400 / 400 1918 / 1918 -450 / -450 Microbiology Past 72 Hours 04/06/18 11:45 Stool Occult Blood (LYLA) - Final Stool Occult Blood Positive Laboratory Tests Past 24 Hrs 04/05/18 04/06/18 04/07/18 16:59 04:56 05:20 WBC 5.0 RBC 2.77 L Hgb 8.7 L Hct 28.1 L MCV 101.4 H MCH 31.4 MCHC 31.0 L RDW 15.5 H RDW Differential 54.2 H Plt Count 286 MPV 9.4 Sodium Potassium Chloride Carbon Dioxide Anion Gap BUN Creatinine Estim Creat Clear Calc Est GFR (MDRD) Af Amer Est GFR (MDRD) Non-Af BUN/Creatinine Ratio Glucose Calcium Magnesium B-Natriuretic Peptide 160.5 H Vitamin B12 466 04/07/18 05:20 WBC RBC Hgb Hct MCV MCH MCHC RDW RDW Differential Plt Count MPV Sodium 140 Potassium 4.0 Chloride 105 Carbon Dioxide 26.0 Anion Gap 9 BUN 26 H Creatinine 1.21 H Estim Creat Clear Calc 35.04 Est GFR (MDRD) Af Amer 55 L Est GFR (MDRD) Non-Af 46 L BUN/Creatinine Ratio 21.5 H Glucose 157 H Calcium 8.7 Magnesium 2.1 B-Natriuretic Peptide Vitamin B12 POC Glucose 04/06/18 04/06/18 04/06/18 21:55 16:29 11:48 POC Glucose 105 146 H 300 H Discharge Activity: Return to Normal Activity, May not drive while taking narcotic pain medications. Home Medications: Medications to take at Discharge Oxycodone HCl/Acetaminophen [Oxycodone-Acetaminophen 10-325] 1 ea PO BID PRN 01/26/16 Latanoprost 0.005% [Xalatan Opthalmic] 1 drp EACH EYE BID 08/09/16 Timolol 0.5% [Timoptic] 1 drp EACH EYE BID 08/09/16 albuterol sulfate HFA 90 mcg/actuation aerosol inhaler 2 puff INHALATION Q4H PRN #18 g 06/20/17 fluticasone 50 mcg/actuation nasal spray,suspension 2 spray INTRANASAL QDAY 06/28/17 sitagliptin 50 mg-metformin 500 mg tablet 1 tab PO BID 06/28/17 aspirin 81 mg tablet,delayed release 81 mg PO DAILY 07/13/17 nitroglycerin 0.4 mg sublingual tablet 0.4 mg SUBLINGUAL Q5M PRN 07/13/17 furosemide 40 mg tablet 40 - 80 mg PO DAILY tab 04/04/18 isosorbide mononitrate ER 30 mg tablet,extended release 24 hr 30 mg PO BID tab 04/04/18 Amlodipine Besylate/Benazepril [Amlodipine-Benazepril 5-40 mg] 1 tab PO DAILY 04/05/18 Clopidogrel Bisulfate [Clopidogrel] 75 mg PO DAILY 04/05/18 Esomeprazole Mag Trihydrate [Nexium] 40 mg PO DAILY 04/05/18 Insulin Glargine [Lantus SoloStar Pen] 80 units SQ QHS 04/05/18 Levothyroxine Sodium [Synthroid] 200 mcg PO DAILY 04/05/18 Senna [Senokot] 1 tablet PO DAILY 04/05/18 Simvastatin 20 mg PO DAILY 04/05/18 Iron Poly/Vit C [Niferex-150] 150 mg PO DAILYCM #60 capsule 04/07/18 Following Prescrptions Were Given to Patient: Iron Poly/Vit C [Niferex-150] 150 mg PO DAILYCM #60 capsule Primary Care Physician: Harman Huston DO [Primary Care Provider] - Please follow up with your Primary Care Physician in: in 5-7 days Please Follow Up With: Kirit Hewitt MD Disposition: Home Minutes spent on discharge:: 40 Patient Condition:: Stable Medical Necessity - Tobacco Use Smoking Status: Former smoker Tobacco Use: Non-smoker Meaningful Use Info Meaningful Use Diagnoses (Choose all that apply): None applicable Code Visit Inpatient E&M: 51796 [facility]
[2018-04-07 09:25] LABS: Bedside Glucose 171 mg/dL (70-110)
--- NOTE | 2018-04-10 14:57 | CASEMGMT ---
JENS ESCALANTE DC PHONE CALL DC DATE: 04/07/18 DC DISPOSITION: home LACE/STRATA:12/21 DC APPOINTMENTS: made Intro role of CM to patient via phone. Pt states she is doing well, no questions re: f/u or instructions. Had questioned Niferex script. This came to $95 at her pharmacy and pt wondered if she could take separate iron and Vit C. JENS ESCALANTE recommended she contact physician office to discuss alternative. Pt will call in am. Clyde RODRIGUEZN RN ACM
--- OUTSIDE RECORDS SUMMARY | 2018-06-10 16:55 | XMS RPT_ITS ---
:1940 Author Organization [place] Support Name Relationship Address Phone KAYKAY GUZMAN Unavailable Unavailable + CHRISSIE GUZMAN Unavailable Unavailable + R Unavailable Unavailable Unavailable R Unavailable Unavailable Unavailable R Unavailable Unavailable Unavailable THOMAS, CHRISTOPHER Unavailable [address] + [place] [address] R Unavailable Unavailable Unavailable THOMAS, CHRISTOPHER Unavailable [address] + [place] [address] R Unavailable Unavailable Unavailable THOMAS, CHRISTOPHER Unavailable [address] + [place] [address] R Unavailable Unavailable Unavailable THOMAS, CHRISTOPHER Unavailable [address] + [place] [address] R Unavailable Unavailable Unavailable THOMAS, CHRISSIE Unavailable [address] + [place] [address] NOT GIVEN Unavailable Unavailable Unavailable THOMAS, CHRISTOPHER Unavailable [address] + [place] [address] R Unavailable Unavailable Unavailable THOMAS, CHRISTOPHER Unavailable [address] + [place] [address] R Unavailable Unavailable Unavailable THOMAS, CHRISSIE Unavailable [address] + [place] [address] NOT GIVEN Unavailable Unavailable Unavailable THOMAS, CHRISTOPHER Unavailable [address] + [place] [address] R Unavailable Unavailable Unavailable THOMAS, CHRISTOPHER Unavailable [address] + [place] [address] R Unavailable Unavailable Unavailable THOMAS, CHRISTOPHER Unavailable [address] + [place] [address] R Unavailable Unavailable Unavailable THOMAS CHRISTOPHER Unavailable [address] + [place] [address] R Unavailable Unavailable Unavailable THOMAS, CHRISTOPHER Unavailable [address] + [place] [address] R Unavailable Unavailable Unavailable THOMAS, CHRISTOPHER Unavailable [address] + [place] [address] R Unavailable Unavailable Unavailable THOMAS, CHRISSIE Unavailable [address] + [facility] [place] [address] R Unavailable Unavailable Unavailable THOMAS, CHRISSIE Unavailable [address] + [place] [address] R Unavailable Unavailable Unavailable THOMAS, CHRISSIE Unavailable Unavailable + NOT GIVEN Unavailable Unavailable Unavailable THOMAS, CHRISSIE Unavailable [address] + [place] [address] R Unavailable Unavailable Unavailable THOMAS, CHRISSIE Unavailable [address] + [facility] [place] [address] R Unavailable Unavailable Unavailable THOMAS, CHRISSIE Unavailable Unavailable + NOT GIVEN Unavailable Unavailable Unavailable THOMAS, CHRISSIE Unavailable [address] + [place] [address] R Unavailable Unavailable Unavailable THOMAS, CHRISSIE Unavailable [address] + [place] [address] R Unavailable Unavailable Unavailable THOMAS, CHRISSIE Unavailable Unavailable + NOT GIVEN Unavailable Unavailable Unavailable THOMAS, CHRISSIE Unavailable [address] + [place] [address] R Unavailable Unavailable Unavailable THOMAS, CHRISSIE Unavailable [address] + [place] [address] R Unavailable Unavailable Unavailable THOMAS, CHRISSIE Unavailable [address] + [place] [address] R Unavailable Unavailable Unavailable THOMSA, CHRISSIE Unavailable [address] + [place] [address] R Unavailable Unavailable Unavailable THOMAS, CHRISSIE Unavailable [address] + [place] [address] R Unavailable Unavailable Unavailable THOMAS, CHRISSIE Unavailable [address] + [place] [address] R Unavailable Unavailable Unavailable THOMAS, CHRISSIE Unavailable [address] + [place] [address] R Unavailable Unavailable Unavailable THOMAS, CHRISSIE Unavailable [address] + [place] [address] R Unavailable Unavailable Unavailable THOMAS, CHRISSIE Unavailable [address] + [place] [address] R Unavailable Unavailable Unavailable THOMAS, CHRISSIE Unavailable [address] + [place] [address] R Unavailable Unavailable Unavailable THOMAS, CHRISSIE Unavailable [address] + [place] [address] R Unavailable Unavailable Unavailable THOMAS CHRISSIE Unavailable Unavailable + NOT GIVEN Unavailable Unavailable Unavailable THOMAS, CHRISSIE Unavailable [address] + [place] [address] R Unavailable Unavailable Unavailable THOMAS CHRISSIE Unavailable [address] + [place] [address] R Unavailable Unavailable Unavailable THOMAS, CHRISSIE Unavailable [address] + [place] [address] R Unavailable Unavailable Unavailable Care Team Providers Name Role Phone Jesusita Nino Attending Unavailable Sloane, Shiv Referring Unavailable Jesusita Nino Attending Unavailable Jesusita Nino Referring Unavailable Sloane, Shiv Primary Care Unavailable Jason Begum Attending Unavailable Jason Begum Referring Unavailable Sloane, Shiv Primary Care Unavailable Yogi Vasquez Attending Unavailable Cora Caban Referring Unavailable Bernardino Perez Attending Unavailable Sloane, Shiv Referring Unavailable Bernardino Perez Attending Unavailable Bernardino Perez Referring Unavailable Sloane, Shiv Primary Care Unavailable Sloane, Shiv Primary Care Unavailable Semenjoyce, Berkley Admitting Unavailable Roman Jerry Attending Unavailable Berkley Deluca Admitting Unavailable Berkley Deluca Attending Unavailable Sloane, Shiv Primary Care Unavailable Sementi, Berkley Consulting Unavailable Tammy aCmpbell Attending Unavailable Cruz Mead MAJOR ACCOUNT MANAGER-C Attending Unavailable Sloane, Shiv Referring Unavailable Jason Begum Attending Unavailable Sloane, Shiv Primary Care Unavailable Jesusita Nino Attending Unavailable Nino, Jesusita Referring Unavailable Sloane, Shiv Primary Care Unavailable Trung, Jesusita Attending Unavailable Jesusita Nino Referring Unavailable Sloane, Shiv Primary Care Unavailable Cruz Mead MAJOR ACCOUNT MANAGER-C Attending Unavailable Sloane, Shiv Referring Unavailable Marylu Gomez Attending Unavailable Brenda Griffin Attending Unavailable Cora Caban Attending Unavailable Sloane, Shvi Referring Unavailable Ivan Dial Attending Unavailable Agapito Magaña D.O. Attending Unavailable Jesusita Nino Referring Unavailable Jesusita Nino Attending Unavailable Sloane, Shiv Referring Unavailable Jason Begum Attending Unavailable Jason Begum Referring Unavailable Sloane, Shiv Primary Care Unavailable Cruz Mead MAJOR ACCOUNT MANAGER-C Attending Unavailable Sloane, Shiv Referring Unavailable Sloane, Shiv Attending Unavailable Sloane, Shiv Primary Care Unavailable Hema Antunez Attending Unavailable Hema Antunez Referring Unavailable Sloane, Shiv Primary Care Unavailable Jason Begum Attending Unavailable Jason Begum Referring Unavailable Sloane, Shiv Primary Care Unavailable Sloane Shiv Attending Unavailable Sloane, Shiv Primary Care Unavailable Sloane, Shiv Attending Unavailable Sloane, Shiv Primary Care Unavailable Ivan Dial Attending Unavailable Sloane, Shiv Referring Unavailable Ivan Dial Attending Unavailable Ivan Dial Referring Unavailable Sloane, Shiv Primary Care Unavailable Manuel Ferraro Attending Unavailable Ivan Dial Referring Unavailable Sloane, Shiv Primary Care Unavailable Ivan Dial Consulting Unavailable Sementi, Berkley Admitting Unavailable KitRoman cabral Attending Unavailable Sloane, Shiv Primary Care Unavailable KitRoman cabral Consulting Unavailable Semenjoyce, Berkley Admitting Unavailable KittoRoman vital Attending Unavailable Sloane, Shiv Primary Care Unavailable KittoeRoman Consulting Unavailable CebulKirit Attending Unavailable Sloane, Shiv Referring Unavailable Cebul III, Vivek Attending Unavailable Cebul III, Vivek Referring Unavailable Sloane, Shiv Primary Care Unavailable MANFRED, CHHAYA Referring Unavailable JOSR PATEL ([facility]) Referring Unavailable MANFRED, CHHAYA Admitting Unavailable MANFREDDONLL Attending Unavailable MANFRED, CHHAYA Referring Unavailable SLOANE, SHIV A Admitting Unavailable SLOANE, HSIV A Attending Unavailable SLOANE, SHIV A Primary Care Unavailable SLOANE, SHIV A Consulting Unavailable SHOOK, CRUZ J Referring Unavailable PROVIDER, UNKNOWN Consulting Unavailable SHOOK, CRUZ J Admitting Unavailable SHOOK, CRUZ J Attending Unavailable SHOOK, CRUZ J Primary Care Unavailable SLOANE, SHIV A Consulting Unavailable PROVIDER, UNKNOWN Consulting Unavailable KONG, JENNIFER PAC Admitting Unavailable KONG, JENNIFER PAC Attending Unavailable KONG, JENNIFER PAC Primary Care Unavailable SLOANE, SHIV A Consulting Unavailable PROVIDER, UNKNOWN Consulting Unavailable HORN, CHEYENNE DPM Admitting Unavailable HORN, CHEYENNE DPM Attending Unavailable HORN, CHEYENNE DPM Primary Care Unavailable SLOANE, SHIV A Consulting Unavailable PROVIDER, UNKNOWN Consulting Unavailable OSCAR, CHULA Admitting Unavailable OSCAR, CHULA Attending Unavailable OSCAR, CHULA Primary Care Unavailable SLOANE, SHIV A Consulting Unavailable PROVIDER, UNKNOWN Consulting Unavailable SLOANE, SHIV A Admitting Unavailable SLOANE, SHIV A Attending Unavailable SLOANE, SHIV A Primary Care Unavailable SLOANE, SHIV A Consulting Unavailable PROVIDER, UNKNOWN Consulting Unavailable SLOANE, SHIV A Referring Unavailable MANFRED, CHHAYA Admitting Unavailable MANFRED, CHHAYA Attending Unavailable MANFRED, CHHAYA Referring Unavailable IMCA Primary Care Unavailable MANFRED, CHHAYA Attending Unavailable IMCA Referring Unavailable MANFRED, CHHAYA Attending Unavailable IM[facility] Referring Unavailable DARCIE PATEL Referring Unavailable IMCA Primary Care Unavailable MANFRED, CHHAYA Referring Unavailable IMCA Primary Care Unavailable PROBLEMS PROBLEMS DATE TYPE CONDITION / CODE ATTENDING STATUS SOURCE 04/13/2018 Unknown R06.09 - Other forms Kirit Hewitt Corinne Ross of dyspnea / Community R06.09(ICD-10) Hospital Repository 04/13/2018 Unknown D64.9 - Anemia, Marcelina Kirit Ross unspecified / Community D64.9(ICD-10) Hospital Repository 04/13/2018 Unknown E11.65 - Type 2 MarcelinaKirit diabetes mellitus Community with hyperglycemia / Hospital E11.65(ICD-10) Repository 04/13/2018 Unknown N18.3 - Chronic Kirit Hewitt kidney disease, [facility] stage 3 (moderate) / Hospital N18.3(ICD-10) Repository 04/04/2018 Unknown I25.10 - Bernardino Perez Active [place] Atherosclerotic [facility] heart disease of Hospital [place] coronary Repository artery without angina pectoris / I25.10(ICD-10) 04/04/2018 Unknown Z95.5 - Presence of Bernardino Perez Active [place] coronary angioplasty Community implant and graft / Hospital Z95.5(ICD-10) Repository 04/04/2018 Unknown I10 - Essential Bernardino Perez Active [place] (primary) [facility] hypertension / Hospital I10(ICD-10) Repository 03/08/2018 Unknown R06.00 - Dyspnea, Nino, Active [place] unspecified / Jesusita [facility] R06.00(ICD-10) Hospital Repository 02/21/2018 Unknown I21.4 - Non-ST [place], Active [place] elevation (NSTEMI) [facility] myocardial Hospital infarction / Repository I21.4(ICD-10) 02/21/2018 Unknown I35.0 - Nonrheumatic [place], Active [place] aortic (valve) [facility] stenosis / Hospital I35.0(ICD-10) Repository 02/21/2018 Unknown I51.9 - Heart [place], Active [place] disease, unspecified [facility] / I51.9(ICD-10) Hospital Repository 01/19/2018 Unknown Z12.31 - Encounter Shiv Anton Active [place] for screening [facility] mammogram for Hospital malignant neoplasm Repository of breast / Z12.31(ICD-10) 08/12/2017 Unknown I70.0 - Jason Begum Active [place] Atherosclerosis of A [facility] aorta / Hospital I70.0(ICD-10) Repository 08/12/2017 Unknown I77.1 - Stricture of Jason Begum Active [place] artery / A [facility] I77.1(ICD-10) Hospital Repository 08/12/2017 Unknown I70.213 - Jason Begum Active [place] Atherosclerosis of A [facility] [place] arteries of Hospital extremities with Repository intermittent claudication, bilateral legs / I70.213(ICD-10) 08/08/2017 Unknown G47.33 - Obstructive Agapito Magaña Active [place] sleep apnea (adult) D.O. Community (pediatric) / Hospital G47.33(ICD-10) Repository 08/08/2017 Unknown J44.9 - Chronic Agapito Magaña Active [place] obstructive D.O. Community pulmonary disease, Hospital unspecified / Repository J44.9(ICD-10) 08/08/2017 Unknown I27.20 - Pulmonary Agapito Magaña, Active [place] hypertension, D.O. Community unspecified / Hospital I27.20(ICD-10) Repository 05/18/2017 Unknown R09.89 - Other Jason Begum Active [place] specified symptoms A Community and signs involving Hospital the circulatory and Repository respiratory systems / R09.89(ICD-10) 03/24/2017 Active Peripheral vascular CHHAYA ACOSTA Active [place] disease, unspecified Clinic Other / I73.9(ICD-10) [place] Repository 03/24/2017 Admitting Unknown / CHHAYA ACOSTA Active [facility] UNK(Unknown) Health System Repository 04/21/2017 Active Encounter for other NA Active [place] preprocedural Clinic Other examination / [place] Z01.818(ICD-10) Repository 04/21/2017 Active Unknown / NA Active [place] UNK(Unknown) Clinic Other [place] Repository PROCEDURES PROCEDURES No Procedure Records FoundRESULTS RESULTS MICROALBUMIN RANDOM Collected: 06/07/2018 Status: F Source: [facility] URINE W/CREATININE 4:00 PM [facility] REPOSITORY TYPE CODE TESTS RESULT OUT OF REFERENCE UNITS RANGE LAB MICROALBUMIN 0.1 - 11.6 mg/dL UR(LOINC) MICROALBUMIN UR 6.1 LAB CREATININE mg/dl UR(LOINC) CREATININE UR 101.1 Result Comment: Microalbumin/Creat Ratio LAB UACR(LOINC) mg/g UACR >50 Performed By: #### [id number] #### [facility],[address] [place] [address] CBC-COMPLETE BLOOD CNT Collected: 04/13/2018 Status: F Source: [place] NO DIFF 10:37 AM [facility] REPOSITORY TYPE CODE TESTS RESULT OUT OF RANGE REFERENCE UNITS LAB L100.1000 4.4-11.0 K/mm3 Normal WBC 4.7 LAB L100.1200 4.2-5.4 M/mm3 Low RBC 3.41 LAB L100.1300 12.0-15.0 g/dl Low HGB 10.6 LAB L100.1400 37-47 % Low HCT 35.0 LAB L100.1500 81-99 fL High MCV 102.6 LAB L100.1600 27.0-32.0 pg Normal MCH 31.1 LAB L100.1700 32-36 g/gl Low MCHC 30.3 LAB L100.1810 11.6-14.6 % High RDW CV 16.2 LAB L100.1820 35.1-43.9 fl High RDW SD 59.4 LAB L100.1900 150-450 K/mm3 Normal PLT 305 LAB L100.2000 6.2-12.0 fl Normal MPV 9.6 Performed By: #### L100.0500 #### [facility] [address] [place], [address] BASIC METABOLIC Collected: 04/13/2018 Status: F Source: [place] PROFILE ([facility]) 10:37 AM [facility] REPOSITORY TYPE CODE TESTS RESULT OUT OF RANGE REFERENCE UNITS LAB L501.0100 74-106 mg/dL High GLU 366 Result Comment: Glucose result greater than or equal to 200 mg/dL suggests DIABETES MELLITUS per A.D.A. criteria. Please note revised GLUCOSE reference range effective 2017. LAB L501.1000 7-18 mg/dL High BUN 36 LAB L501.1100 0.55-1.02 mg/dL High CREAT,SERUM 1.41 Result Comment: The validity of the calculated GFR AND GFRAA in patients over 70 years has not been determined. Clinical correlation is essential. LAB L501.1110 >60 mL/min Low EST GFR 38 Result Comment: Non- GFR Calc LAB L501.1115 >60 mL/min Low EST GFR - AA 46 Result Comment: GFR Calc LAB L501.1300 10-20 RATIO High BUN/CRE 25.5 LAB L501.2200 8.5-10.1 mg/dL CA Normal 9.0 LAB L501.5300 136-145 mmol/L NA Normal 137 LAB L501.5600 3.5-5.1 mmol/L K Normal 4.7 LAB L501.5900 98-107 mmol/L CL Normal 103 LAB L501.6100 21.0-32.0 mmol/L Normal CO2 24.0 LAB L501.6200 5-15 Normal GAP 10 Performed By: #### L500.2500 #### [facility] [address] [place], [address] SURGERY VISIT REPORT Observed: 04/13/2018 Status: F Source: [place] 10:19 AM [facility] REPOSITORY [facility] [address] [place] [address] OFFICE VISIT Date of Service: 04/13/18 MR#: [id number] Acct: [id number] Name: CRISTAL GUZMAN Rep #: [id number] : 1940 Provider: Kirit Hewitt MD Age/Sex: 77/F Location: [facility] Status: Signed Intake Vital Signs04/13/18 Body Mass Index (BMI) 36.6 04/13/18 Height 5 ft 5 in 04/13/18 Weight: 219 lb Intake Visit Reasons: C- Scope Consult per Med Surg Chief Complaint: Shortness of breath on exertion. 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 Is patient in pain?: No Allergies latex Allergy (Severe, Verified 04/13/18 09:39) Rash metoprolol Allergy (Severe, Verified 04/13/18 09:39) Unknown bee pollen [Bee Pollen] Allergy (Verified 04/13/18 09:39) Anaphylaxis Medications Oxycodone HCl/Acetaminophen [Oxycodone-Acetaminophen 10-325] 1 ea PO BID PRN 01/26/16 [History Confirmed 04/13/18] Latanoprost 0.005% [Xalatan Opthalmic] 1 drp EACH EYE BID 08/09/16 [History Confirmed 04/13/18] Timolol 0.5% [Timoptic] 1 drp EACH EYE BID 08/09/16 [History Confirmed 04/13/18] albuterol sulfate HFA 90 mcg/actuation aerosol inhaler 2 puff INHALATION Q4H PRN #18 g 06/20/17 [Rx Confirmed 04/13/18] fluticasone 50 mcg/actuation nasal spray,suspension 2 spray INTRANASAL QDAY 06/28/17 [History Confirmed 04/13/18] sitagliptin 50 mg-metformin 500 mg tablet 1 tab PO BID 06/28/17 [History Confirmed 04/13/18] aspirin 81 mg tablet,delayed release 81 mg PO DAILY 07/13/17 [History Confirmed 04/13/18] nitroglycerin 0.4 mg sublingual tablet 0.4 mg SUBLINGUAL Q5M PRN 07/13/17 [History Confirmed 04/13/18] furosemide 40 mg tablet 40 - 80 mg PO DAILY tab 04/04/18 [History Confirmed 04/13/18] isosorbide mononitrate ER 30 mg tablet,extended release 24 hr 30 mg PO BID tab 04/04/18 [History Confirmed 04/13/18] Amlodipine Besylate/Benazepril [Amlodipine-Benazepril 5-40 mg] 1 tab PO DAILY 04/05/18 [History Confirmed 04/13/18] Clopidogrel Bisulfate [Clopidogrel] 75 mg PO DAILY 04/05/18 [History Confirmed 04/13/18] Esomeprazole Mag Trihydrate [Nexium] 40 mg PO DAILY 04/05/18 [History Confirmed 04/13/18] Insulin Glargine [Lantus SoloStar Pen] 80 units SQ QHS 04/05/18 [History Confirmed 04/13/18] Levothyroxine Sodium [Synthroid] 200 mcg PO DAILY 04/05/18 [History Confirmed 04/13/18] Senna [Senokot] 1 tab PO DAILY 04/05/18 [History Confirmed 04/13/18] Simvastatin 20 mg PO DAILY 04/05/18 [History Confirmed 04/13/18] Iron Poly/Vit C [Niferex-150] 150 mg PO DAILYCM #60 cap 04/07/18 [Rx Confirmed 04/13/18] PFSH Medical History Dyspnea on exertion (Acute) Symptomatic anemia (Acute) Morbid obesity (Chronic) Osteoarthritis (Chronic) History of PTCA 2 (Chronic) Bilateral carotid artery stenosis (Chronic) Bilateral carotid bruits (Chronic) Diastolic dysfunction (Chronic) Chronic renal failure, stage 3 (moderate) (Chronic) Pulmonary hypertension (Chronic) HTN (hypertension) (Chronic) Hypothyroidism (Chronic) GERD (gastroesophageal reflux disease) (Chronic) Spinal stenosis of lumbar region (Chronic) Insomnia (Chronic) Anemia (Chronic) Degeneration of lumbar intervertebral disc (Chronic) CVA (cerebral vascular accident) (Chronic) Depression (Chronic) Chronic pain syndrome (Chronic) Peripheral vascular disease (Chronic) Diabetic peripheral neuropathy (Chronic) Allergic rhinitis (Acute) OMID (obstructive sleep apnea) (Chronic) COPD (chronic obstructive pulmonary disease) (Chronic) Diabetes type 2, uncontrolled (Chronic) Glaucoma (Chronic) Abnormal echocardiogram (Chronic) Encounter for long-term current use of high risk medication (Chronic) Palpitations (Chronic) Obstructive sleep apnea (Chronic) Cataracts, bilateral (Resolved) Carpal tunnel syndrome (Resolved) Hyperlipidemia (Chronic) Hypothyroidism (Chronic) CAD (coronary artery disease) (Chronic) HTN (hypertension) (Chronic) NSTEMI (non-ST elevated myocardial infarction) (Chronic) COPD exacerbation (Resolved) Aortic stenosis (Ruled-out) NSTEMI (non-ST elevated myocardial infarction) (Inactive) Skin cancer (Inactive) Surgical History H/O right coronary artery stent placement (Resolved) Status post ORIF of fracture of ankle (Resolved) S/P rotator cuff repair (Resolved) History of partial knee replacement (Resolved) H/O left knee surgery (Resolved) History of hysterectomy (Acute) Family History Daughter Alcohol abuse Anemia Anxiety Asthma Mother Diabetes Heart disease Hypertension Father Heart disease Hypertension Social History Smoking Status: Former smoker how long ago did patient quit smokin second hand exposure: Yes alcohol intake: never substance use type: does not use caffeine: Yes Type: coffee Number of servings: 2, carbonated beverages Number of servings: 1 what type of physical activity do you participate in: none HPI HPI HPI: CRISTAL GUZMAN, is a 77 F who presents to the office today for surgical consultation regarding suspected GI blood loss anemia. The patient states that perhaps 2 years ago she was found to be anemic. She was placed on iron therapy. She improved. She states that she has stayed currently on iron therapy. Throughout the interview however there was some discrepancy and concerns about memory issues. She had been hospitalized at the [facility] April 05 - April 07, 2018. She presented with dyspnea on exertion and symptomatic anemia. She has a history of coronary artery disease with 2 drug-eluting stents and is on aspirin and clopidogrel therapy. On her presentation her hemoglobin was 7.1. She did receive 2 units of blood transfusion. She had Hemoccult positive stool. She is scheduled for a office follow-up to help evaluate her with endoscopy. Other medical problems as noted as above. The patient has evidence of a remote upper endoscopy performed September 2008 which demonstrated H. pylori negative and some mild gastritis. The patient states that she does not ever recall having had a colonoscopy. When questioned however she denied previous stroke or myocardial infarction and chart documentation suggest that she actually has had both. Most recent laboratory that I have is April 07, 2018 with a hemoglobin of 8.7 and hematocrit 48.1 and a platelet count of 286,000. She has some mild chronic renal insufficiency with a BUN of 26 and a creatinine of 1.21. She has been a long-term diabetic. She states that after 20 years or so she just completely gave up checking her blood sugars. She states that she is does not abide by diabetic diet. On April 05, 2018 on arrival her blood sugar is 375 BUN 29 creatinine 1.56. Troponin was normal. ROS General General: Yes fatigue; no weight change, appetite, colon cancer, breast cancer or weakness HEENT HEENT: Yes difficulty swallowing; no eye injury, eye surgery, swollen glands or hoarseness Endo Endocrine: Yes thyroid disease and diabetes mellitus; no thyroid cancer, Hair loss, heat intolerance or cold intolerance Skin Skin: No rash or changing moles Breast Breast: No left breast lump, right breast lump, nipple discharge, breast pain, abnormal mammogram, abnormal US or breast enlargement Musc Musculoskeletal: Yes back problems and arthritis; no rheumatoid arthritis, gout or joint pain Cardio Cardiovascular: Yes murmur, high blood pressure and heart stent; no pacemaker, heart disease, atrial fibrillation, heart attack, palpitations, shortness of breat with exertion or chest pain Psych Psychiatric: No depression, anxiety or hearing voices Resp Respiratory: Yes shortness of breath, Yes sleep apnea, Yes cough, Yes COPD, No asthma, Yes emphysema, No wheezing Gastro Gastrointestinal: No abdominal pain, No nausea or vomiting, No diarrhea, Yes constipation, Yes blood in stool, Yes acid reflux, Yes hemorrhoids, No ulcers, No gallbladder problem, Yes black,tarry stools Ab Hematologic: Yes blood thinners, No blood disorders, No bleeding, Yes anemia, No blood clots Neuro Neurologic: No system reviewed and no additional complaints, except as docu, No as per HPI, No abnormal walking, No abnormal hearing, No abnormal movements, No abnormal speech, No behavioral changes, No burning sensations, No confusion, No seizure-like activity, No unsteadiness, No dizziness, No localized weakness, No frequent falls, No headache(s), No lack of coordination, No loss of vision, No memory loss, No numbness, No other visual disturbances, No radiating pain, No restless legs, No sensory deficit, No fainting, No tingling, No tremor(s), No weakness, No other Exam Const General: cooperative Nutritional Appearance: obese Orientation: alert, awake [facility] Head: normal to inspection Eyes General: appearance normal, both eyes and all related structures Chest Chest palpation AND inspection: normal inspection of the chest Breast Palpation: No nipple discharge Resp Effort AND Inspection: normal respiratory effort Auscultation: clear to auscultation bilaterally Cardio Rate: regular rate Rhythm: regular rhythm Heart Sounds: murmur GI Palpation: soft Auscultation: normal bowel sounds Other: Due to the patient's body habitus I am not able to detect any internal organs. Skin General: no rashes or lesions noted Neuro Other: Patient is aware of her current condition in place. Medical history seems inconsistent Extrem General: no calf tenderness bilaterally Assessment AND Plan Plan It is apparent that the patient is still just taking her his omeprazole on a as needed basis. I have strongly encouraged her to take it on a routine daily basis. I am strongly recommending to her that she monitor her blood sugars and abide by diabetic diet in order for us to proceed with planned intervention. As noted above the patient has completely ceased monitoring her blood sugars or abiding by a diabetic diet. I am recommending to her combined esophagogastroduodenoscopy with possible biopsy and colonoscopy with possible biopsy or polypectomy is indicated. I have explained to her the technique, benefits, risks, alternatives. She has had an opportunity to ask and have questions answered. Because of her chronic renal insufficiency we will provide a renal friendly bowel prep. We will schedule with monitored anesthesia care. We will schedule and try to expedite her care. Kirit Hewitt M.D., F.A.C.S. CC: Dr. Shiv Anton Orders Orders: Coding Level of Care Code Off vis,new,level 3 04/13/18 1019 <Electronically signed by Kirit Hewitt MD> Date Kirit Marsh Signature: Date (if applicable) CC: Shiv Anton DO 12 LEAD ELECTROCARDIOGRAM Observed: 04/10/2018 Status: F Source: [place] 9:10 AM [facility] Cardiovascular Services [address] [place] [address] 12 Lead EKG 04/05/18 1711 MR#: [id number] Acct: [id number] Name: THOMAS,CRISTAL Rep #: [id number] : 1940 77 From: Eugene Barajas MD Attending Dr: Roman Jerry MD Status: DIS IN Ordering Dr: Hamlet Blood MD Date: 04/05/18 Location: [facility] Sex: F C Admitted: 04/05/18 Test Reason : SOB Blood Pressure : / mmHG Vent. Rate : 079 BPM Atrial Rate : 079 BPM P-R Int : 196 ms QRS Dur : 088 ms QT Int : 394 ms P-R-T Axes : 064 -07 091 degrees QTc Int : 451 ms Normal sinus rhythm Abnormal ECG Confirmed by HUDSON LOMELI, EUGENE ([id number]), desk editor DAMARIS MOELLER ([id number]) on 04/10/2018 9:09:49 AM Referred By: Bernardino Perez Confirmed By:EUGENE BARAJAS MD 04/10/18 0909 Date Eugene Barajas MD CC: HAMLET BLOOD MD; Roman Jerry MD; Shiv Anton DO Signed DISCHARGE SUMMARY Observed: 04/07/2018 Status: F Source: [place] 9:23 AM [facility] Medical Records Department [address] [place] [address] Discharge Summary 04/07/18 0921 MR#: [id number] Acct: [id number] Name: CRISTAL GUZMAN Rep #: [id number] : 1940 77 From: Roman Jerry MD PCP: Shiv Anton DO Status: ADM IN Y Location: MS3 TR456-3 Discharge Date and Diagnosis - Problem List Patient Problems: Active and Suspected Problems (Last Reviewed 04/05/18 @ 20:59 by Wilder Deluca DO) Dyspnea on exertion (Acute) Symptomatic anemia (Acute) Date of Admission: 04/05/18 Date of Discharge: 04/07/18 - Primary Discharge Diagnosis Active and Suspected Problems (Last Reviewed 04/05/18 @ 20:59 by Wilder eDluca DO) Dyspnea on exertion (Acute) Symptomatic anemia [...] applicable Code Visit Inpatient E AND M: 36035 Disch Hosp 04/07/18922 <Electronically signed by Roman Jerry MD> Date Roman Jerry MD Cosigner Signature (if applicable): Date CC: Roman Jerry MD; Shiv Anton DO Signed DISCHARGE INSTRUCTION Observed: 04/07/2018 Status: F Source: [place] 9:20 AM [facility] REPOSITORY [facility] Medical Records Department [address] [place] [address] Instructions for Home/Discharge Instructions 04/07/18918 MR#: [id number] Acct: [id number] Name: THOMASCRISTAL Rep #: [id number] : 1940 77 From: Roman Jerry MD [...] 04/07/2018 Status: F Source: [place] 9:05 AM [facility] REPOSITORY TYPE CODE TESTS RESULT OUT OF REFERENCE UNITS RANGE LAB L501.080 70-110 mg/dL High BEDSIDE GLU 171 Result Comment: MANAGEMENT OF PATIENT CARE PER NURSING PROTOCOL Performed By: #### L501.080 #### [facility] Laboratory Point of Care [facility] [place] [address] BASIC METABOLIC Collected: 04/07/2018 Status: F Source: [place] PROFILE (BMP) 5:20 AM [facility] REPOSITORY TYPE CODE TESTS RESULT [...] 9 Performed By: #### L500.2500, L501.5200 #### [facility] [address] [place], [place], [address] MAGNESIUM Collected: 04/07/2018 Status: F Source: [place] 5:20 AM [facility] REPOSITORY TYPE CODE TESTS RESULT OUT OF RANGE REFERENCE UNITS LAB L501.5200 1.6-2.6 mg/dL Normal MG 2.1 Performed By: #### L500.2500, L501.5200 #### [facility] [address] [place], [address] CBC-COMPLETE BLOOD CNT Collected: 04/07/2018 Status: F Source: [place] NO DIFF 5:20 AM [facility] REPOSITORY TYPE CODE TESTS RESULT [...] MPV 9.4 Performed By: #### L100.0500 #### [facility] [address] [facility] [place], [address] BEDSIDE GLUCOSE Collected: 04/06/2018 Status: F Source: [place] 9:55 PM [facility] REPOSITORY TYPE CODE TESTS RESULT OUT OF RANGE REFERENCE UNITS LAB L501.080 70-110 mg/dL Normal BEDSIDE GLU 105 Result Comment: MANAGEMENT OF PATIENT CARE PER NURSING PROTOCOL Performed By: #### L501.080 #### [facility] Laboratory Point of Care [address] [facility] [address] BEDSIDE GLUCOSE Collected: 04/06/2018 Status: F Source: [place] 4:29 PM [facility] REPOSITORY TYPE CODE TESTS RESULT OUT OF REFERENCE UNITS RANGE LAB L501.080 70-110 mg/dL High BEDSIDE GLU 146 Result Comment: MANAGEMENT OF PATIENT CARE PER NURSING PROTOCOL Performed By: #### L501.080 #### [facility] Laboratory Point of Care [address] [place] [address] CHEST 1 VIEW Observed: 04/06/2018 Status: F Source: [place] (PORTABLE) 4:18 PM [facility] REPOSITORY [facility] Imaging Services [address] [place] [address] Chest 1 View (Portable) MR#: [id number] Acct: [id number] Name: CRISTAL GUZMAN Rep #: [id number] : 1940 F 77 From: Hiro Gutierrez MD PCP: Shiv Anton DO Status: ADM IN Study: Chest 1 View (Portable) Date of Exam: 04/06/18 Exam# [id number] Ordering Dr: Roman Jerry MD STUDY: X-RAY [...] CC: Roman Jerry MD; Shiv Anton DO Swage Toolsetter: Signed BEDSIDE GLUCOSE Collected: 04/06/2018 Status: F Source: [place] 11:48 AM [facility] REPOSITORY TYPE CODE TESTS RESULT OUT OF REFERENCE UNITS RANGE LAB L501.080 70-110 mg/dL High BEDSIDE GLU 300 Result Comment: MANAGEMENT OF PATIENT CARE PER NURSING PROTOCOL Performed By: #### L501.080 #### [facility] Point of Care [address] [place], [place] [address] Observed: 04/06/2018 Status: F Source: [place] STOOL OCCULT BLOOD 11:45 AM [facility] IFOB REPOSITORY STOB iFOB Occult Blood Positive ORGANISM 1: OCCULT BLOOD POSITIVE Performed By: #### M100.7900 #### [facility] [address] [place], [address] BEDSIDE GLUCOSE Collected: 04/06/2018 Status: F Source: [place] 6:27 AM [facility] REPOSITORY TYPE CODE TESTS RESULT OUT OF REFERENCE UNITS RANGE LAB L501.080 70-110 mg/dL High BEDSIDE GLU 168 Result Comment: MANAGEMENT OF PATIENT CARE PER NURSING PROTOCOL Performed By: #### L501.080 #### [facility] Point of Care [address] [place] [address] CBC-COMPLETE BLOOD CNT Collected: 04/06/2018 Status: F Source: [place] NO DIFF 4:56 AM [facility] REPOSITORY TYPE CODE TESTS RESULT [...] MPV 9.2 Performed By: #### L100.0500 #### [facility] [address] [place], [place], [address] COMPREHENSIVE METABOLIC Collected: 04/06/2018 Status: F Source: [place] PROFIL 4:56 AM [facility] REPOSITORY Order Comment: 'TROP' Serial [...] #### L500.4050, L500.4100, L501.2300, L501.4010, L501.5200 #### [facility] [address] [place], [address] LIPID PROFILE Collected: 04/06/2018 Status: F Source: [place] 4:56 AM [facility] REPOSITORY Order Comment: 'TROP' Serial [...] #### L500.4050, L500.4100, L501.2300, L501.4010, L501.5200 #### [facility] [address] [place], [place], [address] PHOSPHORUS Collected: 04/06/2018 Status: F Source: [place] 4:56 AM [facility] REPOSITORY Order Comment: 'TROP' Serial specimen #1, #2 or #3: 3 'TROP' Serial specimen #1, #2, #3, or #4: 3 TYPE CODE TESTS RESULT OUT OF RANGE REFERENCE UNITS LAB L501.2300 2.5-4.9 mg/dL Normal PHOS 3.5 Performed By: #### L500.4050, L500.4100, L501.2300, L501.4010, L501.5200 #### [facility] [address] [place], [place], [address] TROPONIN-I Collected: 04/06/2018 Status: F Source: [place] 4:56 AM [facility] REPOSITORY Order Comment: 'TROP' Serial [...] Not every elevated troponin is indicative of GA. These values should be used with clinical judgement in examining the patient's clinical picture for diagnosis. To establish a diagnosis of GA versus myocardial injury, there must be a demonstrated rise and/or fall in the troponin values, in addition to ischemic symptoms, EKG changes, new regional wall motion abnormality, and/or angiographical evidence. PLEASE NOTE: REFERENCE RANGES EDITED 17 Performed By: #### L500.4050, L500.4100, L501.2300, L501.4010, L501.5200 #### [facility] [address] [place], [address] MAGNESIUM Collected: 04/06/2018 Status: F Source: [place] 4:56 AM [facility] REPOSITORY Order Comment: 'TROP' Serial specimen #1, #2 or #3: 3 'TROP' Serial specimen #1, #2, #3, or #4: 3 TYPE CODE TESTS RESULT OUT OF RANGE REFERENCE UNITS LAB L501.5200 1.6-2.6 mg/dL Normal MG 2.0 Performed By: #### L500.4050, L500.4100, L501.2300, L501.4010, L501.5200 #### [facility] [address] [place], [address] BNP,B-TYPE NATRIURETIC Collected: 04/06/2018 Status: F Source: [place] PEPTIDE 4:56 AM [facility] REPOSITORY TYPE CODE TESTS RESULT OUT OF RANGE REFERENCE UNITS LAB L503.6620 0-100 pg/mL High B-TYPE 160.5 IVONNE PEP Performed By: #### L503.6620 #### [facility] [address] [place], [address] TROPONIN-I Collected: 04/06/2018 Status: F Source: [place] 1:55 AM [facility] REPOSITORY Order Comment: 'TROP' Serial specimen #1, #2 or #3: 2 TYPE CODE TESTS RESULT OUT OF RANGE REFERENCE UNITS LAB L501.4010 <0.045 ng/mL Normal < 0.015 TROPONIN-I Result Comment: TROPONIN-I EXPECTED VALUES <0.045 Negative 0.045 - 0.590 Consistent with Cardiac Damage > OR = 0.600 Critical Value Not every elevated troponin is indicative of GA. These values should be used with clinical judgement in examining the patient's clinical picture for diagnosis. To establish a diagnosis of GA versus myocardial injury, there must be a demonstrated rise and/or fall in the troponin values, in addition to ischemic symptoms, EKG changes, new regional wall motion abnormality, and/or angiographical evidence. PLEASE NOTE: REFERENCE RANGES EDITED 17 Performed By: #### L501.4010 #### [facility] [address] [place], [address] TROPONIN-I Collected: 04/05/2018 Status: F Source: [place] 11:02 PM [facility] REPOSITORY Order Comment: 'TROP' Serial specimen #1, #2 or #3: 1 TYPE CODE TESTS RESULT OUT OF RANGE REFERENCE UNITS LAB L501.4010 <0.045 ng/mL Normal 0.022 TROPONIN-I Result Comment: TROPONIN-I EXPECTED VALUES <0.045 Negative 0.045 - 0.590 Consistent with Cardiac Damage > OR = 0.600 Critical Value Not every elevated troponin is indicative of GA. These values should be used with clinical judgement in examining the patient's clinical picture for diagnosis. To establish a diagnosis of GA versus myocardial injury, there must be a demonstrated rise and/or fall in the troponin values, in addition to ischemic symptoms, EKG changes, new regional wall motion abnormality, and/or angiographical evidence. PLEASE NOTE: REFERENCE RANGES EDITED 17 Performed By: #### L501.4010 #### [facility] [address] [place], [address] HISTORY AND PHYSICAL Observed: 04/05/2018 Status: F Source: [place] EXAM 9:16 PM [facility] REPOSITORY [facility] Medical Records Department [address] [place] [address] History and Physical 04/05/182001 MR#: [id number] Acct: [id number] Name: CRISTAL GUZMAN Rep #: [id number] : 1940 77 From: Wilder Deluca DO PCP: Shiv Anton DO Status: ADM IN Y Location: MS3 VP796-9 Problem List (1) Dyspnea on exertion Status: [...] Resolved Comment: PCI-CX AND PCI-LAD 02/05/16 @ [facility]; [facility] w/PCI-FRIDA-OM1 (instent restenosis) 08/10/16; (30) Status post [...] Status: Chronic Qualifiers: Coronary Disease-Associated Artery/Lesion type: mohegan artery [place] vs. 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 [...] esophagram or a modified barium swallow in [place]. Vital signs in the emergency department are [...] 03/03/18 @ 10:43 by Jesusita Nino NP-C) Morbid obesity (Chronic) Osteoarthritis (Chronic) History of [...] (Resolved) Z95.5 PCI-CX AND PCI-LAD 02/05/16 @ [facility]; [facility] w/PCI-FRIDA-OM1 (instent restenosis) 08/10/16; Status post ORIF of fracture of ankle (Resolved) Z96.7, Z87.81 S/P rotator cuff repair (Resolved) Z98.890 History of partial knee replacement (Resolved) Z96.659 H/O left knee surgery (Resolved) Z98.890 Surgical History: hysterectomy - for DUB, - - Multilple orthopedic surgeries. 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 SCD's and KAYKAY shay for DVT prophylaxis and encouraged ambulation- no pharmacologic anticoagulation due to suspected GI blood loss continue home medications Hemoccult stool She will wear her own CPAP May be able to be discharged in the next 24-48 hours if the CE's are negative and the HGB is stable and finish W/U as an OP Code Visit Inpatient E AND M: 84030 Init Hosp L3 04/05/182115 <Electronically signed by Wilder Deluca DO> Date Wilder LizetteMary Kate Yosi KATZ Cosigner Signature: Date (if applicable) CC: Berkley Deluca; Shiv Anton DO Signed BEDSIDE GLUCOSE Collected: 04/05/2018 Status: F Source: [place] 9:11 PM [facility] REPOSITORY TYPE CODE TESTS RESULT OUT OF REFERENCE UNITS RANGE LAB L501.080 70-110 mg/dL High BEDSIDE GLU 256 Result Comment: MANAGEMENT OF PATIENT CARE PER NURSING PROTOCOL Performed By: #### L501.080 #### [facility] Point of Care [address] [facility] [place] [address] EMERGENCY DEPARTMENT Observed: 04/05/2018 Status: F Source: [place] SUMMARY 7:30 PM [facility] REPOSITORY [facility] Medical Records Department [address] [facility] [place] [address] Emergency Department Summary 04/05/18 1706 MR#: [id number] Acct: [id number] Name: LISA GUZMAN Rep #: [id number] : 1940 77 From: Hamlet Blood MD [...] Iron studies sent. No sign of an GA or active coronary ischemia, patient clinically and hemodynamically stable. ED Disposition - Plan for ED Patient: Disposition: Acute Care Hospital [facility] Chief Complaint: Abn Labs Diagnosis: Dyspnea on exertion, Symptomatic anemia Referrals: Shiv Anton, [Primary Care Provider] - What to do if you have Problems For any increased pain, shortness of breath, bleeding, nausea or vomiting, chest pain, or any unexpected problems, contact your Primary Care Provider. Call [facility] ([phone]) or report to the closest Emergency Room. Call 911 if necessary. 04/05/18 1930 <Electronically signed by Hamlet Blood MD> Date Hamlet Blood MD Cosigner Signature (If Indicated): Date CC: Shiv Anton DO BASIC METABOLIC Collected: 04/05/2018 Status: F Source: [place] PROFILE ([facility]) 4:59 PM [facility] REPOSITORY Order Comment: 'TROP' Serial [...] #### L500.2500, L501.4010, L503.6075, L503.6150, L503.6550 #### [facility] [address] [place], [address] TROPONIN-I Collected: 04/05/2018 Status: F Source: [place] 4:59 PM [facility] REPOSITORY Order Comment: 'TROP' Serial specimen #1, #2, #3, or #4: 1 TYPE CODE TESTS RESULT OUT OF RANGE REFERENCE UNITS LAB L501.4010 <0.045 ng/mL Normal 0.017 TROPONIN-I Result Comment: TROPONIN-I EXPECTED VALUES <0.045 Negative 0.045 - 0.590 Consistent with Cardiac Damage > OR = 0.600 Critical Value Not every elevated troponin is indicative of GA. These values should be used with clinical judgement in examining the patient's clinical picture for diagnosis. To establish a diagnosis of GA versus myocardial injury, there must be a demonstrated rise and/or fall in the troponin values, in addition to ischemic symptoms, EKG changes, new regional wall motion abnormality, and/or angiographical evidence. PLEASE NOTE: REFERENCE RANGES EDITED 17 Performed By: #### L500.2500, L501.4010, L503.6075, L503.6150, L503.6550 #### [facility] [address] [place], [place], [address] IRON BINDING Collected: 04/05/2018 Status: F [facility] 4:59 PM [facility] REPOSITORY Order Comment: 'TROP' Serial specimen #1, #2, #3, or #4: 1 TYPE CODE TESTS RESULT OUT OF RANGE REFERENCE UNITS LAB L503.6075 250-450 ug/dL Normal TIBC 379 Performed By: #### L500.2500, L501.4010, L503.6075, L503.6150, L503.6550 #### [facility] [address] [place], [place], [address] IRON Collected: 04/05/2018 Status: F Source: [place] 4:59 PM [facility] REPOSITORY Order Comment: 'TROP' Serial specimen #1, #2, #3, or #4: 1 TYPE CODE TESTS RESULT OUT OF RANGE REFERENCE UNITS LAB L503.6150 50-170 ug/dL High IRON 269 Performed By: #### L500.2500, L501.4010, L503.6075, L503.6150, L503.6550 #### [facility] [address] [place], [place], [address] FERRITIN Collected: 04/05/2018 Status: F Source: [place] 4:59 PM [facility] REPOSITORY Order Comment: 'TROP' Serial specimen #1, #2, #3, or #4: 1 TYPE CODE TESTS RESULT OUT OF RANGE REFERENCE UNITS LAB L503.6550 8-252 ng/mL Normal FERRITIN 13 Performed By: #### L500.2500, L501.4010, L503.6075, L503.6150, L503.6550 #### [facility] [address] [facility] [address] [place], [place], [address] CBC-COMPLETE BLOOD CNT Collected: 04/05/2018 Status: F Source: [place] NO DIFF 4:59 PM [facility] REPOSITORY TYPE CODE TESTS RESULT [...] MPV 9.1 Performed By: #### L100.0500 #### [facility] [address] [place], [address] TYPE AND SCREEN Collected: 04/05/2018 Status: F Source: [place] 4:59 PM [facility] REPOSITORY Order Comment: CMV NEG? [...] NEGATIVE Screen Performed By: #### B101.7450 #### [facility] [address] [place], [address] RC Collected: 04/05/2018 Status: F Source: [place] 4:59 PM [facility] REPOSITORY TYPE CODE TESTS RESULT OUT OF REFERENCE UNITS RANGE LAB U100.0000 [id number] TRANSFUSED PRODUCT: T AND S with Crossmatch, Red Cells COUNT: 1 Performed By: #### U100.0000 #### [facility] - refer to report for specific site RC Collected: 04/05/2018 Status: F Source: [place] 4:59 PM [facility] REPOSITORY TYPE CODE TESTS RESULT OUT OF REFERENCE UNITS RANGE LAB U100.0000 [id number] TRANSFUSED PRODUCT: T AND S with Crossmatch, Red Cells COUNT: 1 Performed By: #### U100.0000 #### [facility] - refer to report for specific site VITAMIN B12 Collected: 04/05/2018 Status: F Source: [place] 4:59 PM [facility] REPOSITORY TYPE CODE TESTS RESULT OUT OF RANGE REFERENCE UNITS LAB L503.0105 211-911 pg/mL Normal Vitamin B12 466 Performed By: #### L503.0105 #### [facility] [address] [place], [address] CT LUMBAR W/O Observed: 04/05/2018 Status: F Source: [facility] CONTRAST 11:24 AM [place] [address] Patient: LISA GUZMAN Phone#: : 1940 Age: 77 Gender: F Pt. Type: Out Account: [id number] Location: 052 Ordering: SHIV Kelly SLOANE Exam Date: 04/05/201811:11 Family Phys: Charge Code: [id number] Physician: Cowley Order #: [id number] DLP Dose#: PROCEDURE: CT LUMBAR SPINE WITHOUT [...] 77 Gender: F Pt. Type: Out Account: [id number] Location: 052 Ordering: SHIV Kelly SLOANE Exam Date: 04/05/2018/11:11 Family Phys: Charge Code: [id number] Physician: Cowley Order #: [id number] DLP Dose#: L2-L3: Severe disc height loss, [...] W/DIFF, AUTOMATED Collected: 04/04/2018 Status: F Source: [place] 5:30 PM [facility] REPOSITORY TYPE CODE TESTS RESULT [...] Lymph 2.70 Performed By: #### L100.0100 #### [facility] [address] [place], [place], [address] BASIC METABOLIC Collected: 04/04/2018 Status: F Source: [place] PROFILE (BMP) 5:30 PM [facility] REPOSITORY TYPE CODE TESTS RESULT [...] GAP 10 Performed By: #### L500.2500 #### [facility] [address] [place], [address] BNP,B-TYPE NATRIURETIC Collected: 04/04/2018 Status: F Source: [place] PEPTIDE 5:30 PM [facility] REPOSITORY TYPE CODE TESTS RESULT OUT OF RANGE REFERENCE UNITS LAB L503.6620 0-100 pg/mL Normal B-TYPE 90.9 IVONNE PEP Performed By: #### L503.6620 #### [facility] [address] [place], [address] CHEST PA AND LATERAL Observed: 04/04/2018 Status: F Source: [place] 5:10 PM [facility] REPOSITORY [facility] Imaging Services [address] [place] [address] Chest PA and Lateral MR#: [id number] Acct: [id number] Name: LISA GUZMAN Rep #: [id number] : 1940 F 77 From: Hiro Gutierrez MD PCP: Shiv Anton DO Status: REG CLI Study: Chest PA and Lateral Date of Exam: 04/04/18 Exam# [id number] Ordering Dr: Bernardino Perez MAJOR ACCOUNT MANAGER-C STUDY: X-RAY CHEST REASON FOR EXAM: Female, [...] , CC: DARCIE Perez; Shiv Anton DO Swage Toolsetter: Signed ESOPHAGRAM Observed: 03/30/2018 Status: F [facility] AM [place] [address] Patient: LISA GUZMAN Phone#: : 1940 Age: 77 Gender: F Pt. Type: Out Account: [id number] Location: [facility] Ordering: CHULA MOORE Exam Date: 03/30/2018/10:02 Family Phys: SHIV ANTON Charge Code: [id number] Physician: Cowley Order #: [id number] DLP Dose#: PROCEDURE: X-RAY ESOPHAGRAM COMPARISON: None. [...] 11:01 ARTERIAL Observed: 03/22/2018 Status: F Source: [place] 7:32 AM [facility] Cardiovascular Services [address] [place] [address] Ankle Brachial Index 03/09/18 0906 MR#: [id number] Acct: [id number] Name: LISA GUZMAN E Rep #: [id number] : 1940 77 From: Jason Begum MD [...] Physician: Jason Begum Performed By: Paulina Hyatt [facility] 03/22/18 0731 Date Jason Begum MD CC: Jason Begum MD; Shiv Anton DO Date Dictated: 03/09/18 0906 Date Transcribed: 03/22/18 0731 Swage Toolsetter: Signed ARTERIAL DUPLEX US Observed: 03/22/2018 Status: F Source: [place] -PETER EXTREM 7:28 AM [facility] REPOSITORY [facility] Cardiovascular Services [address] [place] [address] Art Duplex US Bilat Lower Ext 03/09/18 0910 MR#: [id number] Acct: [id number] Name: LISA GUZMAN Rep #: [id number] : 1940 77 From: Jason Begum MD [...] Jason Begum Performed By: Paulina Hyatt RVT 03/22/18 0728 Date Jason Begum MD CC: Jason Begum MD; Shiv Anton DO Date Dictated: 03/09/18 0910 Date Transcribed: 03/22/18 0728 Swage Toolsetter: Signed PULMONARY VISIT REPORT Observed: 03/03/2018 Status: F Source: [place] 1:59 PM [facility] REPOSITORY [facility] [place] [address] [place] [address] OFFICE VISIT Date of Service: 03/02/18 MR#: [id number] Acct: [id number] Name: LISA GUZMAN Rep #: [id number] : 1940 Provider: Jesusita Nino Age/Sex: 77/F Location: [facility].PMW Status: Signed Assessment AND Plan 1. Pulmonary [...] Other Medications New: Follow Up 6 Weeks ([facility]) HPI Echo results: Chief Complaint: Shortness [...] body aches. She has not used any coyr-vbw-gunljad medications for her symptoms. She does have [...] powder PO g 03/02/18 [History Confirmed 03/02/18] [facility] Medical History Arthritis (Acute) Heart disease (Acute) [...] sleep apnea G47.33 BMI 32.0-32.9,adult Z68.32 03/03/18 8939 <Electronically signed by Jesusita MCINTYRE> Date Jesusita Nino MAJOR ACCOUNT MANAGER-C Cosigner Signature: Date (if applicable) CC: Shiv Anton DO RHEUMATOID FACTOR Collected: 03/02/2018 Status: F Source: [place] 2:09 PM [facility] REPOSITORY TYPE CODE TESTS RESULT OUT OF RANGE REFERENCE UNITS LAB L505.7010 <15 IU/mL Normal RHEUMATOID FAC < 10.0 Performed By: #### L505.7010 #### [facility] [address] [place], [place], [address] ANCA Collected: 03/02/2018 Status: F Source: [place] 2:09 [facility] REPOSITORY TYPE CODE TESTS RESULT OUT OF [...] up testing of positive sera with both AZ- 3 and MPO-ANCA enzyme immunoassays. As many [...] 03/02/2018 Status: F Source: [place] 2:09 PM [facility] REPOSITORY TYPE CODE TESTS RESULT OUT OF REFERENCE UNITS RANGE LAB L4600.0100 0-19 units High ANTI-CCP 20 533145 Result Comment: Negative <20 Weak positive 20 - 39 Moderate positive 40 - 59 Strong positive >59 Performed at: [facility] [employer] [id number] New Grad Rn: Zane Chan PhD, Phone: [phone] Performed at: [facility] [id number] New Grad Rn: Dorinda Braga MD, Phone: [phone] Performed By: #### L3300.1200, L4600.0100 #### [facility] (refer to report for specific site) refer to report for address and phone number ALEX W/ REFLEX MULT Collected: 03/02/2018 Status: F Source: [place] CONFIRM 2:09 PM [facility] REPOSITORY TYPE CODE TESTS RESULT OUT OF RANGE REFERENCE UNITS LAB L3100.5475 Negative Normal Negative ALEX-DIRECT Result Comment: Performed at: [facility] [employer] [id number] New Grad Rn: Zane Chan PhD, Phone: [phone] Performed By: #### L3100.5450 #### [facility] (refer to report for specific site) refer to report for address and phone number ECHO, COMPLETE W/ Observed: 02/21/2018 Status: F Source: [place] CONTRAST 8:14 PM [facility] REPOSITORY [facility] Cardiovascular Services [address] [place] [address] Echo Complete W/ Contrast 02/21/18 1357 MR#: [id number] Acct: [id number] Name: LISA GUZMAN Rep #: [id number] : 1940 77 From: Manuel Ferraro MD Attending Dr: Ivan Dial MD Status: REG CLI Ordering Dr: Ivan Dial MD Date: 02/21/18 Location: [facility] Sex: F C Admitted: Reason For [...] Date Dictated: 02/21/18 1357 Date Transcribed: 02/21/182012 Swage Toolsetter: Signed PULMONARY VISIT REPORT Observed: 02/08/2018 Status: F Source: [place] 2:03 PM [facility] REPOSITORY [facility] [place] [address] [place] [address] OFFICE VISIT Date of Service: 02/08/18 MR#: [id number] Acct: [id number] Name: THOMASLISA Rep #: [id number] : 1940 Provider: Ivan Dial MD Age/Sex: 77/F Location: [facility].PMW Status: Signed Assessment AND Plan Problems 1. [...] Orders: Plan Detail Follow Up 6 Months ([facility]) HPI 6 M FU: Chief Complaint: Shortness [...] kg Intake Visit Reasons: 6 M FU DME Vendor: Guillermina Accompanied by: Self Allergies latex Allergy (Severe, [...] BID #60 tab 10/12/17 [Rx Confirmed 02/08/18] [facility] Medical History Arthritis (Acute) Heart disease (Acute) [...] BONE DENSITY Observed: 01/19/2018 Status: F Source: [place] STUDY 10:52 AM [facility] REPOSITORY [facility] Imaging Services [address] [place] [address] Dexa Bone Density Study MR#: [id number] Acct: [id number] Name: LISA GUZMAN Rep #: [id number] : 1940 F 77 From: Bautista Pratt MD PCP: Shiv Anton DO Status: REG CLI Study: Dexa Bone Density Study Date of Exam: 01/19/18 Exam# [id number] Ordering Dr: Shiv Anton DO STUDY: DUAL [...] 3. [employer] [email or web address].org Electronically Signed: Bautista Pratt MD at 15:47 EDT Tel [phone], Service support , CC: Shiv Anton DO Swage Toolsetter: Signed Observed: 01/05/2018 Status: F Source: [place] CULTURE WOUND 4:14 PM [facility] REPOSITORY CULTURE WOUND _WOUND CULTURE_ M I C R O B I O L O G Y R E P O R T FINAL Antimicrobial Susceptibility and Organism Identification Report Specimen Number : [id number] Requested : 01/05/18 Specimen Source : WOUND Collected : 01/05/18 16:14 Durán of Isolation : OUTPATIENT Received : 01/05/18 16:14 Requesting Physician : EDWARD Patient/Specimen Tests and Comments Specimen Comments FINAL REPORT: MODERATE GROWTH GRAM NEGATIVE RODS RIGHT FOOT Organisms Identified -------- * 01 Proteus isatuabilis 01/08/18 Comments MODERATE GROWTH Tech : Source : WOUND ID # : [id number] FINAL Report Date : / / : [...] 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 Tech : Source : WOUND ID # : [id number] FINAL Report Date : / / : Collected : 01/05/18 16:14 01/08/18.KLS. 01/07/181409.KLS. 01/08/18.KLS.COMPLETE Performed By: #### [id number] #### [facility],[address] [address] CBC W/DIFF, AUTOMATED Collected: 11/25/2017 Status: F Source: [place] 11:17 AM [facility] REPOSITORY TYPE CODE TESTS RESULT [...] Lymph 2.12 Performed By: #### L100.0100 #### [facility] [place], [address] HEMOGLOBIN A1C Collected: 11/25/2017 Status: F Source: [place] 11:17 AM [facility] REPOSITORY TYPE CODE TESTS RESULT OUT OF RANGE REFERENCE UNITS LAB L501.9985 4.2-6.3 % High HGB A1C 10.3 Performed By: #### L501.9985 #### [facility] [address] [place], [address] THYROID STIM HORMONE Collected: 11/25/2017 Status: F Source: [place] (TSH) 11:17 AM [facility] REPOSITORY TYPE CODE TESTS RESULT OUT OF RANGE REFERENCE UNITS LAB L501.9520 0.358-3.74 uIU/mL Normal TSH 0.83 Performed By: #### L501.9520, L506.0400 #### [facility] [address] [place], [address] T4 FREE DIRECT Collected: 11/25/2017 Status: F Source: [place] 11:17 AM [facility] REPOSITORY TYPE CODE TESTS RESULT OUT OF RANGE REFERENCE UNITS LAB L506.0400 0.76-1.46 ng/dL Normal T4 FREE 1.27 DIRECT Performed By: #### L501.9520, L506.0400 #### [facility] [address] [place], [address] OPERATIVE REPORT Observed: 10/19/2017 Status: F Source: [place] 11:59 AM [facility] Medical Records Department [address] [place] [address] Operative Report 10/19/17 1154 MR#: [id number] Acct: [id number] Name: LISA GUZMAN Kraig Rep #: [id number] : 1940 77 From: Jason Begum MD PCP: Shiv Anton DO Status: REG [facility] [place] Location: [facility] Problem List (1) Peripheral vascular disease [...] a Glidewire down put in a 6 Faroese sheath and gave 5000 units of heparin. We got the Glidewire down to the aorta switched out to a long stiff wire brought in a long 6 Faroese sheath. We did an aortogram with bilateral [...] BLOOD CNT Collected: 10/19/2017 Status: F Source: [place] NO DIFF 8:35 AM [facility] REPOSITORY TYPE CODE TESTS RESULT [...] MPV 9.2 Performed By: #### L100.0500 #### [facility] [address] [place], [address] RENAL PROFILE Collected: 10/19/2017 Status: F Source: [place] 8:35 AM [facility] REPOSITORY TYPE CODE TESTS RESULT [...] CO2 28.0 Performed By: #### L500.3600 #### [facility] [address] [place], [place], [address] CREATININE FINGERSTICK Collected: 10/05/2017 Status: F Source: [place] 6:06 PM [facility] REPOSITORY TYPE CODE TESTS RESULT OUT OF RANGE REFERENCE UNITS LAB L9100.0210 0.55-1.02 mg/dL Normal CREATININE WB 0.8 LAB L9100.0220 >60 mL/min EGFR WB Normal > 60.0000 Performed By: #### L9100.0200 #### [facility] Point of Care [address] [place] [address] BRAIN W/WO CONTRAST Observed: 10/05/2017 Status: F Source: [place] 5:49 PM [facility] REPOSITORY [facility] Imaging Services [address] [place] [address] Brain W/WO Contrast MR#: [id number] Acct: [id number] Name: LISA GUZMAN Rep #: [id number] : 1940 F 76 From: Lalo Taylor DO PCP: Shiv Anton DO Status: REG CLI Study: Brain W/WO Contrast Date of Exam: 10/05/17 Exam# [id number] Ordering Dr: Hema Antunez MD STUDY: MRI [...] CC: Hema Antunez MD; Shiv Anton DO Swage Toolsetter: Signed FREE T3 Collected: 09/08/2017 Status: F Source: [place] 12:04 PM [facility] REPOSITORY Order Comment: DR ANTON ORDERED: TSH, T4F, T3 CRUZ SHOOK ORDERED: TSH, T4F, T3F TYPE CODE TESTS RESULT OUT OF RANGE REFERENCE UNITS LAB L501.94934 2.18-3.98 pg/mL Normal FREE T3 3.1 Performed By: #### L501.42843, L501.9520, L506.0400 #### [facility] [address] [place], [address] THYROID STIM HORMONE Collected: 09/08/2017 Status: F Source: [place] (TSH) 12:04 PM [facility] REPOSITORY Order Comment: DR ANTON ORDERED: TSH, T4F, T3 CRUZ SHOOK ORDERED: TSH, T4F, T3F TYPE CODE TESTS RESULT OUT OF RANGE REFERENCE UNITS LAB L501.9520 0.358-3.74 uIU/mL Low TSH 0.09 Performed By: #### L501.05832, L501.9520, L506.0400 #### [facility] [address] [place], [address] T4 FREE DIRECT Collected: 09/08/2017 Status: F Source: [place] 12:04 PM [facility] REPOSITORY Order Comment: DR ANTON ORDERED: TSH, T4F, T3 CRUZ SHOOK ORDERED: TSH, T4F, T3F TYPE CODE TESTS RESULT OUT OF REFERENCE UNITS RANGE LAB L506.0400 0.76-1.46 ng/dL High T4 FREE 1.70 DIRECT Performed By: #### L501.63180, L501.9520, L506.0400 #### [facility] [address] [place], [address] T3 TOTAL - TRIIODOTHYRONINE Collected: 09/08/2017 Status: F Source: [place] 12:04 PM [facility] REPOSITORY Order Comment: DR ANTON ORDERED: TSH, T4F, T3 CRUZ MEAD ORDERED: TSH, T4F, T3F TYPE CODE TESTS RESULT OUT OF RANGE REFERENCE UNITS LAB L501.9186 0.6-1.81 ng/mL Normal T3 Total 1.09 Performed By: #### L501.9186 #### [facility] [place], [place], [address] TSH Collected: 08/29/2017 Status: F Source: [facility] 10:28 AM [facility] REPOSITORY TYPE CODE TESTS RESULT OUT OF RANGE REFERENCE UNITS LAB TSH(LOINC) 0.34 - 5.60 uIU/ml TSH 0.43 Performed By: #### [id number] #### [facility],[address] [place] [address] T4-FREE (FREE Collected: 08/29/2017 Status: F Source: [facility] THYROXINE) 10:28 AM [facility] REPOSITORY TYPE CODE TESTS RESULT OUT OF RANGE REFERENCE UNITS LAB T4 0.61 - 1.12 ng/dl FREE(LOINC) High T4 FREE 1.37 Result Comment: *SPECIMENS FROM PATIENTS WHO ARE UNDERGOING BIOTIN THERAPY AND/OR INGESTING BIOTIN SUPPLEMENTS MAY HAVE FALSE HIGH RESULTS. Performed By: #### [id number] #### [facility],[address] [place] [address] T3, FREE Collected: 08/29/2017 Status: F Source: [facility] 10:28 AM [facility] REPOSITORY TYPE CODE TESTS RESULT OUT OF RANGE REFERENCE UNITS LAB T3, FREE(LOINC) T3, FREE Result Comment: _T3, FREE_ T3, FREE Reported: 08/31/2017 16:35 Status=F TEST RESULT FLAG RANGE UNITS T3, FREE 2.9 2.3-4.2 pg/mL 08/31/17.1647.rfl.COMPLETE.AMRR .3051-0 Test Performed by [employer] [place], [employer] [facility], [address] [place] [address] Elie Mak M.D., Ph.D., Director of Laboratories , CLIA [id number] Performed By: #### [id number] #### [facility],[address] [place], [place] [address] LOWER EXT ARTERIAL Observed: 08/17/2017 Status: F Source: [facility] 11:25 AM [facility] REPOSITORY [facility] Cardiovascular Services [address] [place] [address] 08/17/17 1124 MR#: [id number] Acct: [id number] Name: LISA GUZMAN Rep #: [id number] : 1940 76 From: Jason Begum MD Attending Dr: Jason Begum MD Status: REG CLI Ordering Dr: Date: 08/17/17 Location: [facility] Sex: F C Admitted: Arterial Study - [...] Begum MD; Shiv Anton DO Date Dictated: 08/17/17 1124 Date Transcribed: 08/17/171123 Swage Toolsetter: DORIS Signed ABD AORTIC/IVC DUPLEX Observed: 08/16/2017 Status: F Source: [place] SC[place] 9:58 PM [facility] REPOSITORY [facility] Cardiovascular Services [address] [place] [address] Abd Aortic/IVC Duplex scan 08/12/17 1104 MR#: [id number] Acct: [id number] Name: LISA GUZMAN Rep #: [id number] : 1940 76 From: Jason Begum MD Attending Dr: Jason Begum MD Status: REG CLI Ordering Dr: Jason Begum MD Date: 08/12/17 Location: [facility] Sex: F C Admitted: Reason For [...] Aorta IVC Iliac vasculature or bypass grafts [address]. Technically difficult due to body habitus and bowel gas. Exam performed in department. Interpretation Summary 1. No aortoiliac aneurysm 2. over 50 % stenosis bialteral DARREN arteries. Ordering Physician: Jason Begum Referring Physician: Shiv Anton Performed By: Paulina Hyatt RVT 08/16/172156 Date Jason Begum MD CC: Jason Begum MD; Shiv Anton DO Date Dictated: 08/12/17 1104 Date Transcribed: 08/16/172156 Swage Toolsetter: Signed PULMONARY VISIT REPORT Observed: 08/09/2017 Status: F Source: [place] 1:16 PM [facility] REPOSITORY Pulmonary Medicine [address] [place] [address] OFFICE VISIT Date of Service: 08/08/17 MR#: [id number] Acct: [id number] Name: LISA GUZMAN Rep #: [id number] : 1940 Provider: Jesusita Nino Age/Sex: 76/F Location: [facility].PMW Status: Signed Assessment AND Plan 1. OMID [...] understanding. Plan Detail Follow Up 6 Months ([facility]) HPI 6 M FU: Chief Complaint: Here [...] Visit Reasons: 6 M FU DME Vendor: Guillermina Accompanied by: Self Allergies latex Allergy (Severe, [...] BID #90 ml 07/28/17 [Rx Confirmed 08/08/17] [facility] Medical History Arthritis (Acute) Heart disease (Acute) [...] breath 08/09/17 1316 <Electronically signed by Jesusita Nino MAJOR ACCOUNT MANAGER-C> Date Jesusita Nino MAJOR ACCOUNT MANAGER-C Cosigner Signature: Date (if applicable) CC: Shiv Anton DO 6 MINUTE WALK TEST Observed: 07/28/2017 Status: F Source: [place] 8:20 AM [facility] REPOSITORY [facility] Pulmonary Services/Neurology [address] [place] [address] MR#: [id number] Acct: [id number] Name: LISA GUZMAN Rep #: [id number] : 1940 76 From: Agapito Magaña DO Referring Dr: Jesusita Nino NP Date: Ordering Dr: Sex: F C Location: PSN PSN 6 Minute Walk Test - 6 Minute Walk Test 6 Minute Walk Test: 6 Minute Walk Test PSN:6-Minute Walk Test Start: 07/26/17 11:43 Freq: Status: Active Protocol: RESP.6MINW Document 07/26/17 11:43 [facility] (Rec: 07/26/17 11:46 [facility] [id number]) 6 Minute Walk Test Date Performed 07/26/17 [...] use of supplemental oxygen at this time. 07/28/17819 <Electronically signed by Agapito Magaña DO> Date Agapito Magaña DO CC: Date Dictated: 07/28/17818 Date Transcribed: 07/28/17818 Swage Toolsetter: Agapito Magaña DO Signed PULMONARY FUNCTION Observed: 07/07/2017 Status: F Source: [place] REPORT COMP 2:22 PM [facility] REPOSITORY [facility] Pulmonary Services/Neurology [facility] [place] [address] MR#: [id number] Acct: [id number] Name: LISA GUZMAN Rep #: [id number] : 1940 76 From: Ivan Dial MD Referring Dr: Jesusita Nino NP Status: REG CLI Ordering Dr: Date: Location: [facility] Sex: F C COMPLETE PULMONARY FUNCTION TEST INTERPRETATION Brief HPI: Patient is a 76 year old female, currently under the care of myself, who presents to [facility] for complete pulmonary function tests secondary to [...] DO Date Dictated: 07/07/171416 Date Transcribed: 07/07/171416 Swage Toolsetter: THOM Signed ENDOCRINOLOGY VISIT Observed: 06/30/2017 Status: F Source: [place] REPORT 8:32 AM [facility] REPOSITORY [facility] [address] [place] [address]. [address] [place] [address] OFFICE VISIT Date of Service: 06/28/17 MR#: [id number] Acct: [id number] Name: LISA GUZMAN Rep #: [id number] : 1940 Provider: Cruz Mead NP Age/Sex: 76/F Location: [facility] Status: Signed HPI History of present illness [...] comfortable Nutritional Appearance: overweight Orientation: oriented x3 [facility] Head: normal to inspection, normocephalic Ears: hearing [...] Pressure Position Sitting Intake Visit Reasons: Diabetes 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 Accompanied by: Self Is [...] 06/28/17] pen needle, diabetic 31 gauge x 08/03 [...] complication status: with unspecified complications Diabetes mellitus assisted insulin use: with assisted use Time Spent (min) 60 06/30/17 0832 <Electronically signed by Cruz MCINTYRE> Date Cruz MCINTYRE Cosigner Signature: Date (if applicable) CC: CBC Collected: 06/06/2017 Status: F Source: [place] 9:30 AM [facility] REPOSITORY TYPE CODE TESTS RESULT [...] 7.10 x10EE3/U L Neut # 2.90 LAB [place] #(LOINC) 0.20 - 1.00 x10EE3/U L [place] # 0.50 LAB EO #(LOINC) 0.00 - 0.50 x10EE3/U L EO # 0.40 LAB [place] #(LOINC) 0.00 - 0.10 x10EE3/U L [place] # 0.10 LAB MANUAL DIFF(LOINC) MANUAL DIFF N/A LAB MORPHOLOGY(LOINC ) MORPHOLOGY N/A Result Comment: {CD] Performed By: #### [id number] #### [place] [address] LIPID PROFILE Collected: 06/06/2017 Status: F Source: [facility] 9:30 [facility] REPOSITORY TYPE CODE TESTS RESULT OUT OF [...] 129 mg/dl LDL 88 Performed By: #### [id number] #### [place] [address] TSH Collected: 06/06/2017 Status: F Source: [facility] 9:30 AM [facility] REPOSITORY TYPE CODE TESTS RESULT OUT OF RANGE REFERENCE UNITS LAB TSH(LOINC) 0.34 - 5.60 uIU/ml High TSH 11.33 Performed By: #### [id number] #### [place] [address] CMP WITH EGFR Collected: 06/06/2017 Status: F Source: [place] [place] 9:30 AM [facility] REPOSITORY TYPE CODE TESTS RESULT [...] OF AGE AND OLDER. Performed By: #### [id number] #### [address] [address] FERRITIN Collected: 06/06/2017 Status: F Source: [facility] 9:30 AM [facility] REPOSITORY TYPE CODE TESTS RESULT OUT OF REFERENCE UNITS RANGE LAB FERRITIN(LO 10 - 291 ng/mL INC) FERRITIN 49 Performed By: #### [id number] #### [place] [address] IRON Collected: 06/06/2017 Status: F Source: [facility] 9:30 AM [facility] REPOSITORY TYPE CODE TESTS RESULT OUT OF RANGE REFERENCE UNITS LAB IRON(LOINC) 50 - 170 ug/dl IRON 109 Performed By: #### [id number] #### [place] [id number] HGB A1C Collected: 06/06/2017 Status: F Source: [facility] 9:30 [facility] REPOSITORY TYPE CODE TESTS RESULT OUT OF RANGE REFERENCE UNITS LAB HGB 4.4 - 6.4 % A1C(LOINC) High HGB A1C 10.2 Result Comment: {HB] {A1] Performed By: #### [id number] #### [place] [id number] CNCO Observed: 05/23/2017 Status: COMPLETED Source: [place] 5:00 PM [facility] [place] REPOSITORY HNO ID: [id number] Author: Mammography Coordinator Service: (none) Author Type: Physician Type: Letter Filed: 05/24/2017 11:33 PM Note Text: May 23, 2017 PID: [id number] Lisa Guzman [id number] [address] [place] [id number] Dear Ms. Guzman, We are pleased to inform you that [...] report will be kept on file at [facility] as part of your permanent medical record and are available for your continuing care. Thank you for allowing us to help in meeting your health care needs. Sincerely, Dr. Witt Interpreting Radiologist [facility] (Normal over 40) PROGRESS Observed: 05/23/2017 Status: COMPLETED Source: [place] 3:04 PM [facility] REPOSITORY HNO ID: [id number] Author: Lauren Parker Service: (none) Author Type: [...] IMPLANT DATA REVIEWED: Not Applicable RADIOLOGY DEPARTMENT: [facility] IV DATA: Not applicable SIGNED BY: Lauren Parker May 23, 2017 3:04 PM [facility] SCREENING Observed: 05/23/2017 Status: F Source: [place] 1:40 PM [facility] REPOSITORY * * *Final Report* * * DATE OF EXAM: May 23 2017 1:40PM [facility] 0581 - [facility] SCREENING / PROCEDURE REASON: screening * * * * Physician Interpretation * * * * RESULT: #[id number] - [facility] SCREENING BILATERAL DIGITAL SCREENING MAMMOGRAM WITH CAD: 05/23/2017 HISTORY: Screening Mammogram - patient reports NO breast symptoms /priors available for comparison. RESULT: TECHNIQUE: The study was acquired using full field digital technology and interpreted from soft copy. Current study was also evaluated with a Computer Aided Detection (CAD). Comparison is made to exams dated: 05/17/2016 mammogram, 05/12/2015 mammogram, 05/10/2014 mammogram, 04/08/2011 mammogram - [facility], 04/10/2012 mammogram - [facility], and 04/27/2013 mammogram - [facility]. The 2010 prior mammogram was also reviewed for comparison. [...] screening mammogram is recommended. Jacek morgan/stefano:05/23/2017 17:00:23 Manufacturing Analyst: Dinora Gamboa RT(R)([place]), [facility] letter sent: Normal over 40 Mammogram BI-RADS: 1 Negative Swage Toolsetter: Stefano Transcribe Date/Time: May 23 2017 1:09P Dictated by: JACEK WITT MD This examination was interpreted and the report reviewed and electronically signed by: JACEK WITT MD on May 23 2017 5:00PM EST [id number] CAROTID DUPLEX Observed: 05/21/2017 Status: F Source: [place] ULTRASOUND 5:04 PM [facility] REPOSITORY [facility] Cardiovascular Services [address] [place] [address] Carotid Duplex Ultrasound 05/18/17 0957 MR#: [id number] Acct: [id number] Name: LISA GUZMAN Rep #: [id number] : 1940 76 From: Jason Begum MD Attending Dr: Jason Begum MD Status: REG CLI Ordering Dr: Jason Begum MD Date: 05/18/17 Location: [facility] Sex: F C Admitted: Reason For [...] the left vertebral artery. Procedure Carotid Duplex 72395. The exam was diagnostic. Exam performed in department. Interpretation Summary Moderate (50-69%) stenosis right extracranial internal carotid. Mild (<50%) stenosis left extracranial internal carotid. Flow within the vertebral arteries is antegrade bilaterally. Ordering Physician: Jason Begum Referring Physician: Shiv Anton Performed By: Radha Monterroso, TOSHIACS, RVT 05/21/17 1703 Date Jason Begum MD CC: Jason Begum MD; Shiv Anton DO Date Dictated: 05/18/17 0957 Date Transcribed: 05/21/17 170 Swage Toolsetter: Signed NURSING PROG Observed: 04/28/2017 Status: COMPLETED Source: [place] 9:22 AM [facility] OTHER [place] REPOSITORY HNO ID: [id number] Author: Radha WildRn) JENS Bazan Service: (none) Author Type: Registered Nurse Type: Nursing Progress Note Filed: 04/28/2017 9:23 AM Note Text: Pt given d/c instructions AND conveyed understanding. PROGRESS Observed: 04/28/2017 Status: COMPLETED Source: [place] 9:21 AM [facility] REPOSITORY HNO ID: [id number] Author: Chhaya Acosta Service: Vascular Surgery Author [...] NURSING PROG Observed: 04/28/2017 Status: COMPLETED Source: [place] 9:05 AM CLINIC OTHER CAMPUS REPOSITORY HNO ID: [id number] Author: Radha (Rn) JENS Bazan Service: (none) Author Type: Registered Nurse Type: Nursing Progress Note Filed: 04/28/2017 9:07 AM Note Text: Pt AND daughter had extensive talk w/ Dr. Acosta;Surgery has been cancelled GLUCOSE METER Collected: 04/28/2017 Status: F Source: [facility] 8:41 AM HEALTH SYSTEM REPOSITORY TYPE CODE TESTS RESULT OUT OF REFERENCE UNITS RANGE LAB GLUBL(LOINC 70-99 mg/dL ) High Glucose Meter 350 Result Comment: RN NOTIFIED Performed By: #### GLMET #### [place] [address] HEMOGRAM Collected: 04/21/2017 Status: F Source: [facility] 11:45 AM HEALTH SYSTEM REPOSITORY TYPE [...] MPV 9.4 Performed By: #### CBC1 #### [place] [id number] BASIC PANEL Collected: 04/21/2017 Status: F Source: [facility] 11:45 AM HEALTH SYSTEM REPOSITORY TYPE [...] Gap 11 Performed By: #### P8 #### [place] [address] MDRD GFR Collected: 04/21/2017 Status: F Source: [facility] 11:45 AM HEALTH SYSTEM REPOSITORY TYPE CODE TESTS RESULT OUT OF RANGE REFERENCE UNITS LAB GFRFN(LOINC >60mL/min/1.73m ) 2 eGFR >60 Result Comment: If the patient is , multiply the result by 1.210. Performed By: #### GFR #### [place] [address] TYPE AND SCREEN Collected: 04/21/2017 Status: F Source: [facility] 11:45 AM HEALTH SYSTEM REPOSITORY TYPE CODE TESTS RESULT OUT OF REFERENCE UNITS RANGE LAB ABO(LOINC) O ABO Group LAB SUPERVISOR CORDUROY CUTTING(LOINC ) RH Type Positive LAB ABSCR(LOIN C) Antibody NEGATIVE Screen LAB BBCMT(LOIN C) Comment PAT specimen Performed By: #### T&S #### [place] [address] HISTORY PHYSICAL Observed: 04/21/2017 Status: COMPLETED Source: [place] 7:58 AM CLINIC OTHER CAMPUS REPOSITORY O ID: [id number] Author: Josr Patel Service: (none) Author Type: Nurse Practitioner [...] Begum. Scanned report from Dr. Begum in [facility]. ? 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 - GA (myocardial infarction) 07/2016 stent placement- patient denies GA - Pulmonary hypertension - PVD (peripheral vascular disease) ([facility]) - Tobacco use disorder 12/22/2009 PAST SURGICAL [...] - Heart Father at age 43 of [place] - Diabetes Mother age 79 - Hypertension Mother - Heart Mother - Stroke Mother - Diabetes Brother - Hypoglycemic [OTHER] Sister SOCIAL HISTORY: Social History Marital status: Spouse name: Santos Years of education: Number of children: 3 Occupational History 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 Fax results to [phone] metoprolol succinate XL, long acting, (TOPROL XL) 100 mg Tb24 Take 1 tablet by mouth once daily. Patient not taking: Reported on 02/24/2017 Medication Comments documented by Estela Marshall) JENS Buenrostro on 02/02/2017 at 1129. PATIENT WANTS TO BRING LIST OF MEDICATIONS [...] 12/02/2014 9.1 09/12/2014 9.1 05/06/2014 8.3 HBA1C, [place] (%) Date Value 07/08/2010 8.4 01/20/2010 9.7 [...] CODE NAME / CODE REACTION SEVERITY SOURCE 04/13/2018 Drug metoprolol/F Unknown [place] Allergy/902242326(S 336685398(RX Community NOMED CT) NORM) Hospital Repository 04/13/2018 Drug bee Anaphylaxis Unknown [place] Allergy/449226479(S pollen/F0060 Community NOMED [facility]) 09672(RXNORM Hospital ) Repository 04/13/2018 Drug latex/M79596 Rash SV [place] Allergy/138544431(S 8921(RXNORM) [facility] NOMED CT) Hospital Repository 04/28/2017 DRUG IODINE OTHER: SEE C [facility] INGREDI/955299070(S Clinic Other NOMED CT) [place] Repository 10/04/2007 Miscellaneous OTHER SWELLING [place] Allergy/033768816(S Clinic Other NOMED CT) [place] Repository Drug SULFA Moderate Praful [place] Allergy/483578777(S (sulfonamide ([facility]) )/60283688(R Modifier) Hospital XNORM) (Qualifier Repository Value) Environmental LATEX Moderate Praful [place] Allergy/964120276(S (Severity [facility]) Modifier) Hospital (Qualifier Repository Value) NG/575341133(SNOMED OTHER [facility]) [facility] Repository NG/923256603(SNOMED IODINE [facility]) Health System Repository ENCOUNTERS ENCOUNTERS ADMIT/DISCHARGE ACCOUNT NUMBER ADMITTING ENCOUNTER LOCATION SOURCE CLASS 04/13/2018 [id number] Ambulatory [place] [facility] ding:LAB Repository 04/13/2018/04/13/19 [id number] Ambulatory BMSBuilding: [place] 19 BMS.[facility] Repository 04/05/2018/04/07/19 [id number] Sementi, Inpatient [place] 19 [place] Encounter [facility] ding:JX6Vmcl Repository : YP261Ejf: 1 04/05/2018 [id number] Sementi, Ambulatory BMSBuilding: [place] BMS.[facility] Repository 04/05/2018 [id number] Sementi, Ambulatory BMSBuilding: [place] BMS.[facility] Repository 04/05/2018 [id number] Sementi, Ambulatory BMSBuilding: [place] BMS.[facility] Repository 04/05/2018/04/05/19 [id number] SLOANE, Ambulatory [facility] 19 [facility] Repository 04/04/2018 [id number] Ambulatory [facility] ding:RAD Repository 04/04/2018/04/04/19 [id number] Ambulatory BMSBuilding: [place] 19 BMS.[facility] Repository 03/30/2018/03/30/19 [id number] OSCAR, Ambulatory [address] Repository 03/09/2018 [id number] Ambulatory [facility] ding:CVS Repository 03/02/2018 [id number] Ambulatory [facility] ding:PAVLAB Repository 03/02/2018/03/02/20 [id number] Ambulatory BMSBuilding: [place] [address] Repository 02/21/2018 [id number] Ambulatory BMSBuilding: [place] [facility] Repository 02/21/2018 [id number] Ambulatory BMSBuilding: [place] BMS.CF.[facility] Repository 02/21/2018 [id number] Ambulatory [facility] ding:CVS Repository 02/08/2018/02/09/20 [id number] Ambulatory BMSBuilding: [place] [address] Repository 01/19/2018 [id number] Ambulatory [facility] ding:OPBD Repository 01/05/2018/01/06/20 [id number] CHEYENNE LEON Ambulatory [address] Repository 11/25/2017 [id number] Ambulatory [facility] ding:BFHLAB Repository 10/19/2017 [id number] Ambulatory [facility] ding:CLSP Repository 10/12/2017/10/13/19 [id number] KONG, Ambulatory [facility] 18 [facility] Repository 10/05/2017 [id number] Ambulatory [facility] ding:MRI Repository 09/08/2017 [id number] Ambulatory [facility] ding:BFHLAB Repository 08/29/2017/08/30/19 [id number] CRUZ MEAD Ambulatory [address] Repository 08/17/2017 [id number] Ambulatory BMSBuilding: [place] BMS.[facility] Repository 08/12/2017 [id number] Ambulatory [facility] ding:CVS Repository 08/08/2017/08/09/19 [id number] Ambulatory BMSBuilding: [place] [address] Repository 07/28/2017 [id number] Ambulatory BMSBuilding: [place] [facility] Repository 07/26/2017 [id number] Ambulatory [facility] ding:PSN Repository 07/19/2017 [id number] Ambulatory BMSBuilding: [place] BMS.[facility] Repository 07/13/2017 [id number] Ambulatory [facility] Repository 07/08/2017 [id number] Ambulatory BMSBuilding: [place] BMS.[facility] Repository 07/07/2017 [id number] Ambulatory [facility] ding:PSN Repository 07/07/2017 [id number] Ambulatory BMSBuilding: [facility] Repository 06/28/2017/06/29/19 [id number] Ambulatory BMSBuilding: [place] 18 BMS.[facility] Repository 06/06/2017/06/07/19 [id number] SLOANE, Ambulatory [address] Repository 05/23/2017/05/24/19 [id number] Ambulatory [address] Repository 05/23/2017 [id number] Ambulatory [facility] MEDICAL Repository CENTERBuildi ng:AGVASACC 05/18/2017 [id number] Ambulatory [facility] ding:CVS Repository 05/09/2017 [id number] Ambulatory BMSBuilding: [place] BMS.[facility] Repository 05/05/2017 [id number] Ambulatory [facility] MEDICAL Repository CENTERBuildi ng:AGVASACC 05/04/2017 [id number] Ambulatory BMSBuilding: [place] BMS.[facility] Repository 04/28/2017/04/28/19 [id number] CHHAYA ACOSTA Inpatient [address] Repository 04/28/2017/04/28/19 [id number] CHHAYA ACOSTA Ambulatory [address] MEDICAL Repository PENSACOLABuildi ng:AKORRoom: POOLBed: 19 04/21/2017 [id number] Ambulatory [facility] Repository 04/21/2017/04/21/19 [id number] [address]:AKLB 04/21/2017 [id number] Ambulatory [facility] Repository 04/21/2017 [id number] [facility] PAYERS PAYERS ENCOUNTER GUARANTOR PAYER SUBSCRIBER SOURCE 04/13/2018 CRISTAL Primary CRISTAL [place] [id number] Insurance:MEDICARE [facility] PART A BPolicy Number: [id number] [id number] [place]ository [place] [address]Hqj: Date:2018-04-13 () 04/13/2018 Secondary CRISTAL [place] Insurance:[facility]ITALULAYDOB: [facility] Number: [id number] Hospital [id number] Repository Date:4483-26-47LD [address] [place] [address]KP: 04/13/2018 Tertiary NOT GIVENUNK [place] Insurance:SELF PAY [facility] Number: Effective Repository Date:2018-04-13 04/13/2018 CRISTAL Primary CRISTAL [place] [id number] Insurance:MEDICARE [facility]AYDOB: [facility] PART A BPolicy Number: [id number] Repository [place] [address]Zpl: Date:2018-04-06 () 04/13/2018 Secondary CRISTAL [place] Insurance:WPS MACAULAYDOB: Community FOR LIFEPolicy Number: [id number] Hospital [id number] Repository Date:5470-27-20GV [address] [address]EK: 04/13/2018 Tertiary NOT GIVENUNK [place] Insurance:SELF PAY [facility] Number: Effective Repository Date:2018-04-10 04/05/2018 CRISTAL Primary CRISTAL [place] [id number] Insurance:MEDICARE MACAULAYDOB: Community SR PART A BPolicy Number: [id number], [id number] [place]ository [place] [address]Afn: Date:2018-04-05 () 04/05/2018 Secondary CRISTAL [place] Insurance:WPS MACAULAYDOB: Community FOR LIFEPolicy Number: [id number] Hospital [id number] Repository Date:9315-80-70GP [address], [place] [address]JL: 04/05/2018 Tertiary NOT GIVENUNK [place] Insurance:SELF PAY [facility] Number: Effective Repository Date:2018-04-05 04/05/2018 CRISTAL Primary CRISTAL [place] [id number] Insurance:MEDICARE MACAULAYDOB: Community SR PART A BPolicy Number: [id number], [id number] [place]ository [place] [address]Ptb: Date:2018-04-05 () 04/05/2018 Secondary CRISTAL [place] Insurance:WPS MACAULAYDOB: Community FOR LIFEPolicy Number: [id number] Hospital [id number] Repository Date:0058-10-66RW [address] [address]CJ: 04/05/2018 Tertiary NOT GIVENUNK [place] Insurance:SELF PAY [facility] Number: Effective Repository Date:2018-04-05 04/05/2018 CRISTAL Primary CRISTAL [place] [id number] Insurance:MEDICARE MACAULAYDOB: Community SR PART A BPolicy Number: [id number], [id number] Repository [place] [address]Nno: Date:2018-04-05 () 04/05/2018 Secondary CRISTAL [place] Insurance:S [facility]ITALULAYD[facility]: Community FOR LIFEPolicy Number: [id number] Hospital [id number] Repository Date:0693-04-18TH [address], [place] [address]VD: 04/05/2018 Tertiary NOT GIVENUNK [place] Insurance:SELF PAY [facility] Number: Effective Repository Date:2018-04-05 04/05/2018 CRISTAL Primary CRISTAL [place] [id number] Insurance:MEDICARE MACAULAYDOB: Community SR PART A BPolicy Number: [id number], [id number] [place]ository [place] [address]Cyy: Date:2018-04-05 () 04/05/2018 Secondary CRISTAL [place] Insurance[facility]EB[facility]well [facility] Centericy Number: [id number] Hospital [id number] Repository Date:6340-00-72MN [address], [place] [address]TI: 04/05/2018 Tertiary NOT GIVENUNK [place] Insurance:SELF PAY [facility] Number: Effective Repository Date:2018-04-05 04/05/2018 LISA CRISTAL Primary LISA CRISTAL Praful Nelson MACAULAYDOB: Insurance:MEDICARE MACAULAYDOB: [facility] [id number] OUTPATIENTPolicy [id number] Hospital SR Number: [address] Repository [address] [place] [address], [id number] [address] [place] [address] Date:Plan Name:[facility] [id number]: () 04/05/2018 Secondary SANTOS [place] Insurance: FOR MACAULAYDOB: [facility] [id number] Hospital Number: [address] Repository [id number] [address] [place] [address], Date:Plan Name:[facility] [id number] 04/04/2018 LISA E Primary LISA E [place] [id number] Insurance:MEDICARE MACAULAYDOB: Community SR PART A BPolicy Number: [id number], [id number] Repository [place] [address]Gws: Date:2018-04-04 () 04/04/2018 Secondary LISA E [place] Insurance:WPS MACAULAYDOB: [facility] LIFEM[facility] Hospitaly Number: [id number] Hospital [id number] Repository Date:1393-49-75QJ [address], [place] [address]AD: 04/04/2018 Tertiary NOT GIVENUNK [place] Insurance:SELF PAY [facility] Number: Effective Repository Date:2018-04-04 04/04/2018 LISA E Primary LISA E [place] [id number] Insurance:MEDICARE MACAULAYDOB: Community SR PART A BPolicy Number: [id number], [id number] [place]ository [place] [address]Tzi: Date:2018-04-03 () 04/04/2018 Secondary LISA E [place] Insurance:WPS MACAULAYDOB: [facility] LIFEBanner Boswell Medical Centericy Number: [id number] Hospital [id number] Repository Date:9633-45-08QP [address], [place] [address]TY: 04/04/2018 Tertiary NOT GIVENUNK [place] Insurance:SELF PAY [facility] Number: Effective Repository Date:2018-04-04 03/30/2018 LISA CRISTAL Primary LISA CRISTAL Prfaul Stuartne MACAULAYDOB: Insurance:MEDICARE MACAULAYDOB: [facility] [id number] OUTPATIENTNew [facility] [id number] Hospital SR Number: [address] Repository [address] [place] [address], [id number] [address] [place] [address], [place] Date:Plan Name:[facility] [id number]: () 03/30/2018 Secondary SANTOS Nelson Insurance: FOR MACAULAYDOB: [facility] OUTPATIENTBanner Boswell Medical Centericy [id number] Hospital Number: [address] Repository [id number] [address] [place] [address], Date: [place] [id number] 03/09/2018 LISA E Primary LISA E [place] [id number] Insurance:MEDICARE MACAULAYDOB: Community SR PART A BPolicy Number: [id number], [id number] [place] [address]Swa: Date:2018-03-02 () 03/09/2018 Secondary LISA E [place] Insurance:WPS MACAULAYDOB: [facility] FOR LIFEBanner Boswell Medical Centericy Number: [id number] Hospital [id number] Repository Date:1685-47-87BZ [address], [place] [address]VW: 03/09/2018 Tertiary NOT GIVENUNK [place] Insurance:SELF PAY [facility] Number: Effective Repository Date:2018-03-02 03/02/2018 LISA E Primary LISA E [place] [id number] Insurance:MEDICARE MACAULAYDOB: Community SR PART A BPolicy Number: [id number], [id number] [place]ository [place] [address]Zxw: Date:2018-03-02 () 03/02/2018 Secondary LISA E [place] Insurance:WPS MACAULAYDOB: [facility] FOR LIFEMercy [facility] Hospitaly Number: [id number] Hospital [id number] Repository Date:7704-66-39GU [address], [place] [address]GF: 03/02/2018 Tertiary NOT GIVENUNK [place] Insurance:SELF PAY [facility] Number: Effective Repository Date:2018-03-02 03/02/2018 LISA E Primary LISA E [place] [id number] Insurance:MEDICARE MACAULAYDOB: Community SR PART A BPolicy Number: [id number], [id number] [place]ository [place] [address]Xfk: Date:2018-02-22 () 03/02/2018 Secondary LISA E [place] [facility] MACAULAYDOB: [facility] LIFENew [facility] Number: [id number] Hospital [id number] Repository Date:8336-67-79YX [address] [place] [address]CX: 03/02/2018 Tertiary NOT GIVENUNK [place] Insurance:SELF PAY [facility] Number: Effective Repository Date:2018-02-22 02/21/2018 MARCELLE E [id number] Primary MARCELLE E MEASEDOB: [place] [address] Insurance:MEDICAL [id number][facility] [address]Dsf: (330) Number: Repository [phone] () [id number] Date:3178-49-16MK [address] [place] [address]XX: 02/21/2018 Secondary NOT GIVENUNK [place] Insurance:SELF PAY [facility] Number: Effective Repository Date:2018-02-21 02/21/2018 LISA E Primary LISA E [place] [id number] Insurance:MEDICARE MACAULAYDOB: Community SR PART A BPolicy Number: [id number], [id number] [place]ository [place] [address]Axh: Date:2018-02-08 () 02/21/2018 Secondary LISA E [place] Insurance:WPS MACAULAYDOB: [facility] Number: [id number] Hospital [id number] Repository Date:9510-92-78PP [address], [place] [address]BU: 02/21/2018 Tertiary NOT GIVENUNK [place] Insurance:SELF PAY [facility] Number: Effective Repository Date:2018-02-21 02/21/2018 LISA E Primary LISA E [place] [id number] Insurance:MEDICARE MACAULAYDOB: Community SR PART A BPolicy Number: [id number], [id number] [place]ository [place] [address]Muy: Date:2018-02-08 () 02/21/2018 Secondary LISA E [place] Insurance:WPS MACAULAYDOB: Community FOR [facility]ENew [facility] Number: [id number] Hospital [id number] Repository Date:2078-24-86ZF [address], [place] [address]SZ: 02/21/2018 Tertiary NOT GIVENUNK [place] Insurance:SELF PAY [facility] Number: Effective Repository Date:2018-02-08 02/08/2018 LISA E Primary LISA E [place] [id number] Insurance:MEDICARE MACAULAYDOB: Community SR PART A BPolicy Number: [id number], [id number] [place]ository [place] [address]Gpr: Date:2017-08-08 () 02/08/2018 Secondary LISA E [place] Insurance:WPS MACAULAYDOB: Community FOR LIFEBanner Boswell Medical Centeric Number: [id number] Hospital [id number] Repository Date:8964-53-50XI [address], [place] [address]NQ: 02/08/2018 Tertiary NOT GIVENUNK [place] Insurance:SELF PAY [facility] Number: Effective Repository Date:2018-02-02 01/19/2018 LISA E Primary LISA E [place] [id number] Insurance:MEDICARE MACAULAYDOB: Community SR PART A BPolicy Number: [id number] [id number] [place]ository [place] [address]Rtd: Date:2018-01-11 () 01/19/2018 Secondary LISA E [place] Insurance:WPS MACAULAYDOB: [facility] L[facility]EM[facility] Hospitaly Number: [id number] Hospital [id number] Repository Date:4100-62-52OF [address], [place] [address]AG: 01/19/2018 Tertiary NOT GIVENUNK [place] Insurance:SELF PAY [facility] Number: Effective Repository Date:2018-01-11 01/05/2018 LISA CRISTAL Primary Insurance:[facility] LISA CRISTAL Prafulmikala Beanyefri MACAULAYDOB: MEDICARE MACAULAYDOB: [facility] [id number] OUTPATIENTNew [facility] [id number] Hospital SR Number: [address] Repository [address] [place] [address] [id number] [place] [address] Date:Plan Name:[facility] [id number]: () 01/05/2018 Secondary SANTOS Nelson Insurance:[facility] MACAULAYDOB: [facility] [id number] Hospital Number: [address] Repository [id number] [address] [place] [address], Date:Plan Name:[facility] [id number] 11/25/2017 LISA E Primary LISA E [place] [id number] Insurance:MEDICARE [facility] PART A BPolicy Number: [id number], [id number] [place]ository [place] [address]Eof: Date:2017-11-25 () 11/25/2017 Secondary LISA E [place] [facility] MACAULAYDOB: [facility] LIFENew [facility] Number: [id number] Hospital [id number] Repository Date:2223-96-02TU [address] [address]CA: 11/25/2017 Tertiary NOT GIVENUNK [place] Insurance:SELF PAY [facility] Number: Effective Repository Date:2017-11-25 10/19/2017 LISA E Primary LISA E [place] [id number] Insurance:MEDICARE MACAULAYDOB: [facility] SR PART A BPolicy Number: [id number], [id number] [place]ository [place] [address]Gbb: Date:2017-09-15 () 10/19/2017 Secondary LSIA E [place] Insurance:WPS MACAULAYDOB: [facility] Number: [id number] Hospital [id number] Repository Date:1163-97-01MN [address] [place] [address]UF: 10/19/2017 Tertiary NOT GIVENUNK [place] Insurance:SELF PAY [facility] Hospital Number: Effective Repository Date:2017-09-15 2017 LISA CRISTAL Primary LISA CRISTAL Praful Beanerene MACAULAYDOB: Insurance:MEDICARE MACAULAYDOB: [facility] [id number] [facility] [id number] Hospital SR Number: [address] Repository [address] [place] [id number] Date:Plan Name:[facility] Health [id number]: () 2017 Secondary SANTOS Nelson Insurance: FOR MACAULAYDOB: [facility] [id number] Hospital Number: [address] Repository [id number] [place], Date[place] [id number] 10/05/2017 LISA CRISTAL Primary LISA CRISTAL [place] [id number] Insurance:MEDICARE MACAULAYDOB: [facility] SR PART A BPolicy Number: [id number] [id number] [place]ository [place] [address]Heo: Date:2017-09-30 () 10/05/2017 Secondary LISA CRISTAL [place] Insurance:WPS MACAULAYDOB: [facility] Number: [id number] Hospital [id number] Repository Date:0265-30-20[address], [place] [address]NM: 10/05/2017 Tertiary NOT GIVENUNK [place] Insurance:SELF PAY Community [facility] Number: Effective Repository Date:2017-09-30 09/08/2017 LISA CRISTAL Primary LISA CRISTAL [place] [id number] Insurance:MEDICARE MACAULAYDOB: Community SR PART A BPolicy Number: [id number], [id number] [place]ository [place] [address]Ljw: Date:2017-09-08 () 09/08/2017 Secondary LISA CRISTAL [place] Insurance:S MACAULAYDOB: [facility] Number: [id number] Hospital [id number] Repository Date:6226-78-21[address], [place] [address]TY: 09/08/2017 Tertiary NOT GIVENUNK [place] Insurance:SELF PAY [facility] Number: Effective Repository Date:2017-09-08 08/29/2017 LISA CRISTAL Primary Insurance:500 LISA CRISTAL Praful Pomerene MACAULAYDOB: MEDICARE MACAULAYDOB: [facility] [id number] [facility] [id number] Hospital SR Number: [address] [id number] [address] [place] [address] Date:Plan Name:[facility] [id number]: () 08/29/2017 Secondary SANTOSKJ Nelson Insurance: FOR MACAULAYDOB: [facility] [id number] Hospital Number: 33 [facility] Repository [id number] [address] [place] [address], Date: [place] [id number] 08/17/2017 LISA CRISTAL Primary LISA CRISTAL [place] [id number] Insurance:MEDICARE MACAULAYDOB: Community SR PART A BPolicy Number: [id number] [id number] Repository [place] [address]Mao: Date:2017-07-27 () 08/17/2017 Secondary LISA CRISTAL [place] Insurance:WPS MACAULAYDOB: Community FOR LIFEPolicy Number: [id number] Hospital [id number] Repository Date:4843-60-67[address], [place] [address]UZ: 08/17/2017 Tertiary NOT GIVENUNK [place] Insurance:SELF PAY [facility] Number: Effective Repository Date:2017-07-27 08/12/2017 LISA CRISTAL Primary LISA CRISTAL [place] [id number] Insurance:MEDICARE MACAULAYDOB: Community SR PART A BPolicy Number: [id number] [id number] Repository [place] [address]Jgo: Date:2017-07-26 () 08/12/2017 Secondary LISA CRISTAL [place] Insurance:WPS MACAULAYDOB: Community FOR LIFEPolicy Number: [id number] Hospital [id number] Repository Date:3775-08-54[address], [place] [address]TP: 08/12/2017 Tertiary NOT GIVENUNK [place] Insurance:SELF PAY [facility] Number: Effective Repository Date:2017-07-26 08/08/2017 LISA CRISTAL Primary LISA CRISTAL [place] [id number] Insurance:MEDICARE MACAULAYDOB: Community SR PART A BPolicy Number: [id number] [id number] Repository [place] [address]Jtk: Date:2017-08-02 () 08/08/2017 Secondary LISA CRISTAL [place] Insurance:WPS MACAULAYDOB: Community FOR LIFEPolicy Number: [id number] Hospital [id number] Repository Date:4573-15-23[address], [place] [address]UA: 08/08/2017 Tertiary NOT GIVENUNK [place] Insurance:SELF PAY Community [facility] Number: Effective Repository Date:2017-08-02 07/28/2017 LISA CRISTAL Primary LISA CRISTAL [place] [id number] Insurance:MEDICARE MACAULAYDOB: Community SR PART A BPolicy Number: [id number] [id number] Repository [place] [address]Rtb: Date:2005-09-18 () 07/28/2017 Secondary LISA CRISTAL [place] Insurance:WPS MACAULAYDOB: Community FOR LIFEPolicy Number: [id number] Hospital [id number] Repository Date:4747-68-91[address], [place] [address]NP: 07/28/2017 Tertiary NOT GIVENUNK [place] Insurance:SELF PAY Community [facility] Number: Effective Repository Date:2017-07-28 07/26/2017 Lisa Cristal Primary Lisa Cristal [place] [id number] Insurance:MEDICARE MacaulayDOB: Community SR PART A BPolicy Number: [id number] [id number] Repository [place] [address]Tpo: Date:2005-09-18 () 07/26/2017 Secondary Lisa Cristal [place] Insurance:WPS MacaulayDOB: Community FOR LIFEPolicy Number: [id number] Hospital [id number] Repository Date:8048-77-47[address], [place] [address]AO: 07/26/2017 Tertiary NOT GIVENUNK [place] Insurance:SELF PAY Community [facility] Number: Effective Repository Date:2017-02-02 07/19/2017 Lisa Cristal Primary Lisa Cristal [place] [id number] Insurance:MEDICARE MacaulayDOB: Community SR PART A BPolicy Number: [id number] [id number] Repository [place] [address]Akt: Date:2017-02-28 () 07/19/2017 Secondary Lisa Cristal [place] Insurance:WPS MacaulayDOB: Community FOR LIFEPolicy Number: [id number] Hospital [id number] Repository Date:0099-61-87[address], [place] [address]QY: 07/19/2017 Tertiary NOT GIVENUNK [place] Insurance:SELF PAY Community [facility] Number: Effective Repository Date:2017-02-28 07/13/2017 Lisa Cristal Primary Lisa Cristal [place] [id number] Insurance:MEDICARE MacaulayDOB: Community SR PART A BPolicy Number: [id number] [id number] [place]ository [place] [address]Pbn: Date:2017-07-13 () 07/13/2017 Secondary Lisa Cristal [place] Insurance:WPS MacaulayDOB: Community FOR LIFEPolicy Number: [id number] Hospital [id number] Repository Date:0695-52-48[address], [place] [address]HX: 07/13/2017 Tertiary NOT GIVENUNK [place] Insurance:SELF PAY [facility] Number: Effective Repository Date:2017-07-13 07/08/2017 Lisa Cristal Primary Lisa Cristal [place] [id number] Insurance:MEDICARE MacaulayDOB: Community SR PART A BPolicy Number: [id number] [id number] Repository [place] [address]Scc: Date:2017-07-08 () 07/08/2017 Secondary Lisa Cristal [place] Insurance:WPS MacaulayDOB: Community FOR LIFEPolicy Number: [id number] Hospital [id number] Repository Date:5341-50-23CY [address] [address]GB: 07/08/2017 Tertiary NOT GIVENUNK [place] Insurance:SELF PAY Community [facility] Number: Effective Repository Date:2017-07-08 07/07/2017 Lisa Cristal Primary Lisa Cristal [place] [id number] Insurance:MEDICARE MacaulayDOB: Community SR PART A BPolicy Number: [id number] [id number] Repository [place] [address]Wdw: Date:2005-09-18 () 07/07/2017 Secondary Lisa Cristal [place] [facility]:WPS [facility] Number: [id number] Hospital [id number] Repository Date:6337-77-67OT [address], [place] [address]UQ: 07/07/2017 Tertiary NOT GIVENUNK [place] Insurance:SELF PAY [facility] Number: Effective Repository Date:2017-02-02 07/07/2017 Lisa Cristal Primary Lisa Cristal [place] [id number] Insurance:MEDICARE MacaulayDOB: Community SR PART A BPolicy Number: [id number] [id number] Repository [place] [address]Tyx: Date:2005-09-18 () 07/07/2017 Secondary Lisa Cristal [place] Insurance:S MacaulayDOB: [facility] FOR LIFEPolicy Number: [id number] Hospital [id number] Repository Date:0972-28-02GY [address], [place] [address]KK: 07/07/2017 Tertiary NOT GIVENUNK [place] Insurance:SELF PAY [facility] Number: Effective Repository Date:2017-07-07 06/28/2017 Lisa Cristal Primary Lisa Cristal [place] [id number] Insurance:MEDICARE MacaulayDOB: Community SR PART A BPolicy Number: [id number] [id number] Repository [place] [address]Ibo: Date:2017-06-08 () 06/28/2017 Secondary Lisa Cristal [place] Insurance:WPS MacaulayDOB: [facility] FOR LIFEPolicy Number: [id number] Hospital [id number] Repository Date:7772-30-70[place] [address]LK: 06/28/2017 Tertiary NOT GIVENUNK [place] Insurance:SELF PAY [facility] Number: Effective Repository Date:2017-06-28 06/06/2017 LISA CRISTAL Primary Insurance:500 LISA CRISTAL [place] MACAULAYDOB: MEDICARE MACAULAYDOB: [facility] [id number] [facility] [id number] Hospital SR Number: [address], [id number] [address] [place] [address], [place] Date:Plan Name:[facility] [id number]: () 06/06/2017 Secondary SANTOS Nelson Insurance: FOR MACAULAYDOB: [facility] [id number] Hospital Number: [address] Repository [id number] [place], Date:Plan Name:[facility] [id number] 05/23/2017 LISA E Primary LISA E [facility] MACAULAYDOB: Insurance:MEDICARE A MACAULAYDOB: [facility] [id number] AND BPolicy Number: [id number] Repository SR [id number] [address] [place] [address], Date: [place] [address]Ats: () 05/23/2017 Secondary LISA E [facility] Insurance: FOR MACAULAYDOB: [facility] LIFEPolicy Number: [id number] Repository [id number] Date: 05/18/2017 Lisa Cristal Primary Lisa Cristal [place] [id number] Insurance:MEDICARE MacaulayDOB: [facility] SR PART A BPolicy Number: [id number] Hospital [place], [id number] Repository [place] [address]Gdi: Date:2017-05-10 (HP) 05/18/2017 Secondary Lisa Cristal [place] Insurance:WPS MacaulayDOB: Community FOR LIFEPolicy Number: [id number] Hospital [id number] Repository Date:1175-19-88XC [address], [place] [address]AA: 05/18/2017 Tertiary NOT GIVENUNK [place] Insurance:SELF PAY [facility] Number: Effective Repository Date:2017-05-10 05/09/2017 Lisa Cristal Primary Lisa Cristal [place] [id number] Insurance:MEDICARE MacaulayDOB: Community SR PART A BPolicy Number: [id number] [address] [id number] Repository [place] [address]Koh: Date:2017-03-28 () 05/09/2017 Secondary Lisa Cristal [place] Insurance:WPS MacaulayDOB: [facility] FOR LIFEPolicy Number: [id number] Hospital [id number] Repository Date:8381-17-03QZ [address], [place] [address]JQ: 05/09/2017 Tertiary NOT GIVENUNK [place] Insurance:SELF PAY [facility] Number: Effective Repository Date:2017-03-28 05/05/2017 LISA E Primary LISA E [facility] MACAULAYDOB: Insurance:MEDICARE A MACAULAYDOB: [facility] [id number] AND BPolicy Number: [id number] Repository [id number] [address] [place] [address], Date: [place] [address]Tvt: (HP) 05/05/2017 Secondary LISA E [facility] Insurance: FOR MACAULAYDOB: [facility] LIFEPolicy Number: [id number] Repository [id number] Date: 05/04/2017 Lisa Cristal Primary Lisa Cristal [place] [id number] Insurance:MEDICARE MacaulayDOB: Community SR PART A BPolicy Number: [id number] [address] [id number] Repository [place] [address]Ggp: Date:2017-05-04 (HP) 05/04/2017 Secondary Lisa Cristal [place] Insurance:WPS MacaulayDOB: [facility]er[facility] Hospital[facility] Number: [id number] [id number] Repository Date:9746-19-67YY [place] [address]HP: 05/04/2017 Tertiary NOT GIVENUNK [place] Insurance:SELF PAY [facility] Number: Effective Repository Date:2017-05-04 04/28/2017 LISA E Primary LISA E [facility] MACAULAYDOB: Insurance:MEDICARE A MACAULAYDOB: [facility] AND BPolicy Number: [id number] Repository SR [id number] [address] [place] [address], Date: [place] [address]Pfz: () 04/28/2017 Secondary LISA E [facility] Insurance: FOR MACAULAYDOB: [facility] LIFEPolicy Number: [id number] Repository [id number] Date: 04/21/2017 LISA E Primary LISA E [facility] MACAULAYDOB: Insurance:MEDICARE A MACAULAYDOB: [facility] AND BPolicy Number: [id number] Repository SR [id number] [address] [place] [address], Date: [place] [address]Dos: () 04/21/2017 Secondary LISA E [facility] Insurance: FOR MACAULAYDOB: [facility] LIFEPolicy Number: [id number] Repository [id number] Date: 04/21/2017 LISA E Primary LISA E [facility] MACAULAYDOB: Insurance:MEDICARE A MACAULAYDOB: [facility] AND BPolicy Number: [id number] Repository SR [id number] [place], Date: [place] [address]Lca: (HP) 04/21/2017 Secondary LISA E [facility] Insurance: FOR MACAULAYDOB: [facility] System LIFEPolicy Number: [id number] Repository [id number] Date:
== END 2018-04-07 11:29 | disposition home or self-care (01) | DRG 812 ==
LOC: ED 18:53 → MS3 20:08
PROVIDERS: Admitting Provider Internal Medicine; Emergency Provider Emergency Medicine; Family Provider Family Medicine; PCP Family Medicine; Visit Provider Internal Medicine
DX: D50.9 Iron deficiency anemia, unspecified (principal); I13.0 Hypertensive heart and chronic kidney disease with heart failure and stage 1 through stage 4 chronic kidney disease, or unspecified chronic kidney disease; I50.32 Chronic diastolic (congestive) heart failure; I25.10 Atherosclerotic heart disease of native coronary artery without angina pectoris; E66.01 Morbid (severe) obesity due to excess calories; M19.90 Unspecified osteoarthritis, unspecified site; I27.20 Pulmonary hypertension, unspecified; K21.9 Gastro-esophageal reflux disease without esophagitis; E03.9 Hypothyroidism, unspecified; G47.33 Obstructive sleep apnea (adult) (pediatric); E78.5 Hyperlipidemia, unspecified; H40.9 Unspecified glaucoma; E11.42 Type 2 diabetes mellitus with diabetic polyneuropathy; J44.9 Chronic obstructive pulmonary disease, unspecified; E11.65 Type 2 diabetes mellitus with hyperglycemia; G89.4 Chronic pain syndrome; F41.8 Other specified anxiety disorders; M48.061 Spinal stenosis, lumbar region without neurogenic claudication; J30.9 Allergic rhinitis, unspecified; M51.36 Other intervertebral disc degeneration, lumbar region; E11.51 Type 2 diabetes mellitus with diabetic peripheral angiopathy without gangrene; Z68.36 Body mass index [BMI] 36.0-36.9, adult; Z87.891 Personal history of nicotine dependence; Z79.4 Long term (current) use of insulin; Z86.73 Personal history of transient ischemic attack (TIA), and cerebral infarction without residual deficits; Z95.5 Presence of coronary angioplasty implant and graft; Z85.828 Personal history of other malignant neoplasm of skin; E11.22 Type 2 diabetes mellitus with diabetic chronic kidney disease; N18.3 Chronic kidney disease, stage 3 (moderate); Z79.82 Long term (current) use of aspirin; I65.29 Occlusion and stenosis of unspecified carotid artery
CPT/HCPCS: 36415; 71045; 71046; 80048; 80053; 80061; 82274; 82607; 82728; 82962; 83540; 83550; 83735; 83880; 84100; 84484; 85025; 85027; 86850; 86900; 86920; 86922; 93005; 97802; 99282; J1756; J7040; P9016; A4216; J1940

== ENCOUNTER → 2018-04-13 10:33 | Outpatient (CLI) | payer MEDICARE, OTHER, SELFPAY ==
[2016-11-25 09:39] VITALS: BMI 35.8
[2018-04-13 09:40] VITALS: BMI 36.6
[2018-04-13 11:39] LABS: Hemoglobin 10.6 g/dl (12.0-15.0); Mean Corp Hgb Conc 30.3 g/gl (32-36); Mean Corpuscular Hgb 31.1 pg (27.0-32.0); Mean Corpuscular Volume 102.6 fL (81-99); Mean Platelet Vol. 9.6 fl (6.2-12.0); Platelet Count 305 K/mm3 (150-450); RBC Distribution Width CV 16.2 % (11.6-14.6); RBC Distribution Width SD 59.4 fl (35.1-43.9); Red Blood Count 3.41 M/mm3 (4.2-5.4); White Blood Count 4.7 K/mm3 (4.4-11.0)
[2018-04-13 11:45] LABS: Scan Indicated on CBC? Y/N NO
[2018-04-13 12:17] LABS: Anion Gap 10 (5-15); BUN 36 mg/dL (7-18); BUN/Creat Ratio 25.5 RATIO (10-20); Chloride 103 mmol/L (98-107); Creatinine, Serum 1.41 mg/dL (0.55-1.02); EST Glomerular Filtration Rate 38 mL/min (>60); Est Glom Filt Rate - Afr Amer 46 mL/min (>60); Glucose 366 mg/dL (74-106); Potassium 4.7 mmol/L (3.5-5.1); Sodium Level 137 mmol/L (136-145)
== END ==
PROVIDERS: Surgery; Family Provider Family Medicine; PCP Family Medicine; Referring Provider Family Medicine; Visit Provider Family Medicine
DX: E11.65 Type 2 diabetes mellitus with hyperglycemia (principal); E11.22 Type 2 diabetes mellitus with diabetic chronic kidney disease; N18.3 Chronic kidney disease, stage 3 (moderate); D63.1 Anemia in chronic kidney disease; R06.09 Other forms of dyspnea
CPT/HCPCS: 36415; 80048; 85027

== ENCOUNTER → 2018-04-19 06:25 | Outpatient (CLI) | payer MEDICARE, OTHER, SELFPAY ==
[2016-11-25 09:39] VITALS: BMI 35.8
[2018-04-05 20:29] VITALS: BMI 36.6
[2018-04-13 09:40] VITALS: BMI 36.6
--- NOTE | 2018-04-19 10:04 | STRESSREP ---
Stress Test Report Pharmacologic myocardial perfusion stress test. 77-year-old lady with a history of coronary artery disease. Medications Synthroid, insulin, isosorbide, valsartan, ranolazine. Stress protocol: Resting EKG demonstrates normal sinus rhythm with a rate of 71 bpm normal intervals are noted resting blood pressure 128/64 mmHg. 0.4 mg of regadenoson was infused per usual protocol followed by rapid intravenous saline flush injection continuous EKG monitoring was performed. The maximum heart rate was 85 bpm which was 59% of maximum predicted heart rate the maximum workload was 1 metabolic equivalent. At rest there were no ST or T wave changes noted suggest abnormal flow reserve at peak infusion nonspecific ST-T wave changes were noted with normally the criteria for ischemia. Resting blood pressure was 128/64 final blood pressure 126/60 mmHg. Myocardial perfusion protocol. 14.7 mCi of technetium 99m sestamibi was injected at rest. 0.4 mg of regadenoson was infused per usual protocol. At peak infusion 44.8 mCi of technetium 99m sestamibi was injected stress images were obtained stress and rest images were reconstructed and compared in the short axis vertical and horizontal long axis. Gated images were also obtained per Perfusion SPECT analysis. Review of the images demonstrate normal uptake of tracer in all areas of the myocardium the resting images similarly demonstrate normal uptake of tracer noted in all areas of the myocardium. No areas of reversibility are noted suggest ischemia no previous infarct is noted. Gated SPECT analysis: The gated ejection fraction is noted to be 62%. Conclusion: Normal pharmacologic myocardial perfusion stress test. Preserved ejection fraction.
== END ==
PROVIDERS: Family Provider Family Medicine; PCP Family Medicine; Referring Provider Nurse Practitioner Family; Visit Provider Nurse Practitioner Family
DX: I25.10 Atherosclerotic heart disease of native coronary artery without angina pectoris (principal); I10 Essential (primary) hypertension; R06.09 Other forms of dyspnea; Z95.5 Presence of coronary angioplasty implant and graft
CPT/HCPCS: 78452; 93017; A9500; A4216; J2785

== ENCOUNTER 2018-04-25 05:22 | Day surgery (SDC) | payer MEDICARE, OTHER, SELFPAY ==
[2016-11-25 09:39] VITALS: BMI 35.8
[2018-04-13 09:40] VITALS: BMI 36.6
[2018-04-25] VITALS (7 sets, daily range): BP systolic 118–150; BP diastolic 47–66; PULSE 74–78; RESP 16–18; TEMP 35.9–36.9; O2SAT 92–95; BMI 35.9
--- NOTE | 2018-04-25 | GASB_PTH ---
PATIENT: ALPHONSO GUZMAN LOC: EN U#:[id number] AGE/SX: 77/F ROOM: RE04/25/[address]: Dr. Kirit Hewitt MD : 1940 BED: DIS: 04/25/2018 SPEC #: [id number] RECD: 04/25/18 10:27 STATUS: JOVAN RELita #: [id number] CHERYL: 04/25/18 00:[address]: Kirit Hewitt DEPT: SURGICAL PATHOLOGY RECD BY: Oleg Stanford ENTERED: 04/25/18 10:28 SP TYPE: Gastric Bx OTHR DR: Dr. Harman Huston DO Tissues: A - Gastric mucous membrane B - Stomach, NOS C - Transverse colon D - Transverse colon E - Rectum, NOS Procedures: Surgery Specimen Level IV HEADER OPERATION: Colonoscopy, [place] [place] DIAGNOSIS: Anemia TISSUE SUBMITTED: A - Antral biopsy for histo and H. pylori, B - Body of stomach biopsy, C - Polyp distal transverse, D - Mucosal fold biopsy distal transverse, E - Polyp proximal rectum MICROSCOPIC DIAGNOSIS A. Antral biopsy: Mild gastritis. See microscopic description and comment. B. Body of stomach, biopsy: Fragments of gastric mucosa with focal ulceration, acute and chronic inflammation, and reactive epithelial changes. See comment. C. Polyp distal transverse colon, biopsy; Fragments of tubular adenoma. D. Distal transverse mucosal fold, biopsy: Tubular adenoma. E. Proximal rectum polyp, biopsy: Tubular adenoma. SJ:leander 04/26/18 COMMENT A & B. The results of immunohistochemistry for Helicobacter pylori will be reported separately ([id number]). MICROSCOPIC DESCRIPTION Slides are reviewed. A. The specimen shows fragments of gastric mucosa with chronic inflammatory cell infiltrates in the lamina propria consisting of lymphocytes and plasma cells, consistent with mild chronic gastritis. GROSS DESCRIPTION A - Received in fixative is one container labeled with the patient's name and designated antral biopsy. The specimen consists of one irregular fragment of light cameron soft tissue that measures 0.3 x 0.2 x 0.1 cm. The specimen is totally submitted in one cassette. B - Received in fixative is one container labeled with the patient's name and designated body of stomach biopsy. The specimen consists of multiple irregular fragments of light cameron soft tissue that in aggregate measure 0.5 x 0.5 x 0.1 cm. The specimen is totally submitted in one cassette. C - Received in fixative is one container labeled with the patient's name and designated distal transverse colon polyp. The specimen consists of multiple irregular fragments of light cameron soft tissue that in aggregate measure 0.7 x 0.5 x 0.1 cm. The specimen is totally submitted in one cassette. D - Received in fixative is one container labeled with the patient's name and designated distal transverse mucosal fold biopsy. The specimen consists of two irregular fragments of light cameron soft tissue that in aggregate measure 0.5 x 0.2 x 0.1 cm. The specimen is totally submitted in one cassette. E - Received in fixative is one container labeled with the patient's name and designated proximal rectum polyp biopsy. The specimen consists of a single irregular fragment of cameron tissue measuring 1 x 0.7 x 0.2 cm. The specimen is bisected and totally submitted in one cassette. / AM:leander 04/25/18 TC:1 CPT: 39666 x5
--- NOTE | 2018-04-25 06:30 | IMM_PTH ---
PATIENT: ALPHONSO GUZMAN LOC: EN U#:[id number] AGE/SX: 77/F ROOM: RE04/25/[address]: Dr. Kirit Hewitt MD : 1940 BED: DIS: 04/25/2018 SPEC #: [id number] RECD: 04/25/18 10:40 STATUS: JOVAN RELita #: [id number] CHERYL: 04/25/18 06:[address]: Kirit Hewitt DEPT: IMMUNOHISTOCHEMISTRY RECD BY: Joy Delgado ENTERED: 04/25/18 10:41 SP TYPE: IMMUNO OTHR DR: Dr. Harman Huston, DO Tissues: A - Stomach, NOS Procedures: H Pylori (initial) PHYSICIAN & INSTITUTION [place] [address] SPECIMEN INFORMATION: Tissue Source: A - Antral biopsy, B - Body of stomach biopsy Clinical Info: Anemia Specimen Number: [id number] A & B CPT code: 94203 x2 METHODOLOGY: Deparaffinized sections of prefer/formalin-fixed tissue or PAP/DQ stained slides are incubated with monoclonal/polyclonal antibodies/oligonucleotide probes. Localization is made via biotin free immunoperoxidase method. Appropriate controls are performed and reacted as expected. Results on target cell population are indicated in the following table: RESULTS: ANTIBODY / CLONE RESULT Block A H Pylori (polyclonal) negative Block B H Pylori (polyclonal) negative These tests were developed and their performance characteristics determined by [facility]. They may not have been cleared or approved by the U.S. Food and Drug Administration. The FDA has determined that such clearance or approval is not necessary. INTERPRETATION: A. Antral biopsy: Negative for Helicobacter pylori organisms. B. Body of stomach, biopsy: Negative for Helicobacter pylori organisms. THEO:leander 04/26/18
--- NOTE | 2018-04-25 07:18 | OP.ENDO_ITS ---
Patient Name: Karen Pisano Procedure Date: 04/25/2018 6:04 AM Date of : 1940 Age: 77 Procedure: Upper GI endoscopy Indications: Iron deficiency anemia Providers: Kirit Hewitt MD Referring MD: Kirit Hewitt MD Medicines: See the Anesthesia note for documentation of the administered medications Complications: No immediate complications. Procedure: Pre-Anesthesia Assessment: - Prior to the procedure, a History and Physical was performed, and patient medications and allergies were reviewed. The patient's tolerance of previous anesthesia was also reviewed. The risks and benefits of the procedure and the sedation options and risks were discussed with the patient. All questions were answered, and informed consent was obtained. Prior Anticoagulants: The patient has taken Plavix (clopidogrel), last dose was 1 day prior to procedure. ASA Grade Assessment: III - A patient with severe systemic disease. After reviewing the risks and benefits, the patient was deemed in satisfactory condition to undergo the procedure. After obtaining informed consent, the endoscope was passed under direct vision. Throughout the procedure, the patient's blood pressure, pulse, and oxygen saturations were monitored continuously. The gastroscope was introduced through the mouth, and advanced to the second part of duodenum. The upper GI endoscopy was accomplished without difficulty. The patient tolerated the procedure well. Scope In: 6:34:33 AM Scope Out: 6:40:12 AM Total Procedure Duration Time 0 hours 5 minutes 39 seconds Findings: Esophagitis with no bleeding was found 40 cm from the incisors. A 1 cm hiatal hernia was present. Diffuse mildly erythematous mucosa without bleeding was found in the gastric body and in the gastric antrum. Biopsies were taken with a cold forceps for histology. Erythema of the antrum and unusual folds with irritation in the body of the stomach The examined duodenum was normal. Impression: - Reflux esophagitis. - 1 cm hiatal hernia. - Erythematous mucosa in the gastric body and antrum. Biopsied. - Normal examined duodenum. Recommendation: - Discharge patient to home. - Resume previous diet. - Continue present medications. - Telephone my office for pathology results in 1 week. Procedure Code(s): --- Professional --- 79508, Esophagogastroduodenoscopy, flexible, transoral; with biopsy, single or multiple Diagnosis Code(s): --- Professional --- K21.0, Gastro-esophageal reflux disease with esophagitis K44.9, Diaphragmatic hernia without obstruction or gangrene K31.89, Other diseases of stomach and duodenum D50.9, Iron deficiency anemia, unspecified CPT copyright 2017 [employer]. All rights reserved. The codes documented in this report are preliminary and upon labor relations supervisor review may be revised to meet current compliance requirements. Kirit Hewitt MD 04/25/2018 7:17:28 AM This report has been signed electronically. Number of Addenda: 0 Note Initiated On: 04/25/2018 6:04 AM
--- NOTE | 2018-04-25 07:24 | OP.ENDO_ITS ---
Patient Name: Karen Pisano Procedure Date: 04/25/2018 6:41 AM Date of : 1940 Age: 77 Procedure: Colonoscopy Indications: Iron deficiency anemia Providers: Kirit Hewitt MD Referring MD: Kirit Hewitt MD Medicines: See the Anesthesia note for documentation of the administered medications Patient Profile: Last Colonoscopy: 10 years ago. Complications: No immediate complications. Procedure: Pre-Anesthesia Assessment: - Prior to the procedure, a History and Physical was performed, and patient medications and allergies were reviewed. The patient's tolerance of previous anesthesia was also reviewed. The risks and benefits of the procedure and the sedation options and risks were discussed with the patient. All questions were answered, and informed consent was obtained. Prior Anticoagulants: The patient has taken Plavix (clopidogrel), last dose was 1 day prior to procedure. ASA Grade Assessment: III - A patient with severe systemic disease. After reviewing the risks and benefits, the patient was deemed in satisfactory condition to undergo the procedure. After I obtained informed consent, the scope was passed under direct vision. Throughout the procedure, the patient's blood pressure, pulse, and oxygen saturations were monitored continuously. The Colonoscope was introduced through the anus and advanced to the cecum, identified by appendiceal orifice and ileocecal valve. The colonoscopy was performed with moderate difficulty due to a tortuous colon. The patient tolerated the procedure well. The quality of the bowel preparation was fair. Scope In: 6:42:54 AM Scope Withdrawal Time 0 hours 20 minutes 47 seconds Scope Out: 7:12:03 AM Total Procedure Duration Time 0 hours 29 minutes 9 seconds Findings: The digital rectal exam findings include non-thrombosed external hemorrhoids, non-thrombosed internal hemorrhoids and internal hemorrhoids that prolapse with straining, but require manual replacement into the anal canal (Grade III). A 15 mm polyp was found in the distal transverse colon. The polyp was semi-pedunculated. The polyp was removed with a hot snare. Resection and retrieval were complete. Separate area of irregular mucosa was biopsied with cold forceps. See photo. A 10 mm polyp was found in the rectum. The polyp was pedunculated. The polyp was removed with a hot snare. Resection and retrieval were complete. Impression: - Preparation of the colon was fair. - Non-thrombosed external hemorrhoids, non-thrombosed internal hemorrhoids and internal hemorrhoids that prolapse with straining, but require manual replacement into the anal canal (Grade III) found on digital rectal exam. - One 15 mm polyp in the distal transverse colon, removed with a hot snare. Resected and retrieved. Separate area of distal transverse colon biopsied. - One 10 mm polyp in the rectum, removed with a hot snare. Resected and retrieved. Recommendation: - Telephone my office for pathology results in 1 week. - Discharge patient to home. - Resume previous diet. - Continue present medications. - Repeat colonoscopy in 1 year for surveillance. Procedure Code(s): --- Professional --- 78513, Colonoscopy, flexible; with removal of tumor(s), polyp(s), or other lesion(s) by snare technique 42208, 59, Colonoscopy, flexible; with biopsy, single or multiple Diagnosis Code(s): --- Professional --- K64.2, Third degree hemorrhoids K64.4, Residual hemorrhoidal skin tags D12.3, Benign neoplasm of transverse colon (hepatic flexure or splenic flexure) K62.1, Rectal polyp D50.9, Iron deficiency anemia, unspecified CPT copyright 2017 [employer]. All rights reserved. The codes documented in this report are preliminary and upon making machine operator review may be revised to meet current compliance requirements. Kirit Hewitt MD 04/25/2018 7:23:48 AM This report has been signed electronically. Number of Addenda: 0 Note Initiated On: 04/25/2018 6:41 AM
== END 2018-04-25 08:13 | disposition home or self-care (01) ==
LOC: EN 05:23 → AC 05:24
PROVIDERS: Family Provider Family Medicine; PCP Family Medicine; Referring Provider Surgery; Visit Provider Surgery
PROC: 0DJD8ZZ Inspection of Lower Intestinal Tract, Via Natural or Artificial Opening Endoscopic (ICD-10-PCS; CPT 45378; principal; 2018-04-25 06:25)
DX: K21.0 Gastro-esophageal reflux disease with esophagitis (principal); K44.9 Diaphragmatic hernia without obstruction or gangrene; K31.89 Other diseases of stomach and duodenum; K29.70 Gastritis, unspecified, without bleeding; D12.3 Benign neoplasm of transverse colon; D12.8 Benign neoplasm of rectum; K64.4 Residual hemorrhoidal skin tags; K64.2 Third degree hemorrhoids; D50.9 Iron deficiency anemia, unspecified; I13.0 Hypertensive heart and chronic kidney disease with heart failure and stage 1 through stage 4 chronic kidney disease, or unspecified chronic kidney disease; E11.22 Type 2 diabetes mellitus with diabetic chronic kidney disease; N18.3 Chronic kidney disease, stage 3 (moderate); I50.30 Unspecified diastolic (congestive) heart failure; I65.23 Occlusion and stenosis of bilateral carotid arteries; I27.20 Pulmonary hypertension, unspecified; I25.10 Atherosclerotic heart disease of native coronary artery without angina pectoris; I25.2 Old myocardial infarction; E11.42 Type 2 diabetes mellitus with diabetic polyneuropathy; E11.65 Type 2 diabetes mellitus with hyperglycemia; E78.00 Pure hypercholesterolemia, unspecified; K59.00 Constipation, unspecified; J44.9 Chronic obstructive pulmonary disease, unspecified; G47.33 Obstructive sleep apnea (adult) (pediatric); M19.90 Unspecified osteoarthritis, unspecified site; E03.9 Hypothyroidism, unspecified; H40.9 Unspecified glaucoma; E66.01 Morbid (severe) obesity due to excess calories; Z68.36 Body mass index [BMI] 36.0-36.9, adult; Z95.5 Presence of coronary angioplasty implant and graft; Z79.4 Long term (current) use of insulin; Z79.01 Long term (current) use of anticoagulants; Z79.82 Long term (current) use of aspirin; Z79.899 Other long term (current) drug therapy; Z87.891 Personal history of nicotine dependence
CPT/HCPCS: 43239; 45380; 45385; 88305; 88342; J7120

== ENCOUNTER → 2018-04-27 14:16 | Outpatient (CLI) | payer MEDICARE, OTHER, SELFPAY ==
[2016-11-25 09:39] VITALS: BMI 35.8
[2018-04-25 05:56] VITALS: BMI 35.9
[2018-04-27 15:54] LABS: Absolute Lymphocyte Count 1.92 X10^3/ul (0.83-4.51); Absolute Neutrophil Count 3.1 X10^3/uL (2.0-7.7); Basophil# 0.01 X10^3/uL; Basophil% 0.2 % (0-1); Eosinophil# 0.23 X10^3/uL; Hematocrit 32.5 % (37-47); Hemoglobin 10.3 g/dl (12.0-15.0); Lymphocyte # 1.92 X10^3/ul (4.0); Lymphocyte % 33.7 % (19-41); Mean Corp Hgb Conc 31.7 g/gl (32-36); Mean Corpuscular Hgb 31.3 pg (27.0-32.0); Mean Corpuscular Volume 98.8 fL (81-99); Mean Platelet Vol. 9.5 fl (6.2-12.0); Monocyte# 0.42 X10^3/uL; Monocyte% 7.4 % (0-10); Neutrophil # 3.09 X10^3/uL (2.7-7.7); Neutrophil % 54.3 % (47-70); Platelet Count 278 K/mm3 (150-450); RBC Distribution Width CV 15.2 % (11.6-14.6); RBC Distribution Width SD 54.7 fl (35.1-43.9); Red Blood Count 3.29 M/mm3 (4.2-5.4); White Blood Count 5.7 K/mm3 (4.4-11.0)
[2018-04-27 15:57] LABS: POSITIVE COUNT NO; POSITIVE DIFFERENTIAL NO; POSITIVE MORPHOLOGY NO
[2018-04-27 16:10] LABS: Ferritin 29 ng/mL (8-252); Iron 95 ug/dL (50-170); LDH 194 U/L (84-246)
[2018-04-27 20:10] LABS: D-Dimer Quantitative (DVT/PE) 1.18 FEU/ug/m (0.27-0.49)
== END ==
PROVIDERS: Family Provider Family Medicine; PCP Family Medicine; Visit Provider Family Medicine
DX: D64.9 Anemia, unspecified (principal); R06.09 Other forms of dyspnea
CPT/HCPCS: 36415; 82728; 83540; 83615; 85025; 85379

== ENCOUNTER 2018-04-28 09:26 | Outpatient (CLI) | payer MEDICARE, OTHER, SELFPAY ==
[2016-11-25 09:39] VITALS: BMI 35.8
[2018-04-25 05:56] VITALS: BMI 35.9
[2018-04-28 09:28] VITALS: BP 140/78; PULSE 73; RESP 16; TEMP 36.5; O2SAT 96; BMI 34.9
[2018-04-28 09:38] VITALS: BP 156/60; PULSE 67; PULSE 71; RESP 16; TEMP 36.9; O2SAT 95
--- NOTE | 2018-04-28 09:46 | NURSING ---
CALLED DR ANTON'S OFFICE FOR DR BARBER. HAD TO LEAVE A MESSAGE
[2018-04-28 09:48] VITALS: BP 163/60; PULSE 66; RESP 16; TEMP 36.9; O2SAT 94
--- NOTE | 2018-04-28 10:51 | CT_ITS ---
STUDY: CTA CHEST REASON FOR EXAM: Female, 77 years old. Elevated d-dimer. RADIATION DOSAGE (If Supplied By Facility): CTDIvol = ( 15 ) mGy, DLP = ( 679.77 ) mGycm TECHNIQUE: The examination was performed with the intravenous administration of 100 ml of Isovue 370 contrast material. Post-processing of the angiographic images was performed, with multiplanar reformation and 3D reconstruction. Individualized dose optimization techniques were used for this CT. COMPARISON: None. FINDINGS: Normal enhancement of the main pulmonary artery and right and left pulmonary arteries. Normal enhancement of the bilateral peripheral pulmonary arteries. There is no demonstrated pulmonary embolism. There is atherosclerotic calcification of the aortic arch with tortuosity. There is no demonstrated aortic dissection. There are calcifications of the coronary arteries. Normal mediastinum. Normal hilar regions. Normal visualized trachea and bronchi. The lungs are well expanded. Increased linear markings at the lung bases suggestive of bibasilar scarring. Mild degree of emphysematous changes. Normal pleura. Normal chest wall structures. There are degenerative changes of thoracic spine. Left adrenal enlargement most likely secondary to incidental adenoma. Small hiatal hernia. CT/CTA Chest W/WO Contrast IMPRESSION: No evidence of pulmonary embolism. Increased markings at the lung bases suggestive of bibasilar scarring. Electronically Signed: Bautista Pratt MD at 11:24 EST , Service support ,
== END 2018-04-28 10:47 ==
PROVIDERS: Family Provider Family Medicine; PCP Family Medicine; Referring Provider Family Medicine; Visit Provider Family Medicine
DX: R79.89 Other specified abnormal findings of blood chemistry (principal); R06.02 Shortness of breath
CPT/HCPCS: 71275; 99281; Q9967; A4216

== ENCOUNTER → 2018-08-01 12:14 | Outpatient (CLI) | payer MEDICARE, OTHER, SELFPAY ==
[2016-11-25 09:39] VITALS: BMI 35.8
--- NOTE | 2018-08-01 12:29 | CT_ITS ---
STUDY: CTA OF THE ABDOMINAL AORTA AND BILATERAL LOWER EXTREMITIES REASON FOR EXAM: Female, 77 years old. Claudication in the right lower extremity. RADIATION DOSAGE (If Supplied By Facility): CTDIvol = ( 6.99 ) mGy, DLP = ( 1659.70 ) mGycm TECHNIQUE: Axial CT angiography multi-detector data acquisition was obtained from the dome of the liver to the ankles following intravenous administration of 100 IV Isovue 370. Axial images and MIP images were reconstructed from the axial data set. Post-processing of the angiographic images was performed, with multiplanar reformation and 3D reconstruction. Individualized dose optimization techniques were used for this CT. TECHNICAL QUALITY: Good COMPARISON: Comparison is made with prior study dated October 08, 2016. Descriptors of Narrowing: None (0%) Mild (< 50%) Moderate (50-70%) Severe (70-90%) Subtotal/Total Occlusion (90-100%) Non-Evaluable (technically non-diagnostic FINDINGS: Mild degree of bibasilar scarring. Coronary artery calcification. Small hiatal hernia. Fatty infiltration of the liver. There is a 1.5 cm hypodensity in the left adrenal gland most likely representing an adenoma. There is evidence of a 2.6 cm x 2.3 cm cyst in the mid inferior aspect of the right kidney. There is also evidence of a 3 cm Bard 3.2 cm cyst in the upper pole of the left kidney. Abdominal aorta: Diffuse atherosclerotic plaque formation of the abdominal aorta. Celiac and superior mesenteric arteries: Moderately stenotic plaque at the origin of the superior mesenteric artery and celiac artery. Inferior mesenteric artery: Nonvisualized. Right renal artery(arteries): Mildly stenotic plaque at the origin. Left renal artery(arteries): Mildly stenotic plaque at the origin. Right common iliac artery: Atherosclerotic plaque calcification. Right external iliac artery: Atherosclerotic plaque formation. Right internal iliac artery: No demonstrated narrowing. Left common iliac artery: A patent stent is seen at the origin of the left common iliac artery. Left external iliac artery: Atherosclerotic plaque formation. Left internal iliac artery: No demonstrated narrowing. RIGHT LOWER EXTREMITY Right common femoral artery: Severe diffuse narrowing. Right profundus femoris: No demonstrated narrowing. Right superficial femoral: There is occlusion of the midportion of the superficial femoral artery. Right popliteal artery: Reconstitution of the markedly diseased popliteal artery approximately 6 cm proximal to the knee joint. Right tibioperoneal trunk: No demonstrated narrowing. Right anterior tibial artery: No demonstrated narrowing. Right posterior tibial artery: Nonvisualized. Right peroneal artery: No demonstrated narrowing. LEFT LOWER EXTREMITY Left common femoral artery: No demonstrated narrowing. Left profundus femoris: No demonstrated narrowing. Left superficial femoral: Multiple atherosclerotic plaques throughout the superficial femoral artery causing focal areas of narrowing. Left popliteal artery: No demonstrated narrowing. Left tibioperoneal trunk: No demonstrated narrowing. Left anterior tibial artery: No demonstrated narrowing. Left posterior tibial artery: Severe narrowing. Left peroneal artery: No demonstrated narrowing. 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 Aortic plaque formation. Plaque formation at the origin of the right and left renal arteries as well as superior mesenteric artery and celiac artery. Electronically Signed: Bautista Pratt, at 8:39 EDT , Service support ,
[2018-08-01 12:48] LABS: Creatinine, Serum 1.16 mg/dL (0.55-1.02); EST Glomerular Filtration Rate 48 mL/min (>60); Est Glom Filt Rate - Afr Amer 58 mL/min (>60)
== END ==
PROVIDERS: Family Provider Family Medicine; PCP Family Medicine; Referring Provider Surgery Vascular Surgery; Visit Provider Surgery Vascular Surgery
DX: I70.213 Atherosclerosis of native arteries of extremities with intermittent claudication, bilateral legs (principal)
CPT/HCPCS: 36415; 75635; 82565; Q9967

== ENCOUNTER → 2018-08-10 15:56 | Outpatient (CLI) | payer MEDICARE, OTHER, SELFPAY ==
[2016-11-25 09:39] VITALS: BMI 35.8
[2018-08-10 17:58] LABS: Absolute Neutrophil Count 3.8 X10^3/uL (2.0-7.7); Basophil# 0.01 X10^3/uL; Basophil% 0.2 % (0-1); Eosinophil# 0.39 X10^3/uL; Lymphocyte % 27.6 % (19-41); Mean Corp Hgb Conc 32.4 g/gl (32-36); Mean Corpuscular Volume 102.1 fL (81-99); Mean Platelet Vol. 9.9 fl (6.2-12.0); Monocyte# 0.51 X10^3/uL; Monocyte% 7.8 % (0-10); Neutrophil % 58.4 % (47-70); Platelet Count 289 K/mm3 (150-450); RBC Distribution Width CV 16.7 % (11.6-14.6); RBC Distribution Width SD 62.3 fl (35.1-43.9); Red Blood Count 3.33 M/mm3 (4.2-5.4); White Blood Count 6.5 K/mm3 (4.4-11.0)
[2018-08-10 17:59] LABS: POSITIVE COUNT NO; POSITIVE DIFFERENTIAL NO; POSITIVE MORPHOLOGY NO
[2018-08-10 18:23] LABS: Ferritin 53 ng/mL (8-252)
== END ==
PROVIDERS: Family Provider Family Medicine; PCP Family Medicine; Visit Provider Family Medicine
DX: R06.09 Other forms of dyspnea (principal); D63.8 Anemia in other chronic diseases classified elsewhere
CPT/HCPCS: 36415; 82728; 85025

== ENCOUNTER → 2019-01-17 10:56 | Outpatient (CLI) | payer MEDICARE, OTHER, SELFPAY ==
[2016-11-25 09:39] VITALS: BMI 35.8
[2019-01-17 10:23] VITALS: BMI 34.9
[2019-01-17 12:29] LABS: Erythrocyte Sedimentation Rate 38 mm/hr (0-30)
[2019-01-17 12:39] LABS: Absolute Lymphocyte Count 1.94 X10^3/uL (0.83-4.51); Absolute Neutrophil Count 3.3 X10^3/uL (2.0-7.7); Basophil# 0.02 X10^3/uL; Basophil% 0.3 % (0-1); Eosinophil# 0.29 X10^3/uL; Eosinophils% 4.8 % (0-5); Hematocrit 39.9 % (37-47); Hemoglobin 13.3 g/dL (12.0-15.0); Lymphocyte # 1.94 X10^3/ul (4.0); Lymphocyte % 32.3 % (19-41); Mean Corp Hgb Conc 33.3 g/dL (32-36); Mean Corpuscular Hgb 33.3 pg (27.0-32.0); Mean Corpuscular Volume 99.8 fL (81-99); Mean Platelet Vol. 10.1 fl (6.2-12.0); Monocyte# 0.45 X10^3/uL; Monocyte% 7.5 % (0-10); NRBC Flagged by Analyzer 0 % (0-5); Neutrophil # 3.28 X10^3/uL (2.7-7.7); Neutrophil % 54.8 % (47-70); Platelet Count 228 K/mm3 (150-450); RBC Distribution Width CV 13.6 % (11.6-14.6); RBC Distribution Width SD 49.9 fl (35.1-43.9)
[2019-01-17 12:51] LABS: Hemoglobin A1c 6.9 % (4.2-6.3)
[2019-01-17 12:52] LABS: AST(SGOT) 18 U/L (15-37); Alanine Aminotransfer ALT/SGPT 23 U/L (13-56); Albumin, Serum 3.8 g/dL (3.2-5.0); Alkaline Phosphatase 100 U/L (45-117); Anion Gap 6 (5-15); BUN 31 mg/dL (7-18); CRP < 2.90 mg/L (0.0-3.0); Calcium,Total 9.5 mg/dL (8.5-10.1); Chloride 108 mmol/L (98-107); Creatinine, Serum 1.29 mg/dL (0.55-1.02); EST Glomerular Filtration Rate 43 mL/min (>60); Est Glom Filt Rate - Afr Amer 51 mL/min (>60); Globulin 3.9 g/dL (2.2-4.2); Glucose 90 mg/dL (74-106); Potassium 4.3 mmol/L (3.5-5.1); Protein, Total 7.7 g/dL (6.4-8.2); Sodium Level 140 mmol/L (136-145)
== END ==
PROVIDERS: Family Provider Internal Medicine; PCP Internal Medicine; Visit Provider Internal Medicine
DX: R50.9 Fever, unspecified (principal); E11.9 Type 2 diabetes mellitus without complications
CPT/HCPCS: 36415; 80053; 83036; 85025; 85652; 86140

== ENCOUNTER 2019-04-07 11:12 | Emergency (ER) | payer MEDICARE, OTHER, SELFPAY ==
[2016-11-25 09:39] VITALS: BMI 35.8
[2019-03-05 11:26] VITALS: BMI 34.9
[2019-04-07 11:13] VITALS: BP 139/55; PULSE 95; RESP 20; TEMP 36.6; O2SAT 96; BMI 32.5
[2019-04-07] MEDS: oxyCODONE 5 MG Tablet PO (11:48)
--- NOTE | 2019-04-07 11:51 | ED.VIS.LOWEX ---
History of Present Illness Chief Complaint: Lower Extremity Injury Narrative: Patient presenting for evaluation secondary to right knee pain. Patient has a history of bilateral partial knee replacements. Patient states that since she has been having increasing pain in her right knee that was associated with a mechanical fall where she fell on both of her knees. Patient reports that since then she has been having increasing issues with ambulating. She reports that she has been to the doctor 100 times for this. Patient actually had an appointment with orthopedics last week for this had an x-ray and has an appointment coming up with the orthopedist next but states that she is having difficulty with ambulating now. No new injuries. Patient states that since she fell she has been dealing with intermittent fevers as well as high as 101. Last fever was about 2 or 3 weeks ago. She denies any other infectious signs or symptoms. Patient does have Percocet at home which she states will dull the pain somewhat. Past Medical History - Allergies and Home Meds Allergies/Adverse Reactions: Allergies metoprolol Allergy (Severe, Verified 04/07/19 11:15) Unknown bee pollen [Bee Pollen] Allergy (Verified 04/07/19 11:15) Anaphylaxis Primary Care Physician: Harman Huston DO [Primary Care Provider] - Past Medical History: - - Morbid obesity, diabetes, hypertension, hyperlipidemia, peripheral vascular disease, coronary artery disease, cerebrovascular disease Surgical History: hysterectomy - for DUB, - - Multilple orthopedic surgeries. Smoking Status: Never smoker - Family History Maternal Family History: Family History (Last Reviewed 04/13/18 @ 09:36 by Radha Casey) Daughter Alcohol abuse Anemia Anxiety Asthma Mother Diabetes Heart disease Hypertension Father Heart disease Hypertension Family History: Reports: Diabetes, Heart Disease, Stroke Paternal Family History: Family History (Last Reviewed 04/13/18 @ 09:36 by Radha Casey) Daughter Alcohol abuse Anemia Anxiety Asthma Mother Diabetes Heart disease Hypertension Father Heart disease Hypertension Family History: Reports: Heart Disease Review of Systems General: Reports: Fever Eyes: Denies: Visual changes - bilaterally, Diplopia ENT: Denies: Rhinorrhea, Sore throat Cardiovascular: Denies: Chest pain, Palpitations Respiratory: Denies: Dyspnea, Cough, Dyspnea on exertion Gastrointestinal: Denies: Abdominal pain, Nausea, Vomiting, Diarrhea, Melena, Hematochezia Genitourinary: Denies: Dysuria, Hematuria, Frequency Musculoskeletal: Reports: Extremity Pain Skin: Denies: Rash, Wounds Neurological: Denies: Headache, Weakness, Numbness Physical Exam Vital Signs/Narrative: Vital Signs Temp Pulse Resp BP Pulse Ox 04/07/19 11:13 98 F 95 20 H 139/55 H 96 - Extremity Exam Right Knee: - - Examination of the patient's right knee shows a mild joint effusion. There is pain with range of motion, but not pain with short arc range of motion. No warmth or erythema when compared to the contralateral joint. No crepitus with range of motion. Well-healed surgical scars on the knees bilaterally. General: Well nourished, Well developed, Obese Head: Normocephalic, Atraumatic ENT: No Trauma, Moist Mucous Membranes Neck: Nontender, Full ROM Cardiovascular: Regular rate, Regular rhythm, Murmur - 3 out of 6 systolic, - - 2+ radial pulses bilaterally symmetric. 2+ DP pulses bilaterally symmetric Respiratory: No distress, CTA bilaterally, Chest nontender Abdomen: Soft, Nontender, Nondistended, Normal bowel sounds Skin: Normal color, No rash Neurological: Alert, Oriented x3, Cranial nerves II-XII grossly intact, Normal Strength, Normal Sensation Psychological: Normal affect Diagnostic/Tx/Re-eval - Medical Decision Making Patient presented secondary to knee pain. She complains that there was an element of fevers associated with this so I did perform an infectious work-up including CBC chemistry ESR and CRP. These were found to be negative. X-ray of the knee per radiology shows a lucency next to the patient's hardware. They discussed that this potentially could be evidence of loosening of the patient's hardware versus the possibility of infection in the proper clinical setting. Repeat evaluation of the patient after she was given some oxycodone shows that she has improvement of her pain. She does not have pain with short arc range of motion. There is no warmth or erythema of the knee when compared to the contralateral knee. Patient's normal lab work in conjunction with these physical exam findings make the likelihood of a infected prosthetic very low at this point. I did discuss the patient's case on the telephone with covering orthopedics Dr. Brantley, and he is in agreement that the patient likely is stable and appropriate for outpatient follow-up on as she previously has scheduled. Patient was requesting some information on the possibility of being admitted to the hospital for this, I did have her speak with social work, and as the patient does not meet any sort of inpatient criteria the patient does wish to be discharged home. She is able to ambulate with her walker. Patient was discharged with outpatient follow-up with orthopedics. ED Disposition - Plan for ED Patient: Disposition: Home or Assisted Living Diagnosis: Knee pain Instructions: Knee Effusion Referrals: Lai Bailey MD [STAFF PHYSICIAN] - Keep Marty appointment
[2019-04-07 12:04] LABS: Absolute Lymphocyte Count 2.13 X10^3/uL (0.83-4.51); Absolute Neutrophil Count 5.9 X10^3/uL (2.0-7.7); Basophil# 0.01 X10^3/uL; Basophil% 0.1 % (0-1); Eosinophil# 0.19 X10^3/uL; Eosinophils% 2.1 % (0-5); Hematocrit 37.1 % (37-47); Hemoglobin 12.5 g/dL (12.0-15.0); Lymphocyte # 2.13 X10^3/ul (4.0); Mean Corp Hgb Conc 33.7 g/dL (32-36); Mean Corpuscular Hgb 32.9 pg (27.0-32.0); Mean Corpuscular Volume 97.6 fL (81-99); Mean Platelet Vol. 9.1 fl (6.2-12.0); Monocyte# 0.66 X10^3/uL; Monocyte% 7.4 % (0-10); NRBC Flagged by Analyzer 0 % (0-5); Neutrophil # 5.87 X10^3/uL (2.7-7.7); Neutrophil % 66.1 % (47-70); Platelet Count 271 K/mm3 (150-450); RBC Distribution Width CV 14.1 % (11.6-14.6); RBC Distribution Width SD 50.2 fl (35.1-43.9); White Blood Count 8.9 K/mm3 (4.4-11.0)
--- NOTE | 2019-04-07 12:05 | RAD_ITS ---
STUDY: X-RAY - RIGHT KNEE REASON FOR EXAM: Female, 78 years old. PATIENT STATES LOTS OF PAIN IN RIGHT KNEE TODAY. PATIENT STATES SHE HAD A RECENT FALL THIS PAST THANKSGIVING TIME. HAD RIGHT KNEE SURGERY @ 2008. TECHNIQUE: 4 view(s) of the knee. COMPARISON: None. FINDINGS: Normal visualized distal femur. Normal visualized proximal tibia and fibula. Normal proximal tibiofibular articulation. Hemiarthroplasty of the medial femorotibial compartment with mild amount of lucency along the medial and caudal border. There is chondrocalcinosis of the lateral femorotibial compartment. There is mild degenerative arthrosis of the patellofemoral articulation. There is a moderate volume joint effusion. Vascular calcifications are present. RAD/Knee 4 or More Views IMPRESSION: 1. No fracture or malalignment. 2. Moderate joint effusion. 3. Medial hemiarthroplasty. There is chelle-implant lucency could suggest loosening/infection (in the appropriate clinical setting) but comparison studies would be useful to assess for interval change. 4. Chondrocalcinosis. 5. Atherosclerosis. Electronically Signed: Zack Godwin MD (Brooks) at 12:28 EST , Service support ,
[2019-04-07 12:10] LABS: Erythrocyte Sedimentation Rate 27 mm/hr (0-30)
[2019-04-07 12:20] LABS: Anion Gap 8 (5-15); BUN 30 mg/dL (7-18); BUN/Creat Ratio 19.7 RATIO (10-20); CRP < 2.90 mg/L (0.0-3.0); Calcium,Total 9.2 mg/dL (8.5-10.1); Chloride 104 mmol/L (98-107); Creatinine, Serum 1.52 mg/dL (0.55-1.02); EST Glomerular Filtration Rate 35 mL/min (>60); Est Glom Filt Rate - Afr Amer 43 mL/min (>60); Estimated Creatinine Clearance 28.56 ml/min; Glucose 134 mg/dL (74-106); Potassium 4.5 mmol/L (3.5-5.1); Sodium Level 139 mmol/L (136-145)
--- NOTE | 2019-04-07 13:34 | CM.ED ---
Social Work Consult: Discharge Planning Informant: Dr. Christina Met with patient and patient daughter in room. Introduced self as well as family welfare social work professor role. Patient stating to live at home alone in a 1-story home. Patient ambulates with a rollaider and family has been assisting patient within the home. Patient stating to want emergency surgery on knee. Per Dr. Christina patient does not qualify for emergency surgery at this time and has an appointment with Dr. Bailey next . Patient stating to believe that patient qualifies for an inpatient stay, per Dr. Christina patient does not qualify for an inpatient stay. This family welfare social work professor exploring options with patient home with private duty aides, private pay in a half-way, continuing at home with family for support. Patient stating to not be interested in half-way. Patient wanting list of private duty aides, list provided to patient along with community services for older adults. Patient daughter stating that family is able to stay with patient to assist as needed over the next week. Patient stating to be able to ambulate within the home and to manage bathroom needs. Patient does have a medical alert button within the home. Active support and listening provided. PLAN: Discharge to home with family to follow for support and care. James LINDA, COMFORT
== END 2019-04-07 14:00 | disposition home or self-care (01) ==
PROVIDERS: Emergency Provider Emergency Medicine; PCP Family Medicine; Referring Provider Family Medicine
DX: M25.561 Pain in right knee (principal); I25.10 Atherosclerotic heart disease of native coronary artery without angina pectoris; I10 Essential (primary) hypertension; E11.51 Type 2 diabetes mellitus with diabetic peripheral angiopathy without gangrene; E78.5 Hyperlipidemia, unspecified; E66.01 Morbid (severe) obesity due to excess calories; Z68.32 Body mass index [BMI] 32.0-32.9, adult; Z96.653 Presence of artificial knee joint, bilateral; Z79.4 Long term (current) use of insulin; Z79.84 Long term (current) use of oral hypoglycemic drugs
CPT/HCPCS: 73564; 80048; 85025; 85652; 86140; 99284; A4216

== ENCOUNTER → 2019-04-12 11:43 | Outpatient (CLI) | payer MEDICARE, OTHER, SELFPAY ==
[2016-11-25 09:39] VITALS: BMI 35.8
[2019-04-07 11:13] VITALS: BMI 32.5
[2019-04-12 12:47] LABS: Erythrocyte Sedimentation Rate 22 mm/hr (0-30)
[2019-04-12 12:50] LABS: Absolute Lymphocyte Count 1.92 X10^3/uL (0.83-4.51); Absolute Neutrophil Count 4.9 X10^3/uL (2.0-7.7); Basophil# 0.03 X10^3/uL; Basophil% 0.4 % (0-1); Eosinophil# 0.21 X10^3/uL; Eosinophils% 2.7 % (0-5); Hematocrit 38.6 % (37-47); Hemoglobin 12.8 g/dL (12.0-15.0); Lymphocyte # 1.92 X10^3/ul (4.0); Lymphocyte % 25.1 % (19-41); Mean Corp Hgb Conc 33.2 g/dL (32-36); Mean Corpuscular Hgb 32.8 pg (27.0-32.0); Mean Platelet Vol. 9.6 fl (6.2-12.0); Monocyte# 0.54 X10^3/uL; Monocyte% 7.1 % (0-10); NRBC Flagged by Analyzer 0 % (0-5); Neutrophil % 64.2 % (47-70); Platelet Count 312 K/mm3 (150-450); RBC Distribution Width CV 13.9 % (11.6-14.6); RBC Distribution Width SD 50.4 fl (35.1-43.9); White Blood Count 7.6 K/mm3 (4.4-11.0)
== END ==
PROVIDERS: PCP Family Medicine; Referring Provider Specialist; Visit Provider Specialist
DX: Z96.651 Presence of right artificial knee joint (principal)
CPT/HCPCS: 36415; 85025; 85652; 86140

== ENCOUNTER → 2019-04-16 | Outpatient (CLI) | payer MEDICARE, OTHER, SELFPAY ==
[2016-11-25 09:39] VITALS: BMI 35.8
[2019-04-07 11:13] VITALS: BMI 32.5
[2019-04-16 13:37] LABS: Synovial Fld Mononuclear WBC % 87.1 %; Synovial Fld Polynuclear WBC # 0.044 10^3/uL; Synovial Fld Polynuclear WBC % 12.9 %
[2019-04-16 14:14] LABS: AUTO B FLUID DILUENT BKGD CT WBC <0.1 RBC <0.01 (W<.1,R<.01)
[2019-04-16 14:15] LABS: Appearance /Synovial Fluid Sl Cl (CLEAR); Color / Synovial Fluid Yellow (Pale Yellow); RBC /Synovial Fluid 225 /mm3 (0)
[2019-04-16 14:30] LABS: Lymph 41 %; Monocyte /Synovial Fluid 51 %; Neutrophil 2 % (0-25); Other Cell /Synovial Fluid 2 %; Plasma Cell /Synovial Fluid 4 %
[2019-04-16 14:35] LABS: Body Fluid QC Type(s) BF2Q
[2019-04-17 15:26] LABS: Pathologist Comment Reviewed
== END | disposition home or self-care (01) ==
PROVIDERS: PCP Family Medicine; Referring Provider Specialist; Visit Provider Specialist
DX: M17.11 Unilateral primary osteoarthritis, right knee (principal); Z96.651 Presence of right artificial knee joint; M25.461 Effusion, right knee
CPT/HCPCS: 87015; 87070; 87075; 87101; 87116; 87205; 87206; 89050; 89051

== ENCOUNTER → 2019-05-18 13:00 | Outpatient (CLI) | payer MEDICARE, OTHER, SELFPAY ==
[2016-11-25 09:39] VITALS: BMI 35.8
--- NOTE | 2019-05-18 13:20 | RAD_ITS ---
STUDY: X-RAY CHEST REASON FOR EXAM: Female, 78 years old. PRE OP, SOB TECHNIQUE: PA and lateral views of the chest. COMPARISON: 04/06/2018. FINDINGS: The lungs are clear and expanded. There is no demonstrated pleural abnormality. Normal size heart. Normal mediastinum and polo. Normal visualized pulmonary arteries. Normal visualized aortic arch and descending thoracic aorta. There are diffuse degenerative changes of the visualized thoracic spine. There is degenerative osteoarthritis of the bilateral shoulders. Postoperative changes of the right shoulder for rotator cuff with fixation screw. There is no demonstrated abnormality of the visualized soft tissue structures of the upper abdomen. RAD/Chest PA and Lateral IMPRESSION: No acute cardiopulmonary disease. Electronically Signed: Jacinta Murrell MD at 1:08 EST , Service support ,
[2019-05-18 13:41] VITALS: BP 120/54; PULSE 82; RESP 17; TEMP 36.3; O2SAT 97; BMI 31.9
--- NOTE | 2019-05-18 14:13 | SDCEKG_ITS ---
Test Reason : Blood Pressure : / mmHG Vent. Rate : 077 BPM Atrial Rate : 077 BPM P-R Int : 198 ms QRS Dur : 092 ms QT Int : 396 ms P-R-T Axes : 077 -22 082 degrees QTc Int : 448 ms Normal sinus rhythm Incomplete right bundle branch block Borderline ECG Confirmed by ELLIOTT LOMELI, PATRICIO ([id number]), photographic editor ASHLY MARCUS ([id number]) on 05/21/2019 9:48:31 AM Referred By: Lai Bailey Confirmed By:PATRICIO GALLAGHER MD
[2019-05-18 15:11] LABS: Absolute Lymphocyte Count 3.01 X10^3/uL (0.83-4.51); Absolute Neutrophil Count 4.1 X10^3/uL (2.0-7.7); Basophil# 0.03 X10^3/uL; Basophil% 0.4 % (0-1); Eosinophil# 0.31 X10^3/uL; Eosinophils% 3.9 % (0-5); Hematocrit 39.4 % (37-47); Hemoglobin 13.1 g/dL (12.0-15.0); Lymphocyte # 3.01 X10^3/ul (4.0); Lymphocyte % 37.6 % (19-41); Mean Corp Hgb Conc 33.2 g/dL (32-36); Mean Corpuscular Hgb 32.2 pg (27.0-32.0); Mean Corpuscular Volume 96.8 fL (81-99); Mean Platelet Vol. 9.9 fl (6.2-12.0); Monocyte# 0.57 X10^3/uL; Monocyte% 7.1 % (0-10); NRBC Flagged by Analyzer 0 % (0-5); Neutrophil # 4.07 X10^3/uL (2.7-7.7); Neutrophil % 50.8 % (47-70); Platelet Count 261 K/mm3 (150-450); RBC Distribution Width CV 14.1 % (11.6-14.6); RBC Distribution Width SD 50.5 fl (35.1-43.9); Red Blood Count 4.07 M/mm3 (4.2-5.4)
[2019-05-18 15:22] LABS: Partial Thromboplast Time 32.7 Seconds (24.1-36.2); Prothrombin Time (Protime)PT. 13.5 SECONDS (11.7-14.9)
[2019-05-18 15:51] LABS: AST(SGOT) 23 U/L (15-37); Alanine Aminotransfer ALT/SGPT 34 U/L (13-56); Alkaline Phosphatase 85 U/L (45-117); Anion Gap 5 (5-15); BUN 62 mg/dL (7-18); Calcium,Total 9.6 mg/dL (8.5-10.1); Chloride 107 mmol/L (98-107); Cholesterol 119 mg/dL (200); Creatinine, Serum 1.72 mg/dL (0.55-1.02); EST Glomerular Filtration Rate 30 mL/min (>60); Est Glom Filt Rate - Afr Amer 37 mL/min (>60); Estimated Creatinine Clearance 24.26 ml/min; Globulin 3.9 g/dL (2.2-4.2); Glucose 116 mg/dL (74-106); High Density Lipoprotein 38 mg/dL; Potassium 4.2 mmol/L (3.5-5.1); Protein, Total 7.9 g/dL (6.4-8.2); Sodium Level 140 mmol/L (136-145); Triglycerides 229 mg/dL; Very Low Density Lipoprotein 46 mg/dL (5-40)
--- NOTE | 2019-05-19 10:19 | HP.PCM_ITS ---
History and Physical History and Physical [facility] Patient Name: Lisa Pisano : 1940 From: NORY SHEIKH PA-C DATE OF SURGERY: 06/06/2019 SCHEDULED PROCEDURE: right revision total knee arthroplasty HISTORY OF PRESENT ILLNESS: Preoperative history and physical exam was performed on May 18, 2019. This is a 78-year-old female who is been having ongoing pain in her right knee since a fall in February 2020. Patient has a history of previous right partial knee replacement in 1993. Patient's pain is constant, aching, support. She has difficult time with activities of daily living including housework and shopping. Pain can reach his high as an 8/10 with activities. She has increased pain with walking, sitting. Difficulty with flexion type exercises. Patient has tried conservative measures consisting of rest, elevation with minimal relief. She has tried home exercises with minimal relief. Patient has had a bone scan on April 25, 2019 which does show loosening of the implant. Patient has used a cane and walker since the initial injury in February. Patient has had blood work and aspiration of the knee which did rule out infection. She continues to have increased pain with weightbearing. Patient has a medical history pertinent for hypertension, type 2 diabetes mellitus, thyroid disease, previous heart stent. Patient follows it risk and assurance manager Dr. Barajas in which we obtained surgical clearance. We are also getting surgical clearance from the primary care physician Dr. Slater. Patient has had recent A1c which was 7.4. She denies chest pain, shortness of breath, fevers chills, recent infections. After failing conservative measures and discussing treatment options with Dr. Lai Bailey, the patient does wish to proceed with a revision right total knee arthroplasty. REVIEW OF SYSTEMS: ROS: Const: Denies anorexia, change in appetite, fever, hard of hearing, vision problems and weight change. CV: Denies chest pain, heart murmur, irregular heartbeat and peripheral vascular disease. Resp: Reports sleep apnea, but denies asthma, cough, pneumonia, SOB, tuberculosis and wheezing. GI: Denies constipation, diarrhea, difficulty swallowing, heartburn, nausea, bloody stools and vomiting. : Urinary: denies incontinence. Musculo: Reports limp, trouble walking and weakness, but denies leg swelling. Skin: Denies Raynaud's, history of shingles and tattoo. Neuro: Reports difficulty with balance and numbness/tingling but denies ambulatory dysfunction, dizziness and tremor. Psych: Reports stress, but denies anxiety, depression, insomnia and mental illness. Ab/Lymph: Denies anemia, bleeding/bruising tendency and past transfusion. Reviewed, no changes. PAST MEDICAL HISTORY: Advance Care Plan: Other Directive, LIVING WILL Effective Date: 06/04/2014 Other Directive, POA Effective Date: 08/09/2014 PMH: Medical Problems: Arthritis, High Blood Pressure, Diabetes, Thyroid Disease, Heart Attack, Hypercholesterolemia Accidents: Fracture - RIGHT ANKLE Surgical Hx: Hysterectomy - (1978) MACARIO Face Lift - (11/2011) LIFE STYLE LIFT @ [place] RT Thumb Trigger Release - 07-20-12 YOANA @[facility] RT Ankle - 1993? RT Shoulder/Elbow - 2005? LT Unicompartmental Knee Replacement - (08/20/2014) [email or web address] Stent In Stomach - (10/2014) Heart Stents Knee Replacement Unicompartmental RT - [facility] Carpal Tunnel Release RT - (08/26/2017) [email or web address] RT TFR - (02/07/2019) YOANA @ [facility] Anesthesia Complications: None Assistive Devices: Glasses - READING Reviewed, no changes. 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 Personal Habits: Smoking: Patient is a former smoker.Cigarette Use: Former.Alcohol: Denies use.Drug Use: Denies Use.Enjoy Exercising: Exercises 1-3 X/Week. Reviewed, no changes. VITALS: Ht: 66 Wt: 192lb Wt k.091 BMI: 31.0 BP: 124/58 Pulse: 85 Resp: 14 T: 97.3 T: 36.3C ALLERGIES: Bee Sting Metoprolol Bee Pollen MEDICATIONS: Insulin Aspart Flexpen 100 Unit/ML daily, Lantus Solostar 100 Unit/ML AT bedtime, Metformin HCL 500 mg twice daily with meals, Amlodipine Besylate/Benazepril Hydrochloride 10-40 mg daily, Polyethylene Glycol 3350 3350 nf daily, Rosuvastatin Calcium 20 mg AT bedtime, Ferrex 150 Plus 150-50-50 mg daily with meals, Nitroglycerin 0.4 mg q5m, Fluticasone Propionate 50 mcg/Act daily, Timoptic Ocudose 0.5 % twice A day, Aspir-81 81 mg 1 po qd, Janumet 50- 500 mg 1 tab twice daily, Nexium 40 mg 1 po EVERY OTHER DAY, Lantus 100 Unit/ML 50 units bid, Novolog Insulin 30 units tid, Vitamin D 2000 Units 1 tab PO daily, Flonase Allergy Relief 50 mcg/Act 2 sprays each notril daily, Ventolin HFA 108 (90 Base) mcg/Act 2 puffs q 4 hrs prn, Probiotic 1 cap PO daily, Latanoprost 0.005 % 1 drop each eye every night at bedtime, Timolol Maleate 0.25 % as directed, Levothyroxine Sodium 200 mcg 1 tab PO daily, Magnesium 500 mg 1po daily PRE-OP EXAM: General appearance:NORMAL Other: Eyes: Conjunctivae and lids: NORMAL Pupils: ERR Ears, Nose, Mouth, and Throat: NORMAL Other: Inspection of lips, teeth and gums: NORMAL Other: Neck: Examination of neck: no masses noted. Respiratory: Assessment of respiratory effort: NORMAL Other: Auscultation of lungs: clear to auscultation no wheezes, rhonchi or rales. Cardiovascular: Auscultation of heart: regular rate and rhythm, Positive systolic murmur Exam of carotid arteries: NORMAL Other: Gastrointestinal: Exam of abdomen: soft, nontender, nondistended bowel sounds present. PHYSICAL EXAMINATION: Patient does walk with an antalgic gait. Currently using a walker. Patient has mild effusion to the right knee. Previous incision is well-healed without erythema or signs of infection. Patient has 0 of extension to 100 flexion. Sensation intact to light touch. Neurovascularly intact. IMAGING STUDIES: 1. Bone scan of the right knee on April 25, [address] [facility] shows loosening of a right partial knee replacement. 2. Previous x-rays of the right knee reveal chondrocalcinosis of the lateral meniscus and progressive patellofemoral arthrosis. There is medial partial knee replacement. No acute findings for fracture. 3. Previous lab work on April 12, 2019 has ESR at 22 and elevated CRP at 13.2 4. Aspiration on April 23, 2019 did not reveal any growth or infection IMPRESSION: 1. Painful right medial unicompartmental knee replacement with loosening 2. Hypertension 3. Type 2 diabetes mellitus: Recent A1c 7.4 4. Thyroid disease 5. Hypercholesterolemia 6. Previous heart stent PLAN: Dr. Lai Bailey did discuss and review with the patient all treatment options including surgical versus nonsurgical options. Patient does wish to proceed with the above-stated procedure. Potential risks, benefits, and complications of the procedure were discussed in detail including but not limited to , infection, nerve and blood vessel damage, persistent pain, numbness, tingling, paresthesias, blood clot, pulmonary embolism, and requirement for possible further surgery. The patient expressed full understanding and has no further questions for the doctor. Patient does agree to proceed with the above-stated procedure and has signed the surgery consent form. This dictation was created using voice recognition software. Phonetic and/or grammatical errors may exist. ___ I have re-examined the patient. There are no clinical changes since date of exam. ___ See progress notes for changes. ___ Dictated on admission Date: Time: Signature:
== END ==
PROVIDERS: Nurse Practitioner Family; PCP Internal Medicine; Referring Provider Specialist; Visit Provider Specialist
DX: Z01.818 Encounter for other preprocedural examination (principal); T84.84XA Pain due to internal orthopedic prosthetic devices, implants and grafts, initial encounter; M19.90 Unspecified osteoarthritis, unspecified site; I25.2 Old myocardial infarction; I10 Essential (primary) hypertension; E11.9 Type 2 diabetes mellitus without complications; E78.00 Pure hypercholesterolemia, unspecified; E07.9 Disorder of thyroid, unspecified; Z95.5 Presence of coronary angioplasty implant and graft; Z96.651 Presence of right artificial knee joint; Z79.4 Long term (current) use of insulin; Z79.899 Other long term (current) drug therapy; Z87.891 Personal history of nicotine dependence
CPT/HCPCS: 36415; 71046; 80053; 80061; 84443; 85025; 85610; 85730; 87081; 93005

== ENCOUNTER → 2019-05-18 15:13 | Outpatient (CLI) | payer MEDICARE, OTHER, SELFPAY ==
[2016-11-25 09:39] VITALS: BMI 35.8
[2019-05-18 13:41] VITALS: BMI 31.9
--- NOTE | 2019-05-18 15:32 | CT_ITS ---
STUDY: CT SCAN OF THE LOWER EXTREMITY RIGHT REASON FOR EXAM: Female, 78 years old. Right knee pain, prior partial right knee replacement, loosening of internal right knee prosthesis. Kwame plasty planning. RADIATION DOSAGE (If Supplied By Facility): CTDIvol = ( 33.91 ) mGy, DLP = ( 2073.58 ) mGycm. Individualized dose optimization techniques were used for this CT.? TECHNIQUE: Multiple axial tomographic images of the right hip, right knee and right ankle were obtained for the KWAME protocol. COMPARISON: None. FINDINGS: The patient is status post medial hemiarthroplasty of the right knee joint. There is evidence of a subcortical cyst formation in the medial femoral condyle. There is evidence of a small joint effusion. The right hip joint is unremarkable. The patient is status post ORIF of the distal fibula. There is evidence of the degenerative changes at the tibial talar joint with evidence of avulsion fracture of the medial and lateral malleoli. CT/Extremity Lower without Contra IMPRESSION: Status post medial hemiarthroplasty of the right knee with a small joint effusion. Prior ORIF of the distal fibula with evidence of old avulsion fracture of the medial and lateral malleoli. Electronically Signed: Bautista Pratt, at 10:13 EST , Service support ,
== END ==
PROVIDERS: PCP Internal Medicine; Referring Provider Specialist; Visit Provider Specialist
DX: Z01.818 Encounter for other preprocedural examination (principal); M19.90 Unspecified osteoarthritis, unspecified site; I25.2 Old myocardial infarction; I10 Essential (primary) hypertension; E11.9 Type 2 diabetes mellitus without complications; E78.00 Pure hypercholesterolemia, unspecified; E07.9 Disorder of thyroid, unspecified; T84.032A Mechanical loosening of internal right knee prosthetic joint, initial encounter; T84.84XA Pain due to internal orthopedic prosthetic devices, implants and grafts, initial encounter; Z96.651 Presence of right artificial knee joint; Z95.5 Presence of coronary angioplasty implant and graft; Z79.4 Long term (current) use of insulin; Z79.899 Other long term (current) drug therapy; Z87.891 Personal history of nicotine dependence
CPT/HCPCS: 36415; 71046; 73700; 80053; 80061; 84443; 85025; 85610; 85730; 87081; 93005

== ENCOUNTER → 2019-08-08 14:00 | Outpatient (CLI) | payer MEDICARE, OTHER, SELFPAY ==
[2016-11-25 09:39] VITALS: BMI 35.8
[2019-06-27 08:16] VITALS: BMI 31.9
[2019-07-31 15:27] VITALS: BMI 31.9
--- NOTE | 2019-08-01 11:29 | PCM.HP.BLA ---
History and Physical History and Physical [facility] Patient Name: Lisa Pisano : 1940 From: NORY SHEIKH PA-C DATE OF SURGERY: 08/15/2019 SCHEDULED PROCEDURE: revision right total knee arthroplasty HISTORY OF PRESENT ILLNESS: Preoperative history and physical exam was performed on August 01, 2019. This is a 78-year-old female who is been having ongoing pain since February 2019. Patient does have a previous history of right partial knee replacement in 1993. Patient was scheduled to undergo additional surgery on June 06, 2019 but this was canceled due to the russo virus. Patient has continued to have difficulty with her right knee with regards to activities of daily living. She has difficult time with housework and shopping. Activities her pain can reach 8/10. Patient has pain with walking and sitting. She has difficulty with any flexion-type exercises. Patient has attempted conservative measures consisting of rest, elevation. She has tried home exercises with minimal relief. Patient has had a previous bone scan on April 25, 2019 which does show loosening of the implant. She has been using a cane for ambulatory assistance. Patient has a medical history pertinent for type 2 diabetes mellitus, hypertension, previous heart stent, thyroid disease. We have obtain surgical clearance from the audio visual manager Dr. Barajas. We have also obtain surgical clearance from the primary care physician Dr. Slater. Patient denies any recent change in her medical history. There is been no chest pain, shortness of breath, fevers chills, or recent infections. After failing conservative measures and discussing treatment options with Dr. Lai Bailey. The patient does wish to proceed with a revision right total knee arthroplasty. REVIEW OF SYSTEMS: ROS: Const: Denies anorexia, change in appetite, fever, hard of hearing, vision problems and weight change. CV: Denies chest pain, heart murmur, irregular heartbeat and peripheral vascular disease. Resp: Reports sleep apnea, but denies asthma, cough, pneumonia, SOB, tuberculosis and wheezing. GI: Denies constipation, diarrhea, difficulty swallowing, heartburn, nausea, bloody stools and vomiting. : Urinary: denies incontinence. Musculo: Reports limp, trouble walking and weakness, but denies leg swelling. Skin: Denies Raynaud's, history of shingles and tattoo. Neuro: Reports difficulty with balance and numbness/tingling but denies ambulatory dysfunction, dizziness and tremor. Psych: Reports stress, but denies anxiety, depression, insomnia and mental illness. Ab/Lymph: Denies anemia, bleeding/bruising tendency and past transfusion. Reviewed, no changes. PAST MEDICAL HISTORY: Advance Care Plan: Other Directive, LIVING WILL Effective Date: 06/04/2014 Other Directive, POA Effective Date: 08/09/2014 PMH: Medical Problems: Arthritis, High Blood Pressure, Diabetes, Thyroid Disease, Heart Attack, Hypercholesterolemia Accidents: Fracture - RIGHT ANKLE Surgical Hx: Hysterectomy - (1978) MACARIO Face Lift - (11/2011) LIFE STYLE LIFT @ [place] RT Thumb Trigger Release - 07-20-12 Y[facility]NA @[facility] RT Ankle - 1993? RT Shoulder/Elbow - 2005? LT Unicompartmental Knee Replacement - (08/20/2014) [email or web address] Stent In Stomach - (10/2014) Heart Stents Knee Replacement Unicompartmental RT - [facility] Carpal Tunnel Release RT - (08/26/2017) [email or web address] RT TFR - (02/07/2019) YOANA @ [facility] Anesthesia Complications: None Assistive Devices: Glasses - READING Reviewed, no changes. 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 Personal Habits: Smoking: Patient is a former smoker.Cigarette Use: Former.Alcohol: Denies use.Drug Use: Denies Use.Enjoy Exercising: Exercises 1-3 X/Week. Reviewed, no changes. VITALS: Ht: 66 Wt: 200lb Wt k.720 BMI: 32.3 BP: 144/72 Pulse: 72 Resp: 18 T: 97.4 T: 36.3C ALLERGIES: Bee Sting Metoprolol Bee Pollen MEDICATIONS: Lantus Solostar 100 Unit/ML AT bedtime, Aspir-81 81 mg 1 po qd, Janumet 50-500 mg 1 tab twice daily, Novolog Insulin 30 units tid, Vitamin D 2000 Units 1 tab PO daily, Latanoprost 0.005 % 1 drop each eye every night at bedtime, Timolol Maleate 0.25 % as directed, Levothyroxine Sodium 200 mcg 1 tab PO daily, Valsartan-Hydrochlorothiazide 320-25 mg, Simvastatin 20 mg 1 by mouth every day, Oxycodone-Acetaminophen 10-325 mg #[id number], Plavix 75 mg 1 by mouth every day, Isosorbide Mononitrate ER 30 mg, Zinc Methionate 50 mg, Turmeric Curcumin 500 mg 1po qdy PRE-OP EXAM: General appearance:NORMAL Other: Eyes: Conjunctivae and lids: NORMAL Pupils: ERR Ears, Nose, Mouth, and Throat: NORMAL Other: Inspection of lips, teeth and gums: NORMAL Other: Neck: Examination of neck: no masses noted. Respiratory: Assessment of respiratory effort: NORMAL Other: Auscultation of lungs: clear to auscultation no wheezes, rhonchi or rales. Cardiovascular: Auscultation of heart: regular rate and rhythm, positive systolic murmurs Exam of carotid arteries: NORMAL Other: Gastrointestinal: Exam of abdomen: soft, nontender, nondistended bowel sounds present. PHYSICAL EXAMINATION: Patient does walk with an antalgic gait. Currently using a walker. Patient has mild effusion to the right knee. Previous incision is well-healed without erythema or signs of infection. Patient has 0 of extension to 100 flexion. Sensation intact to light touch. Neurovascularly intact. IMAGING STUDIES: 1. Bone scan of the right knee on April 25, 2019 a [facility] shows loosening of a right partial knee replacement. 2. Previous x-rays of the right knee reveal chondrocalcinosis of the lateral meniscus and progressive patellofemoral arthrosis. There is medial partial knee replacement. No acute findings for fracture. 3. Previous lab work on April 12, 2019 has ESR at 22 and elevated CRP at 13.2 4. Aspiration on April 23, 2019 did not reveal any growth or infection IMPRESSION: 1. Painful right medial unicompartmental knee replacement with loosening 2. Hypertension 3. Type 2 diabetes mellitus: Recent A1c 7.4 4. Thyroid disease 5. Hypercholesterolemia 6. Previous heart stent PLAN: Dr. Lai Bailey did discuss and review with the patient all treatment options including surgical versus nonsurgical options. Patient does wish to proceed with the above-stated procedure. Potential risks, benefits, and complications of the procedure were discussed in detail including but not limited to , infection, nerve and blood vessel damage, persistent pain, numbness, tingling, paresthesias, blood clot, pulmonary embolism, and requirement for possible further surgery. The patient expressed full understanding and has no further questions for the doctor. Patient does agree to proceed with the above-stated procedure and has signed the surgery consent form. We discussed the current risks associated with COVID 19. This does include the risk of exposure while in the hospital. Patient was reassured local hospitals have low infection rates and are taking all necessary precautions to avoid exposure to patients. In addition, we discussed strategies that can be used to help limit exposure including those that limit the patient's time in the hospital. Also using strategies to limit the patient's need for continued inpatient services after being discharged from the hospital. Patient was notified that we will need to comply with any screening or testing the hospital wishes to perform or that surgery may be delayed for any positive results. This dictation was created using voice recognition software. Phonetic and/or grammatical errors may exist. ___ I have re-examined the patient. There are no clinical changes since date of exam. ___ See progress notes for changes. ___ Dictated on admission Date: Time: Signature:
[2019-08-09 12:29] LABS: Absolute Lymphocyte Count 1.73 X10^3/uL (0.83-4.51); Absolute Neutrophil Count 4.5 X10^3/uL (2.0-7.7); Basophil# 0.02 X10^3/uL; Basophil% 0.3 % (0-1); Eosinophil# 0.14 X10^3/uL; Hematocrit 36.2 % (37-47); Lymphocyte # 1.73 X10^3/ul (4.0); Lymphocyte % 24.7 % (19-41); Mean Corp Hgb Conc 33.1 g/dL (32-36); Mean Corpuscular Hgb 33.3 pg (27.0-32.0); Mean Corpuscular Volume 100.6 fL (81-99); Mean Platelet Vol. 9.6 fl (6.2-12.0); Monocyte# 0.62 X10^3/uL; Monocyte% 8.8 % (0-10); NRBC Flagged by Analyzer 0 % (0-5); Neutrophil # 4.47 X10^3/uL (2.7-7.7); Neutrophil % 63.8 % (47-70); Platelet Count 274 K/mm3 (150-450); RBC Distribution Width CV 13.2 % (11.6-14.6); RBC Distribution Width SD 48.9 fl (35.1-43.9)
[2019-08-09 12:33] LABS: International Normalized Ratio 1.1; Prothrombin Time (Protime)PT. 13.5 SECONDS (11.7-14.9)
[2019-08-09 12:34] LABS: Partial Thromboplast Time 32.9 Seconds (24.1-36.2)
[2019-08-09 12:40] LABS: Anion Gap 8 (5-15); BUN 33 mg/dL (7-18); BUN/Creat Ratio 29.5 RATIO (10-20); Calcium,Total 9.2 mg/dL (8.5-10.1); Chloride 106 mmol/L (98-107); Creatinine, Serum 1.12 mg/dL (0.55-1.02); EST Glomerular Filtration Rate 50 mL/min (>60); Est Glom Filt Rate - Afr Amer 60 mL/min (>60); Glucose 235 mg/dL (74-106); Potassium 4.4 mmol/L (3.5-5.1); Sodium Level 139 mmol/L (136-145)
[2019-08-09 12:43] LABS: Hemoglobin A1c 7.4 % (3.8-5.6)
== END ==
LOC: ACINP 08-15 10:11 → PAT 09-07 14:43
PROVIDERS: Anesthesiology; PCP Internal Medicine; Referring Provider Specialist; Visit Provider Specialist
DX: Z01.810 Encounter for preprocedural cardiovascular examination (principal); Z11.59 Encounter for screening for other viral diseases
CPT/HCPCS: 36415; 80048; 83036; 84443; 85025; 85610; 85730; 87081; 87635; G2023; J7120; U0004

== ENCOUNTER → 2019-08-10 07:59 | Outpatient (CLI) | payer MEDICARE, OTHER, SELFPAY ==
[2016-11-25 09:39] VITALS: BMI 35.8
[2019-06-27 08:16] VITALS: BMI 31.9
[2019-07-31 15:27] VITALS: BMI 31.9
--- NOTE | 2019-08-10 08:05 | ART_ITS ---
Reason For Study: Atherosclerosis Procedure A bilateral lower extremity continuous wave Doppler with analog waveform analysis and ankle brachial indexes. Left Segmental Pressures Left brachial= 165mmHg. Left posterior tibial artery = 104mmHg. Left dorsalis pedis artery = 112mmHg. Left digit = 61 mmHg. The left dorsalis pedis waveforms are biphasic. The left posterior tibial artery waveforms are monophasic. Right Segmental Pressures Right brachial= 164mmHg. Right posterior tibial artery = 70mmHg. Right dorsalis pedis artery = 114mmHg. Right digit = 70 mmHg. The right dorsalis pedis waveforms are biphasic. The right posterior tibial artery waveforms are monophasic. Indices The right ankle brachial index by the dorsalis pedis is 0.69. The right ankle brachial index by the posterior tibial artery is 0.42. The right digital-brachial index is 0.42. The left ankle brachial index by the dorsalis pedis is 0.68. The left ankle brachial index by the posterior tibial artery is 0.63. The left digital-brachial index is 0.37. Interpretation Summary Bilateral biphasic flow and LING 0.69 and 0.68. Ordering Physician: Jason Begum Referring Physician: Jeri Slater Performed By: Cari Cooper RVT
--- NOTE | 2019-08-10 08:05 | AAVD_ITS ---
Reason For Study: Atherosclerosis Aorta Measurements Aorta Doppler Measurements Proximal aorta measures1.29 x 1.43cm. in cross- Peak systolic flow velocities within the proximal sectional axis. aorta measure 202.5 cm/sec. Proximal aorta measures1.24cm. in longitudinal Peak systolic flow velocities within the mid aorta axis. measure 173.3 cm/sec. Mid aorta measures0.99 x 0.97cm. in cross- Peak systolic flow velocities within the distal sectional axis. aorta measure 121.6 cm/sec. Mid aorta measures0.91cm. in longitudinal axis. Distal aorta measures0.97 x 0.97cm. in cross- sectional axis. Distal aorta measures0.87cm. in longitudinal axis. Left Iliac Artery Left iliac artery measures 0.60 x 0.62 cm. in the cross-sectional axis. Left iliac artery measures 0.68 cm. in the longitudinal axis. Peak systolic velocity in the left iliac artery measures 233.9 cm/sec. Right Iliac Artery Right iliac artery measures 0.71 x 0.71 cm. in the cross-sectional axis. Right iliac artery measures 0.73 cm. in the longitudinal axis. Peak systolic velocity in the right iliac artery measures 342.3 cm/sec. Procedure Aorta IVC Iliac vasculature or bypass grafts [id number]. Technically difficult due to pt bowel gas and pt body habitus. Exam performed in department. Interpretation Summary No aneurysm noted. Aorta and left iliac patent. Moderate to severe stenosis rih iliac. Ordering Physician: Jason Begum Referring Physician: Jeri Slater Performed By: Cari Cooper RVT
--- NOTE | 2019-08-10 08:05 | CDU_ITS ---
Reason For Study: Carotid bruit Rt. Velocities/BP Lt. Velocities/BP Prox CCA 70.8/9.5 cm/sec. Prox CCA 10.2/10.2 cm/sec. Mid CCA 93/12.1 cm/sec. Mid CCA 85.1/7.7 cm/sec. Dist CCA 76/12.1 cm/sec. Dist CCA 85.1/9 cm/sec. Prox ICA 90.4/13.4 cm/sec. Prox ICA 80.2/12.6 cm/sec. Mid ICA 109.9/13.4 cm/sec. Mid ICA 88.8/15.1 cm/sec. Dist ICA 113.8/17 cm/sec. Dist ICA 102.3/18.8 cm/sec. Rt. ICA/CCA = 1.5. Lt. ICA/CCA = 1.2. Prox ECA 96.9 cm/sec. Prox ECA 126.6 cm/sec. Rt. Vert. 56.4 cm/sec. Lt. Vert. 59.3/9 cm/sec. Right Extracranial There is homogeneous, smooth atherosclerotic plaque noted in the right common carotid artery. There is heterogeneous, irregular atherosclerotic plaque noted in the right internal carotid artery. There is homogeneous, smooth atherosclerotic plaque noted in the right external carotid artery. Antegrade flow is noted in the right vertebral artery. Left Extracranial There is homogeneous, smooth atherosclerotic plaque noted in the left common carotid artery. There is intimal thickening but no significant atherosclerotic plaque noted in the left internal carotid artery. There is intimal thickening but no significant atherosclerotic plaque noted in the left external carotid artery. Antegrade flow is noted in the left vertebral artery. Procedure Carotid Duplex 19291. Exam performed in department. Interpretation Summary Mild (<50%) stenosis right extracranial internal carotid. Mild (<50%) stenosis left extracranial internal carotid. Flow within the vertebral arteries is antegrade bilaterally. Ordering Physician: Jason Begum Referring Physician: Jeri Slater Performed By: Cari Cooper RVT
== END ==
PROVIDERS: PCP Internal Medicine; Referring Provider Surgery Vascular Surgery; Visit Provider Surgery Vascular Surgery
DX: R09.89 Other specified symptoms and signs involving the circulatory and respiratory systems (principal); I70.213 Atherosclerosis of native arteries of extremities with intermittent claudication, bilateral legs; I10 Essential (primary) hypertension; E11.59 Type 2 diabetes mellitus with other circulatory complications; E78.70 Disorder of bile acid and cholesterol metabolism, unspecified; E07.9 Disorder of thyroid, unspecified; Z87.19 Personal history of other diseases of the digestive system; Z85.828 Personal history of other malignant neoplasm of skin
CPT/HCPCS: 93880; 93922; 93978

== ENCOUNTER → 2019-09-06 14:12 | Outpatient (CLI) | payer MEDICARE, OTHER, SELFPAY ==
[2016-11-25 09:39] VITALS: BMI 35.8
[2019-09-06 13:37] VITALS: BMI 31.9
[2019-09-06 14:16] LABS: Mucous, Urine 0 SEEN /hpf (<or=2+); Red Blood Cells-Urine 0 SEEN /hpf (0-5)
[2019-09-06 15:27] LABS: Color, Urine Yellow (Yellow); Glucose, Dipstick 250 mg/dl (Normal); Ketone-Dipstick Negative (Negative); Leukocyte Esterase-Dipstick 25 /ul (Negative); Nitrite-Dipstick Negative (Negative); Occult Blood-Urine Negative /ul (Negative); Protein-Dipstick 30 mg/dl (Negative); Specific Gravity, Urine 1.015 (1.002-1.030); Urine Bilirubin Dipstick Negative (Negative); Urine Clarity Clear (Clear); Urine Urobilinogen Normal (Normal)
[2019-09-06 15:55] LABS: Erythrocyte Sedimentation Rate 23 mm/hr (0-30)
[2019-09-06 16:00] LABS: Squamous Epithelial Cells - UA 0-5 SEEN /hpf (5-10); White Blood Cells 0-5 SEEN /hpf (0-5)
[2019-09-06 16:01] LABS: Bacteria RARE /hpf (None Seen)
[2019-09-06 16:18] LABS: Microalbumin:Creatinine Ratio 284.4 mg/g CRE (<30 mg/g CRE)
[2019-09-06 16:51] LABS: T4 Free Direct 1.56 ng/dL (0.76-1.46)
[2019-09-06 17:00] LABS: ALB/GLOB Ratio 0.9 RATIO (0.9-2.4); AST(SGOT) 18 U/L (15-37); Alanine Aminotransfer ALT/SGPT 31 U/L (13-56); Albumin, Serum 3.5 g/dL (3.2-5.0); Alkaline Phosphatase 120 U/L (45-117); Anion Gap 8 (5-15); BUN 32 mg/dL (7-18); BUN/Creat Ratio 23.5 RATIO (10-20); CRP < 2.90 mg/L (0.0-3.0); Calcium,Total 8.9 mg/dL (8.5-10.1); Chloride 105 mmol/L (98-107); Creatinine, Serum 1.36 mg/dL (0.55-1.02); EST Glomerular Filtration Rate 40 mL/min (>60); Est Glom Filt Rate - Afr Amer 48 mL/min (>60); Globulin 3.8 g/dL (2.2-4.2); Glucose 296 mg/dL (74-106); Potassium 4.6 mmol/L (3.5-5.1); Protein, Total 7.3 g/dL (6.4-8.2); Sodium Level 138 mmol/L (136-145)
== END ==
PROVIDERS: Nurse Practitioner Family; PCP Internal Medicine; Referring Provider Internal Medicine; Visit Provider Internal Medicine
DX: R50.9 Fever, unspecified (principal); N18.3 Chronic kidney disease, stage 3 (moderate); E03.9 Hypothyroidism, unspecified
CPT/HCPCS: 36415; 80053; 81001; 82043; 82570; 84439; 84443; 85652; 86140

== ENCOUNTER → 2020-01-29 13:47 | Outpatient (CLI) | payer MEDICARE, OTHER, SELFPAY ==
[2016-11-25 09:39] VITALS: BMI 35.8
[2019-11-13 14:51] VITALS: BMI 31.9
--- NOTE | 2020-01-29 13:48 | ECHOCS_ITS ---
Reason For Study: DYSPNEA Procedure This was a 2D Doppler, Color Flow transthoracic echocardiogram. The study was technically difficult. Contrast injection was performed. Hypersensitivity to probe pressure- particularly in breast. Exam performed in department. Left Ventricle Normal LV size. Left ventricular systolic function is hyperdynamic. The estimated ejection fraction is 70 %. Stage 1 diastolic dysfunction. No regional wall motion abnormalities noted. Right Ventricle Normal RV size. Normal systolic function. Atria Normal left atrium. Normal right atrium. Mitral Valve There is mild mitral annular calcification. Tricuspid Valve Normal tricuspid valve. Trivial tricuspid valve insufficiency. Aortic Valve The aortic valve is not well visualized. Pulmonic Valve The pulmonic valve is not well visualized. Great Vessels Normal aortic root. The pulmonary artery is normal size. Normal inferior vena cava. Pericardium/Pleural No pericardial effusion. Medication 22 gauge I.V. with prn adaptor inserted into right arm. Diluted definity 4.5ml given slow IV push to enhance endocardial definition. MMode/2D Measurements & Calculations LVIDd: 4.3 cm IVSd: 1.1 cm Ao root diam: 3.7 cm LVIDs: 2.9 cm LVPWd: 1.1 cm FS: 32.7 % LAV(MOD-sp4): 65.4 ml LA A4 area: 21.8 cm2 LA dimension(2D): 5.0 cm RA A4 area: 16.8 cm2 Time Measurements MV dec time: 0.37 sec Doppler Measurements & Calculations MV E max mario: 97.6 cm/sec MV V2 max: 146.8 cm/sec Ao V2 max: 184.0 cm/sec MV A max mario: 140.1 cm/sec MV max P.6 mmHg Ao max P.6 mmHg MV E/A: 0.70 MV V2 mean: 96.4 cm/sec MV mean P.0 mmHg MV V2 VTI: 37.7 cm LV V1 max: 103.4 cm/sec MV P1/2t-pr_phl: 90.9 msec LV V1 max P.3 mmHg Interpretation Summary Normal LV size. Left ventricular systolic function is hyperdynamic. The estimated ejection fraction is 70 %. Stage 1 diastolic dysfunction. Contrast injection was performed. Compared to prior study, there is no significant change. Ordering Physician: Jeri Slater Referring Physician: Jeri Slater Performed By: Elvia Olivares, SUNIL, RVT
== END ==
PROVIDERS: PCP Internal Medicine; Referring Provider Internal Medicine; Visit Provider Internal Medicine
DX: I25.10 Atherosclerotic heart disease of native coronary artery without angina pectoris (principal); I27.20 Pulmonary hypertension, unspecified; R06.02 Shortness of breath
CPT/HCPCS: 93306; Q9957; A4216; C8929

== ENCOUNTER → 2020-02-27 12:25 | Outpatient (CLI) | payer MEDICARE, OTHER, SELFPAY ==
[2016-11-25 09:39] VITALS: BMI 35.8
[2019-11-13 14:51] VITALS: BMI 31.9
[2020-02-27 13:11] LABS: Amphetamine Urine VISTA NEGATIVE (<1000 ng/mL); Barbiturate Urine VISTA NEGATIVE (< 200 ng/mL); Benzodiazepine Urine VISTA NEGATIVE (< 200 ng/mL); Cocaine Urine VISTA NEGATIVE (< 300 ng/mL); Ecstacy Urine VISTA POSITIVE (< 500 ng/mL); Methadone Urine VISTA NEGATIVE (< 300 ng/mL); PCP Urine VISTA NEGATIVE (< 25 ng/mL); THC Urine VISTA NEGATIVE (< 50 ng/mL); Vista UDS pH Range 5
== END ==
PROVIDERS: PCP Internal Medicine; Referring Provider Anesthesiology Pain Medicine; Visit Provider Anesthesiology Pain Medicine
DX: F11.20 Opioid dependence, uncomplicated (principal)
CPT/HCPCS: 80307

== ENCOUNTER 2020-03-12 09:38 | Emergency (ER) | payer MEDICARE, OTHER, SELFPAY ==
[2016-11-25 09:39] VITALS: BMI 35.8
[2019-11-13 14:51] VITALS: BMI 31.9
[2020-03-12 09:41] VITALS: BP 173/66; PULSE 65; RESP 17; TEMP 36.9; O2SAT 95; BMI 33.9
--- NOTE | 2020-03-12 10:03 | ED.VISSUMM ---
- ER Visit Summary Date of Service: 03/12/20 Chief Complaint: Back pain History of Present Illness: The patient is a [address] Laboy and Dr. Slater. He reports that she has chronic back pain that worsened 4 days ago. She describes as a sharp, aching pain is 10 of 10 at worst and 4-10 currently. Is worsened by movement and walking. Is relieved by sitting and remaining still. She states that she is taking tizanidine and gabapentin with minimal relief. She does have prescription for Percocet. However, she is not taking this because the other medications make her so tired. She took 1 dose yesterday has not taken any today. Patient states that it seems as though the pain radiates diffusely to both legs. She denies any numbness or weakness. No problems with her bowels or her bladder. No groin numbness. No recent trauma. No fall, MVA, or change in activity. She denies any fever or chills. Physical Examination: Vitals: Stable. Afebrile. General: A&O x 3. NAD. Cardiovascular exam: Regular rate and rhythm, no murmur, rub or gallop. Respiratory exam: Clear to auscultation bilaterally. No wheezes or stridor. Abdominal exam: Soft, nontender, nondistended, normal bowel sounds. No peritoneal signs. Back: Diffuse moderate tenderness to palpation over the lumbar spine and the paraspinous musculature in the lumbar region. No point tenderness. Negative straight leg bilaterally. 5/5 DF, PF, EHL bilaterally. Normal sensation to light touch throughout. Extremity: No clubbing, cyanosis, or edema. Emergency Department Course and Treatment: Patient is actually scheduled for an outpatient MRI March 23. There is not an indication to do an MRI from the emergency department. However, I I discussed this with the MRI department and they are able to move her forward as an outpatient to March 19 at 8:30 AM. She was also discussed with Dr. Laboy. Treatment Plan: Patient is instructed to decrease her tizanidine and only take that at night when she needs to sleep. She is instructed to take Percocet during the day as previously prescribed. The signs and symptoms of cauda equina syndrome were discussed and she is instructed to return for these. Disposition: To home in improved and stable condition. Impression: 1. Acute on chronic back pain. This note was generated with [employer] dictation software. It may contain incorrect words, spelling, and punctuation that were not noted in review of the chart prior to signing ED Disposition - Plan for ED Patient: Instructions: ED Back Pain (Acute or Chronic) Referrals: Oswaldo Laboy MD [STAFF PHYSICIAN] - 1 Week Additional Instructions: Your MRI is now scheduled for March 19 at 8:30 AM. Do not take the tizanidine during the day as this is likely what is making you tired. If needed for pain at night take this. Begin taking the Percocet twice a day as prescribed.
== END 2020-03-12 10:26 | disposition home or self-care (01) ==
LOC: ED 10:24
PROVIDERS: Emergency Provider Emergency Medicine; PCP Internal Medicine
DX: M54.5 Low back pain (principal); G89.29 Other chronic pain; I25.10 Atherosclerotic heart disease of native coronary artery without angina pectoris; I10 Essential (primary) hypertension; J44.9 Chronic obstructive pulmonary disease, unspecified; E11.9 Type 2 diabetes mellitus without complications; Z79.4 Long term (current) use of insulin; Z79.899 Other long term (current) drug therapy
CPT/HCPCS: 99282

== ENCOUNTER → 2020-03-19 08:32 | Outpatient (CLI) | payer MEDICARE, OTHER, SELFPAY ==
[2016-11-25 09:39] VITALS: BMI 35.8
[2019-11-13 14:51] VITALS: BMI 31.9
[2020-03-12 09:41] VITALS: BMI 33.9
--- NOTE | 2020-03-19 08:30 | MRI_ITS ---
STUDY: MRI LUMBAR SPINE WITHOUT CONTRAST REASON FOR EXAM: Female, 79 years old. Shooting pains in back, across buttocks and down legs x 2 weeks, NKI TECHNIQUE: Standardized fat and water weighted pulse sequences were obtained in the sagittal and axial planes. COMPARISON: 01/11/2012 FINDINGS: T12-L1: Normal endplates. Normal disc height, hydration and morphology. Normal bilateral facet joints. Normal central canal and bilateral lateral recesses. Normal bilateral intervertebral neural foramina. Normal lumbar lordosis. There is no substantial scoliosis. Normal conus medullaris that terminates at the T12. L1-2: Normal endplates. Normal disc height, hydration and morphology. Normal bilateral facet joints. Normal central canal and bilateral lateral recesses. Normal bilateral intervertebral neural foramina. L2-3: No change in the moderate sized bilobed disc protrusion asymmetric to the right which produces a mild spinal stenosis, moderate right lateral recess stenosis with abutment of the right L3 nerve root and moderate right neural foraminal stenosis with abutment of the exiting right L2 nerve root laterally. L3-4: Mild bilateral facet hypertrophy with moderate ligament flavum hypertrophy. Interval development of a large broad disc protrusion produces severe spinal stenosis with moderate bilateral lateral recess stenosis with abutment of the L4 nerve root laterally and moderate bilateral neural foraminal stenosis with abutment of the exiting L3 nerve roots bilaterally. L4-5: Mild bilateral facet hypertrophy and ligament flavum hypertrophy. Interval development of a mild broad disc protrusion produces mild spinal stenosis with mild bilateral lateral recess stenosis and mild bilateral neural foraminal stenosis. L5-S1: No change in the left foraminal disc protrusion which produces moderate left neural foraminal stenosis with abutment of the left L5 nerve root laterally. No central spinal stenosis. Normal visualized sacral ala. Normal visualized paraspinous soft tissue structures. MRI/Spine Lumbar (Routine) IMPRESSION: Worsening degenerative disc disease at L3/L4 as described above. Electronically Signed: Yobani Turner MD at 15:20 EST Tel , Service support ,
== END ==
PROVIDERS: PCP Internal Medicine; Referring Provider Anesthesiology Pain Medicine; Visit Provider Anesthesiology Pain Medicine
DX: M54.16 Radiculopathy, lumbar region (principal)
CPT/HCPCS: 72148

== ENCOUNTER → 2020-04-01 15:15 | Outpatient (CLI) | payer MEDICARE, OTHER, SELFPAY ==
[2016-11-25 09:39] VITALS: BMI 35.8
[2020-04-01 14:27] VITALS: BMI 35.3
[2020-04-01 15:36] LABS: Absolute Lymphocyte Count 2.02 X10^3/uL (0.83-4.51); Absolute Neutrophil Count 3.6 X10^3/uL (2.0-7.7); Basophil# 0.02 X10^3/uL; Basophil% 0.3 % (0-1); Eosinophil# 0.44 X10^3/uL; Eosinophils% 6.7 % (0-5); Hematocrit 38.7 % (37-47); Hemoglobin 12.7 g/dL (12.0-15.0); Lymphocyte # 2.02 X10^3/ul (4.0); Lymphocyte % 30.7 % (19-41); Mean Corp Hgb Conc 32.8 g/dL (32-36); Mean Corpuscular Hgb 32.8 pg (27.0-32.0); Mean Platelet Vol. 9.4 fl (6.2-12.0); Monocyte# 0.49 X10^3/uL; Monocyte% 7.4 % (0-10); NRBC Flagged by Analyzer 0 % (0-5); Neutrophil # 3.59 X10^3/uL (2.7-7.7); Neutrophil % 54.6 % (47-70); Platelet Count 231 K/mm3 (150-450); RBC Distribution Width CV 13.8 % (11.6-14.6); RBC Distribution Width SD 50.5 fl (35.1-43.9); Red Blood Count 3.87 M/mm3 (4.2-5.4); White Blood Count 6.6 K/mm3 (4.4-11.0)
--- NOTE | 2020-04-01 15:40 | RAD_ITS ---
STUDY: X-RAY CHEST REASON FOR EXAM: Female, 79 years old. shortness of breath TECHNIQUE: Frontal and lateral views of the chest. COMPARISON: 05/18/2019 FINDINGS: Bilateral increased interstitial markings. There is no demonstrated pleural abnormality. Normal size heart. Normal mediastinum and polo. Normal visualized pulmonary arteries. Normal visualized aortic arch and descending thoracic aorta. Normal visualized thoracic spine. Normal visualized ribs, clavicles, and shoulders. There is no demonstrated abnormality of the visualized soft tissue structures of the upper abdomen. RAD/Chest PA and Lateral IMPRESSION: Interstitial lung disease unchanged Electronically Signed: Christ Kenyon MD at 22:51 EST , Service support ,
== END ==
LOC: PAVLAB 15:19 → RAD 15:33
PROVIDERS: PCP Internal Medicine; Referring Provider Internal Medicine Critical Care Medicine; Visit Provider Internal Medicine Critical Care Medicine
DX: R06.09 Other forms of dyspnea (principal)
CPT/HCPCS: 36415; 71046; 85025

== ENCOUNTER → 2020-04-18 12:37 | Outpatient (CLI) | payer MEDICARE, OTHER, SELFPAY ==
[2016-11-25 09:39] VITALS: BMI 35.8
[2020-04-01 14:27] VITALS: BMI 35.3
--- NOTE | 2020-04-19 07:18 | PFT ---
INTRODUCTION: The patient is a 79-year-old female that presents for pulmonary function studies secondary to a diagnosis of dyspnea. Respiratory therapy reports good patient effort. Bronchodilators were used during testing. INTERPRETATION: Forced expiration spirometry demonstrates no evidence of a large airways obstructive ventilatory defect. There was no significant response to aerosolized bronchodilators. Spirograms are of fair quality and plateau normally. Body plethysmography was performed and reveals lung volumes to be within normal limits. Diffusing capacity by single breath CO was severely reduced at 37% of predicted. When compared to prior pulmonary function studies from 2018, there has been a decrease in FEV1 by 13% along with a decrease in DLCO by 24%. IMPRESSION: Isolated severe reduction in diffusing capacity. There has been interval worsening in the patient's FEV1 and DLCO since 2018, as noted above.
== END ==
PROVIDERS: PCP Internal Medicine; Referring Provider Internal Medicine Critical Care Medicine; Visit Provider Internal Medicine Critical Care Medicine
DX: R06.09 Other forms of dyspnea (principal)
CPT/HCPCS: 94060; 94726; 94729

== ENCOUNTER → 2020-04-29 13:48 | Outpatient (CLI) | payer MEDICARE, OTHER, SELFPAY ==
[2016-11-25 09:39] VITALS: BMI 35.8
[2020-04-01 14:27] VITALS: BMI 35.3
[2020-04-29 14:54] VITALS: PULSE 101; PULSE 102; PULSE 104; PULSE 105; PULSE 90; PULSE 98; PULSE 99; O2SAT 90; O2SAT 91; O2SAT 92
--- NOTE | 2020-04-30 11:29 | PCM.PSN.6M ---
PSN 6 Minute Walk Test - 6 Minute Walk Test 6 Minute Walk Test: 6 Minute Walk Test PSN:6-Minute Walk Test Start: 04/29/20 14:54 Freq: Status: Active Protocol: RESP.6MINW Document 04/29/20 14:54 ONESIMO (Rec: 04/29/20 14:58 [id number] [id number]) 6 Minute Walk Test Date Performed 04/29/20 Time Performed 13:00 Height 5 ft 6 in Weight: 200 lb Weight in Pounds 200.[address]: Ivan Dial Pre-test Oxygen Delivery Method Room Air Pulse Ox (%) 92 Pulse Rate (60-100 beats/min) 90 Dyspnea Hermilo Scale (0-10) 0 Exertion Hermilo Scale (6-20) 6 1st minute Oxygen Delivery Method Room Air Pulse Ox (%) 90 Pulse Rate (60-100 beats/min) 99 2nd minute Oxygen Delivery Method Room Air Pulse Ox (%) 91 Pulse Rate (60-100 beats/min) 102 H 3rd minute Oxygen Delivery Method Room Air Pulse Ox (%) 91 Pulse Rate (60-100 beats/min) 105 H 4th minute Oxygen Delivery Method Room Air Pulse Ox (%) 91 Pulse Rate (60-100 beats/min) 104 H 5th minute Oxygen Delivery Method Room Air Pulse Ox (%) 90 Pulse Rate (60-100 beats/min) 102 H 6th minute Oxygen Delivery Method Room Air Pulse Ox (%) 91 Pulse Rate (60-100 beats/min) 101 H Dyspnea Hermilo Scale (0-10) 13 Exertion Hermilo Scale (6-20) 4 Post-test Oxygen Delivery Method Room Air Pulse Ox (%) 90 Pulse Rate (60-100 beats/min) 98 Full Laps Walked 10 Partial Lap, Number of Tiles Walked 10 Total Distance Walked (ft) 600 - Interpretation Interpretation: The patient ambulated 600 feet over the course of 6 minutes beginning on room air with the use of a push walker. Pretesting oxygen saturation was noted to be 92% on room air. With ambulation, the kerry oxygen saturation was 90%. There was no significant exertional oxygen desaturation. - Recommendations Recommendations: There is no indication for the use of supplemental oxygen at this time.
== END ==
PROVIDERS: PCP Internal Medicine; Referring Provider Internal Medicine Critical Care Medicine; Visit Provider Internal Medicine Critical Care Medicine
DX: R06.09 Other forms of dyspnea (principal)
CPT/HCPCS: 94618

== ENCOUNTER → 2020-05-29 13:26 | Outpatient (CLI) | payer MEDICARE, OTHER, SELFPAY ==
[2016-11-25 09:39] VITALS: BMI 35.8
[2020-05-20 12:53] VITALS: BMI 34.3
--- NOTE | 2020-05-29 13:28 | CT_ITS ---
STUDY: CT CHEST WITHOUT CONTRAST REASON FOR EXAM: Female, 79 years old. shortness of breath RADIATION DOSAGE (If Supplied By Facility): CTDIvol = ( 17.36 ) mGy, DLP = ( 1141.63 ) mGycm TECHNIQUE: Transaxial imaging was performed without the administration of intravenous contrast material. Multiplanar coronal and sagittal images were reformatted. High resolution protocol with supine only imaging. Individualized dose optimization techniques were used for this CT. COMPARISON: None. FINDINGS: Mild smooth intralobular septal thickening identified of multiple pulmonary lobes but most conspicuous in the midlower segments. Subpleural smooth reticulation identified in the right more than left lower lobes as well as the lingula. Thickened fibrotic band of the medial left lower lobe is seen on image 195. Pleural-based oval-shaped nodule along the right minor fissure measures 5 x 7 mm on image 149 of series 4. There is a punctate, likely calcified nodule along the subpleural right lower lobe on image 155. A square shaped nodule in the right subpleural lower lobe on image 181 of series 4 measures 5 mm, slight adjacent reticulation. No significant bronchiectasis. No localized groundglass opacity. Calcified granuloma in the anterior left upper lobe demonstrated. There is no demonstrated pleural abnormality. Normal heart and pericardium. There are calcifications of the coronary arteries. Normal mediastinum. Normal hilar regions. Normal unenhanced pulmonary arteries. There is atherosclerotic tortuosity of the aortic arch and descending thoracic aorta. There are multi-level degenerative changes of the thoracic spine. There is significant atherosclerosis of the abdominal aorta with luminal encroachment at the level of the celiac axis, as seen on prior CTA of 08/01/2018. CT/Chest without Contrast IMPRESSION: 1. Mild interstitial and subpleural fibrosis without significant traction bronchiectasis. No honeycombing. 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 2. Pleural-based nodules of the right minor fissure and right lower lobe measuring up to 5 x 7 mm. Fleischner Society Guidelines recommend a follow-up chest CT in 6-12 months in patients with a low or high risk of malignancy. Electronically Signed: Zack Godwin MD ([place]) at 9:07 EST , Service support ,
== END ==
PROVIDERS: PCP Internal Medicine; Referring Provider Nurse Practitioner Acute Care; Visit Provider Nurse Practitioner Acute Care
DX: J84.10 Pulmonary fibrosis, unspecified (principal)
CPT/HCPCS: 71250

== ENCOUNTER 2020-05-30 17:43 | Observation (INO) | payer MEDICARE, OTHER, SELFPAY ==
[2016-11-25 09:39] VITALS: BMI 35.8
[2020-05-20 12:53] VITALS: BMI 34.3
[2020-05-30] VITALS (8 sets, daily range): BP systolic 167–200; BP diastolic 66–84; PULSE 70–86; RESP 18–24; TEMP 36.3–36.8; O2SAT 90–97; BMI 33.0; BMI 34.9
--- NOTE | 2020-05-30 18:29 | EKG12_ITS ---
Test Reason : SOB Blood Pressure : / mmHG Vent. Rate : 074 BPM Atrial Rate : 074 BPM P-R Int : 204 ms QRS Dur : 090 ms QT Int : 408 ms P-R-T Axes : 063 -26 092 degrees QTc Int : 452 ms Normal sinus rhythm Abnormal QRS-T angle, consider primary T wave abnormality Abnormal ECG Confirmed by OCTAVIO LOMELI, MAREN ([id number]), general expeditor ASHLY MARCUS ([id number]) on 06/02/2020 10:57:35 A M Referred By: SAROJ Confirmed By:RAMOS CUNNINGHAM MD
--- NOTE | 2020-05-30 18:31 | ED.DCSUM_ITS ---
History of Present Illness Chief Complaint: Shortness of Breath Informant: Patient Onset: Yesterday Associated Symptoms: Clear sputum, Cough Chest Pain: None Narrative: Patient is a 79-year-old female is a 79-year-old female with history of coronary artery disease, pulmonary fibrosis, hypertension, hyperlipidemia, hypothyroid, obstructive sleep apnea, CKD 3, GERD and history of anemia presenting with shortness of breath and dyspnea on exertion. Patient states she is had shortness of breath has been worsening over the past month but it significantly worsened over the past 2 days. She knows she can even walk to the bathroom now without getting very winded. She denies associated chest pain. She does use one of her legs. She states she is followed with pulmonology, Dr. Dial, and had a noncontrast CT performed yesterday. She does not know the results. Patient uses a cane around her house and a Rollator when she is out of the house. She notes that her abdomen is been a little more swollen for the past 1 to 2 weeks but is not sure if she is gained any weight. She does have sleep apnea but states she has been compliant with her CPAP at night. She has had a cough productive of clear sputum. She does not think this is significantly changed. No reported fever or chills. No other complaints at this time. Patient notes that she does not wear oxygen during the day. She states they did an ambulatory test about a month ago and at that time it was deemed that she did not require oxygen and her oxygen did not go below 91%. Past Medical History - Allergies and Home Meds Allergies/Adverse Reactions: Allergies metoprolol Allergy (Severe, Verified 05/30/20 17:48) Unknown Patient is unsure of her reaction, possible rash house dust Allergy (Mild, Verified 05/30/20 17:48) rhinitis morphine Adverse Reaction (Verified 05/30/20 17:48) Vomiting bee stings Allergy (Uncoded 05/30/20 17:48) Anaphylaxis Past Medical History: - - coronary artery disease, pulmonary fibrosis, hypertension, hyperlipidemia, hypothyroid, obstructive sleep apnea, CKD 3, GERD and history of anemia Surgical History: hysterectomy - for DUB, - - Multilple orthopedic surgeries. - Family History Maternal Family History: Family History (Last Reviewed 05/20/20 @ 13:00 by Jesusita Nino TRANSPLANT CASE MANAGER, TRANSPLANT CASE MANAGER-C) Daughter Alcohol abuse Anemia Anxiety Asthma Mother Diabetes Heart disease Hypertension Father Heart disease Hypertension Family History: Reports: Diabetes, Heart Disease, Stroke Paternal Family History: Family History (Last Reviewed 05/20/20 @ 13:00 by Jesusita Nino TRANSPLANT CASE MANAGER, TRANSPLANT CASE MANAGER-C) Daughter Alcohol abuse Anemia Anxiety Asthma Mother Diabetes Heart disease Hypertension Father Heart disease Hypertension Family History: Reports: Heart Disease Review of Systems General: Denies: Chills, Fever, Sweats Eyes: Denies: Visual changes - bilaterally, Diplopia ENT: Denies: Rhinorrhea, Sore throat Cardiovascular: Denies: Chest pain, Palpitations Respiratory: Reports: Dyspnea, Cough, Sputum, Dyspnea on exertion. Denies: Orthopnea, Paroxysmal nocturnal dyspnea Gastrointestinal: Denies: Abdominal pain, Nausea, Vomiting, Diarrhea, Melena, Hematochezia Genitourinary: Denies: Dysuria, Hematuria, Frequency Musculoskeletal: Denies: Back pain, Extremity Pain Skin: Denies: Rash, Wounds Neurological: Denies: Headache, Weakness, Numbness Physical Exam Vital Signs/Narrative: Vital Signs Temp Pulse Resp BP Pulse Ox 05/30/20 18:15 79 20 H 192/74 H 94 05/30/20 17:44 97.4 F L 86 24 H 200/83 H 94 Inital Vital Signs reviewed: Yes General: Well nourished, Well developed, No Acute Distress Head: Normocephalic, Atraumatic Eyes: Perrl, EOMI ENT: Moist mucous membranes, No rhinorrhea Neck: Supple, Nontender, No JVD Cardiovascular: Regular rate, Regular rhythm, No murmurs Respiratory: No distress, CTA bilaterally, Chest nontender. Negative for: Wheezing, Diminished, Decreased Air Movement Abdomen: Soft, Nontender, Nondistended, Normal bowel sounds Back: Nontender, Normal Inspection Extremities: Nontender, No edema Skin: Normal color, No rash Neurological: Alert, Oriented x3, Cranial nerves II-XII grossly intact, Normal Strength, Normal Sensation Psychological: Normal affect, Normal Mood Diagnostic/Tx/Re-eval Laboratory Data 05/30/20 05/30/20 05/30/20 18:40 18:40 18:40 WBC 6.4 RBC 3.83 L Hgb 12.7 Hct 38.2 MCV 99.7 H MCH 33.2 H MCHC 33.2 RDW Std Deviation 49.5 H RDW Coeff of Kenton 13.8 Plt Count 234 MPV 9.4 Immature Gran % (Auto) 0.300 Neut % (Auto) 58.0 Lymph % (Auto) 28.9 Dodge % (Auto) 8.4 Eos % (Auto) 4.1 Baso % (Auto) 0.3 Absolute Neuts (auto) 3.7 Absolute Lymphs (auto) 1.85 Nucleated RBC % 0 Sodium 139 Potassium 4.2 Chloride 104 Carbon Dioxide 26.0 Anion Gap 9 BUN 17 Creatinine 1.21 H Estim Creat Clear Calc 35.29 Est GFR (MDRD) Af Amer 55 L Est GFR (MDRD) Non-Af 46 L BUN/Creatinine Ratio 14.0 Glucose 286 H Calcium 8.9 Magnesium Troponin I 0.018 B-Natriuretic Peptide 161.2 H 05/30/20 18:40 WBC RBC Hgb Hct MCV MCH MCHC RDW Std Deviation RDW Coeff of [place] Plt Count MPV Immature Gran % (Auto) Neut % (Auto) Lymph % (Auto) Dodge % (Auto) Eos % (Auto) Baso % (Auto) Absolute Neuts (auto) Absolute Lymphs (auto) Nucleated RBC % Sodium Potassium Chloride Carbon Dioxide Anion Gap BUN Creatinine Estim Creat Clear Calc Est GFR (MDRD) Af Amer Est GFR (MDRD) Non-Af BUN/Creatinine Ratio Glucose Calcium Magnesium 1.9 Troponin I B-Natriuretic Peptide - Rhythm Strip Rhythm Strip: Sinus Rhythm Rate: 74 Ectopy: None - EKG Initial EKG Interpretation: Sinus Rhythm, - - Normal sinus rhythm rate of 74Normal axisNormal intervalsNonspecific T wave inversion in aVLNormal ST segmentsNo change prior to prior EKG on 05/18/2019 Treatment - Dyspnea: Oxygen Repeat Evaluation: Improved - Medical Decision Making Patient is evaluated for worsening dyspnea on exertion that has been steadily worsening for the past month but significantly worsened over the past day. On arrival at rest patient is 94% on room air however she while in the ER she started to desaturate. In the bed she is more around 90-91%. Attempting to get up to the bedside to ambulate she dropped down to 88% with good waveform. Patient is placed on 2 L of oxygen. Patient had a CT of her chest yesterday which was reviewed. It showed a lot of pulmonary fibrosis but no other acute process. Given that she just had this imaging I do not think repeat pulmonary imaging is indicated. Clinically patient does not appear fluid overloaded. Her BNP is only mildly elevated and at her baseline. Patient CBC is normal. Her BMP is only remarkable for mildly elevated creatinine 1.21 however this is also her baseline. Given patient's increased symptoms as well as hypoxia with minimal exertion I do think she would benefit from admission. Is possible this could just be worsening of her pulmonary fibrosis and she might require home oxygen. Patient is brought in for further evaluation to the hospital service. She is agreeable to this plan of care. ED Disposition - Plan for ED Patient: Disposition: Acute Care Hospital [facility] Diagnosis: Pulmonary fibrosis, Hypoxia, Dyspnea on exertion
[2020-05-30 18:53] LABS: Absolute Lymphocyte Count 1.85 X10^3/uL (0.83-4.51); Absolute Neutrophil Count 3.7 X10^3/uL (2.0-7.7); Basophil# 0.02 X10^3/uL; Basophil% 0.3 % (0-1); Eosinophil# 0.26 X10^3/uL; Eosinophils% 4.1 % (0-5); Hematocrit 38.2 % (37-47); Hemoglobin 12.7 g/dL (12.0-15.0); Lymphocyte # 1.85 X10^3/ul (4.0); Lymphocyte % 28.9 % (19-41); Mean Corp Hgb Conc 33.2 g/dL (32-36); Mean Corpuscular Hgb 33.2 pg (27.0-32.0); Mean Corpuscular Volume 99.7 fL (81-99); Mean Platelet Vol. 9.4 fl (6.2-12.0); Monocyte# 0.54 X10^3/uL; Monocyte% 8.4 % (0-10); NRBC Flagged by Analyzer 0 % (0-5); Neutrophil # 3.71 X10^3/uL (2.7-7.7); Platelet Count 234 K/mm3 (150-450); RBC Distribution Width CV 13.8 % (11.6-14.6); RBC Distribution Width SD 49.5 fl (35.1-43.9); Red Blood Count 3.83 M/mm3 (4.2-5.4); White Blood Count 6.4 K/mm3 (4.4-11.0)
[2020-05-30 19:07] LABS: Anion Gap 9 (5-15); BUN 17 mg/dL (7-18); Calcium,Total 8.9 mg/dL (8.5-10.1); Chloride 104 mmol/L (98-107); Creatinine, Serum 1.21 mg/dL (0.55-1.02); EST Glomerular Filtration Rate 46 mL/min (>60); Est Glom Filt Rate - Afr Amer 55 mL/min (>60); Estimated Creatinine Clearance 35.29 ml/min; Glucose 286 mg/dL (74-106); Potassium 4.2 mmol/L (3.5-5.1); Sodium Level 139 mmol/L (136-145)
[2020-05-30 19:16] LABS: BNP,B-Type NATRIURETIC PEPTIDE 161.2 pg/mL (0-100)
--- NOTE | 2020-05-30 20:25 | HP.PCM_ITS ---
Problem List (1) Pulmonary fibrosis Status: Acute (2) Dyspnea on exertion Status: Chronic (3) Atherosclerotic heart disease of [place] coronary artery without angina pectoris Status: Chronic Qualifiers: [place] vs. transplanted heart: [place] heart Qualified Code(s): I25.10 - Atherosclerotic heart disease of [place] coronary artery without angina pectoris (4) NSTEMI (non-ST elevated myocardial infarction) Status: Resolved (5) History of coronary artery stent placement Status: Resolved Comment: WLL-TJI-Bchb-Mid OM1 & AJB-ZRX-Xzjh LAD 02/05/16; BUJ-EAK-YPX-OM1 w/ 2.25 x 12 mm Resolute Stent 08/10/16 (6) Essential (primary) hypertension Status: Chronic (7) Hyperlipidemia Status: Chronic Qualifiers: Hyperlipidemia type: unspecified Qualified Code(s): E78.5 - Hyperlipidemia, unspecified (8) Peripheral vascular occlusive disease Status: Chronic Comment: stenosis of distal aorta; stent the aorta with a 12 x 60 Proteg? 2014; angioplasty of the aorta with a 10 mm balloon through the old stent, angioplasty the right common iliac, angioplasty of the left common femora l to the SFA 2017 (9) Bilateral carotid artery stenosis Status: Chronic Comment: < 50 % bilaterally 2019 (10) Hypothyroidism Status: Chronic (11) Symptomatic anemia Status: Chronic (12) Chronic pain syndrome Status: Chronic (13) Type 2 diabetes mellitus Status: Chronic (14) OMID (obstructive sleep apnea) Status: Chronic (15) CVA (cerebral vascular accident) Status: Chronic (16) Chronic renal failure, stage 3 (moderate) Status: Chronic (17) GERD (gastroesophageal reflux disease) Status: Chronic History of Present Illness Date of Admission: 05/30/20 Chief Complaint: Shortness of breath on exertion progressively worsening. The patient is a 79 year old F with history of chronic smoking about 40 to 60 pack years of smoking quit in 2000 came to ED for progressive worsening of shortness of breath mainly exertional dyspnea for past 1 month. She easily gets short of breath even going to bathroom. In ER patient was tachypneic respiratory 24, pulse ox dropped to 88%, although not documented and requires [address] chest completed on 05/29 shows mild interstitial and subpleural fibrosis without significant traction bronchiectasis. No honeycombing. 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 At that time CT chest was ordered. Prior to that patient had PFT done on April 18, 2020 which showed isolated severe reduction in diffusion capacity and interval worsening of FEV1 and DLCO since 2018 but no evidence of large airway obstructive ventilatory defect. Walking pulse oximetry in 3020 shows a total distance 600 feet over 6-minute but at that time she did not require oxygen. At home she is on DuoNeb inhaler. Past Medical History Past Medical History (Chronic Problems): Chronic Problems (Last Reviewed 05/20/20 @ 13:00 by Jesusita Nino CLINICAL TRIAL SPECIALIST, CLINICAL TRIAL SPECIALIST-C) Dyspnea on exertion (Chronic) Atherosclerotic heart disease of [place] coronary artery without angina pectoris (Chronic) Essential (primary) hypertension (Chronic) Hyperlipidemia (Chronic) Peripheral vascular occlusive disease (Chronic) stenosis of distal aorta; stent the aorta with a 12 x 60 Proteg? 2014; angioplasty of the aorta with a 10 mm balloon through the old stent, angioplasty the right common iliac, angioplasty of the left common femoral to the SFA 2017 Bilateral carotid artery stenosis (Chronic) < 50 % bilaterally 2019 Hypothyroidism (Chronic) Symptomatic anemia (Chronic) Chronic pain syndrome (Chronic) Type 2 diabetes mellitus (Chronic) OMID (obstructive sleep apnea) (Chronic) CVA (cerebral vascular accident) (Chronic) Chronic renal failure, stage 3 (moderate) (Chronic) GERD (gastroesophageal reflux disease) (Chronic) Medical History: Medical History (Last Reviewed 05/20/20 @ 13:00 by Jesusita Nino CLINICAL TRIAL SPECIALIST, CLINICAL TRIAL SPECIALIST-C) Atherosclerotic heart disease of [place] coronary artery without angina pectoris (Chronic) I25.10 NSTEMI (non-ST elevated myocardial infarction) (Resolved) Onset Date: 08/10/16 I21.4 Essential (primary) hypertension (Chronic) I10 Hyperlipidemia (Chronic) E78.5 Peripheral vascular occlusive disease (Chronic) I73.9 stenosis of distal aorta; stent the aorta with a 12 x 60 Proteg? 2014; angioplasty of the aorta with a 10 mm balloon through the old stent, angioplasty the right common iliac, angioplasty of the left common femoral to the SFA 2017 Hypothyroidism (Chronic) E03.9 Symptomatic anemia (Chronic) D64.9 Chronic pain syndrome (Chronic) G89.4 Type 2 diabetes mellitus (Chronic) E11.9 OMID (obstructive sleep apnea) (Chronic) G47.33 CVA (cerebral vascular accident) (Chronic) I63.9 Chronic renal failure, stage 3 (moderate) (Chronic) N18.3 GERD (gastroesophageal reflux disease) (Chronic) K21.9 COPD (chronic obstructive pulmonary disease) (Chronic) J44.9 Allergic rhinitis J30.9 Bilateral carotid bruits R09.89 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 2014 COPD exacerbation (Resolved) J44.1 Carpal tunnel syndrome G56.00 Cataracts, bilateral H26.9 Encounter for long-term current use of high risk medication (Resolved) Z79.899 Pulmonary hypertension (Resolved) I27.20 RVSP 41 mmHg Aortic stenosis (Ruled-out) I35.0 Echocardiogram in February 2018 shows no evidence of aortic stenosis and the aortic valve appears normal Abnormal echocardiogram (Inactive) R93.1 Anemia (Inactive) D64.9 Diabetes type 2, uncontrolled E11.65 Diastolic dysfunction (Inactive) I51.9 NSTEMI (non-ST elevated myocardial infarction) (Inactive) I21.4 Palpitations (Inactive) R00.2 Skin cancer (Inactive) C44.90 Squamous cell Allergies metoprolol Allergy (Severe, Verified 05/30/20 17:48) Unknown Patient is unsure of her reaction, possible rash house dust Allergy (Mild, Verified 05/30/20 17:48) rhinitis morphine Adverse Reaction (Verified 05/30/20 17:48) Vomiting bee stings Allergy (Uncoded 05/30/20 17:48) Anaphylaxis Home Medications: Ambulatory Orders Medication Instructions Recorded multivitamin 1 tab PO DAILY 12/22/18 furosemide 40 mg tablet 40 mg PO BID #180 tab 01/31/19 cholecalciferol (vitamin D3) 50 2,000 unit PO DAILY 05/08/19 mcg (2,000 unit) tablet isosorbide mononitrate 30 mg 30 mg PO BID #240 tab 10/02/19 tablet,extended release 24 hr acetaminophen 500 mg tablet 1,000 mg PO Q8H PRN 30 Days #360 11/13/19 tab tramadol 50 mg tablet 50 mg PO BID PRN #20 tab 12/26/19 trazodone 50 mg tablet 50 mg PO QHS PRN #90 tab 12/26/19 rosuvastatin 20 mg tablet 20 mg PO QHS #90 tab 01/14/20 levothyroxine 175 mcg tablet 175 mcg PO DAILY #90 tab 03/03/20 flash glucose sensor See Rx Instructions .ROUTE 03/12/20 .MEDSUPPLY #1 ea insulin aspart U-100 100 unit/mL 10 unit SUBCUT TIDCM #15 ml 03/17/20 (3 mL) subcutaneous pen amlodipine 10 mg-benazepril 40 mg 1 cap PO DAILY #90 cap 04/09/20 capsule acetylcysteine 600 mg capsule 600 mg PO DAILY 05/12/20 aspirin 81 mg tablet,delayed 81 mg PO DAILY 05/12/20 release grapefruit formula See Rx Instructions PO DAILY tab 05/12/20 zinc 50 mg tablet 50 mg PO DAILY 05/12/20 ipratropium bromide 0.02 % 2.5 ml INHALATION Q6H PRN #2.5 ml 05/15/20 solution for inhalation albuterol sulfate 90 mcg/actuation 2 puff INHALATION Q4H PRN #18 g 05/20/20 aerosol inhaler Insulin Glargine [Lantus SoloStar 70 units SC QHS 05/30/20 Pen] Surgical History: Surgical History (Last Reviewed 05/20/20 @ 13:00 by Jesusita Nino CLINICAL TRIAL SPECIALIST, CLINICAL TRIAL SPECIALIST-C) History of coronary artery stent placement (Resolved) Onset Date: 08/10/16 Z95.5 IDT-JEB-Ncqd-Mid OM1 & VKO-MBH-Aqsa LAD 02/05/16; MTP-YUC-TPN-OM1 w/ 2.25 x 12 mm Resolute Stent 08/10/16 H/O left knee surgery Z98.890 History of angioplasty of peripheral vessel Onset Date: 2017 Z98.62 Balloon angioplasty of the aorta with a 10 mm balloon through the old stent, angioplasty the right common iliac, angioplasty of the left common femoral to the SFA 2017 History of hysterectomy Z90.710 History of partial knee replacement Z96.659 S/P rotator cuff repair Z98.890 Status post ORIF of fracture of ankle Z96.7, Z87.81 Surgical History: hysterectomy - for DUB, - - Multilple orthopedic surgeries. Psychiatric History: Depression [employer] History: dysfunctional uterine bld Smoking Status: Never smoker - *Family History Maternal Family History: Family History (Last Reviewed 05/20/20 @ 13:00 by Jesusita Nino CLINICAL TRIAL SPECIALIST, CLINICAL TRIAL SPECIALIST-C) Daughter Alcohol abuse Anemia Anxiety Asthma Mother Diabetes Heart disease Hypertension Father Heart disease Hypertension History Items: Diabetes, Heart Disease, Stroke Paternal Family History: Family History (Last Reviewed 05/20/20 @ 13:00 by Jesusita Nino CLINICAL TRIAL SPECIALIST, CLINICAL TRIAL SPECIALIST-C) Daughter Alcohol abuse Anemia Anxiety Asthma Mother Diabetes Heart disease Hypertension Father Heart disease Hypertension History Items: Heart Disease Review of Systems Constitutional: Denies: Chills, Fever, Weight Change HEENT: Denies: Head Aches, Sinus Congestion, Sinus Drainage Cardiovascular: Denies: Chest Pain, Palpitations Respiratory: Reports: Cough - Occasional cough, Shortness of Breath, Shortness of breath upon exertion. Denies: Shortness of breath at rest, Sputum production Gastrointestinal: Denies: Abdominal Pain, Nausea, Vomiting Genitourinary: Denies: Dysuria Musculoskeletal: Denies: Joint Pain, Joint Tenderness Skin: Denies: Rash, Wounds Neurological: Reports: Balance problems. Denies: Focal weakness, Numbness, Tingling Psychiatric: Reports: Anxiety, Depression. Denies: Homicidal Ideations, Suicidal Ideations Hematologic/ Lymphatic: Denies: Easy Bruising, Easy Bleeding VTE Information - Inpt Only VTE Present on Admission: No VTE Mechan Device Prophylaxis: None VTE Pharm Prophylaxis ordered?: Yes Patient Problems: Active and Suspected Problems (Last Reviewed 05/20/20 @ 13:00 by Jesusita Nino NP, CLINICAL TRIAL SPECIALIST-C) Pulmonary fibrosis (Acute) Objective: General: Alert, Oriented x3, Cooperative HEENT: Atraumatic, PERRLA, EOMI, Normocephalic Oral: No Gingival or Mucosal Lesions/ Ulcerations Neck: Supple, No JVD, Negative Carotid Bruits Lungs: Air entry diminished in bilateral lungs. Fine inspiratory rales. Cardiovascular: Regular rate, Regular Rhythm, Normal S1, Normal S2, No murmurs Abdomen: Bowel Sounds Present, Soft, Non Tender, Non-Distended : No renal angle tenderness. No suprapubic tenderness. Extremities: No frequent ankle edema, Capillary Refill Less than 3 Seconds Skin: No rashes, No breakdown Musculoskeletal: No Tenderness to Palpation of Joints or Extremities Neurological: Cranial nerves II-XII grossly intact, Deep Tendon Reflexes 2+/4 and Symmetrical, Neuro grossly intact Psych/Mental Status: Normal Affect, Appropriate. - Physical Exam Vitals/I&O's: Vital Signs Temp Pulse Resp BP Pulse Ox 97.4 F L 79 20 H 192/74 H 94 05/30/20 17:44 05/30/20 18:15 05/30/20 18:15 05/30/20 18:15 05/30/20 18:15 Oxygen Delivery Method Room Air Weight: 205 lb 0.478 oz Body Mass Index (BMI) 33.0 Finger Stick Blood Glucose 261 Laboratory Results 05/30/20 18:40: WBC 6.4, RBC 3.83 L, Hgb 12.7, Hct 38.2, MCV 99.7 H, MCH 33.2 H, MCHC 33.2, RDW Std Deviation 49.5 H, RDW Coeff of [place] 13.8, Plt Count 234, MPV 9.4, Immature Gran % (Auto) 0.300, Neut % (Auto) 58.0, Lymph % (Auto) 28.9, [place] % (Auto) 8.4, Eos % (Auto) 4.1, Baso % (Auto) 0.3, Absolute Neuts (auto) 3.7, Absolute Lymphs (auto) 1.85, Nucleated RBC % 0 05/30/20 18:40: Sodium 139, Potassium 4.2, Chloride 104, Carbon Dioxide 26.0, Anion Gap 9, BUN 17, Creatinine 1.21 H, Estim Creat Clear Calc 35.29, Est GFR (MDRD) Af Amer 55 L, Est GFR (MDRD) Non-Af 46 L, BUN/Creatinine Ratio 14.0, Glucose 286 H, Calcium 8.9, Troponin I 0.018 05/30/20 18:40: B-Natriuretic Peptide 161.2 H Assessment/Plan All Active Problems (Last Reviewed 05/20/20 @ 13:00 by Jesusita Nino CLINICAL TRIAL SPECIALIST, CLINICAL TRIAL SPECIALIST- C) Pulmonary fibrosis (Acute) NSTEMI (non-ST elevated myocardial infarction) (Resolved 08/10/16) History of coronary artery stent placement (Resolved 08/10/16) COPD exacerbation (Resolved) Encounter for long-term current use of high risk medication (Resolved) Pulmonary hypertension (Resolved) Aortic stenosis (Ruled-out) 1. Interstitial lung disease most probably NSIP with acute hypoxic respiratory failure and obstructive sleep apnea: Patient is being admitted to [facility] floor. Continue bronchodilator as needed. Started on prednisone 40 mg daily. Pulmonary consult for further opinion. Patient had recent 2D echo January 2020 which shows EF 70%, hyperdynamic LV systolic function. Stage I diastolic dysfunction. Home qualification oxygen ordered. 2. Coronary artery disease status post stent, non-STEMI, chronic diastolic heart failure/HFpEF: No chest pain. EKG shows normal sinus rhythm MO interval 204 ms, QTC 452 ms suggestive of type I AV block. Nonspecific ST-T changes. First troponin negative. BNP 161. Patient on Lasix 40 mg IV twice daily and continued 3. History of CVA, peripheral arterial disease: Bilateral carotid artery disease, less than 50% 4. Diabetes mellitus type 2: Home dose of Lantus and short-acting insulin continued. Accu-Chek H&H's coverage and low sliding scale 5. CKD stage III: Monitor kidney function. BUN/creatinine 06/04.. BUN/creatinine at baseline. 6. Other comorbidities include hypertension, dyslipidemia, GERD VT prophylaxis: Lovenox 40 mg subcu daily Living will/advanced directive/end of life care: Patient does not have living will or advanced directive. After discussion of benefits/risks procedures involved with full code, DNR CC arrest and DNR CC, the patient opted for DNR-CC Arrest with no intubation Patient does not want artificial life support including intubation, tube feed, ventilator and/chest compression, central venous catheter, vasopressor and DC shock if needed Total time spent in [id number] encounter in discussion of advanced directive 16 minutes. Laboratory Results 05/30/20 18:40: WBC 6.4, RBC 3.83 L, Hgb 12.7, Hct 38.2, MCV 99.7 H, MCH 33.2 H, MCHC 33.2, RDW Std Deviation 49.5 H, RDW Coeff of [place] 13.8, Plt Count 234, MPV 9.4, Immature Gran % (Auto) 0.300, Neut % (Auto) 58.0, Lymph % (Auto) 28.9, [place] % (Auto) 8.4, Eos % (Auto) 4.1, Baso % (Auto) 0.3, Absolute Neuts (auto) 3.7, Absolute Lymphs (auto) 1.85, Nucleated RBC % 0 05/30/20 18:40: Sodium 139, Potassium 4.2, Chloride 104, Carbon Dioxide 26.0, Anion Gap 9, BUN 17, Creatinine 1.21 H, Estim Creat Clear Calc 35.29, Est GFR (MDRD) Af Amer 55 L, Est GFR (MDRD) Non-Af 46 L, BUN/Creatinine Ratio 14.0, Glucose 286 H, Calcium 8.9, Troponin I 0.018 05/30/20 18:40: B-Natriuretic Peptide 161.2 H OBSV E&M: [id number] Initial observation care L3
--- NOTE | 2020-05-30 21:54 | NURSING ---
Daughter Keri came to picking supervisor patients house keys, this RN gave daughter the keys. Daughter updated on patients status.
[2020-05-30 22:10] LABS: Magnesium 1.9 mg/dL (1.6-2.6)
[2020-05-30] MEDS: Enoxaparin 40 MG/0.4 ML Syringe SC (22:40)
[2020-05-30] MEDS: 0.9% Normal Saline 1,000 ML 75 ML IV (22:40)
[2020-05-30] MEDS: traZODone 50 MG Tablet PO (22:40)
[2020-05-30] MEDS: Atorvastatin Calcium 40 MG Tablet PO (22:41)
[2020-05-30] MEDS: predniSONE 20 MG Tablet 40 MG PO (22:41)
[2020-05-30] MEDS: Isosorbide Mononitrate 30 MG Tablet PO (22:41)
[2020-05-30] MEDS: Insulin Lispro 100 UNIT/ML INSULN.PEN SC (22:42)
[2020-05-30] MEDS: Furosemide 40 MG Tablet PO (22:48)
[2020-05-31] VITALS (8 sets, daily range): BP systolic 150–187; BP diastolic 60–85; PULSE 64–95; RESP 18; TEMP 36.7–37; O2SAT 94–95
[2020-05-31] MEDS: amLODIPine 10 MG Tablet PO ×2 (03:27→10:36)
--- NOTE | 2020-05-31 05:39 | CON.PCM_ITS ---
Reason for Consult Date of Consultation: 05/31/20 Reason for Consultation: New diagnosis of ILD/pulmonary fibrosis History of Present Illness: The patient is a 79-year-old female, with a history as outlined below, who presented to the emergency department on May 30 with complaints of shortness of breath. The patient is currently being followed by Dr. Dial in the pulmonary medicine clinic. She was last seen at the beginning of May 2020. At that time, there was concern for the possibility that the patient was developing interstitial lung disease. The patient's most recent pulmonary function studies from March 2020 revealed a severe reduction in diffusing capacity. A 6-minute walk test was completed in April 2020 and revealed a kerry exertional oxygen saturation of 90% on room air. CT chest without contrast just recently completed revealed a mild degree of subpleural interstitial fibrosis without honeycombing or traction bronchiectasis. Several pulmonary nodules were also identified. Surface echocardiogram last completed in January 2020 revealed normal LV size with an ejection fraction of 70% and stage I diastolic dysfunction. Of note, the patient was noted to be positive for anti-CCP antibodies in February 2018. On presentation to the emergency department, the patient was noted to be afebrile but was profoundly hypertensive with a blood pressure of 200/83 mmHg. Despite this, she was maintaining a saturation of 94% on room air. CBC was unremarkable. Chemistry profile revealed a creatinine of 1.21. Troponin was negative. BNP was elevated to 161. The patient was treated with antihypertensive medications and admitted to the medical surgical floor for further management. Past Medical History Past Medical History (Chronic Problems): Chronic Problems (Last Reviewed 05/20/20 @ 13:00 by Jesusita Nino CHUTE TENDER, CHUTE TENDER-C) Dyspnea on exertion (Chronic) Atherosclerotic heart disease of [place] coronary artery without angina pectoris (Chronic) Essential (primary) hypertension (Chronic) Hyperlipidemia (Chronic) Peripheral vascular occlusive disease (Chronic) stenosis of distal aorta; stent the aorta with a 12 x 60 Proteg? 2014; angioplasty of the aorta with a 10 mm balloon through the old stent, angioplasty the right common iliac, angioplasty of the left common femoral to the SFA 2017 Bilateral carotid artery stenosis (Chronic) < 50 % bilaterally 2019 Hypothyroidism (Chronic) Symptomatic anemia (Chronic) Chronic pain syndrome (Chronic) Type 2 diabetes mellitus (Chronic) OMID (obstructive sleep apnea) (Chronic) CVA (cerebral vascular accident) (Chronic) Chronic renal failure, stage 3 (moderate) (Chronic) GERD (gastroesophageal reflux disease) (Chronic) Medical History: Medical History (Last Reviewed 05/20/20 @ 13:00 by Jesusita Nino CHUTE TENDER, CHUTE TENDER-C) Atherosclerotic heart disease of [place] coronary artery without angina pectoris (Chronic) I25.10 NSTEMI (non-ST elevated myocardial infarction) (Resolved) Onset Date: 08/10/16 I21.4 Essential (primary) hypertension (Chronic) I10 Hyperlipidemia (Chronic) E78.5 Peripheral vascular occlusive disease (Chronic) I73.9 stenosis of distal aorta; stent the aorta with a 12 x 60 Proteg? 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 2014 COPD exacerbation (Resolved) J44.1 Carpal tunnel syndrome G56.00 Cataracts, bilateral H26.9 Encounter for long-term current use of high risk medication (Resolved) Z79.899 Pulmonary hypertension (Resolved) I27.20 RVSP 41 mmHg Aortic stenosis (Ruled-out) I35.0 Echocardiogram in February 2018 shows no evidence of aortic stenosis and the aortic valve appears normal Abnormal echocardiogram (Inactive) R93.1 Anemia (Inactive) D64.9 Diabetes type 2, uncontrolled E11.65 Diastolic dysfunction (Inactive) I51.9 NSTEMI (non-ST elevated myocardial infarction) (Inactive) I21.4 Palpitations (Inactive) R00.2 Skin cancer (Inactive) C44.90 Squamous cell Allergies metoprolol Allergy (Severe, Verified 05/30/20 17:48) Unknown Patient is unsure of her reaction, possible rash house dust Allergy (Mild, Verified 05/30/20 17:48) rhinitis morphine Adverse Reaction (Verified 05/30/20 17:48) Vomiting bee stings Allergy (Uncoded 05/30/20 17:48) Anaphylaxis Home Medications: Ambulatory Orders Medication Instructions Recorded multivitamin 1 tab PO DAILY 12/22/18 furosemide 40 mg tablet 40 mg PO BID #180 tab 01/31/19 cholecalciferol (vitamin D3) 50 2,000 unit PO DAILY 05/08/19 mcg (2,000 unit) tablet isosorbide mononitrate 30 mg 30 mg PO BID #240 tab 10/02/19 tablet,extended release 24 hr acetaminophen 500 mg tablet 1,000 mg PO Q8H PRN 30 Days #360 11/13/19 tab tramadol 50 mg tablet 50 mg PO BID PRN #20 tab 12/26/19 trazodone 50 mg tablet 50 mg PO QHS PRN #90 tab 12/26/19 rosuvastatin 20 mg tablet 20 mg PO QHS #90 tab 01/14/20 levothyroxine 175 mcg tablet 175 mcg PO DAILY #90 tab 03/03/20 flash glucose sensor See Rx Instructions .ROUTE 03/12/20 .MEDSUPPLY #1 ea insulin aspart U-100 100 unit/mL 10 unit SUBCUT TIDCM #15 ml 03/17/20 (3 mL) subcutaneous pen amlodipine 10 mg-benazepril 40 mg 1 cap PO DAILY #90 cap 04/09/20 capsule acetylcysteine 600 mg capsule 600 mg PO DAILY 05/12/20 aspirin 81 mg tablet,delayed 81 mg PO DAILY 05/12/20 release grapefruit formula See Rx Instructions PO DAILY tab 05/12/20 zinc 50 mg tablet 50 mg PO DAILY 05/12/20 ipratropium bromide 0.02 % 2.5 ml INHALATION Q6H PRN #2.5 ml 05/15/20 solution for inhalation albuterol sulfate 90 mcg/actuation 2 puff INHALATION Q4H PRN #18 g 05/20/20 aerosol inhaler Insulin Glargine [Lantus SoloStar 70 units SC QHS 05/30/20 Pen] Surgical History: Surgical History (Last Reviewed 05/20/20 @ 13:00 by Jesusita Nino CHUTE TENDER, CHUTE TENDER-C) History of coronary artery stent placement (Resolved) Onset Date: 08/10/16 Z95.5 DKQ-LYG-Pemt-Mid OM1 & FBD-TTZ-Bwss LAD 02/05/16; [id number]-LUN-[id number]-OM1 w/ 2.25 x 12 mm Resolute Stent 08/10/16 H/O left knee surgery Z98.890 History of angioplasty of peripheral vessel Onset Date: 2017 Z98.62 Balloon angioplasty of the aorta with a 10 mm balloon through the old stent, angioplasty the right common iliac, angioplasty of the left common femoral to the SFA 2017 History of hysterectomy Z90.710 History of partial knee replacement Z96.659 S/P rotator cuff repair Z98.890 Status post ORIF of fracture of ankle Z96.7, Z87.81 Surgical History: hysterectomy - for DUB, - - Multilple orthopedic surgeries. 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 Smoking Status: Former smoker - *Family History Maternal Family History: Family History (Last Reviewed 05/20/20 @ 13:00 by Jesusita Nino CHUTE TENDER, CHUTE TENDER-C) Daughter Alcohol abuse Anemia Anxiety Asthma Mother Diabetes Heart disease Hypertension Father Heart disease Hypertension History Items: Diabetes, Heart Disease, Stroke Paternal Family History: Family History (Last Reviewed 05/20/20 @ 13:00 by Jesusita Nino CHUTE TENDER, CHUTE TENDER-C) Daughter Alcohol abuse Anemia Anxiety Asthma Mother Diabetes Heart disease Hypertension Father Heart disease Hypertension History Items: Heart Disease Review of Systems Constitutional: Denies: Chills, Fever, Night Sweats Eyes: Denies: Blurred vision, Double vision HEENT: Denies: Head Aches, Sinus Congestion, Sinus Drainage Cardiovascular: Denies: Chest Pain, Palpitations Respiratory: Reports: Shortness of Breath. Denies: Cough, Sputum production Gastrointestinal: Denies: Abdominal Pain, Nausea, Vomiting Genitourinary: Denies: Dysuria Musculoskeletal: Denies: Joint Pain, Joint Tenderness Skin: Denies: Rash, Wounds Neurological: Denies: Numbness, Tingling, Focal weakness Psychiatric: Denies: Anxiety, Depression, Homicidal Ideations, Suicidal Ideations Hematologic/ Lymphatic: Denies: Easy Bruising, Easy Bleeding Patient Problems: Active and Suspected Problems (Last Reviewed 05/20/20 @ 13:00 by Jesusita Nino CHUTE TENDER, CHUTE TENDER-C) Hypoxia (Acute) Pulmonary fibrosis (Acute) Objective: The patient's most recent lab work, culture data and imaging studies have all been personally reviewed. - Physical Exam Vitals/I&O's: Vital Signs Temp Pulse Resp BP Pulse Ox 98.1 F 64 18 183/64 H 95 05/31/20 02:52 05/31/20 02:52 05/31/20 02:52 05/31/20 02:52 05/31/20 02:52 Oxygen Flow Rate (L/min) 2 Oxygen Delivery Method Nasal Cannula Weight: 216 lb 4.375 oz Body Mass Index (BMI) 34.9 Finger Stick Blood Glucose 261 Intake and Output for Last 24 Hours 05/29/20 05/30/20 05/31/20 23:59 23:59 23:59 Intake Total 300 / 300 Balance 300 / 300 General: Alert, Oriented x3, Cooperative, No apparent distress HEENT: Atraumatic, Normocephalic Oral: Moist Mucosa, No Gingival or Mucosal Lesions/ Ulcerations Neck: Supple, No Nodes, Trachea Midline Lungs: No rhonchi, No wheeze, No rales, Diminished Cardiovascular: Regular rate, Regular Rhythm, Normal S1, Normal S2, Murmur Abdomen: Bowel Sounds Present, Soft, Non Tender, Obese Extremities: No clubbing, No cyanosis, No edema Skin: No breakdown Musculoskeletal: No Tenderness to Palpation of Joints or Extremities, No Muscle Wasting Lymphatic: No Cervical, Supraclavicular, or Inguinal Adenopathy Neurological: Cranial nerves II-XII grossly intact, Neuro grossly intact Psych/Mental Status: Alert and oriented to time, place, person, mood and affect Labs (Last 48 Hours) 05/30/20 05/30/20 05/30/20 18:40 18:40 18:40 WBC 6.4 RBC 3.83 L Hgb 12.7 Hct 38.2 MCV 99.7 H MCH 33.2 H MCHC 33.2 RDW Std Deviation 49.5 H RDW Coeff of [place] 13.8 Plt Count 234 MPV 9.4 Immature Gran % (Auto) 0.300 Neut % (Auto) 58.0 Lymph % (Auto) 28.9 [place] % (Auto) 8.4 Eos % (Auto) 4.1 Baso % (Auto) 0.3 Absolute Neuts (auto) 3.7 Absolute Lymphs (auto) 1.85 Nucleated RBC % 0 Sodium 139 Potassium 4.2 Chloride 104 Carbon Dioxide 26.0 Anion Gap 9 BUN 17 Creatinine 1.21 H Estim Creat Clear Calc 35.29 Est GFR (MDRD) Af Amer 55 L Est GFR (MDRD) Non-Af 46 L BUN/Creatinine Ratio 14.0 Glucose 286 H Calcium 8.9 Magnesium Troponin I 0.018 B-Natriuretic Peptide 161.2 H 05/30/20 18:40 WBC RBC Hgb Hct MCV MCH MCHC RDW Std Deviation RDW Coeff of [place] Plt Count MPV Immature Gran % (Auto) Neut % (Auto) Lymph % (Auto) [place] % (Auto) Eos % (Auto) Baso % (Auto) Absolute Neuts (auto) Absolute Lymphs (auto) Nucleated RBC % Sodium Potassium Chloride Carbon Dioxide Anion Gap BUN Creatinine Estim Creat Clear Calc Est GFR (MDRD) Af Amer Est GFR (MDRD) Non-Af BUN/Creatinine Ratio Glucose Calcium Magnesium 1.9 Troponin I B-Natriuretic Peptide Microbiology 05/30/20 22:00 Mucosa - Nose SARS-CoV-2 Antigen (Rapid) - Final Current Medications Acetaminophen (Acetaminophen 325 Mg Tablet) 650 mg PO Q6H PRN PRN PRN Reason: Pain Score 1-10/Temp > 100.7 F Amlodipine Besylate (Amlodipine 10 Mg Tablet) 10 mg PO DAILY [facility] Last Admin: 05/31/20 03:27 Dose: 10 mg Documented by: Aspirin (Aspirin E.C. 81 Mg Tablet) 81 mg PO DAILY [facility] Atorvastatin Calcium (Atorvastatin Calcium 40 Mg Tablet) 40 mg PO QHS [facility] Last Admin: 05/30/20 22:41 Dose: 40 mg Documented by: Cholecalciferol (Cholecalciferol (Vit D3) 1,000 Unit (25mcg)) 2,000 unit PO DAILY [facility] Dextrose (Dextrose 50%-Water 25 Gm/50 Ml Disp.Syrin) 0 gm IV X1 PRN; Protocol PRN Reason: Hypoglycemia Enoxaparin Sodium (Enoxaparin 40 Mg/0.4 Ml Syringe) 40 mg SC DAILY [facility] Last Admin: 05/30/20 22:40 Dose: 40 mg Documented by: Furosemide (Furosemide 40 Mg Tablet) 40 mg PO BID [facility] Last Admin: 05/30/20 22:48 Dose: 40 mg Documented by: Glucagon (Glucagon 1 Mg/Ml Syringe) 1 mg IM .X1 PRN PRN Reason: Hypoglycemia Hydralazine HCl (Hydralazine 20 Mg/Ml Vial) 10 mg IV Q4H PRN PRN PRN Reason: SBP more than 180 mmHg Sodium Chloride () 250 mls @ 15 mls/hr IV .[id number] PRN PRN Reason: Saline Flush Sodium Chloride () 250 mls @ 15 mls/hr IV .[id number] PRN PRN Reason: Additional IVPB Infusion Sodium Chloride () 1,000 mls @ 75 mls/hr IV .[id number] [facility] Stop: 05/31/20 10:50 Last Admin: 05/30/20 22:40 Dose: 75 mls/hr Documented by: Insulin Glargine (Insulin Glargine 100 Units/Ml Pen) 60 units SC [facility] Last Admin: 05/30/20 22:42 Dose: 60 u Documented by: Insulin Human Lispro (Insulin Lispro 100 Unit/Ml Insuln.Pen) 10 unit SC [facility] Insulin Human Lispro (Insulin Lispro 100 Unit/Ml Insuln.Pen) 0 unit SC ACHS [facility]; Protocol Last Admin: 05/30/20 22:42 Dose: 4 units Documented by: Isosorbide Mononitrate (Isosorbide Mononitrate 30 Mg Tablet) 30 mg PO QHS [facility] Isosorbide Mononitrate (Isosorbide Mononitrate 60 Mg Tablet) 60 mg PO DAILY [facility] Levothyroxine Sodium (Levothyroxine 175 Mcg Tablet) 175 mcg PO DAILY@0600 [facility] Lisinopril (Lisinopril 40 Mg Tablet) 40 mg PO DAILY [facility] Multivitamins (Multivitamins,Therapeutic Tablet) [facility] Prednisone (Prednisone 20 Mg Tablet) 40 mg PO DAILY@0800 [facility] Last Admin: 05/30/20 22:41 Dose: 40 mg Documented by: Prochlorperazine Edisylate (Prochlorperazine 10 Mg/2 Ml Vial) 5 mg IV Q4H PRN PRN PRN Reason: Breakthrough nausea/vomiting Senna/Docusate Sodium (Senna/Docusate Sodium 1 Tablet) 2 tablet PO BID PRN PRN PRN Reason: Constipation Sodium Chloride (0.9% Saline Lock 10 Ml Syringe) 10 - 40 ml IV UD PRN PRN Reason: SALINE FLUSH Tramadol HCl (Tramadol 50 Mg Tablet) 50 mg PO BID PRN PRN PRN Reason: Pain Score 4-10 Trazodone HCl (Trazodone 50 Mg Tablet) 50 mg PO QHS PRN PRN PRN Reason: sleep Last Admin: 05/30/20 22:40 Dose: 50 mg Documented by: Assessment/Plan All Active Problems (Last Reviewed 05/20/20 @ 13:00 by Jesusita Nino CHUTE TENDER, CHUTE TENDER- C) Hypoxia (Acute) Pulmonary fibrosis (Acute) NSTEMI (non-ST elevated myocardial infarction) (Resolved 08/10/16) History of coronary artery stent placement (Resolved 08/10/16) COPD exacerbation (Resolved) Encounter for long-term current use of high risk medication (Resolved) Pulmonary hypertension (Resolved) Aortic stenosis (Ruled-out) RECOMMENDATIONS: 1. Wean supplemental oxygen to maintain saturations at or above 90%. 2. Perform walking oximetry study. If the patient desaturates below 89%, please set her up with home-going O2. 3. Will plan to recheck autoimmune/vasculitis panel. 4. Recommend additional measures to control the patient's blood pressure. Will defer to hospitalist. 5. Encourage incentive spirometer use and mobilize patient as tolerated. 6. Please have the patient follow-up in the pulmonary medicine clinic next week. IMPRESSIONS: 1. Shortness of breath/acute respiratory insufficiency While the patient is currently being worked up for an evolving interstitial lung process, I do largely suspect that a great deal of her shortness of breath is likely secondary to her exceedingly elevated blood pressures noted at presentation. In fact, the patient still remains hypertensive this morning. Her recent CT chest did reveal fine subpleural groundglass changes in an NSIP type pattern without any honeycombing or traction bronchiectasis. It does appear that on my review of the patient's medical records in February 2018 she was noted to have a positive anti-CCP antibody. 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 We will plan to obtain repeat autoimmune and vasculitic panels today. The patient should be evaluated for exertional supplemental oxygen. However, from a pulmonary perspective no additional inpatient work-up is indicated. If the patient does desaturate with ambulation she can be set up for supplemental O2 and discharged home with plans to follow-up in the pulmonary medicine clinic next week. If the patient does continue to demonstrate a positive autoimmune panel, consideration can be given to referral to rheumatology on an outpatient basis. 2. Uncontrolled hypertension Management deferred to hospitalist. 3. Obesity/obstructive sleep apnea/chronic kidney disease Complicates care, management, recovery and prognosis. Continue nocturnal CPAP therapy with a pressure support of 15 cm of water per home regimen. This note was generated with [email or web address] dictation software. It may contain incorrect words, spelling, and punctuation that were not noted in checking the note before signing. Inpatient E&M: 85782 Init Hosp L3
[2020-05-31] MEDS: hydrALAZINE 20 MG/ML Vial 10 MG IV (06:02)
[2020-05-31] MEDS: Levothyroxine 175 MCG Tablet PO (06:02)
[2020-05-31] MEDS: Insulin Lispro 100 UNIT/ML INSULN.PEN 10 UNIT SC ×2 (07:59→12:06)
[2020-05-31] MEDS: Insulin Lispro 100 UNIT/ML INSULN.PEN SC ×2 (08:00→12:06)
[2020-05-31] MEDS: predniSONE 20 MG Tablet 40 MG PO (08:02)
[2020-05-31] MEDS: Multivitamins,Therapeutic Tablet 1 TABLET PO (08:03)
[2020-05-31 08:57] LABS: Rheumatoid Factor < 10.0 IU/mL (<15)
[2020-05-31 09:25] LABS: Anion Gap 11 (5-15); BUN 18 mg/dL (7-18); BUN/Creat Ratio 14.9 RATIO (10-20); Calcium,Total 9.1 mg/dL (8.5-10.1); Chloride 103 mmol/L (98-107); Creatinine, Serum 1.21 mg/dL (0.55-1.02); EST Glomerular Filtration Rate 46 mL/min (>60); Est Glom Filt Rate - Afr Amer 55 mL/min (>60); Estimated Creatinine Clearance 35.29 ml/min; Glucose 408 mg/dL (74-106); Potassium 4.2 mmol/L (3.5-5.1); Sodium Level 137 mmol/L (136-145); Thyroid Stim Hormone (TSH) 3.09 uIU/mL (0.358-3.74)
[2020-05-31] MEDS: Enoxaparin 40 MG/0.4 ML Syringe SC (09:37)
[2020-05-31] MEDS: Isosorbide Mononitrate 60 MG Tablet PO (09:37)
[2020-05-31] MEDS: Furosemide 40 MG Tablet PO (09:37)
[2020-05-31] MEDS: Lisinopril 40 MG Tablet PO (09:39)
[2020-05-31] MEDS: Aspirin E.C. 81 MG Tablet PO (09:39)
[2020-05-31] MEDS: cloNIDine HCl 0.1 MG Tablet PO (09:42)
--- NOTE | 2020-05-31 11:49 | DCINST_ITS ---
- Discharge Diagnoses Current Active Problems: Current Active and Chronic Problems (Last Reviewed 05/20/20 @ 13:00 by Jesusita Nino MAINTENANCE TECHNICIAN 3RD SHIFT, MAINTENANCE TECHNICIAN 3RD SHIFT-C) Hypoxia (Acute) Pulmonary fibrosis (Acute) Dyspnea on exertion (Chronic) Atherosclerotic heart disease of [place] coronary artery without angina pectoris (Chronic) Essential (primary) hypertension (Chronic) Hyperlipidemia (Chronic) Peripheral vascular occlusive disease (Chronic) stenosis of distal aorta; stent the aorta with a 12 x 60 Proteg? 2014; angioplasty of the aorta with a 10 mm balloon through the old stent, angioplasty the right common iliac, angioplasty of the left common femoral to the SFA 2017 Bilateral carotid artery stenosis (Chronic) < 50 % bilaterally 2019 Hypothyroidism (Chronic) Symptomatic anemia (Chronic) Chronic pain syndrome (Chronic) Type 2 diabetes mellitus (Chronic) OMID (obstructive sleep apnea) (Chronic) CVA (cerebral vascular accident) (Chronic) Chronic renal failure, stage 3 (moderate) (Chronic) GERD (gastroesophageal reflux disease) (Chronic) You will use the following diet at home:: Calorie/Carbohydrate Controlled (specify 1200, 1400, etc) - 1800 [place] Your food should be the consistency of: Regular Your liquids should be the consistency of: Regular/Thin Discharge Activity: Return to Normal Activity Weight Bearing Status: Full weight bearing Allergies/Adverse Reactions: Allergies metoprolol Allergy (Severe, Verified 05/30/20 17:48) Unknown Patient is unsure of her reaction, possible rash house dust Allergy (Mild, Verified 05/30/20 17:48) rhinitis morphine Adverse Reaction (Verified 05/30/20 17:48) Vomiting bee stings Allergy (Uncoded 05/30/20 17:48) Anaphylaxis Medications to take at Discharge multivitamin 1 tab PO DAILY 12/22/18 furosemide 40 mg tablet 40 mg PO BID #180 tab 01/31/19 cholecalciferol (vitamin D3) 50 mcg (2,000 unit) tablet 2,000 unit PO DAILY 05/08/19 isosorbide mononitrate 30 mg tablet,extended release 24 hr 30 mg PO BID #240 tab 10/02/19 acetaminophen 500 mg tablet 1,000 mg PO Q8H PRN 30 Days #360 tab 11/13/19 tramadol 50 mg tablet 50 mg PO BID PRN #20 tab 12/26/19 trazodone 50 mg tablet 50 mg PO QHS PRN #90 tab 12/26/19 rosuvastatin 20 mg tablet 20 mg PO QHS #90 tab 01/14/20 levothyroxine 175 mcg tablet 175 mcg PO DAILY #90 tab 03/03/20 flash glucose sensor See Rx Instructions .ROUTE .MEDSUPPLY #1 ea 03/12/20 insulin aspart U-100 100 unit/mL (3 mL) subcutaneous pen 10 unit SUBCUT TIDCM #15 ml 03/17/20 amlodipine 10 mg-benazepril 40 mg capsule 1 cap PO DAILY #90 cap 04/09/20 acetylcysteine 600 mg capsule 600 mg PO DAILY 05/12/20 aspirin 81 mg tablet,delayed release 81 mg PO DAILY 05/12/20 zinc 50 mg tablet 50 mg PO DAILY 05/12/20 ipratropium bromide 0.02 % solution for inhalation 2.5 ml INHALATION Q6H PRN #2.5 ml 05/15/20 albuterol sulfate 90 mcg/actuation aerosol inhaler 2 puff INHALATION Q4H PRN #18 g 05/20/20 Insulin Glargine [Lantus SoloStar Pen] 70 units SC QHS 05/30/20 Clonidine HCl 0.1 mg PO QHS #30 tab 05/31/20 The following prescriptions were given: Clonidine HCl 0.1 mg PO QHS #30 tab Transmission Status: Pending to [id number] Primary Care Physician: Jeri Slater MD [Primary Care Provider] - Please follow up with your Primary Care Physician in: in one week Test Results: Test results from this visit will be discussed in further detail at your follow- up appointment, if applicable. Please Follow Up With: Ivan Dial MD When: next week
[2020-05-31 16:10] LABS: Bedside Glucose 394 mg/dL (70-110)
--- NOTE | 2020-05-31 16:45 | PCM.DC.SUM ---
Discharge Date and Diagnosis - Problem List Patient Problems: Active and Suspected Problems (Last Reviewed 05/20/20 @ 13:00 by Jesusita Nino TELEPHONE INFORMATION SUPERVISOR, TELEPHONE INFORMATION SUPERVISOR-C) Hypoxia (Acute) Pulmonary fibrosis (Acute) Date of Admission: 05/30/20 Date of Discharge: 05/31/20 - Primary Discharge Diagnosis Acute Problems: Active Problems (Last Reviewed 05/20/20 @ 13:00 by Jesusita Nino NP, TELEPHONE INFORMATION SUPERVISOR-C) #1 hypoxia-secondary to interstitial lung disease #2 uncontrolled hypertension #3 interstitial lung disease-type unknown #4 chronic kidney disease stage III #5 uncontrolled type 2 diabetes #6 coronary artery disease #7 essential hypertension #8 obstructive sleep apnea - Secondary Discharge Diagnosis Chronic Problems: Chronic Problems (Last Reviewed 05/20/20 @ 13:00 by Jesusita Nino TELEPHONE INFORMATION SUPERVISOR, TELEPHONE INFORMATION SUPERVISOR-C) Dyspnea on exertion (Chronic) Atherosclerotic heart disease of [place] coronary artery without angina pectoris (Chronic) Essential (primary) hypertension (Chronic) Hyperlipidemia (Chronic) Peripheral vascular occlusive disease (Chronic) stenosis of distal aorta; stent the aorta with a 12 x 60 Proteg? 2014; angioplasty of the aorta with a 10 mm balloon through the old stent, angioplasty the right common iliac, angioplasty of the left common femoral to the SFA 2017 Bilateral carotid artery stenosis (Chronic) < 50 % bilaterally 2019 Hypothyroidism (Chronic) Symptomatic anemia (Chronic) Chronic pain syndrome (Chronic) Type 2 diabetes mellitus (Chronic) OMID (obstructive sleep apnea) (Chronic) CVA (cerebral vascular accident) (Chronic) Chronic renal failure, stage 3 (moderate) (Chronic) GERD (gastroesophageal reflux disease) (Chronic) Hospital Course and Treatment Operations: None Procedures: None Summary of Care Provided: The patient is a 79 year old F who was seen in the emergency room at [facility] with a chief complaint of shortness of breath and dyspnea on exertion. She stated that the symptoms have been getting worse over the past month, she follows up with pulmonary medicine as an outpatient. Patient recently had a noncontrasted CT of the chest performed as an outpatient, it showed mild interstitial and subpleural fibrosis without significant traction bronchiectasis. The findings favored a nonspecific interstitial pneumonia pattern of fibrotic lung disease. Patient's pulse ox in the emergency room on ambulation was 88%, she was placed on 2 L of oxygen and labs showed a normal CBC, her creatinine was mildly elevated at 1.21, and her glucose was elevated. Patient was placed in observation status on [facility] 3 and she was seen in consultation by pulmonary medicine the next day who felt that the patient was stable and did not require further work-up in the hospital. They recommended a walking pulse oximetry which was done and showed the patient not to be hypoxic. It was recommended that she follow-up with pulmonary medicine this week in the office, I talked with the patient's daughter by phone the same time I talked with the patient and they were aware of the medical plan. On 05/31/2020, patient was seen and examined: On examination she appeared in good health and spirits, she does not appear to be in any distress. Vital signs as documented. Skin warm and dry and without overt rashes. Neck without JVD, thyroid appears normal, trachea is midline, neck is supple. Lungs clear, normal air movement was noted. Heart exam notable for regular rhythm, normal sounds and absence of murmurs, rubs or gallops. Abdomen unremarkable and without evidence of organomegaly, masses, or abdominal aortic enlargement, bowel sounds are present in all 4 quadrants, no abdominal tenderness was noted. Extremities nonedematous, no cyanosis was noted, no clubbing was noted. Neuro: Cranial nerves II through XII are grossly intact, no focal motor deficits were noted, sensation to light touch and pinprick is intact, motor exam 5/5 throughout. Psych: Patient is alert and oriented x3, she does not appear anxious or depressed, she does not appear agitated. Patient appears stable for discharge on 05/31/2020. Patient Problems: Active and Suspected Problems (Last Reviewed 05/20/20 @ 13:00 by Jesusita Nino TELEPHONE INFORMATION SUPERVISOR, TELEPHONE INFORMATION SUPERVISOR-C) Hypoxia (Acute) Pulmonary fibrosis (Acute) - Physical Exam Vitals/I&O's: Vital Signs Temp Pulse Resp BP Pulse Ox 98.5 F 74 18 153/74 H 94 05/31/20 13:51 05/31/20 13:51 05/31/20 13:51 05/31/20 13:51 05/31/20 13:51 Oxygen Flow Rate (L/min) 2 Oxygen Delivery Method Room Air Weight: 98.1 kg Body Mass Index (BMI) 34.9 Finger Stick Blood Glucose 261 Intake and Output for Last 24 Hours 05/29/20 05/30/20 05/31/20 23:59 23:59 23:59 Intake Total 1650 / 1650 Output Total 1500 / 1500 Balance 150 / 150 Microbiology Past 72 Hours 05/30/20 22:00 Mucosa - Nose SARS-CoV-2 Antigen (Rapid) - Final Laboratory Results 05/30/20 18:40: WBC 6.4, RBC 3.83 L, Hgb 12.7, Hct 38.2, MCV 99.7 H, MCH 33.2 H, MCHC 33.2, RDW Std Deviation 49.5 H, RDW Coeff of [place] 13.8, Plt Count 234, MPV 9.4, Immature Gran % (Auto) 0.300, Neut % (Auto) 58.0, Lymph % (Auto) 28.9, [place] % (Auto) 8.4, Eos % (Auto) 4.1, Baso % (Auto) 0.3, Absolute Neuts (auto) 3.7, Absolute Lymphs (auto) 1.85, Nucleated RBC % 0 05/30/20 18:40: Sodium 139, Potassium 4.2, Chloride 104, Carbon Dioxide 26.0, Anion Gap 9, BUN 17, Creatinine 1.21 H, Estim Creat Clear Calc 35.29, Est GFR (MDRD) Af Amer 55 L, Est GFR (MDRD) Non-Af 46 L, BUN/Creatinine Ratio 14.0, Glucose 286 H, Calcium 8.9, Troponin I 0.018 05/30/20 18:40: B-Natriuretic Peptide 161.2 H 05/30/20 18:40: Magnesium 1.9 05/31/20 07:59: POC Glucose 394 H 05/31/20 08:24: Sodium 137, Potassium 4.2, Chloride 103, Carbon Dioxide 23.0, Anion Gap 11, BUN 18, Creatinine 1.21 H, Estim Creat Clear Calc 35.29, Est GFR (MDRD) Af Amer 55 L, Est GFR (MDRD) Non-Af 46 L, BUN/Creatinine Ratio 14.9, Glucose 408 H, Calcium 9.1, TSH 3.09 05/31/20 08:24: Rheumatoid Factor < 10.0 05/31/20 08:24: ALEX Screen Pending, JOSE F-1 Antibody Pending, SS-A/Ro IgG Antibody Pending, SS-B/La IgG Antibody Pending, Sm ([place]) Antibody Pending, CLINICAL DIETETIC TECHNICIAN Antibody Pending, Scl-70 Scleroderma Ab Pending, Double Strand DNA Ab Pending, Centromere B Antibody Pending 05/31/20 08:24: Cycl Citrul Peptide IgG Pending, c-ANCA Antibody Pending, p-ANCA Antibody Pending Discharge Activity: Return to Normal Activity Weight Bearing Status: Full weight bearing Home Medications: Medications to take at Discharge multivitamin 1 tab PO DAILY 12/22/18 furosemide 40 mg tablet 40 mg PO BID #180 tab 01/31/19 cholecalciferol (vitamin D3) 50 mcg (2,000 unit) tablet 2,000 unit PO DAILY 05/08/19 isosorbide mononitrate 30 mg tablet,extended release 24 hr 30 mg PO BID #240 tab 10/02/19 acetaminophen 500 mg tablet 1,000 mg PO Q8H PRN 30 Days #360 tab 11/13/19 tramadol 50 mg tablet 50 mg PO BID PRN #20 tab 12/26/19 trazodone 50 mg tablet 50 mg PO QHS PRN #90 tab 12/26/19 rosuvastatin 20 mg tablet 20 mg PO QHS #90 tab 01/14/20 levothyroxine 175 mcg tablet 175 mcg PO DAILY #90 tab 03/03/20 flash glucose sensor See Rx Instructions .ROUTE .MEDSUPPLY #1 ea 03/12/20 insulin aspart U-100 100 unit/mL (3 mL) subcutaneous pen 10 unit SUBCUT TIDCM #15 ml 03/17/20 amlodipine 10 mg-benazepril 40 mg capsule 1 cap PO DAILY #90 cap 04/09/20 acetylcysteine 600 mg capsule 600 mg PO DAILY 05/12/20 aspirin 81 mg tablet,delayed release 81 mg PO DAILY 05/12/20 zinc 50 mg tablet 50 mg PO DAILY 05/12/20 ipratropium bromide 0.02 % solution for inhalation 2.5 ml INHALATION Q6H PRN #2.5 ml 05/15/20 albuterol sulfate 90 mcg/actuation aerosol inhaler 2 puff INHALATION Q4H PRN #18 g 05/20/20 Insulin Glargine [Lantus SoloStar Pen] 70 units SC QHS 05/30/20 Clonidine HCl 0.1 mg PO QHS #30 tab 05/31/20 Following Prescriptions Were Given to Patient: Clonidine HCl 0.1 mg PO QHS #30 tab Transmission Status: Received by [id number] Primary Care Physician: Jeri Slater MD [Primary Care Provider] - Please follow up with your Primary Care Physician in: in one week Please Follow Up With: Ivan Dial MD When: next week Disposition: Home Minutes spent on discharge:: 31 Patient Condition:: Stable Medical Necessity - Tobacco Use Smoking Status: Former smoker Meaningful Use Info Meaningful Use Diagnoses (Choose all that apply): None applicable OBSV E&M: 04481 Observation care discharge
[2020-06-02 16:45] LABS: ANTINUCLEAR ANTIBODIES DIRECT Negative (Negative)
[2020-06-04 03:06] LABS: Cytoplasmic Ab (C-ANCA) <1:20 titer (Neg:<1:20)
[2020-06-04 08:54] LABS: CCP IgG Antibodies 12 units (0-19); Perinuclear Ab (P-ANCA) <1:20 titer (Neg:<1:20)
== END 2020-05-31 13:40 | disposition home or self-care (01) ==
LOC: ED 18:41 → MS3 22:33
PROVIDERS: Internal Medicine Critical Care Medicine; Admitting Provider Internal Medicine; Emergency Provider Emergency Medicine; PCP Internal Medicine; Visit Provider Internal Medicine
DX: J84.10 Pulmonary fibrosis, unspecified (principal); R09.02 Hypoxemia; I50.32 Chronic diastolic (congestive) heart failure; I13.0 Hypertensive heart and chronic kidney disease with heart failure and stage 1 through stage 4 chronic kidney disease, or unspecified chronic kidney disease; N18.30 Chronic kidney disease, stage 3 unspecified; E11.22 Type 2 diabetes mellitus with diabetic chronic kidney disease; E11.65 Type 2 diabetes mellitus with hyperglycemia; I25.10 Atherosclerotic heart disease of native coronary artery without angina pectoris; G47.33 Obstructive sleep apnea (adult) (pediatric); K21.9 Gastro-esophageal reflux disease without esophagitis; E78.5 Hyperlipidemia, unspecified; I25.2 Old myocardial infarction; E03.9 Hypothyroidism, unspecified; G89.4 Chronic pain syndrome; J44.9 Chronic obstructive pulmonary disease, unspecified; E11.42 Type 2 diabetes mellitus with diabetic polyneuropathy; E11.51 Type 2 diabetes mellitus with diabetic peripheral angiopathy without gangrene; M19.90 Unspecified osteoarthritis, unspecified site; M51.36 Other intervertebral disc degeneration, lumbar region; Z79.899 Other long term (current) drug therapy; Z79.4 Long term (current) use of insulin; Z79.82 Long term (current) use of aspirin; Z95.5 Presence of coronary angioplasty implant and graft; E66.01 Morbid (severe) obesity due to excess calories; Z68.33 Body mass index [BMI] 33.0-33.9, adult; Z87.891 Personal history of nicotine dependence
CPT/HCPCS: 36415; 80048; 82962; 83735; 83880; 84443; 84484; 85025; 86038; 86200; 86225; 86235; 86256; 86431; 87426; 93005; 96372; 96374; 99218; 99285; J7030; A4216; G0378

== ENCOUNTER → 2020-06-03 11:31 | Outpatient (CLI) | payer MEDICARE, OTHER, SELFPAY ==
[2016-11-25 09:39] VITALS: BMI 35.8
[2020-06-03 10:48] VITALS: BMI 34.2
[2020-06-03 11:49] LABS: Absolute Lymphocyte Count 2.01 X10^3/uL (0.83-4.51); Absolute Neutrophil Count 4.3 X10^3/uL (2.0-7.7); Basophil# 0.02 X10^3/uL; Basophil% 0.3 % (0-1); Eosinophils% 2.8 % (0-5); Hematocrit 41.1 % (37-47); Hemoglobin 13.2 g/dL (12.0-15.0); Lymphocyte # 2.01 X10^3/ul (4.0); Lymphocyte % 28.2 % (19-41); Mean Corp Hgb Conc 32.1 g/dL (32-36); Mean Corpuscular Hgb 32.1 pg (27.0-32.0); Mean Platelet Vol. 9.7 fl (6.2-12.0); Monocyte% 8.4 % (0-10); NRBC Flagged by Analyzer 0 % (0-5); Neutrophil # 4.28 X10^3/uL (2.7-7.7); Platelet Count 281 K/mm3 (150-450); RBC Distribution Width CV 14.2 % (11.6-14.6); RBC Distribution Width SD 51.5 fl (35.1-43.9); Red Blood Count 4.11 M/mm3 (4.2-5.4); White Blood Count 7.1 K/mm3 (4.4-11.0)
[2020-06-06 06:08] LABS: Alternaria alternata <0.10 kU/L (Class 0); Bermuda Grass <0.10 kU/L (Class 0); Bluegrass, Kentucky <0.10 kU/L (Class 0); Cat Hair/Dander, Standard <0.10 kU/L (Class 0); D farinae Mite <0.10 kU/L (Class 0); D pteronyssinus <0.10 kU/L (Class 0); Dog Epithelia <0.10 kU/L (Class 0); Elm, American White <0.10 kU/L (Class 0); Oak, White <0.10 kU/L (Class 0); Plantain, English <0.10 kU/L (Class 0); Ragweed, Short/Common <0.10 kU/L (Class 0)
[2020-06-06 13:40] LABS: Mouse Urine <0.10 kU/L (Class 0)
[2020-06-07 03:06] LABS: Aspirgillus flavus Negative (Neg:<1:1); Aspirgillus fumigatus Negative (Neg:<1:1); Aspirgillus niger Negative (Neg:<1:1)
[2020-06-07 09:26] LABS: Immunoglobulin E 24 IU/mL (6-495)
== END ==
PROVIDERS: PCP Internal Medicine; Referring Provider Nurse Practitioner Acute Care; Visit Provider Nurse Practitioner Acute Care
DX: J45.909 Unspecified asthma, uncomplicated (principal); R06.02 Shortness of breath
CPT/HCPCS: 36415; 82785; 85025; 86003; 86606

== ENCOUNTER → 2020-07-01 09:33 | Outpatient (CLI) | payer MEDICARE, OTHER, SELFPAY ==
[2020-06-05 10:55] VITALS: BMI 35.8
[2020-06-23 09:45] VITALS: BMI 34.2
--- NOTE | 2020-07-01 09:35 | BI_ITS ---
MAMMOGRAPHY - BILATERAL DIAGNOSTIC REASON FOR EXAM: Female, 79 years old. Right breast lump following trauma. PERTINENT HISTORY: Non-contributory. TECHNIQUE: Digital bilateral breast ashley (3D mammographic acquisition) in the CC and MLO projections. 2-D mediolateral oblique (MLO) and craniocaudad (CC) views of both breasts were obtained. CAD: Full Field Digital Mammography with Computer Added Detection was performed. COMPARISON: Comparison is made with prior operative examination dated 07/11/2018. FINDINGS: Breast Composition: There are scattered areas of fibroglandular density. There are no dominant masses or suspicious calcifications. Stable asymmetry of breast tissue with more breast tissue is seen in the left breast as compared to the right side. No other significant abnormalities are identified. There has been no significant change since the prior study. BI/DIAG MAMM W/CAD, BILAT IMPRESSION: Stable bilateral diagnostic mammogram. One year follow-up recommended. (A) ASSESSMENT CATEGORY: BIRADS Category 2: Benign. A letter regarding these results will be sent to the patient by the facility within 30 days. Approximately 10% of breast cancers are not detected by mammography. A normal mammogram should not delay biopsy of a clinically suspicious abnormality. Electronically Signed: Bautista Pratt MD at 11:24 EDT , Service support ,
--- NOTE | 2020-07-01 09:40 | US_ITS ---
STUDY: ULTRASOUND BREAST - RIGHT REASON FOR EXAM: Female, 79 years old. Pain in the lower outer quadrant of the right breast. TECHNIQUE: Axial and longitudinal images of the RIGHT breast were performed with a high resolution ultrasound transducer. # OF IMAGES: 36 COMPARISON: Comparison is made with prior mammogram done earlier in the day. FINDINGS: RIGHT Breast: The lower outer quadrant of the right breast was examined by ultrasound. No sonographic abnormality is seen. US/Breast Limited Unilateral IMPRESSION: No sonographic abnormalities seen. ASSESSMENT CATEGORY: BIRADS Category 1: Negative. A letter regarding these results will be sent to the patient by the facility within 30 days. Electronically Signed: Bautista Pratt MD at 15:38 EDT , Service support ,
== END ==
PROVIDERS: PCP Internal Medicine; Referring Provider Physician Assistant; Visit Provider Physician Assistant
DX: N64.4 Mastodynia (principal)
CPT/HCPCS: 76642; 77062; 77066; G0279

== ENCOUNTER → 2020-08-20 11:00 | Outpatient (CLI) | payer MEDICARE, OTHER, SELFPAY ==
[2020-06-05 10:55] VITALS: BMI 35.8
[2020-08-20 10:23] VITALS: BMI 34.0
[2020-08-20 12:07] LABS: Absolute Lymphocyte Count 1.88 X10^3/uL (0.83-4.51); Absolute Neutrophil Count 3.1 X10^3/uL (2.0-7.7); Basophil# 0.02 X10^3/uL; Basophil% 0.4 % (0-1); Eosinophil# 0.22 X10^3/uL; Eosinophils% 3.9 % (0-5); Hematocrit 38.5 % (37-47); Hemoglobin 12.5 g/dL (12.0-15.0); Lymphocyte # 1.88 X10^3/ul (0.83-4.51); Lymphocyte % 33.3 % (19-41); Mean Corp Hgb Conc 32.5 g/dL (32-36); Mean Corpuscular Hgb 32.2 pg (27.0-32.0); Mean Corpuscular Volume 99.2 fL (81-99); Mean Platelet Vol. 9.6 fl (6.2-12.0); Monocyte# 0.45 X10^3/uL; NRBC Flagged by Analyzer 0 % (0-5); Neutrophil # 3.06 X10^3/uL (2.7-7.7); Neutrophil % 54.2 % (47-70); Platelet Count 260 K/mm3 (150-450); RBC Distribution Width CV 14.1 % (11.6-14.6); RBC Distribution Width SD 51.2 fl (35.1-43.9); Red Blood Count 3.88 M/mm3 (4.2-5.4); White Blood Count 5.6 K/mm3 (4.4-11.0)
[2020-08-20 12:48] LABS: AST(SGOT) 19 U/L (15-37); Alanine Aminotransfer ALT/SGPT 30 U/L (13-56); Albumin, Serum 3.8 g/dL (3.2-5.0); Alkaline Phosphatase 109 U/L (45-117); Anion Gap 7 (5-15); BUN 23 mg/dL (7-18); BUN/Creat Ratio 19.8 RATIO (10-20); Calcium,Total 9.6 mg/dL (8.5-10.1); Chloride 104 mmol/L (98-107); Creatinine, Serum 1.16 mg/dL (0.55-1.02); Creatinine, Urine (random) < 13.00 mg/dL (NO RANGE EST.); EST Glomerular Filtration Rate 48 mL/min (>60); Est Glom Filt Rate - Afr Amer 58 mL/min (>60); Globulin 3.8 g/dL (2.2-4.2); Glucose 163 mg/dL (74-106); Potassium 4.1 mmol/L (3.5-5.1); Protein, Total 7.6 g/dL (6.4-8.2); Sodium Level 139 mmol/L (136-145); Thyroid Stim Hormone (TSH) 6.98 uIU/mL (0.358-3.74)
== END ==
PROVIDERS: Nurse Practitioner Family; PCP Internal Medicine; Visit Provider Internal Medicine
DX: E03.9 Hypothyroidism, unspecified (principal); E78.5 Hyperlipidemia, unspecified; E11.9 Type 2 diabetes mellitus without complications; I25.2 Old myocardial infarction
CPT/HCPCS: 36415; 80053; 82043; 82570; 84443; 85025

== ENCOUNTER → 2020-11-11 11:20 | Outpatient (CLI) | payer MEDICARE, OTHER, SELFPAY ==
[2020-06-05 10:55] VITALS: BMI 35.8
[2020-11-11 12:27] LABS: Absolute Lymphocyte Count 2.01 X10^3/uL (0.83-4.51); Absolute Neutrophil Count 3.3 X10^3/uL (2.0-7.7); Basophil# 0.03 X10^3/uL; Basophil% 0.5 % (0-1); Eosinophil# 0.26 X10^3/uL; Eosinophils% 4.2 % (0-5); Hematocrit 36.8 % (37-47); Hemoglobin 12.3 g/dL (12.0-15.0); Lymphocyte # 2.01 X10^3/ul (0.83-4.51); Lymphocyte % 32.3 % (19-41); Mean Corp Hgb Conc 33.4 g/dL (32-36); Mean Corpuscular Hgb 33.1 pg (27.0-32.0); Mean Corpuscular Volume 98.9 fL (81-99); Mean Platelet Vol. 9.9 fl (6.2-12.0); Monocyte# 0.62 X10^3/uL; NRBC Flagged by Analyzer 0.3 % (0-5); Neutrophil # 3.28 X10^3/uL (2.7-7.7); Neutrophil % 52.5 % (47-70); Platelet Count 260 K/mm3 (150-450); RBC Distribution Width CV 13.8 % (11.6-14.6); RBC Distribution Width SD 50.4 fl (35.1-43.9); Red Blood Count 3.72 M/mm3 (4.2-5.4); White Blood Count 6.2 K/mm3 (4.4-11.0)
[2020-11-11 12:45] LABS: Hemoglobin A1c 7.7 % (3.8-5.6)
[2020-11-11 13:03] LABS: AST(SGOT) 19 U/L (15-37); Alanine Aminotransfer ALT/SGPT 35 U/L (13-56); Alkaline Phosphatase 98 U/L (45-117); Anion Gap 8 (5-15); BUN 37 mg/dL (7-18); BUN/Creat Ratio 26.6 RATIO (10-20); Calcium,Total 9.6 mg/dL (8.5-10.1); Chloride 107 mmol/L (98-107); Creatinine, Serum 1.39 mg/dL (0.55-1.02); EST Glomerular Filtration Rate 39 mL/min (>60); Est Glom Filt Rate - Afr Amer 47 mL/min (>60); Globulin 4.2 g/dL (2.2-4.2); Glucose 229 mg/dL (74-106); Potassium 4.5 mmol/L (3.5-5.1); Protein, Total 8.2 g/dL (6.4-8.2); Sodium Level 140 mmol/L (136-145); Thyroid Stim Hormone (TSH) 0.02 uIU/mL (0.358-3.74)
[2020-11-11 13:28] LABS: Microalbumin:Creatinine Ratio 1959.9 mg/g CRE (<30 mg/g CRE)
== END ==
PROVIDERS: PCP Internal Medicine; Referring Provider Nurse Practitioner Family; Visit Provider Nurse Practitioner Family
DX: E11.9 Type 2 diabetes mellitus without complications (principal); E03.9 Hypothyroidism, unspecified; I25.2 Old myocardial infarction
CPT/HCPCS: 36415; 80053; 82043; 82570; 83036; 84443; 85025

== ENCOUNTER → 2020-11-25 10:43 | Outpatient (CLI) | payer MEDICARE, OTHER, SELFPAY ==
[2020-06-05 10:55] VITALS: BMI 35.8
[2020-11-25 12:21] LABS: Absolute Lymphocyte Count 2.43 X10^3/uL (0.83-4.51); Absolute Neutrophil Count 4.8 X10^3/uL (2.0-7.7); Basophil# 0.02 X10^3/uL; Basophil% 0.2 % (0-1); Eosinophil# 1.57 X10^3/uL; Eosinophils% 16.5 % (0-5); Hematocrit 38.3 % (37-47); Hemoglobin 12.5 g/dL (12.0-15.0); Lymphocyte # 2.43 X10^3/ul (0.83-4.51); Lymphocyte % 25.5 % (19-41); Mean Corp Hgb Conc 32.6 g/dL (32-36); Mean Corpuscular Hgb 32.3 pg (27.0-32.0); Monocyte% 6.3 % (0-10); NRBC Flagged by Analyzer 0 % (0-5); Neutrophil # 4.84 X10^3/uL (2.7-7.7); Neutrophil % 50.9 % (47-70); Platelet Count 293 K/mm3 (150-450); RBC Distribution Width CV 14.1 % (11.6-14.6); RBC Distribution Width SD 51.4 fl (35.1-43.9); Red Blood Count 3.87 M/mm3 (4.2-5.4); White Blood Count 9.5 K/mm3 (4.4-11.0)
[2020-11-25 12:42] LABS: Anion Gap 5 (5-15); BUN 28 mg/dL (7-18); BUN/Creat Ratio 18.8 RATIO (10-20); Calcium,Total 9.1 mg/dL (8.5-10.1); Chloride 106 mmol/L (98-107); Creatinine, Serum 1.49 mg/dL (0.55-1.02); EST Glomerular Filtration Rate 36 mL/min (>60); Est Glom Filt Rate - Afr Amer 43 mL/min (>60); Glucose 246 mg/dL (74-106); Potassium 4.9 mmol/L (3.5-5.1); Sodium Level 139 mmol/L (136-145)
[2020-11-25 12:43] LABS: BNP,B-Type NATRIURETIC PEPTIDE 38.3 pg/mL (0-100)
== END ==
PROVIDERS: PCP Internal Medicine; Referring Provider Nurse Practitioner Family; Visit Provider Nurse Practitioner Family
DX: I25.10 Atherosclerotic heart disease of native coronary artery without angina pectoris (principal); I25.2 Old myocardial infarction; R06.09 Other forms of dyspnea; Z95.5 Presence of coronary angioplasty implant and graft
CPT/HCPCS: 36415; 80048; 83880; 85025

== ENCOUNTER → 2021-02-02 08:54 | Outpatient (CLI) | payer MEDICARE, OTHER, SELFPAY ==
[2020-06-05 10:55] VITALS: BMI 35.8
[2020-08-20 10:23] VITALS: BMI 34.0
--- NOTE | 2021-02-02 08:57 | AAVD_ITS ---
Reason For Study: Atherosclerosis Aorta Measurements Aorta Doppler Measurements Proximal aorta measures1.45 x 1.42cm. in cross- Peak systolic flow velocities within the proximal sectional axis. aorta measure 226 cm/sec. Proximal aorta measures1.38cm. in longitudinal Peak systolic flow velocities within the mid aorta axis. measure 178.9 cm/sec. Mid aorta measures1.11 x 1.11cm. in cross- Peak systolic flow velocities within the distal sectional axis. aorta measure 265.3 cm/sec. Mid aorta measures1.12cm. in longitudinal axis. Distal aorta measures1.18 x 1.16cm. in cross- sectional axis. Distal aorta measures1.18cm. in longitudinal axis. Left Iliac Artery Left iliac artery measures 0.76 x 0.78 cm. in the cross-sectional axis. Left iliac artery measures 0.78 cm. in the longitudinal axis. Peak systolic velocity in the left iliac artery measures 214.3 cm/sec. Right Iliac Artery Right iliac artery measures 0.92 x 0.92 cm. in the cross-sectional axis. Right iliac artery measures 0.97 cm. in the longitudinal axis. Peak systolic velocity in the right iliac artery measures 214.3 cm/sec. Procedure Aorta IVC Iliac vasculature or bypass grafts 25177. The exam was of adequate technical quality. Exam performed in department. VL/Abd Aortic/IVC Duplex scan Interpretation Summary Aortic stenosis moderate to severe and bilateral moderate iliac stenosis. Ordering Physician: Jason Begum Referring Physician: Jeri Slater Performed By: Cari Cooper RVT
--- NOTE | 2021-02-02 08:57 | CDU_ITS ---
Reason For Study: Carotid bruit Rt. Velocities/BP Lt. Velocities/BP Prox CCA 81.2/10.8 cm/sec. Prox CCA 121.1/11.5 cm/sec. Mid CCA 82.6/12.1 cm/sec. Mid CCA 121.1/11.5 cm/sec. Dist CCA 78.6/10.8 cm/sec. Dist CCA 113.8/6 cm/sec. Prox ICA 84.6/11.5 cm/sec. Prox ICA 75.4/9.7 cm/sec. Mid ICA 104.7/15.2 cm/sec. Mid ICA 101/7.9 cm/sec. Dist ICA 80.9/11.5 cm/sec. Dist ICA 84.6/11.5 cm/sec. Rt. ICA/CCA = 1.29. Lt. ICA/CCA = 0.83. Prox ECA 189.4/9.4 cm/sec. Prox ECA 187.2/9.4 cm/sec. Rt. Vert. 32.5 cm/sec. Lt. Vert. 60.5/10.2 cm/sec. Right Extracranial There is homogeneous, smooth atherosclerotic plaque noted in the right common carotid artery. There is heterogeneous, irregular atherosclerotic plaque noted in the right internal carotid artery. There is homogeneous, smooth atherosclerotic plaque noted in the right external carotid artery. Antegrade flow is noted in the right vertebral artery. Left Extracranial There is homogeneous, smooth atherosclerotic plaque noted in the left common carotid artery. There is homogeneous, smooth atherosclerotic plaque noted in the left internal carotid artery. There is homogeneous, smooth atherosclerotic plaque noted in the left external carotid artery. Antegrade flow is noted in the left vertebral artery. Procedure Carotid Duplex 10969. This is a Carotid Duplex examination using B-mode, color flow and specral Doppler. Exam performed in department. VL/Carotid Duplex Ultrasound Interpretation Summary Mild (<50%) stenosis right extracranial internal carotid. Mild (<50%) stenosis left extracranial internal carotid. Flow within the vertebral arteries is antegrade bilaterally. Ordering Physician: Jason Begum Referring Physician: Jeri Slater Performed By: Cari Cooper RVT
--- NOTE | 2021-02-02 08:58 | ART_ITS ---
Reason For Study: Atherosclerosis Procedure A bilateral lower extremity continuous wave Doppler with analog waveform analysis and ankle brachial indexes. Left Segmental Pressures Left brachial= 158mmHg. Left posterior tibial artery = 87mmHg. Left dorsalis pedis artery = 101mmHg. Left digit = 89 mmHg. The left dorsalis pedis waveforms are biphasic. The left posterior tibial artery waveforms are monophasic. Right Segmental Pressures Right brachial= 165mmHg. Right posterior tibial artery = 92mmHg. Right dorsalis pedis artery = 112mmHg. Right digit = 86 mmHg. The right dorsalis pedis waveforms are biphasic. The right posterior tibial artery waveforms are biphasic. Indices The right ankle brachial index by the dorsalis pedis is 0.68. The right ankle brachial index by the posterior tibial artery is 0.56. The right digital-brachial index is 0.52. The left ankle brachial index by the dorsalis pedis is 0.61. The left ankle brachial index by the posterior tibial artery is 0.53. The left digital-brachial index is 0.54. VL/Ankle Brachial Index Interpretation Summary Bialteral moderate occlussive disease with biphasic flow and LING 0.68 and 0.61. Ordering Physician: Jason Begum Referring Physician: Jeri Slater Performed By: Cari Cooper RVT
== END ==
PROVIDERS: PCP Internal Medicine; Referring Provider Surgery Vascular Surgery; Visit Provider Surgery Vascular Surgery
DX: R09.89 Other specified symptoms and signs involving the circulatory and respiratory systems (principal); I65.23 Occlusion and stenosis of bilateral carotid arteries; I70.213 Atherosclerosis of native arteries of extremities with intermittent claudication, bilateral legs; I35.0 Nonrheumatic aortic (valve) stenosis; Z95.5 Presence of coronary angioplasty implant and graft
CPT/HCPCS: 93880; 93922; 93978

== ENCOUNTER → 2021-02-25 10:38 | Outpatient (CLI) | payer MEDICARE, OTHER, SELFPAY ==
[2020-06-05 10:55] VITALS: BMI 35.8
[2021-02-25 12:01] LABS: BNP,B-Type NATRIURETIC PEPTIDE 34.9 pg/mL (0-100)
== END ==
PROVIDERS: PCP Internal Medicine; Referring Provider Physician Assistant Medical; Visit Provider Physician Assistant Medical
DX: R06.02 Shortness of breath (principal); R06.09 Other forms of dyspnea
CPT/HCPCS: 36415; 83880

== ENCOUNTER → 2021-03-09 06:46 | Outpatient (CLI) | payer MEDICARE, OTHER, SELFPAY ==
[2020-06-05 10:55] VITALS: BMI 35.8
--- NOTE | 2021-03-09 12:49 | STRESSREP ---
Stress Test Report Pharmacologic myocardial perfusion stress test. 80-year-old lady with a history of chest pain. Stress protocol: Resting EKG demonstrates normal sinus rhythm with a rate of 81 bpm normal intervals are noted resting blood pressure is 180/60 mmHg. 0.4 mg of regadenoson was infused per usual protocol followed by rapid intravenous saline flush injection the maximum workload was 1 metabolic equivalent. At rest there were no ST or T wave changes noted to suggest abnormal flow reserve and at peak infusion nonspecific ST changes were noted with did not meet the criteria for ischemia. No clinical angina was noted. Continuous EKG monitoring was performed. The maximum heart rate attained was 88 bpm which was 62% of max impact at heart rate. Myocardial perfusion protocol. 13.9 mCi of technetium 99m sestamibi was injected at rest. 0.4 mg of regadenoson was infused per usual protocol. At peak infusion 42.6 mCi of technetium 99m sestamibi was injected stress images were obtained stress and rest images were reconstructed and compared in the short axis vertical long and horizontal long axis. Gated images were also obtained. Perfusion SPECT analysis: Review of the stress images demonstrate normal uptake of tracer noted in all areas of the myocardium. The resting images similarly demonstrate normal uptake of tracer noted in all areas of the myocardium. No areas of reversibility are noted to suggest ischemia and no previous infarct is noted. Gated SPECT analysis: The gated ejection fraction is 63%. Conclusion: Normal pharmacologic myocardial perfusion stress test. Preserved ejection fraction.
== END ==
PROVIDERS: PCP Internal Medicine; Referring Provider Nurse Practitioner Family; Visit Provider Nurse Practitioner Family
DX: R07.9 Chest pain, unspecified (principal); I25.10 Atherosclerotic heart disease of native coronary artery without angina pectoris; Z95.5 Presence of coronary angioplasty implant and graft
CPT/HCPCS: 78452; 93017; A9500; A4216; J2785

== ENCOUNTER 2021-04-01 10:52 | Outpatient (CLI) | payer MEDICARE, OTHER, SELFPAY ==
[2020-06-05 10:55] VITALS: BMI 35.8
--- NOTE | 2021-04-01 11:01 | RAD_ITS ---
HISTORY: shortness of breath. TECHNIQUE: XR Chest 2 Views. # of images incl. paperwork: 2. COMPARISON: 04/01/2020. FINDINGS: CARDIOMEDIASTINAL STRUCTURES: Cardiac silhouette not enlarged. Mediastinal contour unremarkable with calcification of the aortic knob. LUNGS: Chronic interstitial opacities in the lungs. PLEURA: No pleural effusion or pneumothorax. OSSEOUS STRUCTURES: Surgical anchor in the right humeral head. RAD/Chest PA and Lateral IMPRESSION: No significant interval change in chronic interstitial lung disease. at 0833 Reported and signed by: Berkley Strong MD Electronically Signed: Berkley Strong MD at 8:32 EST Tel , Service support ,
[2021-04-01 12:17] LABS: BNP,B-Type NATRIURETIC PEPTIDE 104.8 pg/mL (0-100)
[2021-04-01 12:22] LABS: Anion Gap 10 (5-15); BUN 30 mg/dL (7-18); BUN/Creat Ratio 21.1 RATIO (10-20); Chloride 106 mmol/L (98-107); Creatinine, Serum 1.42 mg/dL (0.55-1.02); EST Glomerular Filtration Rate 38 mL/min (>60); Est Glom Filt Rate - Afr Amer 46 mL/min (>60); Glucose 239 mg/dL (74-106); Potassium 4.4 mmol/L (3.5-5.1); Sodium Level 140 mmol/L (136-145)
== END 2021-04-01 23:59 | disposition short-term general hospital (02) ==
LOC: LAB 10:56
PROVIDERS: PCP Internal Medicine; Referring Provider Nurse Practitioner Acute Care; Visit Provider Nurse Practitioner Acute Care
DX: R06.02 Shortness of breath (principal); J45.909 Unspecified asthma, uncomplicated
CPT/HCPCS: 36415; 71046; 80048; 83880; 87070; 87205

== ENCOUNTER 2021-04-03 09:40 | Inpatient (IN) | payer MEDICARE, OTHER, SELFPAY ==
[2020-06-05 10:55] VITALS: BMI 35.8
[2021-04-03] VITALS (11 sets, daily range): BP systolic 167–180; BP diastolic 50–74; PULSE 70–79; RESP 16–24; TEMP 35–37.1; O2SAT 92–97; BMI 32.2; BMI 32.1
--- NOTE | 2021-04-03 10:25 | EKG12_ITS ---
Test Reason : SOB Blood Pressure : / mmHG Vent. Rate : 074 BPM Atrial Rate : 074 BPM P-R Int : 196 ms QRS Dur : 096 ms QT Int : 400 ms P-R-T Axes : 091 -32 096 degrees QTc Int : 444 ms Normal sinus rhythm Left axis deviation Nonspecific T wave abnormality Abnormal ECG Confirmed by ELLIOTT LOMELI, PATRICIO ([id number]), editorial writer ASHLY MARCUS ([id number]) on 04/06/2021 11:06:54 AM Referred By: RYLEE Confirmed By:PATRICIO GALLAGHER MD
--- NOTE | 2021-04-03 10:45 | RAD_ITS ---
STUDY: X-RAY CHEST REASON FOR EXAM: Female, 80 years old. Shortness of breath x2 months TECHNIQUE: PA and lateral views of the chest. COMPARISON: Comparison is made with prior study dated 04/01/2021. FINDINGS: EKG electrodes are seen. There is evidence of increased interstitial markings in both lungs. This is suggestive of chronic scarring. I suspect a mild degree of the superimposed CHF. Blunting of both cosmetic angles. There is mild cardiac enlargement. Normal mediastinum and polo. Normal visualized pulmonary arteries. There is atherosclerotic calcification of the aortic arch with tortuosity. There are diffuse degenerative changes of the visualized thoracic spine. Metallic anchors are seen overlying the right humeral head suggestive of prior rotator cuff surgery. There is no demonstrated abnormality of the visualized soft tissue structures of the upper abdomen. RAD/Chest PA and Lateral IMPRESSION: Findings suggestive of mild degree of CHF superimposed on chronic scarring. Electronically Signed: Bautista Pratt MD at 11:14 EST , Service support ,
[2021-04-03 10:51] LABS: Absolute Lymphocyte Count 1.84 X10^3/uL (0.83-4.51); Absolute Neutrophil Count 5.1 X10^3/uL (2.0-7.7); Basophil# 0.03 X10^3/uL; Basophil% 0.4 % (0-1); Eosinophil# 0.22 X10^3/uL; Eosinophils% 2.8 % (0-5); Hematocrit 36.1 % (37-47); Hemoglobin 11.7 g/dL (12.0-15.0); Lymphocyte # 1.84 X10^3/ul (0.83-4.51); Lymphocyte % 23.5 % (19-41); Mean Corp Hgb Conc 32.4 g/dL (32-36); Mean Corpuscular Hgb 32.2 pg (27.0-32.0); Mean Corpuscular Volume 99.4 fL (81-99); Mean Platelet Vol. 9.8 fl (6.2-12.0); Monocyte# 0.57 X10^3/uL; Monocyte% 7.3 % (0-10); NRBC Flagged by Analyzer 0 % (0-5); Neutrophil # 5.14 X10^3/uL (2.7-7.7); Neutrophil % 65.5 % (47-70); Platelet Count 266 K/mm3 (150-450); RBC Distribution Width CV 15.1 % (11.6-14.6); RBC Distribution Width SD 55.2 fl (35.1-43.9); Red Blood Count 3.63 M/mm3 (4.2-5.4); White Blood Count 7.8 K/mm3 (4.4-11.0)
[2021-04-03 11:07] LABS: Anion Gap 5 (5-15); BUN 28 mg/dL (7-18); BUN/Creat Ratio 18.8 RATIO (10-20); Chloride 108 mmol/L (98-107); Creatinine, Serum 1.49 mg/dL (0.55-1.02); EST Glomerular Filtration Rate 36 mL/min (>60); Est Glom Filt Rate - Afr Amer 43 mL/min (>60); Estimated Creatinine Clearance 29.28 ml/min; Glucose 205 mg/dL (74-106); Potassium 4.7 mmol/L (3.5-5.1); Sodium Level 139 mmol/L (136-145); Troponin-I HS 22 pg/mL (3.0-54.0)
--- NOTE | 2021-04-03 11:24 | EDS_ITS ---
HPI History of Present Illness Chief Complaint: Shortness of Breath Detail of Chief Complaint: Shortness of breath, burning discomfort with breathing Informant: patient and family Onset/Context/Timing Onset: Month(s) Context: unknown Timing: Continuous Quality: Positive for Dyspnea on exertion; Negative for Orthopnea, PND and [place]ez ing Current Severity: Mild Maximum Severity: Moderate Worsened by: Exertion and Coughing Relieved by: Nothing Associated Symptoms cough, post nasal drip and sore throat; Negative for rhinorrhea, ear pain, fever, subjective, chills or sweats Chest Pain: Positive for Continuous and Burning Narrative Narrative: Patient is a 80-year-old woman with multiple medical problems. She is undergone extensive work-up by Dr. Dial to determine the etiology of her symptoms. She was told by Dr. Dial's nurse practitioner they are uncertain of the cause and there is nothing more to offer her at this point. Patient does have a history of COPD, obstructive sleep apnea, GERD and pulmonary fibrosis. Patient appears slightly tachypneic. She is not hypoxic nor she tachycardic. She states she feels slightly more short of breath than normal. She reports temperature of 99 degrees. She denies GI symptoms. She denies black or maroon-colored stool. PE Risk Factors: Negative for Cancer, OCP + Smoking + > 35, Prior DVT or PE, Recent immobilization, Recent surgery and Recent travel Prior similar symptoms: Yes Recent Illness/Hospitalization: Yes [facility] Medical History Abdominal aortic aneurysm (AAA) Allergic rhinitis Anemia Atherosclerotic heart disease of [place] coronary artery without angina pectoris Balance problem Bilateral carotid artery stenosis Carpal tunnel syndrome Cataracts, bilateral Chronic pain syndrome Chronic renal failure, stage 3 (moderate) COPD exacerbation CVA (cerebral vascular accident) Degeneration of lumbar intervertebral disc Depression Dermatitis Diabetes type 2, uncontrolled Diabetic peripheral neuropathy Diastolic dysfunction Essential (primary) hypertension GERD (gastroesophageal reflux disease) Glaucoma Hyperlipidemia Hypothyroidism Insomnia Intermittent FUO Morbid obesity NSTEMI (non-ST elevated myocardial infarction) (08/10/16) OMID (obstructive sleep apnea) Osteoarthritis Palpitations Peripheral vascular disease Peripheral vascular occlusive disease Pulmonary hypertension Skin cancer Spinal stenosis of lumbar region Symptomatic anemia Type 2 diabetes mellitus Home Medications multivitamin 1 tab PO DAILY 12/22/18 [History Last Taken Unknown] rosuvastatin 20 mg tablet 20 mg PO QHS #90 tab 01/14/20 [Rx Last Taken Unknown] acetylcysteine 600 mg capsule 600 mg PO DAILY 05/12/20 [History Last Taken Unknown] aspirin 81 mg tablet,delayed release 81 mg PO DAILY 05/12/20 [History Last Taken Unknown] ipratropium bromide 0.02 % solution for inhalation 2.5 ml INHALATION Q6H PRN #2.5 ml 05/15/20 [Rx Last Taken Unknown] oxycodone-acetaminophen 5 mg-325 mg tablet 1 tablet PO TID PRN 06/06/20 [History Last Taken Unknown] acetaminophen 500 mg tablet 500 mg PO Q8H PRN tab 07/22/20 [History Last Taken Unknown] albuterol sulfate 0.63 mg/3 mL solution for nebulization 0.63 mg INHALATION Q4H PRN 07/22/20 [History Last Taken Unknown] cholecalciferol (vitamin D3) 125 mcg (5,000 unit) tablet 5,000 unit PO DAILY tab 07/22/20 [History Last Taken Unknown] fluticasone propionate 220 mcg/actuation HFA aerosol inhaler 2 puff INHALATION BID PRN gm 07/22/20 [History Last Taken Unknown] ipratropium bromide 42 mcg (0.06 %) nasal spray spray INTRANASAL 07/22/20 [History Last Taken Unknown] nitroglycerin 0.4 mg sublingual tablet 0.4 mg SUBLINGUAL Q5-15M PRN #25 tab 07/22/20 [Rx Last Taken Unknown] zinc 50 mg tablet 100 mg PO DAILY tab 07/22/20 [History Last Taken Unknown] albuterol sulfate 90 mcg/actuation aerosol inhaler 2 puff INHALATION Q4H PRN #18 g 08/01/20 [Rx Last Taken Unknown] albuterol sulfate 90 mcg/actuation breath activated powder inhaler 2 inh INHALATION Q6H PRN #3 ea 08/08/20 [Rx Last Taken Unknown] furosemide 40 mg tablet 40 mg PO BID #180 tab 08/19/20 [Rx Last Taken Unknown] omeprazole 20 mg capsule,delayed release 20 mg PO DAILY #90 cap 08/20/20 [Rx Last Taken Unknown] clonidine 0.3 mg/24 hr weekly transdermal patch 1 patch TD QWEEK #4 ea 09/23/20 [Rx Last Taken Unknown] isosorbide mononitrate 30 mg tablet,extended release 24 hr See Rx Instructions PO BID #270 tab 10/21/20 [Rx Last Taken Unknown] dulaglutide 1.5 mg/0.5 mL subcutaneous pen injector 3 mg SUBCUT QWEEK #2 ml 11/11/20 [Rx Last Taken Unknown] flash glucose scanning reader #1 ea 11/20/20 [Rx Last Taken Unknown] levothyroxine 175 mcg tablet 175 mcg PO DAILY #90 tab 12/23/20 [Rx Last Taken Unknown] insulin aspart U-100 100 unit/mL (3 mL) subcutaneous pen 30 unit SUBCUT .TIDCM #45 ml 12/25/20 [Rx Last Taken Unknown] amlodipine 10 mg-benazepril 40 mg capsule 1 cap PO DAILY #90 cap 01/16/21 [Rx Last Taken Unknown] insulin glargine 100 unit/mL (3 mL) subcutaneous pen 70 unit SC QHS #45 ml 01/27/21 [Rx Last Taken Unknown] trazodone 50 mg tablet 50 mg PO QHS #90 tab 01/27/21 [Rx Last Taken Unknown] flash glucose sensor #2 ea 03/30/21 [Rx Last Taken Unknown] prednisone 10 mg tablet 10 mg PO QDAY #30 tab 04/03/21 [Rx Last Taken Unknown] Allergy/AdvReac Type Severity Reaction Status Date / Time metoprolol Allergy Severe Unknown Verified 04/03/21 09:45 morphine AdvReac Vomiting Verified 04/03/21 09:45 bee stings Allergy Anaphylaxis Uncoded 04/03/21 09:45 Family History Daughter Alcohol abuse Anemia Anxiety Asthma Mother Diabetes Heart disease Hypertension Father Heart disease Hypertension Surgical History H/O endovascular stent graft for abdominal aortic aneurysm (2014) H/O left knee surgery History of angioplasty of peripheral vessel (2017) History of coronary artery stent placement (08/10/16) History of hysterectomy History of open reduction and internal fixation (ORIF) procedure History of partial knee replacement History of repair of rotator cuff Social History household members: none housing: house Smoking Status: Former smoker Tobacco: How many years used: 48 how long ago did patient quit smokin second hand exposure: Yes alcohol intake: never substance use type: does not use caffeine: Yes Type: carbonated beverages Number of servings: 1 and coffee Number of servings: 2 what type of physical activity do you participate in: none do you feel safe at home: Yes ROS ROS ED Constitutional Constitutional ED: Reports chills and sweats; Denies fever(s) or weight loss Eyes Eyes: Denies blurry vision, change in vision or diplopia ENT ENT ED: Reports rhinorrhea and sore throat; Denies ear pain Cardiovascular Cardiovascular: Reports chest pain; Denies orthopnea, palpitations, paroxysmal nocturnal dyspnea or racing heartbeat Respiratory/Chest Respiratory/Chest: Reports cough, dyspnea and dyspnea on exertion; Denies orthopnea or paroxysmal nocturnal dyspnea Gastrointestinal Gastrointestinal: Denies abdominal pain, diarrhea, melena, nausea or vomiting Genitourinary Genitourinary ED: Reports dysuria; Denies hematuria or urinary frequency Musculoskeletal Musculoskeletal: Denies arthralgias, back pain, myalgias or neck pain Integumentary Denies rash Neurologic Neurologic: Reports weakness; Denies headache(s) or paresthesias Endocrine Endocrinology: Denies polydipsia, polyphagia or polyuria Hematologic/Lymphatic Hematologic/Lymphatic: Denies easy bleeding or easy bruising EXAM Physical Exam Const Vital Signs: 04/03/21 09:41 04/03/21 10:15 04/03/21 10:16 Temperature 97.9 F 97.9 F Temperature Source Temporal Temporal Pulse Rate 75 79 Respiratory Rate 18 18 Respiratory Effort Normal Respiratory Depth Normal Respiratory Pattern Normal Blood Pressure 180/52 H 173/73 H Blood Pressure Mean 94 106 Pulse Ox 95 93 Oxygen Delivery Method Room Air Room Air Room Air Oxygen Flow Rate (L/min) 04/03/21 12:44 04/03/21 15:10 04/03/21 15:11 Temperature 98.2 F 98.8 F Temperature Source Oral Temporal Pulse Rate 73 78 Respiratory Rate 24 H 18 Respiratory Effort Respiratory Depth Respiratory Pattern Blood Pressure 173/70 H 167/50 H Blood Pressure Mean 104 89 Pulse Ox 92 93 Oxygen Delivery Method Nasal Cannula Nasal Cannula High Flow Oxygen Flow Rate (L/min) 2 2 04/03/21 16:13 Temperature 98.7 F Temperature Source Temporal Pulse Rate 74 Respiratory Rate 17 Respiratory Effort Respiratory Depth Respiratory Pattern Blood Pressure 167/60 H Blood Pressure Mean 95 Pulse Ox 97 Oxygen Delivery Method Nasal Cannula Oxygen Flow Rate (L/min) 2 Positive well nourished and well developed General Appearance ED: well developed; Negative for pallor HEENT Reports TM's clear HEENT Narrative: Nares patent. atraumatic; Negative for tenderness Tympanic Membrane ED: Yes TM's clear Eyes PERRL and EOMs intact bilaterally General Eye ED: Negative for pale conjunctiva or scleral icterus Neck no lymphadenopathy, supple, no meningeal signs and no JVD Resp normal respiratory effort and clear to auscultation bilaterally Cardio regular rate, regular rhythm, S1 normal heart sound, S2 normal heart sound and no murmurs GI non-tender and no masses Auscultation: normoactive bowel sounds Palpation: soft Back/Spine no CVA tenderness and normal to inspection Neuro oriented x3 and CN's II-XII intact bilaterally Faber Coma Scale: document GCS findings Spontaneous Obeys Commands Oriented 15 Sensorium / Orientation: alert Psych mental status grossly normal Psych Narrative: After is flat Skin General Skin Exam: Negative for jaundice or pallor Lesions: no lesions Rashes: no rashes MDM MDM MDM Narrative Medical decision making narrative: In light of patient's constellation of symptoms chest x-ray was obtained. Electrolytes were obtained to assess renal function, electrolytes. CBC to assess white count and rule out anemia. Dr. Agapito Magaña was on-call for Dr. Ivan Dial. Patient has not been seen by anyone in the office since May 2020. Patient was questioned she states she was seen on Tuesday. Upon further investigation she had an outpatient chest x- ray but has not been seen by anyone since May 2020. Her last COVID test was 3 weeks ago. Since patient desaturates with minimal walking will obtain a pulse ox with ambulation on oxygen and will obtain a COVID test. Since symptoms have been persistent for 3 weeks a PCR was ordered. 6-minute walk test was performed. Patient desaturated 84% [address] Magaña was contacted since her COVID test was negative. He stated that would qualify for home oxygen since she has chronic lung disease. Furthermore he informed me that she should be placed on 2 L initially and see if she desaturates with walking. If she does not that would be sufficient if she does desaturate determine the amount of oxygen needed to prevent desaturation. Case was discussed with Dr. Magaña. He recommended CT without contrast high resolution. This was performed. Awaiting interpretation by radiologist. Patient is not stable to go home therefore will call hospitalist for admission. BNP is slightly elevated. This is nonspecific. Troponin with weeks of symptoms is normal. Lab Data Attestation: I reviewed the patient's lab results. Lab results narrative: Creatinine is elevated. Patient does have history of stage III chronic renal failure. Patient is anemic however this would not explain her dyspnea. Suspect this is due to her pulmonary problems. Labs: Laboratory Results - last 24 hr 04/03/21 04/03/21 04/03/21 10:40 10:40 11:30 WBC 7.8 RBC 3.63 L Hgb 11.7 L Hct 36.1 L MCV 99.4 H MCH 32.2 H MCHC 32.4 RDW Std Deviation 55.2 H RDW Coeff of [place] 15.1 H Plt Count 266 MPV 9.8 Immature Gran % (Auto) 0.500 Neut % (Auto) 65.5 Lymph % (Auto) 23.5 [place] % (Auto) 7.3 Eos % (Auto) 2.8 Baso % (Auto) 0.4 Absolute Neuts (auto) 5.1 Absolute Lymphs (auto) 1.84 Nucleated RBC % 0 Sodium 139 Potassium 4.7 Chloride 108 H Carbon Dioxide 26.0 Anion Gap 5 BUN 28 H Creatinine 1.49 H Estim Creat Clear Calc 29.28 Est GFR (MDRD) Af Amer 43 L Est GFR (MDRD) Non-Af 36 L BUN/Creatinine Ratio 18.8 Glucose 205 H Calcium 9.0 Troponin I High Sens 22 B-Natriuretic Peptide Urine Color Straw Urine Clarity Sl. Cloudy Urine pH 7.0 Ur Specific [place] 1.010 Urine Protein 100 H Urine Glucose (UA) Normal Urine Ketones Negative Urine Occult Blood 50 H Urine Nitrite Negative Urine Bilirubin Negative Urine Urobilinogen Normal Ur Leukocyte Esterase 500 H Urine RBC 0-5 SEEN Urine WBC 5-10 SEEN Ur Squamous Epith Cells 0-5 SEEN Urine Bacteria RARE Urine Mucus RARE COVID-19 (ALLA) 04/03/21 04/03/21 04/03/21 12:04 16:28 16:28 WBC RBC Hgb Hct MCV MCH MCHC RDW Std Deviation RDW Coeff of [place] Plt Count MPV Immature Gran % (Auto) Neut % (Auto) Lymph % (Auto) [place] % (Auto) Eos % (Auto) Baso % (Auto) Absolute Neuts (auto) Absolute Lymphs (auto) Nucleated RBC % Sodium Potassium Chloride Carbon Dioxide Anion Gap BUN Creatinine Estim Creat Clear Calc Est GFR (MDRD) Af Amer Est GFR (MDRD) Non-Af BUN/Creatinine Ratio Glucose Calcium Troponin I High Sens 32 B-Natriuretic Peptide 229.1 H Urine Color Urine Clarity Urine pH Ur Specific [place] Urine Protein Urine Glucose (UA) Urine Ketones Urine Occult Blood Urine Nitrite Urine Bilirubin Urine Urobilinogen Ur Leukocyte Esterase Urine RBC Urine WBC Ur Squamous Epith Cells Urine Bacteria Urine Mucus COVID-19 (ALLA) Not Detected Radiography Chest X-Ray - ED: 1 View and Read by ED Physician (Chest x-ray reveals normal cardiac silhouette and size. There is no cephalization. There is chronic changes noted in due to pulmonary fibrosis.) Diagnostic Testing: Clinical Impression(s) from Imaging Studies Chest X-Ray 04/03/21 10:45 IMPRESSION: Findings suggestive of mild degree of CHF superimposed on chronic scarring. Electronically Signed: Bautista Pratt MD at 11:14 EST , Service support , EKG Initial EKG: Attestation: I personally reviewed and interpreted this EKG as follows: Interpretation: Sinus Rhythm (Ventricular rate of 74. NC interval 296 ms. QS duration 96 ms. QT interval is 400 ms. [place] to the left. 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, Discussing w/Consultants (Consultation for case management for home oxygen, consultation with operator control room x2) and Arranging Admission or Transfer (Discussion with hospitalist for admission) Discharge Plan Triage Chief Complaint: Shortness of Breath ED Provider: Obey Syed Dx/Rx/DC Orders Clinical Impression: Pulmonary fibrosis, Acute respiratory failure with hypoxia, Elevated brain natriuretic peptide (BNP) level, OMID (obstructive sleep apnea), Chronic renal failure, stage 3 (moderate), Essential (primary) hypertension, Peripheral vascular occlusive disease Prescriptions: No Action multivitamin [One Daily Multivitamin] Tablet 1 tab PO DAILY RF: 0 acetaminophen [Tylenol Extra Strength] 500 mg tablet 500 mg PO Q8H PRN (Reason: pain) RF: 0 cholecalciferol (vitamin D3) 125 mcg (5,000 unit) tablet 5,000 unit PO DAILY RF: 0 Flovent HFA 220 mcg/actuation HFA aerosol inhaler 2 puff INHALATION BID PRNRF: 0 albuterol sulfate 0.63 mg/3 mL solution for nebulization 0.63 mg inhalation Q4H PRNRF: 0 ipratropium bromide 42 mcg (0.06 %) spray,non-aerosol intranasal RF: 0 nitroglycerin 0.4 mg tablet, sublingual 0.4 mg sublingual Q5-15M PRN (Reason: chest pain) Qty: 25 RF: 3 aspirin [Adult Aspirin Regimen] 81 mg tablet,delayed release (DR/EC) 81 mg PO DAILY RF: 0 acetylcysteine [NAC] 600 mg capsule 600 mg PO DAILY RF: 0 zinc 50 mg tablet 100 mg PO DAILY RF: 0 oxycodone-acetaminophen [Percocet] 5-325 mg tablet 1 tablet PO TID PRNRF: 0 clonidine 0.3 mg/24 hr patch weekly 1 patch TD QWEEK Qty: 4 RF: 2 omeprazole 20 mg capsule,delayed release(DR/EC) 20 mg PO DAILY Qty: 90 RF: 1 Trulicity 1.5 mg/0.5 mL pen injector 3 mg subcut QWEEK Qty: 2 RF: 1 rosuvastatin 20 mg tablet 20 mg PO QHS Qty: 90 RF: 3 ipratropium bromide 0.02 % solution 2.5 ml INHALATION Q6H PRN (Reason: shortness of breath or wheezing) Qty: 2.5 RF: 0 albuterol sulfate [Ventolin HFA] 90 mcg/actuation HFA aerosol inhaler 2 puff INHALATION Q4H PRN (Reason: shortness of breath or wheezing) Qty: 18 RF: 6 ProAir RespiClick 90 mcg/actuation aerosol powdr breath activated 2 inh inhalation Q6H PRN (Reason: shortness of breath or wheezing) Qty: 3 RF: 1 furosemide 40 mg tablet 40 mg PO BID Qty: 180 RF: 3 isosorbide mononitrate 30 mg tablet extended release 24 hr See Rx Instructions PO BID Qty: 270 RF: 1 (DME) FreeStyle Alan 14 Day [place] Misc See Rx Instructions .ROUTE .MEDSUPPLY Qty: 1 RF: 0 levothyroxine 175 mcg tablet 175 mcg PO DAILY Qty: 90 RF: 2 insulin aspart U-100 [Novolog Flexpen U-100 Insulin] 100 unit/mL (3 mL) insulin pen 30 unit subcut .TIDCM Qty: 45 RF: 5 amlodipine-benazepril 10-40 mg capsule 1 cap PO DAILY Qty: 90 RF: 1 insulin glargine 100 unit/mL (3 mL) insulin pen 70 unit SC QHS Qty: 45 RF: 1 trazodone 50 mg tablet 50 mg PO QHS Qty: 90 RF: 1 (DME) FreeStyle Alan 14 Day Sensor Kit See Rx Instructions .ROUTE .MEDSUPPLY Qty: 2 RF: 3 prednisone 10 mg tablet 10 mg PO QDAY Qty: 30 RF: 0 Primary Care Provider: Nena Christiansen Referrals: Ivan Dial MD [STAFF PHYSICIAN] - As soon as possible (Call office and they will make you an emergent office visit) Nena Christiansen MD [Primary Care Provider] - Disposition Disposition: Acute Care Hospital [facility]
[2021-04-03 11:37] LABS: Color, Urine Straw (Yellow); Glucose, Dipstick Normal (Normal); Ketone-Dipstick Negative (Negative); Leukocyte Esterase-Dipstick 500 /ul (Negative); Nitrite-Dipstick Negative (Negative); Occult Blood-Urine 50 /ul (Negative); Protein-Dipstick 100 mg/dl (Negative); Urine Bilirubin Dipstick Negative (Negative); Urine Clarity Sl. Cloudy (Clear); Urine Urobilinogen Normal (Normal)
[2021-04-03 11:43] LABS: Bacteria RARE /hpf (None Seen); Mucous, Urine RARE /hpf (<or=2+); Red Blood Cells-Urine 0-5 SEEN /hpf (0-5); Squamous Epithelial Cells - UA 0-5 SEEN /hpf (5-10); White Blood Cells 5-10 SEEN /hpf (0-5)
--- NOTE | 2021-04-03 16:16 | ED.RN ---
Patient ambulated with walker and with oxygen starting at 2L. about 30 seconds after walking, patients SpO2 89% on 2L. Patients O2 was increased to 3L and SpO2 93% after increase. The rest of the walk, patients O2 was increased to 4L and SpO2 was 85%.
--- NOTE | 2021-04-03 16:25 | CT_ITS ---
STUDY: CT CHEST WITHOUT CONTRAST REASON FOR EXAM: Female, 80 years old. hypoxia, high resolution RADIATION DOSAGE (If Supplied By Facility): CTDIvol = ( 21.74 ) mGy, DLP = ( 772.92 ) mGycm TECHNIQUE: Transaxial imaging was performed without the administration of intravenous contrast material. Individualized dose optimization techniques were used for this CT. COMPARISON: None. FINDINGS: Mild emphysema. No noncalcified nodule or mass. Small bilateral pleural effusions with bibasilar atelectasis. Normal heart and pericardium. There are calcifications of the coronary arteries. Normal mediastinum. Normal hilar regions. Normal unenhanced pulmonary arteries. There is atherosclerotic calcification of the aortic arch with tortuosity and elongation of the aortic arch and descending thoracic aorta. Mild dextroscoliosis of the thoracic spine with degenerative disc disease. There is no demonstrated abnormality of the visualized upper abdomen. CT/Chest without Contrast IMPRESSION: Emphysema with small bilateral pleural effusions with some bibasilar atelectasis. Electronically Signed: Yobani Turner MD at 17:18 EST Tel , Service support ,
[2021-04-03 16:51] LABS: BNP,B-Type NATRIURETIC PEPTIDE 229.1 pg/mL (0-100)
[2021-04-03 16:53] LABS: Troponin-I HS 32 pg/mL (3.0-54.0)
--- NOTE | 2021-04-03 17:30 | HP.PCM.HOS_ITS ---
HPI - General General Date of Admission: 04/03/21 Date of Service: 04/03/21 Chief Complaint: Shortness of breath HPI Narrative ALPHONSO GUZMAN, is a 80 F who presents with shortness of breath. Patient has multiple comorbidities including coronary artery disease with previous stenting to an LAD and ostial OM1 lesion, mild intermittent asthma, pulmonary fibrosis for which she is followed by pulmonary medicine who presented with shortness of breath. Patient symptoms have been ongoing for a month. She is on home oxygen at night however due to the increasing shortness of breath patient has had to use her oxygen continuously. Presented to the emergency department due to worsening symptoms. CT of the chest obtained as part of her evaluation in the ED demonstrated emphysema with small bilateral pleural effusion and some bibasilar atelectasis. Subsequently admitted to regular nursing floor for further management [facility] Medical History Abdominal aortic aneurysm (AAA) Allergic rhinitis Anemia Atherosclerotic heart disease of [place] coronary artery without angina pectoris Balance problem Bilateral carotid artery stenosis Carpal tunnel syndrome Cataracts, bilateral Chronic pain syndrome Chronic renal failure, stage 3 (moderate) COPD exacerbation CVA (cerebral vascular accident) Degeneration of lumbar intervertebral disc Depression Dermatitis Diabetes type 2, uncontrolled Diabetic peripheral neuropathy Diastolic dysfunction Essential (primary) hypertension GERD (gastroesophageal reflux disease) Glaucoma Hyperlipidemia Hypothyroidism Insomnia Intermittent FUO Morbid obesity NSTEMI (non-ST elevated myocardial infarction) (08/10/16) OMID (obstructive sleep apnea) Osteoarthritis Palpitations Peripheral vascular disease Peripheral vascular occlusive disease Pulmonary hypertension Skin cancer Spinal stenosis of lumbar region Symptomatic anemia Type 2 diabetes mellitus Home Medications multivitamin 1 tab PO DAILY 12/22/18 [History Last Taken Unknown] rosuvastatin 20 mg tablet 20 mg PO QHS #90 tab 01/14/20 [Rx Last Taken Unknown] acetylcysteine 600 mg capsule 600 mg PO DAILY 05/12/20 [History Last Taken Unknown] aspirin 81 mg tablet,delayed release 81 mg PO DAILY 05/12/20 [History Last Taken Unknown] ipratropium bromide 0.02 % solution for inhalation 2.5 ml INHALATION Q6H PRN #2.5 ml 05/15/20 [Rx Last Taken Unknown] oxycodone-acetaminophen 5 mg-325 mg tablet 1 tablet PO TID PRN 06/06/20 [History Last Taken Unknown] acetaminophen 500 mg tablet 500 mg PO Q8H PRN tab 07/22/20 [History Last Taken Unknown] albuterol sulfate 0.63 mg/3 mL solution for nebulization 0.63 mg INHALATION Q4H PRN 07/22/20 [History Last Taken Unknown] cholecalciferol (vitamin D3) 125 mcg (5,000 unit) tablet 5,000 unit PO DAILY tab 07/22/20 [History Last Taken Unknown] fluticasone propionate 220 mcg/actuation HFA aerosol inhaler 2 puff INHALATION BID PRN gm 07/22/20 [History Last Taken Unknown] ipratropium bromide 42 mcg (0.06 %) nasal spray spray INTRANASAL 07/22/20 [History Last Taken Unknown] nitroglycerin 0.4 mg sublingual tablet 0.4 mg SUBLINGUAL Q5-15M PRN #25 tab 07/22/20 [Rx Last Taken Unknown] zinc 50 mg tablet 100 mg PO DAILY tab 07/22/20 [History Last Taken Unknown] albuterol sulfate 90 mcg/actuation aerosol inhaler 2 puff INHALATION Q4H PRN #18 g 08/01/20 [Rx Last Taken Unknown] albuterol sulfate 90 mcg/actuation breath activated powder inhaler 2 inh INHALA TION Q6H PRN #3 ea 08/08/20 [Rx Last Taken Unknown] furosemide 40 mg tablet 40 mg PO BID #180 tab 08/19/20 [Rx Last Taken Unknown] omeprazole 20 mg capsule,delayed release 20 mg PO DAILY #90 cap 08/20/20 [Rx Last Taken Unknown] clonidine 0.3 mg/24 hr weekly transdermal patch 1 patch TD QWEEK #4 ea 09/23/20 [Rx Last Taken Unknown] isosorbide mononitrate 30 mg tablet,extended release 24 hr See Rx Instructions PO BID #270 tab 10/21/20 [Rx Last Taken Unknown] dulaglutide 1.5 mg/0.5 mL subcutaneous pen injector 3 mg SUBCUT QWEEK #2 ml 11/11/20 [Rx Last Taken Unknown] flash glucose scanning reader #1 ea 11/20/20 [Rx Last Taken Unknown] levothyroxine 175 mcg tablet 175 mcg PO DAILY #90 tab 12/23/20 [Rx Last Taken Unknown] insulin aspart U-100 100 unit/mL (3 mL) subcutaneous pen 30 unit SUBCUT .TIDCM #45 ml 12/25/20 [Rx Last Taken Unknown] amlodipine 10 mg-benazepril 40 mg capsule 1 cap PO DAILY #90 cap 01/16/21 [Rx Last Taken Unknown] insulin glargine 100 unit/mL (3 mL) subcutaneous pen 70 unit SC QHS #45 ml 01/27/21 [Rx Last Taken Unknown] trazodone 50 mg tablet 50 mg PO QHS #90 tab 01/27/21 [Rx Last Taken Unknown] flash glucose sensor #2 ea 03/30/21 [Rx Last Taken Unknown] prednisone 10 mg tablet 10 mg PO QDAY #30 tab 04/03/21 [Rx Last Taken Unknown] Allergy/AdvReac Type Severity Reaction Status Date / Time metoprolol Allergy Severe Unknown Verified 04/03/21 09:45 morphine AdvReac Vomiting Verified 04/03/21 09:45 bee stings Allergy Anaphylaxis Uncoded 04/03/21 09:45 Family History Daughter Alcohol abuse Anemia Anxiety Asthma Mother Diabetes Heart disease Hypertension Father Heart disease Hypertension Surgical History H/O endovascular stent graft for abdominal aortic aneurysm (2014) H/O left knee surgery History of angioplasty of peripheral vessel (2017) History of coronary artery stent placement (08/10/16) History of hysterectomy History of open reduction and internal fixation (ORIF) procedure History of partial knee replacement History of repair of rotator cuff Social History household members: none housing: house Smoking Status: Former smoker Tobacco: How many years used: 48 how long ago did patient quit smokin second hand exposure: Yes alcohol intake: never substance use type: does not use caffeine: Yes Type: carbonated beverages Number of servings: 1 and coffee Number of servings: 2 what type of physical activity do you participate in: none do you feel safe at home: Yes ROS ROS Narrative GENERAL: denies fever, chills, HEENT: denies headache, sinus congestion, RESPIRATORY: shortness of breath, dyspnea on exertion CARDIAC: denies chest pain, palpitations, orthopnea, GASTROINTESTINAL: denies abdominal pain, nausea, GENITOURINARY: denies dysuria, urgency, frequency, EXTREMITY: denies swelling MUSCULOSKELETAL: denies current joint pain or tenderness NEUROLOGIC: denies focal numbness, weakness, tingling HEMATOLOGIC: denies easy bruising and/or hemorrhage INTEGUMENT: denies rashes PSYCHIATRIC: denies suicidal or homicidal ideation Vital Signs Vital Signs Vital Signs: 04/03/21 09:41 04/03/21 10:15 04/03/21 10:16 Temperature 97.9 F 97.9 F Temperature Source Temporal Temporal Pulse Rate 75 79 Respiratory Rate 18 18 Respiratory Effort Normal Respiratory Depth Normal Respiratory Pattern Normal Blood Pressure 180/52 H 173/73 H Blood Pressure Mean 94 106 Pulse Ox 95 93 Oxygen Delivery Method Room Air Room Air Room Air Oxygen Flow Rate (L/min) 04/03/21 12:44 04/03/21 15:10 04/03/21 15:11 Temperature 98.2 F 98.8 F Temperature Source Oral Temporal Pulse Rate 73 78 Respiratory Rate 24 H 18 Respiratory Effort Respiratory Depth Respiratory Pattern Blood Pressure 173/70 H 167/50 H Blood Pressure Mean 104 89 Pulse Ox 92 93 Oxygen Delivery Method Nasal Cannula Nasal Cannula High Flow Oxygen Flow Rate (L/min) 2 2 04/03/21 16:13 04/03/21 17:25 Temperature 98.7 F 95 F L Temperature Source Temporal Temporal Pulse Rate 74 78 Respiratory Rate 17 18 Respiratory Effort Respiratory Depth Respiratory Pattern Blood Pressure 167/60 H 170/74 H Blood Pressure Mean 95 106 Pulse Ox 97 95 Oxygen Delivery Method Nasal Cannula Nasal Cannula Oxygen Flow Rate (L/min) 2 2 Weight Weight: 93.44 kg Body Mass Index (BMI) 32.2 Physical Exam Narrative GENERAL: Dyspneic at rest HEENT: Atraumatic; EYES; Anicteric, Normal Conjunctiva NECK; supple, normal thyroid, RESPIRATORY: Diminished to auscultation CARDIOVASCULAR: Regular S1 S2, GI: soft, normoactive bowel sounds, : No Renal angle tenderness; EXTREMITIES: No edema, no clubbing, MUSCULOSKELETAL: no muscle waisting NEURO: Awake; no lateralizing signs. SKIN: No Rash PSYCH; Flat affect Results Lab / Micro Data Result Diagrams: 04/03/21 10:40 04/03/21 10:40 Labs: Laboratory Results - last 24 hr 04/03/21 10:40: WBC 7.8, RBC 3.63 L, Hgb 11.7 L, Hct 36.1 L, MCV 99.4 H, MCH 32.2 H, MCHC 32.4, RDW Std Deviation 55.2 H, RDW Coeff of [place] 15.1 H, Plt Count 266, MPV 9.8, Immature Gran % (Auto) 0.500, Neut % (Auto) 65.5, Lymph % (Auto) 23.5, [place] % (Auto) 7.3, Eos % (Auto) 2.8, Baso % (Auto) 0.4, Absolute Neuts (auto) 5.1, Absolute Lymphs (auto) 1.84, Nucleated RBC % 0 04/03/21 10:40: Sodium 139, Potassium 4.7, Chloride 108 H, Carbon Dioxide 26.0, Anion Gap 5, BUN 28 H, Creatinine 1.49 H, Estim Creat Clear Calc 29.28, Est GFR (MDRD) Af Amer 43 L, Est GFR (MDRD) Non-Af 36 L, BUN/Creatinine Ratio 18.8, Glucose 205 H, Calcium 9.0, Troponin I High Sens 22 04/03/21 11:30: Urine Color Straw, Urine Clarity Sl. Cloudy, Urine pH 7.0, Ur Specific [place] 1.010, Urine Protein 100 H, Urine Glucose (UA) Normal, Urine Ketones Negative, Urine Occult Blood 50 H, Urine Nitrite Negative, Urine Bilirubin Negative, Urine Urobilinogen Normal, Ur Leukocyte Esterase 500 H, Urine RBC 0-5 SEEN, Urine WBC 5-10 SEEN, Ur Squamous Epith Cells 0-5 SEEN, Urine Bacteria RARE, Urine Mucus RARE 04/03/21 12:04: COVID-19 (ALLA) Not Detected 04/03/21 16:28: Troponin I High Sens 32 04/03/21 16:28: B-Natriuretic Peptide 229.1 H Radiology Impression Chest X-Ray 04/03/21 10:45 IMPRESSION: Findings suggestive of mild degree of CHF superimposed on chronic scarring. Electronically Signed: Bautista Pratt MD at 11:14 EST , Service support , Chest CT 04/03/21 16:25 IMPRESSION: Emphysema with small bilateral pleural effusions with some bibasilar atelectasis. Electronically Signed: Yobani Turner MD at 17:18 EST Tel , Service support , Assessment & Plan Assessment/Plan (1) Shortness of breath: PLAN: Patient is an 80-year-old lady with multiple comorbidities including emphysema, mild intermittent asthma and pulmonary fibrosis presented with progressive shortness of BREATH 1. Acute on chronic hypoxic respiratory failure ? Due to exacerbation of patient emphysema as well as asthma and pulmonary fibrosis. Patient has been admitted to regular nursing floor managed with bronchodilator treatment steroid as well as azithromycin. Consult was placed to patient's topstitcher lockstitch. 2. Coronary artery disease ? With previous PTCA to an LAD and ostial OM1 lesion 3. Chronic congestive heart failure with preserved ejection fraction ? Patient is on diuretic therapy at home did continue with home dose 4. Diabetes mellitus type II -patient's oral hypoglycemics held. Placed on long acting insulin, Accu-Cheks a.c. and at bedtime and covered with sliding scale insulin 5. History of AAA ? With endovascular repair 6. Hypertension - Blood pressure controlled, home medications continued with dose adjustment as needed 7. Hypothyroidism - Patient is on levothyroxine home dose continued 8. Dyslipidemia -Patient is on statin therapy, continued at home dose 9. Obstructive sleep apnea ? Plan is to continue with patient CPAP therapy at night 10. DVT prophylaxis ? [place] Lovenox Advance planning; did discuss with the patient and family regarding advanced directives as well as CODE STATUS. Did explain the various scenarios involved ( FULL CODE, DNR CCA, DNR CCA with no intubation, and DNR CC and what each meant) patient elected to be full code with CPR and intubation if warranted intubation. Order was placed. Time spent on discussion 18 minutes. Charges/Coding Visit Charges Inpatient E&M: 08152 Init Hosp L3 Procedures Hospitalists Procedures: 90817 Advncd Care Plan 30 Min
[2021-04-03] MEDS: Ipratropium/Albuterol Sulfate 3 ML AMPUL.NEB INHALATION (19:25)
--- NOTE | 2021-04-03 19:47 | PCS.PANDOC ---
PANDEMIC DOCUMENTATION INITIATED: Date: 11/03/2020 Time: 190
[2021-04-03] MEDS: Azithromycin 250 MG Tablet 500 MG PO (20:15)
--- NOTE | 2021-04-03 20:20 | NURSING ---
pt self check blood sugar 193
[2021-04-03] MEDS: Isosorbide Mononitrate 30 MG Tablet PO (21:33)
[2021-04-03] MEDS: Atorvastatin Calcium 40 MG Tablet PO (21:33)
[2021-04-03] MEDS: traZODone 50 MG Tablet PO (21:33)
[2021-04-03] MEDS: Insulin Lispro 100 UNIT/ML INSULN.PEN SC (21:34)
--- NOTE | 2021-04-03 21:39 | NURSING ---
pt check blood sugar 310
[2021-04-04] VITALS (7 sets, daily range): BP systolic 139–162; BP diastolic 60–78; PULSE 76–99; RESP 16–20; TEMP 36.3–36.8; O2SAT 86–97
[2021-04-04 04:57] LABS: Absolute Lymphocyte Count 0.76 X10^3/uL (0.83-4.51); Absolute Neutrophil Count 4.1 X10^3/uL (2.0-7.7); Basophil# 0.01 X10^3/uL; Basophil% 0.2 % (0-1); Hematocrit 32.2 % (37-47); Hemoglobin 10.4 g/dL (12.0-15.0); Lymphocyte # 0.76 X10^3/ul (0.83-4.51); Lymphocyte % 15.2 % (19-41); Mean Corp Hgb Conc 32.3 g/dL (32-36); Mean Corpuscular Hgb 31.8 pg (27.0-32.0); Mean Corpuscular Volume 98.5 fL (81-99); Monocyte# 0.12 X10^3/uL; Monocyte% 2.4 % (0-10); NRBC Flagged by Analyzer 0 % (0-5); Neutrophil # 4.08 X10^3/uL (2.7-7.7); Neutrophil % 81.8 % (47-70); POSITIVE MORPHOLOGY YES; Platelet Count 257 K/mm3 (150-450); RBC Distribution Width CV 14.5 % (11.6-14.6); RBC Distribution Width SD 51.7 fl (35.1-43.9); Red Blood Count 3.27 M/mm3 (4.2-5.4)
[2021-04-04 05:12] LABS: Differential Indicated SCAN CRITERIA MET
[2021-04-04 05:17] LABS: Anion Gap 8 (5-15); BUN 28 mg/dL (7-18); BUN/Creat Ratio 21.1 RATIO (10-20); Calcium,Total 8.9 mg/dL (8.5-10.1); Chloride 105 mmol/L (98-107); Creatinine, Serum 1.33 mg/dL (0.55-1.02); EST Glomerular Filtration Rate 41 mL/min (>60); Est Glom Filt Rate - Afr Amer 49 mL/min (>60); Estimated Creatinine Clearance 32.81 ml/min; Glucose 265 mg/dL (74-106); Magnesium 2.6 mg/dL (1.6-2.6); Potassium 4.8 mmol/L (3.5-5.1); Sodium Level 137 mmol/L (136-145)
[2021-04-04] MEDS: Levothyroxine 175 MCG Tablet PO (05:36)
[2021-04-04] MEDS: 0.9% Saline Lock 10 ML Syringe IV (05:36)
[2021-04-04] MEDS: amLODIPine 10 MG Tablet PO (05:37)
[2021-04-04 05:47] LABS: Differential Comment SCANNED
[2021-04-04] MEDS: Ipratropium/Albuterol Sulfate 3 ML AMPUL.NEB INHALATION ×2 (06:44→10:04)
--- NOTE | 2021-04-04 07:18 | EX.PCM.CONCC ---
Assessment & Plan Assessment/Plan (1) Dyspnea on exertion: PLAN: RECOMMENDATIONS: 1. Wean supplemental oxygen for saturations greater than 90%. 2. Aggressive blood pressure control. 3. Diuresis as tolerated by hemodynamics and renal function. 4. Discontinue IV steroids and prednisone. 5. Perform walking oximetry study prior to consideration for discharge home. 6. The patient should follow-up in the pulmonary medicine clinic, as was previously recommended. 7. Recommend bronchoprovocation challenge as an outpatient, as I am doubtful of her underlying asthma diagnosis. 8. Will sign off at this time. Please call with any additional questions. IMPRESSIONS: 1. Shortness of breath with exertional hypoxia Although there is some documentation in the patient's chart of potential interstitial lung disease, I do not see any significant pulmonary parenchymal abnormalities, with the exception of interstitial septal thickening primarily in the lung bases along with bilateral pleural effusions and associated atelectasis. I do suspect that her presenting dyspnea and exertional hypoxia is likely related to uncontrolled hypertension and small bilateral pleural effusions in the setting of heart failure with preserved ejection fraction. The patient has not followed up in the pulmonary medicine clinic since May 2020. I do not see an indication for IV steroids at this time. I would recommend that the patient be diuresed and her blood pressure aggressively controlled. In addition, the patient can be set up for home-going supplemental oxygen, with plans to follow-up in the pulmonary medicine clinic, as previously recommended. 2. History of coronary artery disease/heart failure with preserved ejection fraction/hypertension Recommend increase in Lasix regimen and aggressive blood pressure control. Outpatient follow-up with cardiology is strongly recommended. This note was generated with [employer] dictation software. It may contain incorrect words, spelling, and punctuation that were not noted in checking the note before signing. HPI Consult Data Date of Consult: 04/04/21 HPI Narrative Reason for Consultation: Acute hypoxemic respiratory insufficiency HPI Narrative: The patient is an 80-year-old female, with a history as outlined below, who presented to the emergency department on April 03 with shortness of breath. The patient is currently being followed by Dr. Dial in the pulmonary medicine clinic. The patient has not been seen in our clinic since May 2020. At that time, there was concern for the possibility that the patient was developing interstitial lung disease. She was also being treated for presumptive asthma. The patient's most recent pulmonary function studies from March 2020 revealed a severe reduction in diffusing capacity. A 6-minute walk test was completed in April 2020 and revealed a kerry exertional oxygen saturation of 90% on room air. Surface echocardiogram last completed in January 2020 revealed normal LV size with an ejection fraction of 70% and stage I diastolic dysfunction. Pharmacologic cardiac stress test recently completed in February 2021 was normal with preserved ejection fraction. On presentation to the emergency department, the patient was noted to be hypertensive with a blood pressure 180/52 mmHg. She was maintaining appropriate oxygen saturations on room air at rest. Initial laboratory evaluation revealed no evidence of a leukocytosis. Chemistry profile was notable for a creatinine of 1.49. BNP was elevated at 229. Troponin was negative. Coronavirus PCR was negative. High-res chest CT was completed and revealed interstitial septal thickening, primarily in the lung bases along with bilateral pleural effusions and associated atelectasis. While in the emergency department, the patient was noted to desaturate with ambulation. In light of her exertional hypoxemia, the patient was admitted to the hospital. The patient did admit to me this morning that the inhalers prescribed to her previously never led to any symptom improvement in her dyspnea. [facility] Medical History (Updated 04/03/21 @ 18:41 by Ginny Hutton) Abdominal aortic aneurysm (AAA) Allergic rhinitis Anemia Atherosclerotic heart disease of [place] coronary artery without angina pectoris Balance problem Bilateral carotid artery stenosis Carpal tunnel syndrome Cataracts, bilateral Chronic pain syndrome Chronic renal failure, stage 3 (moderate) COPD exacerbation CPAP (continuous positive airway pressure) dependence CVA (cerebral vascular accident) Degeneration of lumbar intervertebral disc Depression Dermatitis Diabetes type 2, uncontrolled Diabetic peripheral neuropathy Diastolic dysfunction Essential (primary) hypertension Former smoker GERD (gastroesophageal reflux disease) Glaucoma Hyperlipidemia Hypothyroidism Insomnia Intermittent FUO Morbid obesity NSTEMI (non-ST elevated myocardial infarction) (08/10/16) OMID (obstructive sleep apnea) Osteoarthritis Palpitations Peripheral vascular disease Peripheral vascular occlusive disease Pulmonary hypertension Skin cancer Spinal stenosis of lumbar region Symptomatic anemia Type 2 diabetes mellitus Home Medications multivitamin 1 tab PO DAILY 12/22/18 [History Last Taken Unknown] rosuvastatin 20 mg tablet 20 mg PO QHS #90 tab 01/14/20 [Rx Last Taken Unknown] aspirin 81 mg tablet,delayed release 81 mg PO DAILY 05/12/20 [History Last Taken Unknown] acetaminophen 500 mg tablet 500 mg PO Q8H PRN tab 07/22/20 [History Last Taken Unknown] albuterol sulfate 0.63 mg/3 mL solution for nebulization 0.63 mg INHALATION Q4H PRN 07/22/20 [History Last Taken Unknown] cholecalciferol (vitamin D3) 125 mcg (5,000 unit) tablet 5,000 unit PO DAILY tab 07/22/20 [History Last Taken Unknown] fluticasone propionate 220 mcg/actuation HFA aerosol inhaler 2 puff INHALATION BID PRN gm 07/22/20 [History Last Taken Unknown] nitroglycerin 0.4 mg sublingual tablet 0.4 mg SUBLINGUAL Q5-15M PRN #25 tab 07/22/20 [Rx Last Taken Unknown] zinc 50 mg tablet 100 mg PO DAILY tab 07/22/20 [History Last Taken Unknown] albuterol sulfate 90 mcg/actuation aerosol inhaler 2 puff INHALATION Q4H PRN #18 g 08/01/20 [Rx Last Taken Unknown] furosemide 40 mg tablet 40 mg PO BID #180 tab 08/19/20 [Rx Last Taken Unknown] flash glucose scanning reader #1 ea 11/20/20 [Rx Last Taken Unknown] levothyroxine 175 mcg tablet 175 mcg PO DAILY #90 tab 12/23/20 [Rx Last Taken Unknown] insulin aspart U-100 100 unit/mL (3 mL) subcutaneous pen 30 unit SUBCUT .TIDCM #45 ml 12/25/20 [Rx Last Taken Unknown] trazodone 50 mg tablet 50 mg PO QHS #90 tab 01/27/21 [Rx Last Taken Unknown] flash glucose sensor #2 ea 03/30/21 [Rx Last Taken Unknown] acetylcysteine [NAC] 600 mg PO DAILY 04/03/21 [History Last Taken Unknown] amlodipine-benazepril 1 cap PO DAILY 04/03/21 [History Last Taken Unknown] coenzyme Q10 [CoQ-10] 200 mg PO BID 04/03/21 [History Last Taken Unknown] insulin glargine 80 unit SC QHS 04/03/21 [History Last Taken Unknown] iron 40 mg PO DAILY 04/03/21 [History Last Taken Unknown] isosorbide mononitrate 30 mg PO QHS 04/03/21 [History Last Taken Unknown] isosorbide mononitrate 60 mg PO DAILY 04/03/21 [History Last Taken Unknown] omeprazole 20 mg PO DAILY 04/03/21 [History Last Taken Unknown] potassium 99 mg PO DAILY 04/03/21 [History Last Taken Unknown] vitamin E 200 unit PO DAILY 04/03/21 [History Last Taken Unknown] zinc sulfate-vitamin C [Vitamin C with Zinc] 1 tab PO DAILY 04/03/21 [History Last Taken Unknown] Allergy/AdvReac Type Severity Reaction Status Date / Time metoprolol Allergy Severe Unknown Verified 04/03/21 09:45 morphine AdvReac Vomiting Verified 04/03/21 09:45 bee stings Allergy Anaphylaxis Uncoded 04/03/21 09:45 Family History Daughter Alcohol abuse Anemia Anxiety Asthma Mother Diabetes Heart disease Hypertension Father Heart disease Hypertension Surgical History H/O endovascular stent graft for abdominal aortic aneurysm (2014) H/O left knee surgery History of angioplasty of peripheral vessel (2017) History of coronary artery stent placement (08/10/16) History of hysterectomy History of open reduction and internal fixation (ORIF) procedure History of partial knee replacement History of repair of rotator cuff Social History household members: none housing: house Smoking Status: Former smoker Tobacco: How many years used: 48 how long ago did patient quit smokin second hand exposure: Yes alcohol intake: never substance use type: does not use caffeine: Yes Type: carbonated beverages Number of servings: 1 and coffee Number of servings: 2 what type of physical activity do you participate in: none do you feel safe at home: Yes ROS Constitutional Constitutional: Denies chills, fatigue or fever(s) Eyes Eyes: Denies blurry vision or change in vision ENT HEENT: Denies dysphagia, epistaxis, headache(s) or loss taste/smell Cardiovascular Cardiovascular: Reports dyspnea Respiratory/Chest Respiratory/Chest: Reports dyspnea; Denies cough Gastrointestinal Gastrointestinal: Denies abdominal pain, diarrhea, nausea or vomiting Genitourinary Genitourinary: Denies difficulty urinating Musculoskeletal Musculoskeletal: Denies arthralgias, back pain or joint pain Integumentary Integumentary: Denies lesions, rash or skin ulcer Neurologic Neurologic: Denies abnormal gait, abnormal speech or confusion Psychiatric Psychiatric: Denies anxiety or depression Endocrine Endocrinology: Denies fatigue Hematologic/Lymphatic Hematologic/Lymphatic: Denies easy bleeding or easy bruising Physical Exam Const alert and no apparent distress General Appearance: cooperative Nutritional Appearance: obese HEENT normocephalic, head/scalp atraumatic and moist oral mucous membranes Eyes PERRL, EOMs intact bilaterally and conjunctivae normal Neck supple General: trachea midline Chest inspection of chest normal Resp normal respiratory effort and no use of accessory muscles Auscultation: Negative for rales, rhonchi or wheezes Cardio regular rate and regular rhythm GI normal to inspection, nondistended, normoactive bowel sounds Extremity no clubbing, cyanosis or edema Skin no rashes or lesions noted Neuro CN's II-XII intact bilaterally, moves all extremities and no focal motor deficits Psych cooperative and affect normal Lab / Micro Data Result Diagrams: 04/04/21 04:16 04/04/21 04:16 Labs: Laboratory Results - last 24 hr 04/03/21 10:40: WBC 7.8, RBC 3.63 L, Hgb 11.7 L, Hct 36.1 L, MCV 99.4 H, MCH 32.2 H, MCHC 32.4, RDW Std Deviation 55.2 H, RDW Coeff of [place] 15.1 H, Plt Count 266, MPV 9.8, Immature Gran % (Auto) 0.500, Neut % (Auto) 65.5, Lymph % (Auto) 23.5, [place] % (Auto) 7.3, Eos % (Auto) 2.8, Baso % (Auto) 0.4, Absolute Neuts (auto) 5.1, Absolute Lymphs (auto) 1.84, Nucleated RBC % 0 04/03/21 10:40: Sodium 139, Potassium 4.7, Chloride 108 H, Carbon Dioxide 26.0, Anion Gap 5, BUN 28 H, Creatinine 1.49 H, Estim Creat Clear Calc 29.28, Est GFR (MDRD) Af Amer 43 L, Est GFR (MDRD) Non-Af 36 L, BUN/Creatinine Ratio 18.8, Glucose 205 H, Calcium 9.0, Troponin I High Sens 22 04/03/21 11:30: Urine Color Straw, Urine Clarity Sl. Cloudy, Urine pH 7.0, Ur Specific [place] 1.010, Urine Protein 100 H, Urine Glucose (UA) Normal, Urine Ketones Negative, Urine Occult Blood 50 H, Urine Nitrite Negative, Urine Bilirubin Negative, Urine Urobilinogen Normal, Ur Leukocyte Esterase 500 H, Urine RBC 0-5 SEEN, Urine WBC 5-10 SEEN, Ur Squamous Epith Cells 0-5 SEEN, Urine Bacteria RARE, Urine Mucus RARE 04/03/21 12:04: COVID-19 (ALLA) Not Detected 04/03/21 16:28: Troponin I High Sens 32 04/03/21 16:28: B-Natriuretic Peptide 229.1 H 04/04/21 04:16: WBC 5.0, RBC 3.27 L, Hgb 10.4 L, Hct 32.2 L, MCV 98.5, MCH 31.8, MCHC 32.3, RDW Std Deviation 51.7 H, RDW Coeff of [place] 14.5, Plt Count 257, MPV 10.0, Immature Gran % (Auto) 0.400, Neut % (Auto) 81.8 H, Lymph % (Auto) 15.2 L, [place] % (Auto) 2.4, Eos % (Auto) 0.0, Baso % (Auto) 0.2, Absolute Neuts (auto) 4.1, Absolute Lymphs (auto) 0.76 L, Nucleated RBC % 0, Differential Comment SCANNED 04/04/21 04:16: Sodium 137, Potassium 4.8, Chloride 105, Carbon Dioxide 24.0, Anion Gap 8, BUN 28 H, Creatinine 1.33 H, Estim Creat Clear Calc 32.81, Est GFR (MDRD) Af Amer 49 L, Est GFR (MDRD) Non-Af 41 L, BUN/Creatinine Ratio 21.1 H, Glucose 265 H, Calcium 8.9, Magnesium 2.6 Radiology Impression Chest X-Ray 04/03/21 10:45 IMPRESSION: Findings suggestive of mild degree of CHF superimposed on chronic scarring. Electronically Signed: Bautista Pratt MD at 11:14 EST , Service support , Chest CT 04/03/21 16:25 IMPRESSION: Emphysema with small bilateral pleural effusions with some bibasilar atelectasis. Electronically Signed: Yobani Turner MD at 17:18 EST Tel , Service support , Charges/Coding Visit Charges Inpatient E&M: 41377 Init Hosp L3
--- NOTE | 2021-04-04 07:23 | PN.HOSP_ITS ---
Subjective Subjective Patient seen clinically improved. Plan is for patient to be discharged home with diuretics with plans to follow-up with pulmonary medicine as outpatient Objective Data Objective Data Vital Signs: Vital Signs Temp Pulse Resp BP Pulse Ox 97.4 F L 76 16 162/78 H 94 04/04/21 05:35 04/04/21 05:35 04/04/21 05:35 04/04/21 05:35 04/04/21 05:35 Oxygen Flow Rate (L/min) 2 Oxygen Delivery Method Nasal Cannula Weight: 93.168 kg Body Mass Index (BMI) 32.1 Intake & Output: Intake and Output for Last 24 Hours 04/02/21 04/03/21 04/04/21 23:59 23:59 23:59 Intake Total 820 / 820 Balance 820 / 820 Lab / Micro Data Result Diagrams: 04/04/21 04:16 04/04/21 04:16 Labs: Laboratory Results - last 24 hr 04/03/21 10:40: WBC 7.8, RBC 3.63 L, Hgb 11.7 L, Hct 36.1 L, MCV 99.4 H, MCH 32.2 H, MCHC 32.4, RDW Std Deviation 55.2 H, RDW Coeff of [place] 15.1 H, Plt Count 266, MPV 9.8, Immature Gran % (Auto) 0.500, Neut % (Auto) 65.5, Lymph % (Auto) 23.5, [place] % (Auto) 7.3, Eos % (Auto) 2.8, Baso % (Auto) 0.4, Absolute Neuts (auto) 5.1, Absolute Lymphs (auto) 1.84, Nucleated RBC % 0 04/03/21 10:40: Sodium 139, Potassium 4.7, Chloride 108 H, Carbon Dioxide 26.0, Anion Gap 5, BUN 28 H, Creatinine 1.49 H, Estim Creat Clear Calc 29.28, Est GFR (MDRD) Af Amer 43 L, Est GFR (MDRD) Non-Af 36 L, BUN/Creatinine Ratio 18.8, Glucose 205 H, Calcium 9.0, Troponin I High Sens 04/03/21 11:30: Urine Color Straw, Urine Clarity Sl. Cloudy, Urine pH 7.0, Ur Specific [place] 1.010, Urine Protein 100 H, Urine Glucose (UA) Normal, Urine Ketones Negative, Urine Occult Blood 50 H, Urine Nitrite Negative, Urine Bilirubin Negative, Urine Urobilinogen Normal, Ur Leukocyte Esterase 500 H, Urine RBC 0-5 SEEN, Urine WBC 5-10 SEEN, Ur Squamous Epith Cells 0-5 SEEN, Urine Bacteria RARE, Urine Mucus RARE 04/03/21 12:04: COVID-19 (ALLA) Not Detected 04/03/21 16:28: Troponin I High Sens 32 04/03/21 16:28: B-Natriuretic Peptide 229.1 H 04/04/21 04:16: WBC 5.0, RBC 3.27 L, Hgb 10.4 L, Hct 32.2 L, MCV 98.5, MCH 31.8, MCHC 32.3, RDW Std Deviation 51.7 H, RDW Coeff of [place] 14.5, Plt Count 257, MPV 10.0, Immature Gran % (Auto) 0.400, Neut % (Auto) 81.8 H, Lymph % (Auto) 15.2 L, [place] % (Auto) 2.4, Eos % (Auto) 0.0, Baso % (Auto) 0.2, Absolute Neuts (auto) 4.1, Absolute Lymphs (auto) 0.76 L, Nucleated RBC % 0, Differential Comment SCANNED 04/04/21 04:16: Sodium 137, Potassium 4.8, Chloride 105, Carbon Dioxide 24.0, A nion Gap 8, BUN 28 H, Creatinine 1.33 H, Estim Creat Clear Calc 32.81, Est GFR (MDRD) Af Amer 49 L, Est GFR (MDRD) Non-Af 41 L, BUN/Creatinine Ratio 21.1 H, Glucose 265 H, Calcium 8.9, Magnesium 2.6 Radiography Diagnostic Testing: Radiology Impression Chest X-Ray 04/03/21 10:45 IMPRESSION: Findings suggestive of mild degree of CHF superimposed on chronic scarring. Electronically Signed: Bautista Pratt MD at 11:14 EST , Service support , Chest CT 04/03/21 16:25 IMPRESSION: Emphysema with small bilateral pleural effusions with some bibasilar atelectasis. Electronically Signed: Yobani Turner MD at 17:18 EST Tel , Service support , Physical Exam Narrative GENERAL: Dyspneic at rest HEENT: Atraumatic; EYES; Anicteric, Normal Conjunctiva NECK; supple, normal thyroid, RESPIRATORY: Diminished to auscultation CARDIOVASCULAR: Regular S1 S2, GI: soft, normoactive bowel sounds, : No Renal angle tenderness; EXTREMITIES: No edema, no clubbing, MUSCULOSKELETAL: no muscle waisting NEURO: Awake; no lateralizing signs. SKIN: No Rash PSYCH; Flat affect Assessment & Plan Assessment/Plan (1) Shortness of breath: PLAN: Patient is an 80-year-old lady with multiple comorbidities including emphysema, mild intermittent asthma and pulmonary fibrosis presented with progressive shortness of BREATH 1. Acute on chronic hypoxic respiratory failure ? Due to exacerbation of patient emphysema as well as asthma and as well as suspected congestive heart failure with preserved ejection fraction. Patient has been admitted to regular nursing floor managed with bronchodilator treatment steroid as well as azithromycin. Consult was placed to patient's associate quality engineer. -04/04/2021. Patient was seen by Dr. Magaña with pulmonary medicine Case discussed with him. Recommended discontinuation of steroids 2. Coronary artery disease ? With previous PTCA to an LAD and ostial OM1 lesion 3. Acute on chronic congestive heart failure with preserved ejection fraction ? Patient is on diuretic therapy at home did continue with home dose. Echo obtained on 01/29/2020 demonstrated EF of 70% with stage I diastolic dysfunction 4. Diabetes mellitus type II -patient's oral hypoglycemics held. Placed on long acting insulin, Accu-Cheks a.c. and at bedtime and covered with sliding scale insulin 5. History of AAA ? With endovascular repair 6. Hypertension - Blood pressure control not optimal adjusted antihypertensive regimen 7. Hypothyroidism - Patient is on levothyroxine home dose continued 8. Dyslipidemia -Patient is on statin therapy, continued at home dose 9. Obstructive sleep apnea ? Plan is to continue with patient CPAP therapy at night 10. DVT prophylaxis ? VT Lovenox Charges/Coding Visit Charges Inpatient E&M: 78014 Subs Hosp L2
[2021-04-04] MEDS: Insulin Lispro 100 UNIT/ML INSULN.PEN SC ×2 (08:03→12:29)
[2021-04-04] MEDS: Ferrous Sulfate 325 MG Tablet PO (08:04)
[2021-04-04] MEDS: Potassium Chloride Oral Tablet 10 MEQ PO (08:05)
[2021-04-04] MEDS: Aspirin E.C. 81 MG Tablet PO (08:05)
[2021-04-04] MEDS: Insulin Lispro 100 UNIT/ML INSULN.PEN 30 UNIT SC ×2 (08:06→12:30)
[2021-04-04] MEDS: Multivitamins,Therapeutic Tablet 1 TABLET PO (08:07)
--- NOTE | 2021-04-04 10:06 | PCM.DC.SUM ---
Providers Date of Admission: 04/03/21 Primary Care Physician: Dr. Nena Christiansen MD Consultations 04/03/21 18:30 Consult: Vessel Captain / Pulmonary Medicine Routine Consulting Provider: Pulmonary Medicine yariel Ross Reason for Consult: Pulmonary fibrosis EMERGENT Consult: No MD Notified: Yes Date Notified: 04/03/21 Time Notified: 18:30 Method of Notification: Verbal Reason For Visit: RESPIRATORY FAILURE SECONDARY TO PULMONARY Diagnosis Discharge Diagnosis (1) Shortness of breath: Status: Acute Code(s): R06.02 - Shortness of breath Medications at Discharge Home Medications multivitamin 1 tab PO DAILY 12/22/18 rosuvastatin 20 mg tablet 20 mg PO QHS #90 tab 01/14/20 aspirin 81 mg tablet,delayed release 81 mg PO DAILY 05/12/20 acetaminophen 500 mg tablet 500 mg PO Q8H PRN tab 07/22/20 albuterol sulfate 0.63 mg/3 mL solution for nebulization 0.63 mg INHALATION Q4H PRN 07/22/20 cholecalciferol (vitamin D3) 125 mcg (5,000 unit) tablet 5,000 unit PO DAILY tab 07/22/20 fluticasone propionate 220 mcg/actuation HFA aerosol inhaler 2 puff INHALATION BID PRN gm 07/22/20 nitroglycerin 0.4 mg sublingual tablet 0.4 mg SUBLINGUAL Q5-15M PRN #25 tab 07/22/20 zinc 50 mg tablet 100 mg PO DAILY tab 07/22/20 albuterol sulfate 90 mcg/actuation aerosol inhaler 2 puff INHALATION Q4H PRN #18 g 08/01/20 furosemide 40 mg tablet 40 mg PO BID #180 tab 08/19/20 flash glucose scanning reader #1 ea 11/20/20 levothyroxine 175 mcg tablet 175 mcg PO DAILY #90 tab 12/23/20 insulin aspart U-100 100 unit/mL (3 mL) subcutaneous pen 30 unit SUBCUT .TIDCM #45 ml 12/25/20 trazodone 50 mg tablet 50 mg PO QHS #90 tab 01/27/21 flash glucose sensor #2 ea 03/30/21 acetylcysteine [NAC] 600 mg PO DAILY 04/03/21 amlodipine-benazepril 1 cap PO DAILY 04/03/21 coenzyme Q10 [CoQ-10] 200 mg PO BID 04/03/21 insulin glargine 80 unit SC QHS 04/03/21 iron 40 mg PO DAILY 04/03/21 isosorbide mononitrate 30 mg PO QHS 04/03/21 isosorbide mononitrate 60 mg PO DAILY 04/03/21 omeprazole 20 mg PO DAILY 04/03/21 potassium 99 mg PO DAILY 04/03/21 vitamin E 200 unit PO DAILY 04/03/21 zinc sulfate-vitamin C 1 tab PO DAILY 04/03/21 hydralazine 25 mg PO TID #180 tab 04/04/21 Hospital Course Summary of Care Provided Minutes Spent on Discharge: 35 Hospital Course: Patient is an 80-year-old lady with multiple comorbidities including emphysema, mild intermittent asthma and pulmonary fibrosis presented with progressive shortness of BREATH 1. Acute on chronic hypoxic respiratory failure ? Due to exacerbation of patient emphysema as well as asthma and as well as suspected congestive heart failure with preserved ejection fraction. Patient has been admitted to regular nursing floor managed with bronchodilator treatment steroid as well as azithromycin. 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 -04/04/2021. Patient was seen by Dr. Magaña with pulmonary medicine Case discussed with him. Recommended discontinuation of steroids 2. Coronary artery disease ? With previous PTCA to an LAD and ostial OM1 lesion 3. Acute on chronic congestive heart failure with preserved ejection fraction ? Patient is on diuretic therapy at home did continue with home dose. Echo obtained on 01/29/2020 demonstrated EF of 70% with stage I diastolic dysfunction 4. Diabetes mellitus type II -patient's oral hypoglycemics held. Placed on long acting insulin, Accu-Cheks a.c. and at bedtime and covered with sliding scale insulin 5. History of AAA ? With endovascular repair 6. Hypertension - Blood pressure control not optimal adjusted antihypertensive regimen 7. Hypothyroidism - Patient is on levothyroxine home dose continued 8. Dyslipidemia -Patient is on statin therapy, continued at home dose 9. Obstructive sleep apnea ? Plan is to continue with patient CPAP therapy at night 10. DVT prophylaxis ? SC Lovenox Physical Exam Narrative GENERAL: Cooperative HEENT: Atraumatic; EYES; Anicteric, Normal Conjunctiva NECK; supple, normal thyroid, RESPIRATORY: Diminished to auscultation CARDIOVASCULAR: Regular S1 S2, GI: soft, normoactive bowel sounds, : No Renal angle tenderness; EXTREMITIES: No edema, no clubbing, MUSCULOSKELETAL: no muscle waisting NEURO: Awake; no lateralizing signs. SKIN: No Rash PSYCH; Flat affect Weight / BMI Weight Weight: 93.168 kg Body Mass Index (BMI) 32.1 ABG / Lab / Microbiology Data Result Diagrams: 04/04/21 04:16 04/04/21 04:16 Laboratory: Laboratory Results - last 24 hr 04/03/21 10:40: WBC 7.8, RBC 3.63 L, Hgb 11.7 L, Hct 36.1 L, MCV 99.4 H, MCH 32.2 H, MCHC 32.4, RDW Std Deviation 55.2 H, RDW Coeff of [place] 15.1 H, Plt Count 266, MPV 9.8, Immature Gran % (Auto) 0.500, Neut % (Auto) 65.5, Lymph % (Auto) 23.5, [place] % (Auto) 7.3, Eos % (Auto) 2.8, Baso % (Auto) 0.4, Absolute Neuts (auto) 5.1, Absolute Lymphs (auto) 1.84, Nucleated RBC % 0 04/03/21 10:40: Sodium 139, Potassium 4.7, Chloride 108 H, Carbon Dioxide 26.0, Anion Gap 5, BUN 28 H, Creatinine 1.49 H, Estim Creat Clear Calc 29.28, Est GFR (MDRD) Af Amer 43 L, Est GFR (MDRD) Non-Af 36 L, BUN/Creatinine Ratio 18.8, Glucose 205 H, Calcium 9.0, Troponin I High Sens 22 04/03/21 11:30: Urine Color Straw, Urine Clarity Sl. Cloudy, Urine pH 7.0, Ur Specific [place] 1.010, Urine Protein 100 H, Urine Glucose (UA) Normal, Urine Ketones Negative, Urine Occult Blood 50 H, Urine Nitrite Negative, Urine Bilirubin Negative, Urine Urobilinogen Normal, Ur Leukocyte Esterase 500 H, Urine RBC 0-5 SEEN, Urine WBC 5-10 SEEN, Ur Squamous Epith Cells 0-5 SEEN, Urine Bacteria RARE, Urine Mucus RARE 04/03/21 12:04: COVID-19 (ALLA) Not Detected 04/03/21 16:28: Troponin I High Sens 32 04/03/21 16:28: B-Natriuretic Peptide 229.1 H 04/04/21 04:16: WBC 5.0, RBC 3.27 L, Hgb 10.4 L, Hct 32.2 L, MCV 98.5, MCH 31.8, MCHC 32.3, RDW Std Deviation 51.7 H, RDW Coeff of [place] 14.5, Plt Count 257, MPV 10.0, Immature Gran % (Auto) 0.400, Neut % (Auto) 81.8 H, Lymph % (Auto) 15.2 L, [place] % (Auto) 2.4, Eos % (Auto) 0.0, Baso % (Auto) 0.2, Absolute Neuts (auto) 4.1, Absolute Lymphs (auto) 0.76 L, Nucleated RBC % 0, Differential Comment SCANNED 04/04/21 04:16: Sodium 137, Potassium 4.8, Chloride 105, Carbon Dioxide 24.0, Anion Gap 8, BUN 28 H, Creatinine 1.33 H, Estim Creat Clear Calc 32.81, Est GFR (MDRD) Af Amer 49 L, Est GFR (MDRD) Non-Af 41 L, BUN/Creatinine Ratio 21.1 H, Glucose 265 H, Calcium 8.9, Magnesium 2.6 Radiography Diagnostic Testing: Radiology Impression Chest X-Ray 04/03/21 10:45 IMPRESSION: Findings suggestive of mild degree of CHF superimposed on chronic scarring. Electronically Signed: Bautista Pratt MD at 11:14 EST , Service support , Chest CT 04/03/21 16:25 IMPRESSION: Emphysema with small bilateral pleural effusions with some bibasilar atelectasis. Electronically Signed: Yobani Turner MD at 17:18 EST Tel , Service support , D/C Instructions Discharge Diet: Low fat / Low cholesterol, 1800 Calorie Control Diet, 8 Cup Fluid Restriction and 2000 mg Sodium Diet Discharge Activity: Return to Normal Activity Call your doctor if you observe: Fever of 101 or Higher, Shortness of breath, Fainting spells and Chest pain Meaningful Use Info Meaningful Use Diagnoses (Choose all that apply): CHF CHF RICK/ARB ordered at discharge?: Yes Documented LVEF (%): 70 Discharge Plan Admission Admit Date/Time: 04/03/21 17:23 Attending Provider: Roman Jerry Primary Care Provider: Nena Christiansen Consulting Providers: Ivan Dial ; Agapito Magaña ; Jesusita Nino POLICE MAGISTRATE Discharge Orders/Prescriptions Prescriptions: New hydralazine 25 mg tablet 25 mg PO TID Qty: 180 RF: 0 Continued multivitamin [One Daily Multivitamin] Tablet 1 tab PO DAILY RF: 0 acetaminophen [Tylenol Extra Strength] 500 mg tablet 500 mg PO Q8H PRN (Reason: pain) RF: 0 cholecalciferol (vitamin D3) 125 mcg (5,000 unit) tablet 5,000 unit PO DAILY RF: 0 Flovent HFA 220 mcg/actuation HFA aerosol inhaler 2 puff INHALATION BID PRN (Reason: breathing) RF: 0 albuterol sulfate 0.63 mg/3 mL solution for nebulization 0.63 mg inhalation Q4H PRN (Reason: Wheezing) RF: 0 nitroglycerin 0.4 mg tablet, sublingual 0.4 mg sublingual Q5-15M PRN (Reason: chest pain) Qty: 25 RF: 3 aspirin [Adult Aspirin Regimen] 81 mg tablet,delayed release (DR/EC) 81 mg PO DAILY RF: 0 zinc 50 mg tablet 100 mg PO DAILY RF: 0 vitamin E 200 unit Capsule 200 unit PO DAILY RF: 0 isosorbide mononitrate 30 mg Tablet Extended Release 24 Hr 30 mg PO QHS RF: 0 zinc sulfate-vitamin C 200-100 mg Tablet 1 tab PO DAILY RF: 0 potassium 99 mg Tablet 99 mg PO DAILY RF: 0 iron 40 mg Capsule 40 mg PO DAILY RF: 0 coenzyme Q10 [CoQ-10] 100 mg Capsule 200 mg PO BID RF: 0 acetylcysteine [NAC] 600 mg Capsule 600 mg PO DAILY RF: 0 isosorbide mononitrate 30 mg tablet extended release 24 hr 60 mg PO DAILY RF: 0 omeprazole 20 mg capsule,delayed release(DR/EC) 20 mg PO DAILY RF: 0 amlodipine-benazepril 10-40 mg capsule 1 cap PO DAILY RF: 0 insulin glargine 100 unit/mL (3 mL) insulin pen 80 unit SC QHS RF: 0 rosuvastatin 20 mg tablet 20 mg PO QHS Qty: 90 RF: 3 albuterol sulfate [Ventolin HFA] 90 mcg/actuation HFA aerosol inhaler 2 puff INHALATION Q4H PRN (Reason: shortness of breath or wheezing) Qty: 18 RF: 6 furosemide 40 mg tablet 40 mg PO BID Qty: 180 RF: 3 (DME) FreeStyle Alan 14 Day [place] Misc See Rx Instructions .ROUTE .MEDSUPPLY Qty: 1 RF: 0 levothyroxine 175 mcg tablet 175 mcg PO DAILY Qty: 90 RF: 2 insulin aspart U-100 [Novolog Flexpen U-100 Insulin] 100 unit/mL (3 mL) insulin pen 30 unit subcut .TIDCM Qty: 45 RF: 5 trazodone 50 mg tablet 50 mg PO QHS Qty: 90 RF: 1 (DME) FreeStyle Alan 14 Day Sensor Kit See Rx Instructions .ROUTE .MEDSUPPLY Qty: 2 RF: 3 Referrals / Follow Up: Ivan Dial MD [STAFF PHYSICIAN] - As soon as possible (Call office and they will make you an emergent office visit) Nena Christiansen MD [Primary Care Provider] - In 1 Week Disposition Disposition (needs filled in before D/C Order can be placed): Home, Self Care Charges/Coding Visit Charges Inpatient E&M: 84923 Disch Hosp
[2021-04-04] MEDS: Enoxaparin 30 MG/0.3 ML Syringe SC (10:12)
[2021-04-04] MEDS: Furosemide 40 MG Tablet PO (10:12)
[2021-04-04] MEDS: Isosorbide Mononitrate 60 MG Tablet PO (10:12)
[2021-04-04] MEDS: Lisinopril 40 MG Tablet PO (10:13)
[2021-04-04] MEDS: Pantoprazole Sodium 20 MG Tablet PO (10:13)
[2021-04-04] MEDS: Azithromycin 250 MG Tablet 500 MG PO (10:14)
--- NOTE | 2021-04-04 11:17 | CASEMGMT ---
JENS ESCALANTE Assessment: Face to Face with patient for initial transition planning/care coordination assessment. JENS ESCALANTE introduced self and role at [facility], pt voices understanding and consents to assessment. Pt is sitting up on side of bed in no distress on 2L nc. Pt is A/Ox4 and answers all questions appropriately. Care providers, pharmacy, and demographics verified/updated. Presentation: Pt c/o 'lung pain' for a month Admitting dx: Resp failure secondary to pleural effusions/HF PCP: Елена Specialists: Jayro pulgordy; Eda uro; hemanth Begum Preferred Pharmacy: [facility] Insurance: MCR A/B, Prescription Benefit: Yes Living Will/HPOA: Pt has LW/HPOA and is aware that they are not on file at [facility]. Pt states her son, Óscar Pisano, is HPOA. LNOK: Óscar Pisano, son/HPOA; Keri Pisano, daughter Living Arrangements: Pt lives alone in 1 story home with no steps and states no concerns at home. Pt is independent with ADL's. Transportation: Pt drives self and states no transportation concerns. DME/HHC: Pt has the following DME: cane, walker, w/c, WI shower, cpap, and 2L home oxygen at bedtime thru [facility]. Pt states no need for any further DME. Pt states no hx of HHC or SNF. Pt states no concerns with going home at time of discharge. Pt is retired. Pt states does not smoke cigarettes or drink ETOH. Pt states no further concerns/needs. CM to follow for any further discharge planning/needs. Advised pt to ask for CM if any further questions/concerns/needs arise, voices understanding. Pt Goal: Home Plan: Home, pending increased home oxygen need. SStaten JENS ESCALANTE
--- NOTE | 2021-04-04 11:48 | CASEMGMT ---
Pt qualifies for 2L w/ exertion and already has oxygen at bedtime thru [facility]. Call to Marylu at [facility] and notified of new order and that pt will need portable tank delivered to hospital, voices understanding and new order faxed to [facility] at this time, preferred fax number [phone]. CM to follow. Alvina COLINDRES CM
== END 2021-04-04 14:00 | disposition home or self-care (01) | DRG 291 ==
LOC: ED 17:25 → MS2 17:40
PROVIDERS: Admitting Provider Internal Medicine; Emergency Provider Emergency Medicine; PCP Internal Medicine; Visit Provider Internal Medicine
DX: I13.0 Hypertensive heart and chronic kidney disease with heart failure and stage 1 through stage 4 chronic kidney disease, or unspecified chronic kidney disease (principal); I50.33 Acute on chronic diastolic (congestive) heart failure; J96.21 Acute and chronic respiratory failure with hypoxia; J98.11 Atelectasis; E11.22 Type 2 diabetes mellitus with diabetic chronic kidney disease; J84.10 Pulmonary fibrosis, unspecified; E11.51 Type 2 diabetes mellitus with diabetic peripheral angiopathy without gangrene; E11.42 Type 2 diabetes mellitus with diabetic polyneuropathy; J43.9 Emphysema, unspecified; N18.30 Chronic kidney disease, stage 3 unspecified; G47.33 Obstructive sleep apnea (adult) (pediatric); I25.10 Atherosclerotic heart disease of native coronary artery without angina pectoris; E03.9 Hypothyroidism, unspecified; E78.5 Hyperlipidemia, unspecified; J45.20 Mild intermittent asthma, uncomplicated; K21.9 Gastro-esophageal reflux disease without esophagitis; J45.909 Unspecified asthma, uncomplicated; Z87.891 Personal history of nicotine dependence; G47.00 Insomnia, unspecified; Z66 Do not resuscitate; Z95.5 Presence of coronary angioplasty implant and graft
CPT/HCPCS: 36415; 71046; 71250; 80048; 81001; 83735; 83880; 84484; 85025; 87070; 87205; 87635; 93005; 94640; 99251; 99285; A4216; G0463; U0003; U0005

== ENCOUNTER 2021-04-09 13:08 | Outpatient (CLI) | payer MEDICARE, OTHER, SELFPAY ==
[2020-06-05 10:55] VITALS: BMI 35.8
[2021-04-09 13:00] VITALS: PULSE 83; PULSE 89; PULSE 91; PULSE 95; PULSE 97; PULSE 98; O2SAT 92; O2SAT 93; O2SAT 94; O2SAT 95
--- NOTE | 2021-04-09 13:41 | CPS ---
At minute 4 pt needed to sit down due to legs aching. Pt continued to sit for the remainder of walk. Pt denied that she needed to rest for being S.O.B. when asked.
--- NOTE | 2021-04-09 17:02 | PCM.PSN.6M ---
PSN 6 Minute Walk Test 6 Minute Walk Test 6 Minute Walk Test: 6 Minute Walk Test PSN:6-Minute Walk Test Start: 04/09/21 13:37 Freq: Status: Active Protocol: RESP.6MINW Document 04/09/21 13:00 [facility] (Rec: 04/09/21 13:43 [facility] [id number]) 6 Minute Walk Test Date Performed 04/09/21 Time Performed 13:00 Height 5 ft 5 in Weight: 92.986 kg Weight in Pounds 205.[address]: MANDIE Assistive device used: Walker Pre-test Oxygen Delivery Method Room Air Pulse Ox (%) 94 Pulse Rate (60-100 beats/min) 89 Dyspnea Hermilo Scale (0-10) 0.5 Exertion Hermilo Scale (6-20) 6 1st minute Oxygen Delivery Method Room Air Pulse Ox (%) 94 Pulse Rate (60-100 beats/min) 95 2nd minute Oxygen Delivery Method Room Air Pulse Ox (%) 93 Pulse Rate (60-100 beats/min) 97 3rd minute Oxygen Delivery Method Room Air Pulse Ox (%) 93 Pulse Rate (60-100 beats/min) 98 4th minute Oxygen Delivery Method Room Air Pulse Ox (%) 92 Pulse Rate (60-100 beats/min) 97 Number of Rests Taken 1 5th minute Oxygen Delivery Method Room Air Pulse Ox (%) 94 Pulse Rate (60-100 beats/min) 91 Number of Rests Taken 1 6th minute Oxygen Delivery Method Room Air Pulse Ox (%) 95 Pulse Rate (60-100 beats/min) 89 Dyspnea Hermilo Scale (0-10) 2 Exertion Hermilo Scale (6-20) 14 Number of Rests Taken 1 Post-test Oxygen Delivery Method Room Air Pulse Ox (%) 93 Pulse Rate (60-100 beats/min) 83 Full Laps Walked 6 Partial Lap, Number of Tiles Walked 0 Total Distance Walked (ft) 354 04/09/21 13:41 Cardiopulmonary Services by Annette Gleason At minute 4 pt needed to sit down due to legs aching. Pt continued to sit for the remainder of walk. Pt denied that she needed to rest for being S.O.B. when asked. Initialized on 04/09/21 13:41 - END OF NOTE Interpretation Interpretation: The patient was noted to have a normal saturation at rest on room air. The patient then ambulated only 354 feet over the course of 6 minutes with the assistance of a walker and 3 breaks. Patient essentially was unable to ambulate after the fourth minute secondary to leg ache. The patient did not have significant tachycardia. These findings are consistent with a musculoskeletal/peripheral vascular limitation exercise tolerance. Recommendations Recommendations: No supplemental oxygen is indicated at this time, but patient will need to be potentially retested if exercise capacity improves.
== END 2021-04-09 23:59 | disposition short-term general hospital (02) ==
LOC: PSN 13:09
PROVIDERS: PCP Internal Medicine; Referring Provider Internal Medicine Critical Care Medicine; Visit Provider Internal Medicine Critical Care Medicine
DX: U07.1 COVID-19 (principal); J43.9 Emphysema, unspecified; I50.9 Heart failure, unspecified; J84.10 Pulmonary fibrosis, unspecified
CPT/HCPCS: 94618

== ENCOUNTER 2021-04-17 11:19 | Outpatient (CLI) | payer MEDICARE, OTHER, SELFPAY ==
[2020-06-05 10:55] VITALS: BMI 35.8
[2021-04-17 12:13] LABS: Anion Gap 8 (5-15); BNP,B-Type NATRIURETIC PEPTIDE 108.3 pg/mL (0-100); BUN 31 mg/dL (7-18); BUN/Creat Ratio 23.3 RATIO (10-20); Calcium,Total 8.8 mg/dL (8.5-10.1); Chloride 108 mmol/L (98-107); Creatinine, Serum 1.33 mg/dL (0.55-1.02); EST Glomerular Filtration Rate 41 mL/min (>60); Est Glom Filt Rate - Afr Amer 49 mL/min (>60); Glucose 265 mg/dL (74-106); Potassium 4.3 mmol/L (3.5-5.1); Sodium Level 138 mmol/L (136-145)
== END 2021-04-17 23:59 | disposition short-term general hospital (02) ==
LOC: LAB 11:23
PROVIDERS: PCP Internal Medicine; Referring Provider Nurse Practitioner Gerontology; Visit Provider Nurse Practitioner Gerontology
DX: R06.09 Other forms of dyspnea (principal)
CPT/HCPCS: 36415; 80048; 83880

== ENCOUNTER 2021-05-11 13:05 | Outpatient (CLI) | payer MEDICARE, OTHER, SELFPAY ==
[2020-06-05 10:55] VITALS: BMI 35.8
--- NOTE | 2021-05-11 13:32 | CPS ---
Methacholine 18ml box was not entered onto MAR correctly as incremental dosing so I was not able to scan the doses. Patient received incremental doses of methacholine per protocol. 0mg/ml, 0.0625mg/ml, 0.25mg/ml, 1mg/ml, and 4mg/ml doses were all given to patient per protocol. At the 4mg/ml dose the patients FEV1 decreased by 21% so testing was stopped and patient received an albuterol treatment. 15 ml of 18 ml was given and the last dose was disposed of in the pharmaceutical waste bin.
--- NOTE | 2021-05-12 07:48 | BRONCHALL ---
Bronchoprovocation Challenge Bronchoprovocation Challenge Bronchoprovocation Challenge: INTRODUCTION: The patient is an 80-year-old female who presents for a methacholine challenge secondary to a history of dyspnea. The respiratory therapist reported good patient effort and reproducible results. INTERPRETATION: Initial spirometry did not show any large airways obstructive ventilatory defect with preserved airflows throughout. The patient was then given progressively increasing doses of methacholine in a standardized fashion. At level 4, the patient did experience a 21% decline in FEV1, indicating a positive test. The PD20 FEV1 was documented to be 0.160, indicating mild AHR. IMPRESSION: Positive methacholine challenge.
== END 2021-05-11 23:59 | disposition home or self-care (01) ==
LOC: PSN 13:06
PROVIDERS: PCP Internal Medicine; Referring Provider Internal Medicine Critical Care Medicine; Visit Provider Internal Medicine Critical Care Medicine
DX: R06.09 Other forms of dyspnea (principal)
CPT/HCPCS: 94070; 95070

== ENCOUNTER 2021-05-13 08:31 | Outpatient (CLI) | payer MEDICARE, OTHER, SELFPAY ==
[2020-06-05 10:55] VITALS: BMI 35.8
--- NOTE | 2021-05-13 08:37 | CT_ITS ---
STUDY: CTA OF THE ABDOMINAL AORTA AND BILATERAL LOWER EXTREMITIES REASON FOR EXAM: Female, 80 years old. STRICTURE OF ARTERY RADIATION DOSAGE (If Supplied By Facility): CTDIvol = ( 8.24 ) mGy, DLP = ( 1497.30 ) mGycm TECHNIQUE: Axial CT angiography multi-detector data acquisition was obtained from the to the following intravenous administration of IV 100mL Isovue-370. Axial images and MIP images were reconstructed from the axial data set. Post-processing of the angiographic images was performed, with multiplanar reformation and 3D reconstruction. Individualized dose optimization techniques were used for this CT. TECHNICAL QUALITY: Good COMPARISON: Comparison is made with prior examination dated 08/01/2018. Descriptors of Narrowing: None (0%) Mild (< 50%) Moderate (50-70%) Severe (70-90%) Subtotal/Total Occlusion (90-100%) Non-Evaluable (technically non-diagnostic FINDINGS: Coronary artery calcification. Fatty infiltration of the liver. There is a 2.9 cm cyst in the upper anterior aspect of the left kidney. There is a 2.6 m cyst in the lateral inferior pole of the right kidney. Distended urinary bladder. Abdominal aorta: Diffuse atherosclerotic calcification of the abdominal aorta. No evidence of aneurysm. Celiac and superior mesenteric arteries: Calcific plaques at the origin of the superior mesenteric and celiac arteries causing luminal narrowing. Inferior mesenteric artery: Nonvisualized. Right renal artery(arteries): Sclerotic plaques at the origin Left renal artery(arteries): Calcific plaques at the origin of the left renal artery with stenosis. Right common iliac artery: Nonstenotic plaques. Right external iliac artery: Nonstenotic calcific plaques appear Right internal iliac artery: No demonstrated narrowing. Left common iliac artery: Nonstenotic calcific plaques. Left external iliac artery: Nonstenotic calcific plaques. Left internal iliac artery: No demonstrated narrowing. RIGHT LOWER EXTREMITY Right common femoral artery: Stenotic calcific plaques. Right profundus femoris: No demonstrated narrowing. Right superficial femoral: Scattered mildly stenotic calcific plaques in the proximal portion. Tight stenosis in its distal portion. Right popliteal artery: Scattered stenotic calcific plaques. Right tibioperoneal trunk: No demonstrated narrowing. Right anterior tibial artery: No demonstrated narrowing. Right posterior tibial artery: No demonstrated narrowing. Right peroneal artery: Not visualized. LEFT LOWER EXTREMITY Left common femoral artery: Nonstenotic calcific plaques. Left profundus femoris: No demonstrated narrowing. Left superficial femoral: Scattered nonstenotic calcific plaques. Left popliteal artery: No demonstrated narrowing. Left tibioperoneal trunk: No demonstrated narrowing. Left anterior tibial artery: No demonstrated narrowing. Left posterior tibial artery: No demonstrated narrowing. Left peroneal artery: Not visualized. CT/CT ANGIO ABD&PEL W/O&W/DYE IMPRESSION: Right stenoses throughout the course of the right superficial femoral artery with reconstitution of the distal portion of the superficial femoral artery. 2 vessel runoff in both lower extremities. Electronically Signed: Bautista Pratt MD at 11:17 EST ,
== END 2021-05-13 23:59 | disposition home or self-care (01) ==
LOC: CT 08:33
PROVIDERS: PCP Internal Medicine; Referring Provider Surgery Vascular Surgery; Visit Provider Surgery Vascular Surgery
DX: I77.1 Stricture of artery (principal); E11.51 Type 2 diabetes mellitus with diabetic peripheral angiopathy without gangrene; E11.40 Type 2 diabetes mellitus with diabetic neuropathy, unspecified; I70.213 Atherosclerosis of native arteries of extremities with intermittent claudication, bilateral legs; J45.909 Unspecified asthma, uncomplicated; R09.89 Other specified symptoms and signs involving the circulatory and respiratory systems; E78.70 Disorder of bile acid and cholesterol metabolism, unspecified; I10 Essential (primary) hypertension; Z87.19 Personal history of other diseases of the digestive system; E07.9 Disorder of thyroid, unspecified; Z85.828 Personal history of other malignant neoplasm of skin
CPT/HCPCS: 74174; Q9967

== ENCOUNTER 2021-05-21 10:10 | Outpatient (CLI) | payer MEDICARE, OTHER, SELFPAY ==
[2020-06-05 10:55] VITALS: BMI 35.8
[2021-05-21 11:29] LABS: Absolute Lymphocyte Count 2.08 X10^3/uL (0.83-4.51); Absolute Neutrophil Count 3.9 X10^3/uL (2.0-7.7); Basophil# 0.02 X10^3/uL; Basophil% 0.3 % (0-1); Eosinophil# 0.29 X10^3/uL; Eosinophils% 4.2 % (0-5); Hematocrit 31.9 % (37-47); Hemoglobin 10.2 g/dL (12.0-15.0); Lymphocyte # 2.08 X10^3/ul (0.83-4.51); Mean Corpuscular Hgb 32.8 pg (27.0-32.0); Mean Corpuscular Volume 102.6 fL (81-99); Mean Platelet Vol. 9.9 fl (6.2-12.0); Monocyte# 0.65 X10^3/uL; Monocyte% 9.4 % (0-10); NRBC Flagged by Analyzer 0 % (0-5); Neutrophil # 3.88 X10^3/uL (2.7-7.7); Neutrophil % 55.8 % (47-70); Platelet Count 331 K/mm3 (150-450); RBC Distribution Width CV 15.6 % (11.6-14.6); RBC Distribution Width SD 57.7 fl (35.1-43.9); Red Blood Count 3.11 M/mm3 (4.2-5.4); White Blood Count 6.9 K/mm3 (4.4-11.0)
[2021-05-21 11:52] LABS: BNP,B-Type NATRIURETIC PEPTIDE 154.2 pg/mL (0-100)
[2021-05-21 12:07] LABS: Anion Gap 4 (5-15); BUN 27 mg/dL (7-18); BUN/Creat Ratio 19.6 RATIO (10-20); Calcium,Total 9.4 mg/dL (8.5-10.1); Chloride 114 mmol/L (98-107); Creatinine, Serum 1.38 mg/dL (0.55-1.02); EST Glomerular Filtration Rate 39 mL/min (>60); Est Glom Filt Rate - Afr Amer 47 mL/min (>60); Glucose 82 mg/dL (74-106); Potassium 4.5 mmol/L (3.5-5.1); Sodium Level 142 mmol/L (136-145); Thyroid Stim Hormone (TSH) 1.38 uIU/mL (0.358-3.74)
== END 2021-05-21 23:59 | disposition home or self-care (01) ==
LOC: LAB 10:14
PROVIDERS: PCP Internal Medicine; Referring Provider Nurse Practitioner Gerontology; Visit Provider Nurse Practitioner Gerontology
DX: R06.09 Other forms of dyspnea (principal); I10 Essential (primary) hypertension; R53.83 Other fatigue
CPT/HCPCS: 36415; 80048; 83880; 84439; 84443; 85025

== ENCOUNTER 2021-06-02 12:49 | Outpatient (CLI) | payer MEDICARE, OTHER, SELFPAY ==
[2020-06-05 10:55] VITALS: BMI 35.8
--- NOTE | 2021-06-02 12:58 | US_ITS ---
EXAM: US RETROPERITONEAL COMPLETE, RENAL CLINICAL INDICATION: CHRONIC KIDNEY DISEASE -- back pain TECHNIQUE: Grayscale and color Doppler sonographic evaluation of the retroperitoneum was performed. This report was created using [employer] report generation technology. COMPARISON: CTA 08/01/2018. FINDINGS: RIGHT KIDNEY: Shadowing calculus of the central right kidney measures 7-8 mm (based on shadow width). No hydronephrosis. No perinephric collection is demonstrated. LEFT KIDNEY: Hypoechoic cyst of the left kidney measuring 2.7 cm a smaller as compared to prior CTA 08/01/2018. The lesion is not well evaluated on ultrasound. Imaging parameters. No shadowing calculus. No perinephric collection is demonstrated. BLADDER: No bladder wall thickening or calculi. Bilateral ureteral jets are confirmed. US/Kidney and Bladder IMPRESSION: 1. Nonobstructing right renal calculus. 2. Hypoechoic lesion of the superior left kidney measuring 2.7 cm is smaller when compared to prior CTA 08/01/2018. Given decreased size, likely represents a simple cyst although sonographic appearance is indeterminate. CT abdomen without and with IV contrast (renal protocol) may be of benefit to better characterize lesion. Electronically Signed: Zack Godwin MD ([place]) at 9:25 EDT ,
== END 2021-06-02 23:59 | disposition home or self-care (01) ==
PROVIDERS: PCP Internal Medicine; Visit Provider Internal Medicine Nephrology
DX: N18.32 Chronic kidney disease, stage 3b (principal); N28.9 Disorder of kidney and ureter, unspecified; N20.0 Calculus of kidney
CPT/HCPCS: 76770

== ENCOUNTER 2021-06-11 13:57 | Outpatient (CLI) | payer MEDICARE, OTHER, SELFPAY ==
[2020-06-05 10:55] VITALS: BMI 35.8
--- NOTE | 2021-06-11 14:01 | ECHOD_ITS ---
Reason For Study: DYSPNEA ON EXERTION Procedure This was a 2D Doppler, Color Flow transthoracic echocardiogram. The study was technically difficult. Exam performed in department. Left Ventricle Normal LV size. Left ventricular systolic function is normal. The estimated ejection fraction is 60 %. Stage 2 diastolic dysfunction. No regional wall motion abnormalities noted. Right Ventricle Normal RV size. Normal systolic function. Atria Normal left atrium. Normal right atrium. Mitral Valve There is moderate mitral annular calcification. Tricuspid Valve Normal tricuspid valve. Mild (1+) tricuspid valve insufficiency. Pulmonary artery systolic pressure is 35 mmHg. Aortic Valve The aortic valve is not well visualized. Pulmonic Valve Normal pulmonic valve. Great Vessels Normal aortic root. The pulmonary artery is normal size. Normal inferior vena cava. Pericardium/Pleural No pericardial effusion. Medication 22 gauge I.V. with prn adaptor inserted into left arm. Diluted definity 3ml given slow IV push to enhance endocardial definition. MMode/2D Measurements & Calculations LVIDd: 5.4 cm IVSd: 1.4 cm LVOT diam: 2.0 cm LVIDs: 3.5 cm LVPWd: 1.4 cm RVDd: 4.1 cm FS: 35.0 % LVOT area: 3.1 cm2 Ao root diam: 3.2 cm LAV(MOD-bp): 67.1 ml LVAd ap4: 31.6 cm2 LAV(MOD-bp) Indexed: 33.2 ml/m2 LVLd ap4: 7.6 cm LAV(MOD-sp2): 62.3 ml EDV(MOD-sp4): 106.8 ml LAV(MOD-sp4): 65.0 ml EDV(sp4-el): 110.6 ml LVAs ap4: 16.9 cm2 LVLs ap4: 6.1 cm ESV(MOD-sp4): 37.4 ml ESV(sp4-el): 39.3 ml EF(MOD-sp4): 65.0 % EF(sp4-el): 64.4 % SV(MOD-sp4): 69.4 ml SV(sp4-el): 71.3 ml LA A4 area: 19.9 cm2 LA dimension(2D): 4.1 cm RA A4 area: 13.4 cm2 Time Measurements MV dec time: 0.29 sec Doppler Measurements & Calculations MV E max cali: 150.4 cm/sec Lat Peak E' Cali: 9.4 cm/sec Med Peak E' Cali: 12.1 cm/sec MV A max cali: 111.6 cm/sec E/E' lat: 16.0 E/E' med: 12.5 MV E/A: 1.3 MV V2 max: 174.6 cm/sec MV P1/2t max cali: 181.4 cm/sec Ao V2 max: 200.8 cm/sec MV max P.2 mmHg MV P1/2t: 116.5 msec Ao max P.1 mmHg MV V2 mean: 113.9 cm/sec MV dec slope: 456.1 cm/sec2 Ao V2 mean: 149.1 cm/sec MV mean P.7 mmHg MVA(P1/2t): 1.9 cm2 Ao mean P.6 mmHg MV V2 VTI: 49.8 cm Ao V2 VTI: 45.8 cm MVA(VTI): 1.8 cm2 ABDULAZIZ(I,D): 2.0 cm2 ABDULAZIZ(V,D): 1.7 cm2 LV V1 max: 107.8 cm/sec SV(LVOT): 89.4 ml PA V2 max: 119.2 cm/sec LV V1 max P.6 mmHg LV V1 mean P.7 mmHg LV V1 mean: 77.3 cm/sec LV V1 VTI: 29.1 cm TR max cali: 280.9 cm/sec MV P1/2t-pr_phl: 109.6 msec TR max P.6 mmHg ECHO/Echo Complete W/ Contrast Interpretation Summary Normal LV size. Left ventricular systolic function is normal. The estimated ejection fraction is 60 %. Stage 2 diastolic dysfunction. Contrast injection was performed. Ordering Physician: Bernardino Perez/Eugene Barajas Referring Physician: STEVEN PASCUAL Performed By: Jeanine Sanches RDCS
== END 2021-06-11 23:59 | disposition home or self-care (01) ==
LOC: CVS 13:59
PROVIDERS: PCP Internal Medicine; Referring Provider Nurse Practitioner Gerontology; Visit Provider Nurse Practitioner Gerontology
DX: R06.09 Other forms of dyspnea (principal)
CPT/HCPCS: 93306; Q9957; A4216; C8929